=== PATIENT | female | born 1940 | race Caucasian/White ===

== ENCOUNTER 2020-02-09 09:40 | Inpatient (IN) | payer MEDICARE, BC ==
[~2020-02-09] VITALS: Ht 162.6 cm; Wt 91.6 kg
[~2020-02-09 09:40] MED LIST: AMBIEN10 MG PO; ASPIR 8181 MG PO; ASPIRIN325 M2 PO; ATENOLO PO; ATENOLOL25 MG PO; ATENOLOL50 MG PO; BACLOFEN10 MG PO; CALCIUM500 M3 PO; CLONIDINE HCL0.1 MG PO; ELMIRON PO; ELMIRON100 MG PO; HYDRALAZINE HCL25 MG PO; MAXZIDE 75 MG-1 EACH PO; METHOCARBAMOL750 MG PO; MORPHINE SULFAT15 MG PO; MOVE FREE PO; NEXIUM40 MG; NITROBID PO; NITROGLYCERIN9 MG PO; NORCO 10-325 T1 EACH PO; NORCO 10MG-325MG1 EA PO; NORCO 7.5-3251 EACH PO; PRAVASTATIN SOD20 MG PO; VITAMIN C PO; Z.0.AMBIEN CR12.5 MG PO; Z.0.AMLODIPINE BESY1 PO; Z.0.ATENOLOL50 MG PO; Z.0.ATIVAN1 MG PO; Z.0.ELMIRON100 MG PO; Z.0.FISH OIL500 M1 PO; Z.0.GLIPIZIDE10 MG PO; Z.0.GLUCOSAMINE1000; Z.0.NEXIUM40 MG PO; Z.0.ULTRAM50 MG PO; Z.0.VESICARE10 MG PO; Z.0.VITAMIN D3 1,01 PO; Z.0.VYTORIN 10-201 E PO; Z.0.ZOLOFT50 MG PO; ZOLOFT100 MG PO; move free PO
[2020-02-09] MEDS ORDERED: SODIUM CHLORIDE 0.9% 1000ML 1,000 ML IV STA ×3 (09:53→12:58)
[2020-02-09] MEDS ORDERED: ONDANSETRON HCL INJ 2MG/ML 2ML 2 MG/ML VIAL IV NR (10:00)
[2020-02-09] MEDS ORDERED: DIPHENOXYLATE/ATROPINE TAB PO NR (10:00)
[2020-02-09] MEDS ORDERED: SODIUM CHLORIDE FLUSH 10 ML SYR INJ PRN (10:00)
[2020-02-09] MEDS ORDERED: TRIMETHOPRIM/SULFAMETHOXAZOLE 160 MG in DEXTROSE 5% 250ML 250 ML IV ONE (10:00)
[2020-02-09] MEDS ORDERED: METRONIDAZOLE 500MG/NS 100ML 100 ML IV NR (10:15)
[2020-02-09 10:33] LABS: BASOPHILS # (AUTO) 0.1 (0.0-0.1); EOSINOPHILS # (AUTO) 0.1 (0.0-0.4); HEMATOCRIT 34.6 % (34.2-44.1); HEMOGLOBIN 11.2 g/dL (12.0-16.0); LYMPHOCYTES # (AUTO) 0.5 (1.0-3.2); MEAN CORPUSCULAR HEMOGLOBIN 28.9 pg (28-32); MEAN CORPUSCULAR HGB CONC 32.4 g/dL (31-35); MEAN CORPUSCULAR VOLUME 89.2 fL (81-99); MONOCYTES # (AUTO) 1.7 (0.2-0.8); NEUTROPHILS # (AUTO) 27.5 (2.1-6.9); PLATELET COUNT 284 x10e3/uL (140-360); RED BLOOD COUNT 3.88 x10e6/uL (3.6-5.1); RED CELL DISTRIBUTION WIDTH 14.2 % (11.7-14.4)
[2020-02-09 10:45] LABS: ALBUMIN 2.5 g/dL (3.5-5.0); ALBUMIN/GLOBULIN RATIO 0.7 (0.8-2.0); ANION GAP 19.3 mmol/L (8-16); CALCIUM 9.2 mg/dL (8.4-10.2); CREATININE, SERUM 2.34 mg/dL (0.57-1.11); POTASSIUM 4.3 mmol/L (3.5-5.1)
[2020-02-09] MEDS ORDERED: DIATRIZOATE MEGL/DIATRIZOA SOD 30 ML BTL PO ONE (11:09)
--- NOTE | 2020-02-09 11:45 | NUR ---
Unable to confirm home medication list at this time. Patient unable to verify current medications.
--- NOTE | 2020-02-09 12:00 | NUR ---
Incontinence care provided for stool for patient.
--- NOTE | 2020-02-09 13:07 | Diagnostic Imaging Report ---
EXAMINATION: CT of the abdomen and pelvis without contrast. TECHNIQUE: Spiral CT images of the abdomen and pelvis were performed from the lung bases to the lesser trochanters. No intravenous contrast was given due to decreased GFR. Dilute Gastrografin was given, however, patient was unable to drink full amount.. Coronal and sagittal reformatted images were obtained. COMPARISON: CT abdomen and pelvis 10/15/2019 CLINICAL HISTORY:Diarrhea, abdominal pain for 3 days, history of colitis DISCUSSION: ABSENCE OF INTRAVENOUS CONTRAST DECREASES SENSITIVITY FOR DETECTION OF FOCAL LESIONS AND VASCULAR PATHOLOGY. ABDOMEN/PELVIS: LOWER THORAX: Minimal atelectatic changes in bilateral lower lobes. Stable mild to moderate cardiomegaly and small pleural effusion. Atherosclerotic calcification of the coronary arteries and thoracic aorta. HEPATOBILIARY: No focal hepatic lesions. Mild prominence of the central intrahepatic bile ducts. Stable mild dilation of the common bile duct. No radiopaque intraluminal filling defects. GALLBLADDER: Absent. Cholecystectomy clips. SPLEEN: Stable borderline splenomegaly, which measures 12.4 cm in AP diameter. PANCREAS: No focal masses or ductal dilatation. ADRENALS: No adrenal nodules. KIDNEYS/URETERS: No hydronephrosis or stones. No contour abnormalities. Stable 1.8 cm fluid density simple cyst in the right superior pole (series 2, image 26). PELVIC ORGANS/BLADDER: Bladder is unremarkable. Uterus is absent. No adnexal masses. PERITONEUM/RETROPERITONEUM: Trace free simple fluid in the pelvic cul-de-sac. No free air. LYMPH NODES: No intra-abdominal,retroperitoneal, pelvic or inguinal lymphadenopathy. VESSELS: Marked atherosclerotic calcification of the abdominal aorta. No evidence of portal venous gas. GI TRACT: Moderate to marked wall thickening extending from the proximal to mid descending colon to the rectum, however, worse in the proximal and mid sigmoid colon (for example coronal image 29). There is associated mild surrounding fat stranding. No pneumatosis. Rest of the large bowel as well as the small bowel shows no wall thickening, dilation or obstruction. Stomach is grossly unremarkable. BONES AND SOFT TISSUES: Marked multilevel degenerated discs in the lumbosacral spine with associated rightward curvature, worse at L1-L2 and L2-L3. Grade 1 anterolisthesis of L3 on L2 and L4 on L3. Extensive bilateral gluteal region calcifications, likely secondary to injections IMPRESSION: 1. Findings highly suggestive of colitis, which may be ischemic in this patient with atherosclerotic disease given the location, versus infectious. Inflammatory colitis is less likely. No pneumatosis, portal venous gas or pneumoperitoneum. Of note, patient had abdominal CTA 10/15/2019 which showed no occlusion, however, this may be secondary to low flow state. Currently, very low GFR precludes a contrast-enhanced study. Signed by: Dr. Albaro Orellana M.D. on 02/09/2020 1:04 PM
--- NOTE | 2020-02-09 13:54 | NUR ---
Incontinence care provided for patient.
[2020-02-09] MEDS ORDERED: METHYLPREDNISOLONE SOD SUCC 125 MG/2ML VIAL IV NR (14:15)
[2020-02-09] MEDS ORDERED: SODIUM CHLORIDE 0.9% 1000ML 1,000 ML IV SCH (14:30)
[2020-02-09] MEDS ORDERED: MORPHINE SULFATE 2 MG/ML SYR 1ML IV PRN (14:30)
[2020-02-09] MEDS ORDERED: VANCOMYCIN 250MG/5ML ORAL SOLN PO SCH (15:00)
--- NOTE | 2020-02-09 15:20 | NUR ---
Report attempted was told that nurse would call back.
--- NOTE | 2020-02-09 15:58 | NUR ---
RCD PT FROM ER BY BED PT IS ALERT AND ORIENTED VITALS CHECKED PT RESTING ON BED IV PATENT BY SALINE FLUSH ADMISSION ASSESSMENT AND HISTORY DONE INSTRUCTED THE PT REGARDING VISITOR POLICY AND HOSPITAL ROUTINE BED LOW AND LOCKED CALL LIGHT IN REACH
[2020-02-09] MEDS: LACTATED RINGER'S 1,000 ML INJ SCH (16:00)
[2020-02-09] MEDS: INSULIN LISPRO 100 UNIT/1 ML 3ML VIAL SQ SCH ×2 (16:30→21:00)
[2020-02-09] MEDS: VANCOMYCIN 250MG/5ML ORAL SOLN PO SCH ×2 (17:00→23:07)
--- NOTE | 2020-02-09 17:24 | History and Physical ---
PRIMARY CARE DOCTOR: Clemente David DO CHIEF COMPLAINT: Diarrhea. HISTORY OF PRESENT ILLNESS: This is an 80-year-old woman, who was hospitalized here about 4 months ago with colitis. At that time, C. diff was negative. The patient was discharged to a longterm home and about a month ago, the patient went home. The patient was doing okay until about 4 days ago. The patient began to have diarrhea and also abdominal cramps. The patient also have some nausea and vomiting and also a little bit of shortness of breath and fever. Denies chest pain. The patient just had a fall about 2 days ago. She is mostly wheelchair bound, however, occasionally uses a walker to get around. She also has sacral decubitus ulcer. PAST MEDICAL AND SURGICAL HISTORY: 1. Diabetes. 2. Hypertension. 3. Chronic back pain. 4. Cholecystectomy. 5. Hysterectomy. 6. Spine surgery. 7. Paroxysmal atrial fibrillation. MEDICATIONS: Please see medication reconciliation form. ALLERGIES: PLEASE SEE THE LIST, WHICH INCLUDES MULTIPLE MEDICINES. SOCIAL HISTORY: Quit smoking 30 years ago. FAMILY HISTORY: Hypertension. REVIEW OF SYSTEMS: A 10-point review of system obtained and nothing else is significant other than what is stated in HPI. PHYSICAL EXAMINATION: VITAL SIGNS: Temperature 98.6, pulse 83, respiratory rate 18, blood pressure 121/56. GENERAL: No acute distress. SKIN: No rash. HEENT: Anicteric. Oropharynx is clear. LUNGS: Clear anteriorly. HEART: Regular rate and rhythm. Normal S1, S2. ABDOMEN: Soft, left greater than right. Tenderness to palpation with mild rebound tenderness. NEUROLOGIC: Alert and oriented x3. Cranial nerves 2 through 12 are grossly intact. MUSCULOSKELETAL: Painless range of motion of her joints. PSYCHIATRIC: No hallucination. LABORATORY DATA: Laboratory smith, white count 30.8, hemoglobin 11.2, platelet count 284. Sodium 134, bicarb 19, BUN 41, creatinine 2.34. Lipase is normal. Lactic acid is normal. C. diff came back positive. CT of the abdomen noted. ASSESSMENT AND PLAN: 1. Sepsis, present on admission due to peritonitis due to Clostridium difficile colitis with severe elevated leukocytosis. Plan, we will start her on p.o. vancomycin with severe Clostridium difficile colitis. The patient will need to be monitored serially with abdominal exam and continue to monitor WBC. 2. Acute kidney injury on top of chronic kidney disease, likely stage 3 with mild hyponatremia, which is asymptomatic. I will continue with lactated Ringer, IV fluid, and repeat creatinine in the morning. 3. Debility. We will start physical therapy evaluation. 4. Paroxysmal atrial fibrillation, not on anticoagulation candidate due to falls. 5. Diabetes. Sliding scale for now. 6. Sacral decubitus ulcer. We will consult Wound Care. 7. Possibly gastrointestinal/deep venous thrombosis prophylaxis. Heparin subcu. Yiching MD ROCHELLE Boyle/VIOLETTE /[id number] cc: Clemente David DO
[2020-02-09 17:32] VITALS: BP 149/82
[2020-02-09 17:36] VITALS: BP 149/82
[2020-02-09 17:47] VITALS: BP 149/82
--- NOTE | 2020-02-09 18:41 | NUR ---
PT RESTING ON BED BED SIDE REPORT GIVEN TO ONCOMING NURSE
--- NOTE | 2020-02-09 18:47 | NUR ---
PT RESTING ON BED BED SIDE REPORT GIVEN TO ONCOMING NURSE
--- NOTE | 2020-02-09 19:30 | NUR ---
received report from day nurse. patient is resting comfortably in the bed. bed is in the lowest position and call light is within reach. will continue to monitor patient.
[2020-02-09 20:00] VITALS: BP 151/54
[2020-02-09] MEDS: HEPARIN SOD (PORCINE) 5,000 UNIT/ML VIAL SC SCH (21:00)
[2020-02-09 21:32] VITALS: BP 151/54
--- NOTE | 2020-02-09 21:54 | NUR ---
Patient states she take Ativan 1mg at home to help her sleep. Patient is requesting for medication to be restarted. MD notified. MD agreed to restart this medication.
[2020-02-09] MEDS ORDERED: METHYLPREDNISOLONE SOD SUCC 125 MG/2ML VIAL IV SCH (22:00)
[2020-02-09] MEDS: LORAZEPAM 1 MG TAB PO SCH (22:23)
[2020-02-10] VITALS (8 sets, daily range): BP systolic 133–154; BP diastolic 48–62
[2020-02-10 00:07] LABS: BASOPHILS # (AUTO) 0.1 (0.0-0.1); BASOPHILS % 0.3 % (0.0-1.0); HEMATOCRIT 34.7 % (34.2-44.1); HEMOGLOBIN 11.5 g/dL (12.0-16.0); LYMPHOCYTES # (AUTO) 0.6 (1.0-3.2); LYMPHOCYTES % 2.1 % (18.0-39.1); MEAN CORPUSCULAR HEMOGLOBIN 29.3 pg (28-32); MEAN CORPUSCULAR HGB CONC 33.1 g/dL (31-35); MEAN CORPUSCULAR VOLUME 88.3 fL (81-99); MONOCYTES # (AUTO) 1.3 (0.2-0.8); MONOCYTES % 4.5 % (4.4-11.3); NEUTROPHILS # (AUTO) 26.2 (2.1-6.9); NEUTROPHILS % 91.5 % (38.7-80.0); PLATELET COUNT 271 x10e3/uL (140-360); RED BLOOD COUNT 3.93 x10e6/uL (3.6-5.1); RED CELL DISTRIBUTION WIDTH 14.3 % (11.7-14.4)
[2020-02-10] MEDS: LACTATED RINGER'S 1,000 ML INJ SCH ×3 (05:37→21:00)
[2020-02-10] MEDS: VANCOMYCIN 250MG/5ML ORAL SOLN PO SCH ×3 (05:37→17:49)
[2020-02-10] MEDS: METRONIDAZOLE 500MG/NS 100ML 100 ML IV SCH ×5 (05:37→20:44)
[2020-02-10 06:18] LABS: BASOPHILS # (AUTO) 0.1 (0.0-0.1); BASOPHILS % 0.3 % (0.0-1.0); EOSINOPHILS # (AUTO) 0.1 (0.0-0.4); EOSINOPHILS % 0.3 % (0.0-6.0); HEMOGLOBIN 10.9 g/dL (12.0-16.0); LYMPHOCYTES # (AUTO) 0.6 (1.0-3.2); LYMPHOCYTES % 1.9 % (18.0-39.1); MEAN CORPUSCULAR HEMOGLOBIN 28.6 pg (28-32); MEAN CORPUSCULAR HGB CONC 32.1 g/dL (31-35); MEAN CORPUSCULAR VOLUME 89.2 fL (81-99); MONOCYTES # (AUTO) 1.3 (0.2-0.8); MONOCYTES % 4.6 % (4.4-11.3); NEUTROPHILS # (AUTO) 25.8 (2.1-6.9); NEUTROPHILS % 91.2 % (38.7-80.0); PLATELET COUNT 236 x10e3/uL (140-360); RED BLOOD COUNT 3.81 x10e6/uL (3.6-5.1); RED CELL DISTRIBUTION WIDTH 14.4 % (11.7-14.4)
[2020-02-10 06:42] LABS: ALBUMIN 2.1 g/dL (3.5-5.0); ALBUMIN/GLOBULIN RATIO 0.7 (0.8-2.0); ANION GAP 16.7 mmol/L (8-16); CALCIUM 8.5 mg/dL (8.4-10.2); CREATININE, SERUM 2.1 mg/dL (0.57-1.11); POTASSIUM 3.7 mmol/L (3.5-5.1)
--- NOTE | 2020-02-10 06:42 | NUR ---
PATIENT IS RESTING COMFORTABLY IN THE BED. NO DISTRESS NOTED. CALL HEIN IS WITHIN REACH.
--- NOTE | 2020-02-10 07:00 | NUR ---
Received bedside shift report from off going nurse. Patient in stable condition, no s/s of distress noted. No pain voiced. IV fluids running, IV site asymptomatic, and patent with dressing C/D/I. Telemetry applied and working. Bed in lowest position and locked. Call light within reach. All personal belongings within reach.
[2020-02-10] MEDS: INSULIN LISPRO 100 UNIT/1 ML 3ML VIAL SQ SCH ×4 (07:30→20:24)
[2020-02-10] MEDS: HEPARIN SOD (PORCINE) 5,000 UNIT/ML VIAL SC SCH ×2 (09:00→20:42)
[2020-02-10 09:24] LABS: LYMPHOCYTES % (MANUAL) 4 % (19-48); MONOCYTES % (MANUAL) 3 % (3.4-9.0); NEUTROPHILS % (MANUAL) 93 % (40-74)
[2020-02-10] MEDS ORDERED: ULTRAM 50MG50 MG PO (17:00)
[2020-02-10] MEDS ORDERED: BACLOFEN 10 MG TAB PO PRN (17:15)
--- NOTE | 2020-02-10 19:07 | NUR ---
Completed bedside shift report and rounding with oncoming nurse. Patient in stable condition, no s/s of distress noted. No pain voiced. IV fluids running, IV site asymptomatic, and patent with dressing C/D/I. Telemetry applied and working. Bed in lowest position and locked. Call light within reach. All personal belongings within reach.
[2020-02-10] MEDS: LORAZEPAM 1 MG TAB PO SCH (20:41)
[2020-02-11] VITALS (9 sets, daily range): BP systolic 120–154; BP diastolic 43–68
[2020-02-11 05:46] LABS: BASOPHILS # (AUTO) 0.1 (0.0-0.1); BASOPHILS % 0.5 % (0.0-1.0); EOSINOPHILS # (AUTO) 0.1 (0.0-0.4); EOSINOPHILS % 0.6 % (0.0-6.0); HEMATOCRIT 36.6 % (34.2-44.1); HEMOGLOBIN 11.7 g/dL (12.0-16.0); LYMPHOCYTES # (AUTO) 0.8 (1.0-3.2); LYMPHOCYTES % 4.1 % (18.0-39.1); MEAN CORPUSCULAR HEMOGLOBIN 29.1 pg (28-32); NEUTROPHILS # (AUTO) 17.2 (2.1-6.9); PLATELET COUNT 248 x10e3/uL (140-360); RED BLOOD COUNT 4.02 x10e6/uL (3.6-5.1); RED CELL DISTRIBUTION WIDTH 14.4 % (11.7-14.4)
[2020-02-11 06:11] LABS: ANION GAP 13.4 mmol/L (8-16); CALCIUM 7.8 mg/dL (8.4-10.2); CREATININE, SERUM 2.04 mg/dL (0.57-1.11); POTASSIUM 3.4 mmol/L (3.5-5.1)
[2020-02-11] MEDS: VANCOMYCIN 250MG/5ML ORAL SOLN PO SCH ×5 (06:15→23:36)
[2020-02-11] MEDS: METRONIDAZOLE 500MG/NS 100ML 100 ML IV SCH ×3 (06:15→21:07)
--- NOTE | 2020-02-11 07:00 | NUR ---
BEDSIDE SHIFT REPORT RECEIVED FROM CRYSTALLIZER OPERATOR RN [facility]. PT DENIES NEEDS AT THIS TIME/.
--- NOTE | 2020-02-11 07:15 | NUR ---
patient is resting comfortably in the bed. bed is in lowest position and call light is within reach.
[2020-02-11] MEDS: LACTATED RINGER'S 1,000 ML INJ SCH ×3 (08:34→23:36)
[2020-02-11] MEDS: SERTRALINE HCL 100 MG TAB PO SCH (08:38)
[2020-02-11] MEDS: HEPARIN SOD (PORCINE) 5,000 UNIT/ML VIAL SC SCH ×2 (08:39→21:20)
[2020-02-11] MEDS: INSULIN LISPRO 100 UNIT/1 ML 3ML VIAL SQ SCH ×4 (08:40→21:20)
[2020-02-11] MEDS ORDERED: POTASSIUM CHLORIDE 20 MEQ TAB CR PO ONE (10:15)
[2020-02-11] MEDS: ONDANSETRON HCL INJ 2MG/ML 2ML 2 MG/ML VIAL IV PRN (12:06)
[2020-02-11] MEDS ORDERED: ASPIRIN 81 MG CHEW TAB ONE (12:10)
[2020-02-11] MEDS: ASPIRIN 325 MG TAB PO SCH (12:30)
--- NOTE | 2020-02-11 13:36 | NUR ---
WOUND CARE CONSULT FOR RED SACRAL AREA NOTED BLANCHABLE NURSING TO MAINTAIN CONSERVATIVE PUP STATUS AND INTERVENTIONS AND CUE PATIENT TO TURN AND OFFLOAD TO PREVENT FURTHER INSULT RELATED TO PRESSURE PATIENT TO USE ALLEVYN FOAM DRESSING TO PREVENT FURTHER INJURY RELATED TO FRICTION Addendum: 02/11/20 at 1339 by Yunior Brenner RN Amended: Links added.
--- NOTE | 2020-02-11 15:13 | NUR ---
SPOKE WITH PATIENT ABOUT SNF ORDER, GAVE CHOICES IN NETWORK. WAS ABLE TO GET CHOICE FOR [facility], WILL COMPLETE [facility] AND [facility] TO [facility] WITH PACKET AND FAX CLINICALS TO FACILITY.
[2020-02-11] MEDS: LORAZEPAM 1 MG TAB PO SCH (21:07)
[2020-02-12] VITALS (8 sets, daily range): BP systolic 134–155; BP diastolic 47–67
[2020-02-12 05:55] LABS: BASOPHILS # (AUTO) 0.1 (0.0-0.1); BASOPHILS % 0.8 % (0.0-1.0); EOSINOPHILS # (AUTO) 0.2 (0.0-0.4); EOSINOPHILS % 1.6 % (0.0-6.0); HEMATOCRIT 35.4 % (34.2-44.1); HEMOGLOBIN 11.5 g/dL (12.0-16.0); LYMPHOCYTES % 8.3 % (18.0-39.1); MEAN CORPUSCULAR HGB CONC 32.5 g/dL (31-35); MEAN CORPUSCULAR VOLUME 89.2 fL (81-99); MONOCYTES # (AUTO) 0.7 (0.2-0.8); MONOCYTES % 5.8 % (4.4-11.3); NEUTROPHILS % 77.4 % (38.7-80.0); PLATELET COUNT 246 x10e3/uL (140-360); RED BLOOD COUNT 3.97 x10e6/uL (3.6-5.1); RED CELL DISTRIBUTION WIDTH 14.6 % (11.7-14.4)
[2020-02-12 06:12] LABS: ANION GAP 12.6 mmol/L (8-16); CALCIUM 7.2 mg/dL (8.4-10.2); CREATININE, SERUM 2.15 mg/dL (0.57-1.11); MAGNESIUM 1.7 MG/DL (1.3-2.1); POTASSIUM 3.6 mmol/L (3.5-5.1)
[2020-02-12] MEDS: METRONIDAZOLE 500MG/NS 100ML 100 ML IV SCH ×3 (06:20→21:56)
[2020-02-12] MEDS: VANCOMYCIN 250MG/5ML ORAL SOLN PO SCH ×3 (06:20→16:45)
[2020-02-12] MEDS: SERTRALINE HCL 100 MG TAB PO SCH (10:22)
[2020-02-12] MEDS: ASPIRIN 325 MG TAB PO SCH (10:29)
[2020-02-12] MEDS: LACTATED RINGER'S 1,000 ML INJ SCH ×2 (10:29→21:56)
[2020-02-12] MEDS: HYDRALAZINE HCL 25 MG TAB PO SCH ×2 (10:29→16:45)
[2020-02-12] MEDS: INSULIN LISPRO 100 UNIT/1 ML 3ML VIAL SQ SCH ×4 (10:30→20:57)
[2020-02-12] MEDS: HEPARIN SOD (PORCINE) 5,000 UNIT/ML VIAL SC SCH ×2 (10:30→21:45)
--- NOTE | 2020-02-12 12:24 | NUR ---
SPOKE WITH [facility], AFTER RUNNING HER BENEFITS SHE HAS NO DAYS AVAILABLE FOR SNF.
--- NOTE | 2020-02-12 19:26 | NUR ---
report given to oncoming nurse, walking rounds complete, pt stable at shift change.
[2020-02-12] MEDS: LORAZEPAM 1 MG TAB PO SCH (21:56)
[2020-02-13] VITALS (8 sets, daily range): BP systolic 133–144; BP diastolic 37–70
[2020-02-13] MEDS: VANCOMYCIN 250MG/5ML ORAL SOLN PO SCH ×4 (00:01→17:34)
[2020-02-13] MEDS: METRONIDAZOLE 500MG/NS 100ML 100 ML IV SCH ×3 (05:30→22:00)
--- NOTE | 2020-02-13 07:30 | NUR ---
PT IN BED SLEEPINNG ,NO S/S DISCOMFORT.
[2020-02-13] MEDS: INSULIN LISPRO 100 UNIT/1 ML 3ML VIAL SQ SCH ×4 (08:30→20:50)
[2020-02-13] MEDS: ASPIRIN 325 MG TAB PO SCH (09:00)
[2020-02-13] MEDS: HYDRALAZINE HCL 25 MG TAB PO SCH ×2 (09:00→17:00)
[2020-02-13] MEDS: HEPARIN SOD (PORCINE) 5,000 UNIT/ML VIAL SC SCH ×2 (09:00→20:56)
[2020-02-13] MEDS: SERTRALINE HCL 100 MG TAB PO SCH (09:00)
--- NOTE | 2020-02-13 09:31 | NUR ---
LET PT KNOW SHE IS OUT OF SNF DAYS, SHE STATES SHE HAD HOME HEALTH SET UP AND THEY HAD ONLY BEEN COMING FOR A WEEK. CALLED SON CORRIE TO SEE IF HE KNEW NAME, LEFT MESSAGE TO RETURN CALL.
[2020-02-13] MEDS: ONDANSETRON HCL INJ 2MG/ML 2ML 2 MG/ML VIAL IV PRN (09:39)
--- NOTE | 2020-02-13 09:59 | NUR ---
RECEIVED CALL FROM CORRIE STATING HE WAS NOT HAPPY WITH THE HOME HEALTH, THINKS THEY SHOULD HAVE COME OUT MORE THAN A COUPLE OF HOURS A WEEKS. STATES HE IS ABOUT TO RETURN TO WORK AND CANNOT TAKE CARE OF HER. STATES HE WILL DISCUSS WITH HIS BROTHER AND LET OTHER CM OR MYSELF KNOW. FOUND OUT FROM [facility] THAT PT HAD BEEN SET UP WITH [facility] UPON DISCHARGE FROM THEM.
--- NOTE | 2020-02-13 16:21 | NUR ---
Received order for inpatient rehab eval. Spoke to pt at bedside regarding DC plan. States MD mentioned inpatient rehab to her. Gave choice for [facility] in [place]. Signed choice letter placed in front of chart. Copy to pt. Referral faxed to [facility] at [phone] Rosalinda with [facility] was informed of referral.
--- NOTE | 2020-02-13 17:35 | NUR ---
PT UP IN BED DENIES PAIN,AGREES TO GO TO INPATIENT REHAB,NO DISTRESS NOTED
[2020-02-13] MEDS: TRAMADOL HCL 50 MG TAB PO PRN (20:55)
[2020-02-13] MEDS: LORAZEPAM 1 MG TAB PO SCH (20:55)
[2020-02-14] MEDS: VANCOMYCIN 250MG/5ML ORAL SOLN PO SCH ×3 (00:30→11:50)
[2020-02-14 01:21] VITALS: BP 156/60
[2020-02-14] MEDS: METRONIDAZOLE 500MG/NS 100ML 100 ML IV SCH (05:44)
[2020-02-14 05:52] LABS: BASOPHILS # (AUTO) 0.1 (0.0-0.1); BASOPHILS % 0.6 % (0.0-1.0); EOSINOPHILS # (AUTO) 0.2 (0.0-0.4); EOSINOPHILS % 1.6 % (0.0-6.0); HEMATOCRIT 32.8 % (34.2-44.1); HEMOGLOBIN 10.6 g/dL (12.0-16.0); LYMPHOCYTES # (AUTO) 1.2 (1.0-3.2); MEAN CORPUSCULAR HEMOGLOBIN 28.2 pg (28-32); MEAN CORPUSCULAR HGB CONC 32.3 g/dL (31-35); MEAN CORPUSCULAR VOLUME 87.2 fL (81-99); MONOCYTES # (AUTO) 0.6 (0.2-0.8); MONOCYTES % 6.2 % (4.4-11.3); NEUTROPHILS # (AUTO) 6.5 (2.1-6.9); NEUTROPHILS % 66.6 % (38.7-80.0); PLATELET COUNT 288 x10e3/uL (140-360); RED BLOOD COUNT 3.76 x10e6/uL (3.6-5.1); RED CELL DISTRIBUTION WIDTH 14.6 % (11.7-14.4)
[2020-02-14 07:18] VITALS: BP 161/67
[2020-02-14 08:04] VITALS: BP 173/49
[2020-02-14 08:20] VITALS: BP 173/49
[2020-02-14] MEDS: HYDRALAZINE HCL 25 MG TAB PO SCH (09:08)
[2020-02-14] MEDS: SERTRALINE HCL 100 MG TAB PO SCH (09:08)
[2020-02-14] MEDS: ASPIRIN 325 MG TAB PO SCH (09:08)
[2020-02-14] MEDS: HEPARIN SOD (PORCINE) 5,000 UNIT/ML VIAL SC SCH (09:20)
[2020-02-14] MEDS: INSULIN LISPRO 100 UNIT/1 ML 3ML VIAL SQ SCH ×2 (09:20→12:32)
[2020-02-14] MEDS: TRAMADOL HCL 50 MG TAB PO PRN (09:40)
[2020-02-14] MEDS ORDERED: AMLODIPINE BESYLATE 10 MG TAB PO SCH (10:00)
[2020-02-14] MEDS ORDERED: ATENOLOL 50 MG TAB PO SCH (10:00)
[2020-02-14 10:06] LABS: ANISOCYTOSIS SLIGHT; EOSINOPHILS % (MANUAL) 2 % (0-7); LYMPHOCYTES % (MANUAL) 15 % (19-48); MONOCYTES % (MANUAL) 4 % (3.4-9.0); MYELOCYTES % (MANUAL) 5 % (0-0); NEUTROPHILS % (MANUAL) 74 % (40-74); PLATELET ESTIMATE ADEQUATE; PLATELET MORPHOLOGY COMMENT RARE EDTA CLUMPING; RBC MORPHOLOGY COMMENT NORMAL
[2020-02-14 11:34] VITALS: BP 129/61
--- NOTE | 2020-02-14 11:38 | NUR ---
INPATIENT REHAB DISCHARGE INFORMATION PATIENT HAS BEEN ACCEPTED TO: [address] [place] [address] ACCEPTING MANAGER CODING: Sangeetha Cox ACCEPTING MD: Dr. Omar Melvin ROOM: will be assigned on report NURSE CALL REPORT TO: [phone] THE FOLLOWING DOCUMENTS MUST ACCOMPANY PATIENT FOR TRANSFER: copy of chart, transfer MAR MOT INFO RECEIVED FROM: Rosalinda with [facility] ORDER/RECONCILED MED LIST: to be obtained by bedside RN [id number] DNR: n/a MOT was completed and placed with pt's packet at nurses station PAULETTE Oden and Katie supervisor varnish were notified of MOT.
[2020-02-14] MEDS ORDERED: VANCOMYCIN 250MG/5ML ORAL SOLN PO SCH (12:00)
--- NOTE | 2020-02-14 12:50 | NUR ---
Report called to [facility] and given to Betsey CALDWELL of patient's status
--- NOTE | 2020-02-14 14:28 | NUR ---
Left upper arm IV discontinued. No signs of infiltration noted. Placed 2x2 gauze and tape. Patient take via stretcher by EMS. AAOX3 to person, place, situation. Respirations even and unlabored. Respirations even and unlabored. Transfer package given to EMS. All personal belongings taken with patient.
[2020-02-14] MEDS ORDERED: HYDRALAZINE HCL 25 MG TAB PO SCH (15:00)
--- NOTE | 2020-02-15 09:47 | Discharge Summary ---
PRIMARY CARE DOCTOR: Clemente David DO FINAL DIAGNOSIS: Severe Clostridium difficile colitis. SECONDARY DIAGNOSES: 1. Stage 3 chronic kidney disease due to diabetes, stable. 2. Debility. 3. Paroxysmal atrial fibrillation. 4. Hypertension. 5. Obesity. CONSULTANTS: Dr. Mckeon, GI. PROCEDURES/STUDIES PERFORMED: Abdominal CT. HISTORY: Per H and P. HOSPITAL COURSE: The patient was put on high dose of p.o. vancomycin and IV Flagyl. Slowly, the patient improved. Her white blood cell count went from 30 down to 9. Her diarrhea is getting better as well. Initially, the patient was getting IV fluid due to severe diarrhea. Her abdominal pain is better as well. As far as her paroxysmal atrial fibrillation, the patient is not an anticoagulation candidate due to falls. Therefore, we will continue her full-dose aspirin daily for stroke prophylaxis. The patient received heparin subcu for chemical DVT prophylaxis. I have updated her primary care doctor about this hospitalization. The patient was seen and examined today. It took 32 minutes total to discharge this patient. CONDITION ON DISCHARGE: Improved. DISCHARGE MEDICATIONS: Please see medication reconciliation form. Of note, the patient will be discharged to [facility] Inpatient Rehab today. MD ROCHELLE Tobin/VIOLETTE /[id number] cc: Clemente David DO
== END 2020-02-14 14:30 | DRG 872 ==
LOC: ER 09:40 → ERHOLD 14:23 → MED/SURG2 16:26
PROVIDERS: ADMIT Internal Medicine; ATTEND Internal Medicine
DX: A41.9 Sepsis, unspecified organism (principal); A04.72 Enterocolitis due to Clostridium difficile, not specified as recurrent; N17.9 Acute kidney failure, unspecified; N18.3 Chronic kidney disease, stage 3 (moderate); I48.0 Paroxysmal atrial fibrillation; I12.9 Hypertensive chronic kidney disease with stage 1 through stage 4 chronic kidney disease, or unspecified chronic kidney disease; E66.9 Obesity, unspecified; Z68.34 Body mass index [BMI] 34.0-34.9, adult; L89.159 Pressure ulcer of sacral region, unspecified stage; Z87.891 Personal history of nicotine dependence
CPT/HCPCS: 36415; 74176; 80048; 80053; 82948; 83605; 83690; 83735; 84145; 85007; 85025; 85027; 87040; 87045; 87493; 97139; 99251; 99285; J1644; J2405; J7030; J7121

== ENCOUNTER 2020-03-20 19:25 | Inpatient (IN) | payer MEDICARE, BC ==
[~2020-03-20] VITALS: Ht 170.2 cm; Wt 89.8 kg
[~2020-03-20 19:25] MED LIST changes: +ULTRAM 50MG50 MG PO
--- OUTSIDE RECORDS SUMMARY | 2020-03-20 19:31 | XMS REPORT | Summary of Care ---
Author Author [facility] Organization [facility] Address Unknown Phone Unavailable Encounter HQ Encntr_alias(FIN) [id number] Date(s): 01/26/17 - 01/26/17 [facility] [place] [address] [place] [address] [phone] Discharge Disposition: Home or Self Care Attending Physician: Pawel Aragon MD Vital Signs No data available for this section Problem List No data available for this section Allergies, Adverse Reactions, Alerts No data available for this section Medications No data available for this section Results No data available for this section Immunizations No data available for this section Procedures No data available for this section Social History No data available for this section Assessment and Plan No data available for this section
--- OUTSIDE RECORDS SUMMARY | 2020-03-20 19:31 | XMS REPORT ---
Author Leyda Laureano Organization [employer] Address Unknown Phone Unavailable Care Team Providers Care Cleaning Porter Name Role Phone Omar Mendenhall CP Unavailable Allergies No Known Allergies Problems Problem Type Condition Code Onset Dates Condition Statu s Assessment Radiculopathy of lumbar region M54.16 Active Assessment Other intervertebral disc displacement, lumbar region M51.26 Active Assessment Low back pain M54.5 Active Problem Greater trochanteric bursitis of left hip M70.62 Active Problem Chronic pain syndrome G89.4 Active Problem Low back pain M54.5 Active Problem Age-related cognitive decline R41.81 Active Problem 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 Problem Encounter for long-term (current) use of other medicat ions Z79.899 Active Problem Lumbar post-laminectomy syndrome M96.1 Active Problem Dizziness and giddiness R42 Acti ve Problem Pain R52 Active Problem Lumbar neuritis M54.16 Active Problem Drug induced constipation K59.03 Ac tive Problem Osteoarthritis of knees, bilateral M17.0 Active Problem 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 Active Problem Left hip pain M25.552 Active Problem Degenerative arthritis of knee, bilateral M17.0 Active Problem 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 Active Problem History of falling Z91.81 Active Problem Adverse effect of other opioids, initial encounter T40 .2X5A Active Problem Other fatigue R53.83 Active Problem Primary insomnia F51.01 Active Problem Restless legs syndrome G25.81 Activ e Problem Osteoarthritis of knee, unspecified M17.9 Active Problem Other hyperlipidemia E78.4 Active Problem Hypertensive heart disease without heart failure I11.9 Active Problem Restlessness and agitation R45.1 A ctive Problem Tinnitus, bilateral H93.13 Active Problem Hypertensive heart disease with heart failure I11.0 Active Medications Medication Code System Code Instructions Start Date End Date Status Dosage GlipiZIDE [facility] 41426312210 10 MG Orally Once a day Ac tive 1 tablet Zoloft ND 11208680505 50 MG Orally Once a day Acti ve 1 tablet Vitamin C [facility] [address]-88 1000 MG Orally Active as directed Pravastatin Sodium ND 75455468635 20 MG Orally Once a day Active 1 tablet Amlodipine Besylate ND 40859339537 10 MG Orally Once a day Active 1 tablet Baclofen ND 26470151514 10 MG Orally Three times a d ay prn muscle spasms Sep 26, 2018 Oct 26, 2018 Active 1/2 tablet with food or milk TraMADol HCl ER ND 86478805021 100 MG Orally Once a day Sep 26 Active 1 tablet Elmiron [facility] 78699674540 100 MG Orally Three times a day Active 1 capsule on an empty stomach VESIcare [facility] 70514935941 10 MG Orally Once a day Act michelle 1 tablet Calcium [facility] 24497672803 500 MG Orally Twice a day Ac tive 1 tablet with meals Ambien [facility] 80133254553 10 MG Orally Once a day Acti ve 1 tablet at bedtime as needed Metronidazole [facility] 37490264147 250 MG Orally every 8 hrs Active 2 tablets Atenolol [facility] 74665151507 50 MG Orally Once a day Act michelle 1 tablet Tramadol HCl [facility] 71487479695 50 MG Orally every 8 hrs prn pain D 2017 Active 1 tablet as needed Nitro-Bid [facility] [address]-09 Active not defi yuni Aspirin [facility] 79706895562 325 MG Orally Once a day Act michelle 1 tablet Results No Known Results Summary Purpose [employer] Submission
--- OUTSIDE RECORDS SUMMARY | 2020-03-20 19:31 | XMS REPORT ---
Author Leyda Laureano Organization [employer] Address Unknown Phone Unavailable Care Team Providers Care Regrinder Operator Name Role Phone Omar Mendenhall CP Unavailable Allergies, Adverse Reactions, Alerts Substance Reaction Event Type Ibuprofen hives Drug Allergy Stadol itcing Drug Allergy Lyrica dizziness Drug Allergy Fiorinal hives Drug Allergy NSAIDS effects kidneys Drug Allergy penicillin itching Drug Allergy Problems Problem Type Condition Code Onset Dates Condition Statu s Assessment Degenerative arthritis of knee, bilateral M17.0 Active Assessment Encounter for long-term (current) use of other medicat ions Z79.899 Active Assessment Greater trochanteric bursitis of left hip M70.62 Active Assessment Low back pain M54.5 Active Assessment Lumbar post-laminectomy syndrome M96.1 Active Assessment Chronic pain syndrome G89.4 Active Assessment Weakness R53.1 Active Problem Greater trochanteric bursitis of left hip M70.62 Active Problem Chronic pain syndrome G89.4 Active Problem Low back pain M54.5 Active Problem Age-related cognitive decline R41.81 Active Problem Restlessness and agitation R45.1 A ctive Problem Degenerative arthritis of knee, bilateral M17.0 Active Problem Lumbar post-laminectomy syndrome M96.1 Active Problem Pain R52 Active Problem Other fatigue R53.83 Active Problem Left hip pain M25.552 Active Problem Drug induced constipation K59.03 Ac tive Problem Osteoarthritis of knees, bilateral M17.0 Active Problem 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 Active Assessment Controlled type 2 diabetes m ellitus with diabetic autonomic neuropathy, without long-term current use of insulin E11.43 Active Problem Lumbar neuritis M54.16 Active Problem Encounter for long-term (current) use of other medicat ions Z79.899 Active Assessment Adverse effect of other opioids, initial encounter T40 .2X5A Active Problem Dizziness and giddiness R42 Acti ve Assessment Left hip pain M25.552 Active Problem 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 Active Assessment Lumbar neuritis M54.16 Active Problem Adverse effect of other opioids, initial encounter T40 .2X5A Active Assessment Pain in left leg M79.605 Active Problem History of falling Z91.81 Active Assessment Drug induced constipation K59.03 Ac tive Problem Hypertensive heart disease with heart failure I11.0 Active Assessment 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 Active Problem Tinnitus, bilateral H93.13 Active Assessment History of falling Z91.81 Active Problem Osteoarthritis of knee, unspecified M17.9 Active Assessment Osteoarthritis of knees, bilateral M17.0 Active Problem Hypertensive heart disease without heart failure I11.9 Active Assessment Age-related cognitive decline R41.81 Active Problem Other hyperlipidemia E78.4 Active Assessment 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 Problem Restless legs syndrome G25.81 Activ e Problem Primary insomnia F51.01 Active Medications Medication Code System Code Instructions Start Date End Date Status Dosage TraMADol HCl ER [facility] 57080927572 100 MG Orally Once a day Oct 102018Nov 23, 2018 Active 1 tablet Zoloft [facility] 58152248084 50 MG Orally Once a day Acti ve 1 tablet Elmiron [facility] 43139393962 100 MG Orally Three times a day Active 1 capsule on an empty stomach Aspirin ND 98525601410 325 MG Orally Once a day Act michelle 1 tablet Metronidazole ND 94953894932 250 MG Orally every 8 hrs Active 2 tablets Nitro-Bid [facility] [address]-42 Active not defi yuni Pravastatin Sodium [facility] 00034647674 20 MG Orally Once a day Active 1 tablet Amlodipine Besylate ND 69183339608 10 MG Orally Once a day Active 1 tablet GlipiZIDE ND 13298237047 10 MG Orally Once a day Ac tive 1 tablet Atenolol [facility] 88047042739 50 MG Orally Once a day Act michelle 1 tablet Calcium [facility] 26112365393 500 MG Orally Twice a day Ac tive 1 tablet with meals Vitamin C [facility] [address]-29 1000 MG Orally Active as directed VESIcare [facility] 73703566002 10 MG Orally Once a day Act michelle 1 tablet Lyrica [facility] 16053994745 75 MG Orally nightly for 3 days, then twice a day Active 1 capsule Ambien [facility] 60157419156 10 MG Orally Once a day Acti ve 1 tablet at bedtime as needed Baclofen ND 94379902405 10 MG Orally Thr ee times a day prn muscle spasms, caution sedation, do not drive on this med Oct 26, 2018 Nov 25, 2018 Activ e 1/2 tablet with food or milk Tramadol HCl ND 19114429204 50 MG Orally every 8 hrs prn pain Oct 26, 2018 Nov 23, 2018 Active 1 tablet as needed Vital Signs Date/Time: Oct 26, 2018 Blood Pressure Systolic 126 mm Hg Weight 205 lbs Height 68 in BMI 31.17 Index Respiratory Rate 16 /min Cardiac Monitoring Heart Rate 54 /min Blood Pressure Diastolic 59 mm Hg Results No Known Results Summary Purpose [employer] Submission
--- OUTSIDE RECORDS SUMMARY | 2020-03-20 19:31 | XMS REPORT ---
Author Leyda Laureano Organization [employer] Address Unknown Phone Unavailable Care Team Providers Care Electric Container Tester Name Role Phone Omar Mendenhall CP Unavailable Allergies No Known Allergies Problems Problem Type Condition Code Onset Dates Condition Statu s Problem Greater trochanteric bursitis of left hip M70.62 Active Problem Encounter for long-term (current) use of other medicat ions Z79.899 Active Problem Chronic pain syndrome G89.4 Active Problem Other hyperlipidemia E78.4 Active Problem Restlessness and agitation R45.1 A ctive Problem Low back pain M54.5 Active Problem Pain R52 Active Problem Other fatigue R53.83 Active Problem 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 Active Problem Lumbar neuritis M54.16 Active Problem Drug induced constipation K59.03 Ac tive Problem Osteoarthritis of knees, bilateral M17.0 Active Problem 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 Active Problem Left hip pain M25.552 Active Problem Degenerative arthritis of knee, bilateral M17.0 Active Problem Lumbar post-laminectomy syndrome M96.1 Active Problem Dizziness and giddiness R42 Acti ve Problem Adverse effect of other opioids, initial encounter T40 .2X5A Active Problem History of falling Z91.81 Active Problem Age-related cognitive decline R41.81 Active Problem Hypertensive heart disease without heart failure I11.9 Active Problem Osteoarthritis of knee, unspecified M17.9 Active Problem 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
--- OUTSIDE RECORDS SUMMARY | 2020-03-20 19:31 | XMS REPORT ---
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0 Active Medications Medication Code System Code Instructions Start Date End Date Status Dosage Pravastatin Sodium [facility] 92979194154 20 MG Orally Once a day Active 1 tablet Vitamin C [facility] [address]-08 1000 MG Orally Active as directed Tramadol HCl ND 52870625295 50 MG Orally dailt prn breakthru pain February 13, 2019 March 13, 2019 Active 1 tablet as needed Baclofen ND 80329228507 10 MG Orally Thr ee times a day prn muscle spasms, caution sedation, do not drive on this med February 13, 2019 March 15, 2019 Activ e 1/2 tablet with food or milk Elmiron ND 73058963174 100 MG Orally Three times a day Active 1 [place] [address]-74 Active not defi yuni Atenolol [facility] 55347833480 50 MG Orally Once a day Act michelle 1 tablet Calcium [facility] 38829241328 500 MG Orally Twice a day Ac tive 1 tablet with meals Aspirin [facility] 74871586302 325 MG Orally Once a day Act michelle 1 tablet TraMADol HCl ER [facility] 42502778640 200 MG Orally Once a day FebruaryMarch 13, 2019 Active 1 tablet Metronidazole [facility] 28973603645 250 MG Orally every 8 hrs Active 2 tablets Ambien [facility] 36689532990 10 MG Orally Once a day Acti ve 1 tablet at bedtime as needed Zoloft [facility] 70476309555 50 MG Orally Once a day Acti ve 1 tablet GlipiZIDE [facility] 73971412866 10 MG Orally Once a day Ac tive 1 tablet Amlodipine Besylate [facility] 11193696658 10 MG Orally Once a day Active 1 tablet VESIcare [facility] 00176240046 10 MG Orally Once a day Act michelle 1 tablet Results No Known Results Summary Purpose [employer] Submission
--- OUTSIDE RECORDS SUMMARY | 2020-03-20 19:31 | XMS REPORT ---
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 Active Problem Other fatigue R53.83 Active Problem Lumbar neuritis M54.16 Active Assessment Radiculopathy of lumbar region M54.16 Active Problem Drug induced constipation K59.03 Ac tive Problem Left hip pain M25.552 Active Problem Lumbar post-laminectomy syndrome M96.1 Active Problem Pain R52 Active Problem Adverse effect of other opioids, initial encounter T40 .2X5A Active Problem History of falling Z91.81 Active Problem Greater trochanteric bursitis of left hip M70.62 Active Assessment Other intervertebral disc displacement, 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 14832943726 10 MG Orally Once a day Act michelle 1 tablet Aspirin [facility] 88138813307 325 MG Orally Once a day Act michelle 1 tablet Tramadol HCl [facility] 24422521418 50 MG Orally every 8 hrs prn break through pain January 16, 2019 February 13, 2019 Active 1 tablet as needed TraMADol HCl ER ND 01531892646 100 MG Orally Once a day January 16, 2019 February 13, 2019 Active 1 tablet Elmiron [facility] 55356072763 100 MG Orally Three times a day Active 1 capsule on an empty stomach Nitro-Bid [facility] [address]-10 Active not defi yuni GlipiZIDE ND 47112877097 10 MG Orally Once a day Ac tive 1 tablet Calcium [facility] 90047488709 500 MG Orally Twice a day Ac [place]ive 1 [place] [address]-59 1000 MG Orally Active as directed Baclofen ND 19366317423 10 MG Orally Thr ee times a day prn muscle spasms, caution sedation, do not drive on this med January 16, 2019 February 15, 2019 Activ e 1/2 tablet with food or milk Ambien [facility] 10640778823 10 MG Orally Once a day Acti ve 1 tablet at bedtime as needed Metronidazole ND 80635809410 250 MG Orally every 8 hrs Active 2 tablets Amlodipine Besylate ND 78336363853 10 MG Orally Once a day Active 1 tablet Atenolol [facility] 92901968549 50 MG Orally Once a day Act michelle 1 tablet Zoloft [facility] 35893086674 50 MG Orally Once a day Acti ve 1 tablet Pravastatin Sodium [facility] 92947487889 20 MG Orally Once a day Active 1 tablet Results No Known Results Summary Purpose [employer] Submission
--- OUTSIDE RECORDS SUMMARY | 2020-03-20 19:31 | XMS REPORT | Summary of Care ---
Author Organization Unknown Address Unknown Phone Unavailable Encounter [facility]([place]) [id number] Date(s): 12/02/14 - 12/02/14 [facility] Outpatient Imaging - [address] [address]- [facility] [phone] Discharge Disposition: Home Physician Attending: Bill Cole DO Vital Signs No data available for this [...]
--- OUTSIDE RECORDS SUMMARY | 2020-03-20 19:31 | XMS REPORT | Continuity of Care Document ---
Author Author KURTIS Barnett [employer] Address Unknown Phone Unavailable Care Team Providers Care Obstetrics Specialist Name Role Phone NationalField Information Exchange Unavailable Un available Problems Problem Status Onset Date Classification Date Reported Comments Source Pain in left hip 01/06/2018 04/07/2018 [facility] [place] AMS Active 1 [facility] 722.52 - LUMB/LUMBOSAC D Active 11/18/2014 [facility] [place] Other intervertebral disc degeneration, lumbosacral region 04/07/2018 [facility] [place] Unilateral primary osteoarthritis, left hip 04/07/2018 [facility] [place] Osteoarthritis of knee, unspecified Active Problem 09/2020 [facility] 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 Active Problem 02/19/2020 [facility] Other fatigue Active Problem 02/19/2020 [facility] Lumbar neuritis Active Problem 02/19/2020 [facility] Radiculopathy of lumbar region Active Diagnosis 0 04/09/2019 [facility] Drug induced constipation Acti ve Problem 09/2020 [facility] Left hip pain Active Problem 02/19/2020 [facility] Lumbar post-laminectomy syndrome Active Problem 09/2020 [facility] Pain Active Problem 02/19/2020 [facility] Adverse effect of other opioids, initial encounter Active Problem 02/19/2020 [facility] History of falling Active Problem 02/19/2020 [facility] Greater trochanteric bursitis of left hip Active Problem 02/19/2020 [facility] Other intervertebral disc displacement, lumbar region Active Diagnosis 04/09/2019 [facility] Low back pain Active Problem 02/19/2020 [facility] Degenerative arthritis of knee, bilateral Active Problem 02/19/2020 [facility] Chronic pain syndrome Active Problem 02/19/2020 [facility] Degeneration of lumbar or lumbosacral in tervertebral disc Active [place] 02/19/2020 [facility] Encounter for long-term (current) use of other medications Active [place] 02/19/2020 [facility] Osteoarthritis of knees, bilateral Active Problem 09/2020 [facility] Other hyperlipidemia Active Problem 2019 [facility] Restlessness and agitation Act michelle Problem 11/2018 [facility] Dizziness and giddiness Active Problem 2019 [facility] Age-related cognitive decline Active Diagnosis 0 03/29/2019 [facility] Hypertensive heart disease without heart failure Active Problem 2019 [facility] Borderline intellectual functioning Active Diagnosis 0 03/29/2019 [facility] Restless legs syndrome Active Problem 2019 [facility] Primary insomnia Active Problem 2019 [facility] Hypertensive heart disease with heart failure Active Problem 2019 [facility] Tinnitus, bilateral Active Problem 2019 [facility] Trochanteric bursitis of left hip Active Diagnosis 0 04/11/2019 [facility] Weakness Active Diagnosis 03/29/2019 [facility] 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, without long-term current use of insulin Active Diagnosis 0 03/29/2019 [facility] Pain in left leg Active Diagnosis 03/29/2019 [facility] 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, left hip Active Diag nosis 02/19/2020 [facility] ALTERED MENTAL STATUS, UNSPECIFIED Active [facility] LUMBAR POST LAMINECTOMY SYNDROME Active [facility] [place] Medications Medication Details Route Status Patient Instructions Ordering Provider Order Date Source Lidocaine HCl as directed Externally Active 5 % Externally bid prn pain [place] 08/02/2019 [facility] TraMADol HCl ER 1 tablet Orally Active 200 MG Orally Once a da y [place] 08/02/2019 [facility] Tramadol HCl 1 tablet as needed Orally Active 50 mg Orally q 12 hours prn breakthru pain [place] 08/02/2019 [facility] Tramadol HCl 1 tablet as needed Orally Active 50 MG Orally dailt prn breakthru pain [place] 02/13/2019 [facility] Baclofen 1/2 tablet with food or milk Orally Active 10 MG Orally Three times a day prn muscle spasms, caution sedation, do not drive on this med [place] 02/13/2019 [facility] TraMADol HCl ER 1 tablet Orally Active 200 MG Orally Once a da y [place] 02/13/2019 [facility] Tramadol HCl 1 tablet as needed Orally Active 50 MG Orally every 8 hrs prn break through pain Abdirashid 01/16/2019 [facility] TraMADol HCl ER 1 tablet Orally Active 100 MG Orally Once a da y [facility] 01/16/2019 [facility] Baclofen 1/2 tablet with food or milk Orally Active 10 MG Orally Three times a day prn muscle spasms, caution sedation, do not drive on this [facility] 01/16/2019 [facility] Tramadol HCl 1 tablet as needed Orally Active 50 MG Orally every 8 hrs prn pain [facility] 11/21/2018 [facility] TraMADol HCl ER 1 tablet Orally Active 100 MG Orally Once a da y [facility] 11/21/2018 [facility] Baclofen 1/2 tablet with food or milk Orally Active 10 MG Orally Three times a day prn muscle spasms, caution sedation, do not drive on this [facility] 11/21/2018 [facility] TraMADol HCl ER 1 tablet Orally Active 100 MG Orally Once a da y [facility] 10/26/2018 [facility] Baclofen 1/2 tablet with food or milk Orally Active 10 MG Orally Three times a day prn muscle spasms, caution sedation, do not drive on this [facility] 10/26/2018 [facility] Tramadol HCl 1 tablet as needed Orally Active 50 MG Orally every 8 hrs prn pain [facility] 10/26/2018 [facility] Baclofen 1/2 tablet with food or milk Orally Active 10 MG Orally Three times a day prn muscle spasms [facility] 09/26/2018 [facility] TraMADol HCl ER 1 tablet Orally Active 100 MG Orally Once a da y [facility] 09/26/2018 [facility] Tramadol HCl 1 tablet as needed Orally Active 50 MG Orally every 8 hrs prn pain [facility] 09/26/2018 [facility] Tylenol/codeine #4 #30 one tab let orally Active 300-60 mg orally TID prn pain [facility] 08/29/2018 [facility] Baclofen 1/2 tablet with food or milk Orally Active 10 MG Orally Three times a day prn muscle spasms [facility] 08/15/2018 [facility] Tylenol/codeine #4 #30 one tab let orally Active 300-60 mg orally twice a day (bid) as needed (prn) pain [facility] 08/15/2018 [facility] Tylenol/codeine #4 #30 one tab let orally Active 300-60 mg orally twice a day (bid) as needed (prn) pain [facility] 07/18/2018 [facility] Baclofen 1/2 tablet with food or milk Orally Active 10 MG Orally Three times a day prn muscle spasms [facility] 07/18/2018 [facility] Baclofen 1/2 tablet with food or milk Orally Active 10 MG Orally Three times a day prn muscle spasms [facility] 06/20/2018 [facility] Tylenol/codeine #4 #30 one tab let orally Active 300-60 mg orally twice a day (bid) as needed (prn) pain [facility] 06/20/2018 [facility] Valium 1 tablet as needed Orally Active 2 MG Orally made chew 2 0 minutes prior to MRI if not overly sedated [facility] 05/23/2018 [facility] Valium 1 tablet as needed Orally Active 5 MG Orally 1 hour prio r to MRI [facility] 05/23/2018 [facility] influenza virus vaccine, inactivated Notes: (Same as: Fluzone Quadrivalent, Fluarix Quadrivalent) For 3 years of age and older (0.5 mL IM) Shake well before use Inactive 07/28/2017 [facility] nter pneumococcal 13-valent vaccine Notes: Shake well prior to use (Same as: Prevnar 13) Inactive 07/28/2017 [facility] nter NIFEdipine 90 mg oral tablet, extended release 90 mg, 1 tab, Route: PO, Drug form: ERTAB, Daily, Dosing Weight 95.455, kg, Start date: 07/27/17 21:20:00 CDT, Stop date: 08/26/17 9:00:00 TREE SCOUT No Longer Active 07/28/2017 [facility] Atenolol 50 MG Oral Tablet Not es: (Same As:Tenormin) Inactive 07/27/2017 [facility] K-Dur 20 20 mEq, 1 tab, Route: PO, Drug form: ERTAB, ONCE, Dosing Weight 95.455, kg, Start date: 07/27/17 12:39:00 CDT, Stop date: 07/27/17 12:39:00 CDT Inactive 07/27/2017 [facility] Streptococcus pneumoniae serotype 1 caps ular antigen diphtheria [id number] protein conjugate vaccine / Streptococcus pneumoniae serotype 14 capsular antigen diphtheria [id number] protein conjugate vaccine / Streptococcus pneumoniae serotype 18C capsular antigen d Notes: Shake well prior to use (Same as: Prevnar 13) Inactive 07/27/2017 [facility] influenza virus vaccine, inactivated Notes: (Same as: Fluzone Quadrivalent, Fluarix Quadrivalent) For 3 years of age and older (0.5 mL IM) Shake well before use Inactive 07/27/2017 [facility] nter Potassium Chloride Notes: (Keith e as: KCL) Infuse over 2 hours. Inactive 07/27/2017 [facility] Lovenox Notes: (Same as: Loven ox) No Longer Active 07/27/2017 [facility] morphine extended release Note s: Do not crush (Same as:Oramorph SR, MS Contin) No Longer Active 07/26/2017 [facility] nter Baclofen Notes: (Same As: Domingo esal) No Longer Active 07/26/2017 [facility] Ativan Notes: (Same as: Ativan) No Longer Active 07/26/2017 [facility] Pravastatin Notes: (Same as: P ravachol) No Longer Active 07/26/2017 [facility] Zovirax + sodium chloride 0.9% INJ 100 mL Notes: Same as: Zovirax MEDICATION WASTE Product Size: 500 mg Product Wasted: ___ mg No Longer Active 07/26/2017 [facility] Tylenol Notes: Max acetaminoph en = 4000mg/day (4 gm/day). (Same as: Tylenol) Inactive 07/25/2017 [facility] nter Nitroglycerin 0.02 MG/MG Topical Ointment Notes: 1gm is Approximately 1 inch of nitroglycerin ointment (20mg per gram) (Same as:Nitro-Bid) Inactive 07/25/2017 [facility] Acyclovir 50 mL / min Inactive 07/25/2017 [facility] nter Prevacid Notes: Take 1 hour be fore or 2 hours after meal; Expires in 14 days. Shake well before use. (Same as:Prevacid) Compounded Product - formulation not commercially available No Longer Active 07/25/2017 [facility] potassium chloride 10 mEq, 50 mL, Route: IVPB, Drug form: INJ, ONCE, Start date: 07/25/17 16:00:00 CDT, Stop date: 07/25/17 16:00:00 CDT Inactive 07/25/2017 [facility] Vancomycin 2001 mg: infuse ov er 2.5 hours MEDICATION WASTE Product Size: 1000 mg Product Wasted: ___ mg No Longer Active 07/25/2017 [facility] potassium chloride 20 mEq, 100 mL, Route: IVPB, Drug form: INJ, Q2H, Start date: 07/25/17 12:00:00 CDT, Duration: 2 doses or times, Stop date: 07/25/17 14:00:00 CDT Inactive 07/25/2017 [facility] nter Metoprolol 2.5 mg, 2.5 mL, Rou te: IVP, Drug form: INJ, Q6Hnow, Dosing Weight 95.455, kg, Start date: 07/25/17 11:00:00 CDT, Duration: 30 day, Stop date: 08/24/17 5:00:00 TREE SCOUT No Longer Active 07/25/2017 [facility] nter Dexamethasone Notes: Concentra tion: 4mg/ml No Longer Active 07/25/2017 [facility] Protonix Notes: Tablet should not be chewed or crushed. (Same as: Protonix) Inactive 07/25/2017 [facility] ARIPiprazole Notes: Same as: A bilify Non-Formulary Item No Longer Active 07/25/2017 [facility] Sertraline Notes: (Same as: Z oloft) No Longer Active 07/25/2017 [facility] Isosorbide 60 mg, 1 tab, Route : PO, Drug form: ERTAB, QAM, Dosing Weight 95.455, kg, Start date: 07/25/17 9:00:00 CDT, Stop date: 08/23/17 9:00:00 TREE SCOUT No Longer Active 07/25/2017 [facility] nter Esomeprazole 40 mg, Route: PO, Drug form: ECCAP, Daily, Dosing Weight 95.455, kg, Start date: 07/25/17 9:00:00 CDT, Duration: 30 day, Stop date: 08/23/17 9:00:00 TREE SCOUT Inactive 07/25/2017 [facility] nter Atenolol 50 MG Oral Tablet Not es: (Same As:Tenormin) No Longer Active 07/25/2017 [facility] Ativan Notes: (Same as: Ativan) No Longer Active 07/25/2017 [facility] Hydralazine Notes: (Same as: A presoline) Push over 5 minutes No Longer Active 07/25/2017 [facility] Hydralazine Hydrochloride 50 MG Oral Tablet Notes: (Same as: Apresoline) May interfere w/enteral feedings Take With Food No Longer Active 07/25/2017 [facility] Potassium Chloride Notes: (Keith e as: KCL) Infuse over 2 hours. Inactive 07/25/2017 [facility] Ativan Notes: (Same as: Ativan) Inactive 07/25/2017 [facility] Magnesium Sulfate Notes: WASTE : F/P - Sink; E - Municipal Trash Bin Inactive 07/25/2017 [facility] Insulin Lispro 60 units) [place] SAMY: F/P - Black; E - Municipal Trash Bin Stable for 28 days at room temperature. Expires in days from Date N o Longer Active 07/25/2017 [facility] nter Dextrose 50% Syringe 12.5 gm, 25 mL, Route: IVP, Drug Form: INJ, Dosing Weight 95.455, kg, PRN, PRN Blood Glucose Results, Start date: 07/25/17 6:08:00 CDT, Duration: 30 day, Stop date: 08/24/17 5:07:00 TREE SCOUT No Longer Active 07/25/2017 [facility] Glucagon 1 mg, Route: IM, Drug form: PDR/INJ, PRN, Dosing Weight 95.455, kg, PRN Blood Glucose Results, Start date: 07/25/17 6:08:00 CDT, Duration: 30 day, Stop date: 08/24/17 5:07:00 TREE SCOUT No Longer Active 07/25/2017 [facility] Ampicillin Notes: (Same as: Pr incipen) MEDICATION WASTE Product Size: 2000 mg Product Wasted: _0__ mg No Longer Active 07/25/2017 [facility] Ceftriaxone Notes: MEDICAT ION WASTE Product Size: 2000 mg Product Wasted: _0__ mg No Longer Active 07/25/2017 [facility] nter Acetaminophen Notes: Do not ex ceed 4 gm/day. (Same as: Tylenol) No Longer Active 07/25/2017 [facility] solifenacin succinate 10 MG Oral Tablet [VESICARE] 10 mg = 1 tab, PO, Daily, # 30 tab, 1 Refill(s) Active 07/25/2017 [facility] nter morphine extended release 15 m g, PO, Q8H, 0 Refill(s) No Longer Active 07/25/2017 [facility] ARIPiprazole 2 mg oral tablet 2 mg = 1 tab, PO, Daily, # 90 tab, 0 Refill(s) Active 07/25/2017 [facility] Atenolol 50 MG Oral Tablet 50 mg = 1 tab, PO, Daily, # 30 tab, 0 Refill(s) Active 07/25/2017 [facility] Hydralazine Hydrochloride 50 MG Oral Tablet 50 mg = 1 tab, PO, TID, # 90 tab, 3 Refill(s) Active 07/25/2017 [facility] nter pravastatin 20 mg oral tablet 20 mg = 1 tab, PO, Bedtime, # 30 tab, 0 Refill(s) Active 07/25/2017 [facility] nter Esomeprazole 40 MG Enteric Coated Capsule 40 mg = 1 cap, PO, Daily, # 30 cap, 0 Refill(s) No Longer Active 07/25/2017 [facility] nter baclofen 10 mg oral tablet 10 mg = 1 tab, PO, TID, PRN Spasms, # 90 tab, 0 Refill(s) Active 07/25/2017 [facility] nter isosorbide mononitrate 60 mg oral tablet , extended release 60 mg = 1 tab, PO, QAM, # 30 tab, 0 Refill(s) Active 07/25/2017 [facility] nter lubiprostone 0.024 MG Oral Capsule [Amitiza] 24 microgram = 1 cap, PO, BID, # 60 cap, 0 Refill(s) Active 07/25/2017 [facility] nter Pentosan Polysulfate 100 MG Oral Capsule [Elmiron] 100 mg = 1 cap, PO, BID, # 90 cap, 0 Refill(s) Active 07/25/2017 [facility] nter Sertraline 150 mg, PO, Daily, 0 Refill(s) Active 07/25/2017 [facility] Glipizide 10 MG Oral Tablet 10 mg = 1 tab, PO, Before Breakfast, # 30 tab, 0 Refill(s) Active 07/25/2017 [facility] nt valsartan 160 mg oral tablet 1 60 mg = 1 tab, PO, Daily, # 30 tab, 0 Refill(s) No Longe r Active 07/25/2017 [facility] nt Hydralazine 10 mg, Route: IV, ONCE, Dosing Weight 95.455, kg, Start date: 07/25/17 4:10:00 CDT, Stop date: 07/25/17 4:10:00 CDT Inactive 07/25/2017 [facility] iodixanol 100 mL, Route: IVP, Drug Form: SOLN, Dosing Weight 95.455, kg, ONCALL, STAT, Start date: 07/25/17 1:52:00 CDT, Duration: 1 doses or times, Dose = 2.2ml/kg, Max dose = 100ml -- "To be infused by Radi ology Staff ONLY" Inactive 07/25/2017 [facility] Ketamine 47.7275 mg, Route: IV P, ONCE, Dosing Weight 95.455, kg, Priority: STAT, Start date: 07/24/17 21:01:00 CDT, Stop date: 07/24/17 21:01:00 CDT No Longe r Active 07/25/2017 [facility] nter Ativan Notes: (Same as: Ativan) No Longer Active 07/25/2017 [facility] Ativan Notes: (Same as: Ativan) Inactive 07/25/2017 [facility] Ativan 1 mg, Route: IVP, Drug form: INJ, ONCE, Dosing Weight 95.455, kg, Priority: STAT, Start date: 07/24/17 18:29:00 CDT, Stop date: 07/24/17 18:29:00 CDT Inactiv e 07/24/2017 [facility] Ofirmev or = 50 kg, Start howard e: 07/24/17 17:47:00 CDT Inactive 07/24/2017 [facility] Ativan 1 mg, Route: IVP, Drug form: INJ, ONCE, Dosing Weight 95.455, kg, Priority: STAT, Start date: 07/24/17 17:11:00 CDT, Stop date: 07/24/17 17:11:00 CDT Inactiv e 07/24/2017 [facility] NS (Bolus) IV 1,000 mL, 1,000 ml/hr, Infuse Over: 1 hr, Route: IV, ONCE, Priority: STAT, Dosing Weight 95.455 kg, Start date: 07/24/17 17:07:00 CDT, Duration: 1 doses or times, Stop date: 07/24/17 17:07:00 CDT Inactive 07/24/2017 [facility] Tylenol Notes: Max acetaminoph en = 4000 mg/day (4 gm/day). (Same as: Tylenol) Inactive 07/24/2017 [facility] nter NS (Bolus) IV 2,863.65 mL, 286 3.65 ml/hr, Infuse Over: 1 hr, Route: IV, 2,863.65, Drug form: INJ, ONCE, Priority: STAT, Dosing Weight 95.455 kg, Start date: 07/24/17 14:24:00 CDT, Duration: 1 doses or times, Stop date: 07/24/17 14:24:00 CDT Inactive 07/24/2017 [facility] nter Ativan Notes: (Same as: Ativan) Inactive 07/24/2017 [facility] cefepime Notes: (Same As: Jaison dobson) MEDICATION WASTE Product Size: 1000 mg Product Wasted: ___ mg Inactive 07/24/2017 [facility] Vancomycin 2001 mg: infuse ov er 2.5 hours MEDICATION WASTE Product Size: 1000 mg Product Wasted: ___ mg Inactive 07/24/2017 [facility] NS (Bolus) IV 30 mL, 30 ml/hr, Infuse Over: 1 hr, Route: IV, ONCE, Priority: STAT, Dosing Weight 95.455 kg, Start date: 07/24/17 13:43:00 CDT, Duration: 1 doses or times, Stop date: 07/24/17 13:43:00 CDT Inactive 07/24/2017 [facility] Ativan Notes: (Same as: Ativan) Inactive 07/24/2017 [facility] Saline Flush 0.9% Notes: Same as: BD Posiflush Sterile No Longer Active 07/24/2017 [facility] VESIcare 1 tablet Orally Active 10 MG Orally Once a day [place] [facility] Aspirin 1 tablet Orally Active 325 MG Orally Once a da y [place] [facility] Elmiron 1 capsule on an empty stomach Orally Active 100 MG Orally Three times a day [facility] Nitro-Bid not defined NA Active [place] [facility] GlipiZIDE 1 tablet Orally Active 10 MG Orally Once a day [facility] Calcium 1 tablet with meals Orally Active 500 MG Orally Twice a day [facility] Vitamin C as directed Orally Active 1000 MG Orally [facility] Ambien 1 tablet at bedtime as needed Orally Active 10 MG Orally Once a day [facility] Metronidazole 2 tablets Orally Active 250 MG Orally every 8 h rs [facility] Amlodipine Besylate 1 tablet Orally Active 10 MG Orally Once a day [facility] Atenolol 1 tablet Orally Active 50 MG Orally Once a day [facility] Zoloft 1 tablet Orally Active 50 MG Orally Once a day [facility] Pravastatin Sodium 1 tablet Orally Active 20 MG Orally Once a day [facility] Lyrica 1 capsule Orally Active 75 MG Orally nightly fo r 3 days, then twice a day Abdirashid [facility] Tramadol HCl 1 tablet as needed Orally Active 50 MG Orally every 6 hrs [facility] Allergies, Adverse Reactions, Alerts Substance Category Reaction Severity Reaction type Status Date Reported Comments Source Ibuprofen Adverse Reaction hives Adverse Reaction Active 11/21/2018 [facility] Stadol Adverse Reaction itcing Adverse Reaction Active 11/21/2018 [facility] Lyrica Adverse Reaction dizziness Adverse Reaction Active 11/21/2018 [facility] Fiorinal Adverse Reaction hives Adverse Reaction Active 11/21/2018 [facility] NSAIDS Adverse Reaction effects kidneys Adverse Reaction Active 11/21/2018 [facility] penicillin Adverse Reaction itching Adverse Reaction Active 11/21/2018 [facility] Immunizations Immunization Date Given Site Status Last Updated Comments Source pneumococcal 13-valent vaccine 07/28/2017 Left deltoid completed [facility], [facility] [place] influenza virus vaccine, inactivated 07/28/2017 Right deltoid completed [facility] [place] pneumococcal 13-valent vaccine 07/27/2017 Not Given [facility] [place] influenza virus vaccine, inactivated 07/27/2017 Not Given [facility] [place] Results Order Name Results Value Reference Range Date Interpretation Comments Source HEMATOLOGY MPV 9.9 7.4 - 10.4 07/27/2017 [facility] HEMATOLOGY RDW 15.3 11.5 - 14.5 07/27/2017 [facility] HEMATOLOGY MCHC 33.6 32.0 - 36.0 07/27/2017 [facility] HEMATOLOGY Platelet 171 133 - 450 07/27/2017 [facility] HEMATOLOGY Hgb 10.1 12.0 - 16.0 07/27/2017 [facility] HEMATOLOGY Hct 30.0 36.0 - 48.0 07/27/2017 [facility] HEMATOLOGY MCH 30.6 27.0 - 31.0 07/27/2017 [facility] HEMATOLOGY MCV 91.1 80.0 - 98.0 07/27/2017 [facility] HEMATOLOGY WBC 13.2 3.7 - 10.4 07/27/2017 [facility] HEMATOLOGY RBC 3.29 4.20 - 5.40 07/27/2017 [facility] HEMATOLOGY Lymphocytes 6.8 20.0 - 40.0 07/27/2017 [facility] HEMATOLOGY Segs 83.9 45.0 - 75.0 07/27/2017 [facility] HEMATOLOGY Monocytes 8.2 2.0 - 12.0 07/27/2017 [facility] HEMATOLOGY Basophils # 0.1 0.0 - 0.2 07/27/2017 [facility] HEMATOLOGY Lymphocytes # 0.9 1.0 - 5.5 07/27/2017 [facility] HEMATOLOGY Eosinophils # 0.1 0.0 - 0.5 07/27/2017 [facility] HEMATOLOGY Monocytes # 1.1 0.0 - 0.8 07/27/2017 [facility] HEMATOLOGY Segs-Bands # 11.1 1.5 - 8.1 07/27/2017 [facility] HEMATOLOGY Basophils 0.6 0.0 - 1.0 07/27/2017 [facility] HEMATOLOGY Eosinophils 0.5 0.0 - 4.0 07/27/2017 [facility] CHEM PANEL Phosphorus 3.2 2.5 - 4.5 07/27/2017 [facility] CHEM PANEL Magnesium Lvl 2.1 1.8 - 2.4 07/27/2017 [facility] ELECTROLYTES AGAP 14.3 10.0 - 20.0 07/27/2017 [facility] ELECTROLYTES Potassium Lvl 3.3 3.5 - 5.1 07/27/2017 [facility] ELECTROLYTES Sodium Lvl 143 135 - 145 07/27/2017 [facility] [facility] ELECTROLYTES BUN 43 7 - 22 07/27/2017 [facility] ELECTROLYTES Creatinine Lvl 1.7 8 0.50 - 1.40 07/27/2017 [facility] ELECTROLYTES Calcium Lvl 8.1 8.5 - 10.5 07/27/2017 [facility] ELECTROLYTES CO2 21 24 - 32 07/27/2017 [facility] ELECTROLYTES Chloride Lvl 111 95 - 109 07/27/2017 [facility] ELECTROLYTES Glucose Lvl 152 70 - 99 07/27/2017 [facility] ELECTROLYTES eGFR 27 07/27/2017 Result Comment: The eGFR is calculated using the CKD-EPI formula. In most young, healthy individuals the eGFR will be >90 mL/min/1.73m2. The eGFR declines with age. An eGFR of 60-89 may be normal in some populations, particularly the elderly, for whom the CKD-EPI formula has not been extensively validated. Use of the eGFR is not recommended in the following populations:

Individuals with unstable creatinine concentrations, including patients and those with serious co-morbid conditions.

Patients with extremes in muscle mass or diet.

The data above are obtained from the National Kidney Disease Education Program (NKDEP) which additionally recommends that when the eGFR is used in patients with extremes of body mass index for purposes of drug dosing, the eGFR should be multiplied by the estimated BMI. [facility] CARDIAC ENZYMES Troponin-I 0.95 0.00 - 0.40 07/26/2017 Result Comment: Critical Result(s) boyce d to Jory Torres at 07/26/2017 05:11 by ET. Read back OK. [facility] CHEM PANEL Magnesium Lvl 2.2 1.8 - 2.4 07/26/2017 [facility] ELECTROLYTES AGAP 20.4 10.0 - 20.0 07/26/2017 [facility] ELECTROLYTES eGFR 44 07/26/2017 Result Comment: The eGFR is calculated using the CKD-EPI formula. In most young, healthy individuals the eGFR will be >90 mL/min/1.73m2. The eGFR declines with age. An eGFR of 60-89 may be normal in some populations, particularly the elderly, for whom the CKD-EPI formula has not been extensively validated. Use of the eGFR is not recommended in the following populations:

Individuals with unstable creatinine concentrations, including patients and those with serious co-morbid conditions.

Patients with extremes in muscle mass or diet.

The data above are obtained from the National Kidney Disease Education Program (NKDEP) which additionally recommends that when the eGFR is used in patients with extremes of body mass index for purposes of drug dosing, the eGFR should be multiplied by the estimated BMI. [facility] ELECTROLYTES Creatinine Lvl 1.1 7 0.50 - 1.40 07/26/2017 [facility] ELECTROLYTES Potassium Lvl 4.4 3.5 - 5.1 07/26/2017 [facility] ELECTROLYTES Sodium Lvl 143 135 - 145 07/26/2017 [facility] ELECTROLYTES Chloride Lvl 108 95 - 109 07/26/2017 [facility] ELECTROLYTES CO2 19 24 - 32 07/26/2017 [facility] ELECTROLYTES Calcium Lvl 8.2 8.5 - 10.5 07/26/2017 [facility] ELECTROLYTES Glucose Lvl 115 70 - 99 07/26/2017 [facility] ELECTROLYTES BUN 27 7 - 22 07/26/2017 [facility] HEMATOLOGY Neut Vac slight 07/26/2017 [facility] HEMATOLOGY Toxic Gran slight 07/26/2017 [facility] HEMATOLOGY Monocytes # 0.5 0.0 - 0.8 07/26/2017 [facility] HEMATOLOGY Schistocyte 0-2 07/26/2017 [facility] HEMATOLOGY Anisocyte 1+ *ABN* (07/26/17 3:37 AM) None Seen 07/26/2017 [facility] HEMATOLOGY Lymphocytes # 0.6 1.0 - 5.5 07/26/2017 [facility] HEMATOLOGY Segs-Bands # 14.8 1.5 - 8.1 07/26/2017 [facility] HEMATOLOGY Monocytes 3.3 2.0 - 12.0 07/26/2017 [facility] HEMATOLOGY Eosinophils 0.1 0.0 - 4.0 07/26/2017 [facility] HEMATOLOGY Lymphocytes 3.6 20.0 - 40.0 07/26/2017 [facility] HEMATOLOGY Segs 92.8 45.0 - 75.0 07/26/2017 [facility] HEMATOLOGY Basophils 0.2 0.0 - 1.0 07/26/2017 [facility] HEMATOLOGY MPV 11.1 7.4 - 10.4 07/26/2017 [facility] HEMATOLOGY Platelet 142 133 - 450 07/26/2017 [facility] HEMATOLOGY Hct 33.2 36.0 - 48.0 07/26/2017 [facility] HEMATOLOGY MCH 30.2 27.0 - 31.0 07/26/2017 [facility] HEMATOLOGY MCV 92.2 80.0 - 98.0 07/26/2017 [facility] HEMATOLOGY RDW 14.9 11.5 - 14.5 07/26/2017 [facility] HEMATOLOGY MCHC 32.7 32.0 - 36.0 07/26/2017 [facility] HEMATOLOGY Hgb 10.9 12.0 - 16.0 07/26/2017 [facility] HEMATOLOGY RBC 3.60 4.20 - 5.40 07/26/2017 [facility] HEMATOLOGY WBC 16.0 3.7 - 10.4 07/26/2017 [facility] BACTERIAL - SEROLOGY Source Strep Urine *NA* (07/25/17 9:47 PM) 07/26/2017 [facility] BACTERIAL - SEROLOGY Strep pneumonia e Ag Negative (07/25/17 9:47 PM) Negative 07/26/2017 [facility] CARDIAC ENZYMES Troponin-I 1.31 0.00 - 0.40 07/26/2017 Result Comment: Critical Result(s) austen Morales at 07/25/2017 22:43 by RIOS. Read back OK. [facility] CHEM PANEL Magnesium Lvl 2.2 1.8 - 2.4 07/26/2017 [facility] CHEM PANEL Ammonia 12.0 <=45.0 uMol/L 07/26/2017 [facility] ELECTROLYTES Chloride Lvl 109 95 - 109 07/26/2017 [facility] ELECTROLYTES Creatinine Lvl 1.1 7 0.50 - 1.40 07/26/2017 [facility] ELECTROLYTES Sodium Lvl 145 135 - 145 07/26/2017 [facility] ELECTROLYTES BUN 25 7 - 22 07/26/2017 [facility] ELECTROLYTES Potassium Lvl 3.5 3.5 - 5.1 07/26/2017 [facility] ELECTROLYTES CO2 20 24 - 32 07/26/2017 [facility] ELECTROLYTES Calcium Lvl 8.7 8.5 - 10.5 07/26/2017 [facility] ELECTROLYTES AGAP 19.5 10.0 - 20.0 07/26/2017 [facility] ELECTROLYTES eGFR 44 07/26/2017 Result Comment: The eGFR is calculated using the CKD-EPI formula. In most young, healthy individuals the eGFR will be >90 mL/min/1.73m2. The eGFR declines with age. An eGFR of 60-89 may be normal in some populations, particularly the elderly, for whom the CKD-EPI formula has not been extensively validated. Use of the eGFR is not recommended in the following populations:

Individuals with unstable creatinine concentrations, including patients and those with serious co-morbid conditions.

Patients with extremes in muscle mass or diet.

The data above are obtained from the National Kidney Disease Education Program (NKDEP) which additionally recommends that when the eGFR is used in patients with extremes of body mass index for purposes of drug dosing, the eGFR should be multiplied by the estimated BMI. [facility] ELECTROLYTES Glucose Lvl 108 70 - 99 07/26/2017 [facility] BODY FLUIDS Glucose CSF 58 45 - 80 07/25/2017 [facility] BODY FLUIDS RBC CSF 48 0 - 03 07/25/2017 [facility] BODY FLUIDS WBC CSF 1 0 - 53 07/25/2017 [facility] BODY FLUIDS Supernat CSF [place] rless (07/25/17 4:00 PM) Colorless 07/25/2017 [facility] BODY FLUIDS Clarity CSF Conchita r (07/25/17 4:00 PM) Clear 07/25/2017 [facility] BODY FLUIDS Color CSF [place] rless (07/25/17 4:00 PM) Colorless 07/25/2017 [facility] BODY FLUIDS Tube Num CSF 2 07/25/2017 [facility] VIRAL - SEROLOGY Enterovirus PCR CSF Negative (07/25/17 4:00 PM) Negative 07/25/2017 [facility] CARDIAC ENZYMES Troponin-I 1.52 0.00 - 0.40 07/25/2017 Result Comment: Critical Result(s) boyce d to Emy Raygoza at 07/25/2017 13:53 by. Read back OK. [facility] IMMUNOLOGY Varicella IgG 3.2 <=0.8 AI 07/25/2017 [facility] IMMUNOLOGY Varicella IgM <0.91 0.00 - 0.90 07/25/2017 Result Comment: Negative <0.91
Borderline 0.91 - 1.09
Positive >1.09
[facility]formed At: [facility]
[address] [place], [place] [id number]
Eda Krishna MD Ph:[phone] [facility] SPECIAL CHEMISTRY Hgb A1C 6.0 <=5.6 % 07/25/2017 [facility] TOXICOLOGY Vanco Lvl 5.1 07/25/2017 [facility] VIRAL - SEROLOGY W Nile Ab IgG Negative Negative 07/25/2017 Result Comment: No detectable West Nile Virus IgG Antibody. If a recent
infection is suspected, another specimen should be
submitted for testing within 7-14 days. [facility] VIRAL - SEROLOGY W Nile Ab IgM Negative Negative 07/25/2017 Result Comment: No detectable West Nile Virus IgM Antibody. If a recent
infection is suspected, another specimen should be
submitted for testing within 7-14 days.
Performed At: [facility]
[address] [place], [place] [id number]
Eda Krishna MD Ph:[phone] [facility] ANEMIA STUDY Vitamin B12 Lvl 387 254 - 1320 07/25/2017 [facility] CARDIAC ENZYMES Total CK 983 12 - 191 07/25/2017 [facility] CHEM PANEL Ammonia 225.0 <=45.0 uMol/L 07/25/2017 [facility] URINE CHEM U Creatinine 75.10 07/25/2017 [facility] URINE CHEM U Sodium 152 07/25/2017 [facility] HEMATOLOGY MCV 90.5 80.0 - 98.0 07/25/2017 [facility] HEMATOLOGY MCH 30.2 27.0 - 31.0 07/25/2017 [facility] HEMATOLOGY MCHC 33.3 32.0 - 36.0 07/25/2017 [facility] HEMATOLOGY RDW 14.8 11.5 - 14.5 07/25/2017 [facility] HEMATOLOGY Hct 29.6 36.0 - 48.0 07/25/2017 [facility] HEMATOLOGY MPV 10.3 7.4 - 10.4 07/25/2017 [facility] HEMATOLOGY Platelet 137 133 - 450 07/25/2017 [facility] HEMATOLOGY Hgb 9.9 12.0 - 16.0 07/25/2017 [facility] HEMATOLOGY RBC 3.27 4.20 - 5.40 07/25/2017 [facility] HEMATOLOGY WBC 9.4 3.7 - 10.4 07/25/2017 [facility] HEMATOLOGY Monocytes # 0.7 0.0 - 0.8 07/25/2017 [facility] HEMATOLOGY Basophils # 0.1 0.0 - 0.2 07/25/2017 [facility] HEMATOLOGY Segs-Bands # 8.0 1.5 - 8.1 07/25/2017 [facility] HEMATOLOGY Monocytes 7.8 2.0 - 12.0 07/25/2017 [facility] HEMATOLOGY Basophils 0.9 0.0 - 1.0 07/25/2017 [facility] HEMATOLOGY Lymphocytes # 0.5 1.0 - 5.5 07/25/2017 [facility] HEMATOLOGY Eosinophils 0.3 0.0 - 4.0 07/25/2017 [facility] HEMATOLOGY Lymphocytes 5.7 20.0 - 40.0 07/25/2017 [facility] HEMATOLOGY Segs 85.3 45.0 - 75.0 07/25/2017 [facility] CHEM PANEL Lactic Acid Lvl 1.5 0.5 - 2.2 07/24/2017 [facility] CHEM PANEL Lactic Acid Lvl 3.4 0.5 - 2.2 07/24/2017 [facility] TOXICOLOGY Ethanol Lvl <3.0 mg/dL 07/24/2017 [facility] TOXICOLOGY Etoh (%) <0.003 % 07/24/2017 [facility] TOXICOLOGY Acetaminoph Lvl <2 (07/24/17 2:26 PM) 10 - 20 07/24/2017 [facility] TOXICOLOGY Salicylate Lvl <1.7 mg/dL 0.0 - 30.0 07/24/2017 [facility] CARDIAC ENZYMES Total CK 907 12 - 191 07/24/2017 [facility] CARDIAC ENZYMES CK MB 11.0 0.5 - 3.6 07/24/2017 [facility] CARDIAC ENZYMES CK MB Index 1.2 0.0 - 2.5 07/24/2017 [facility] CHEM PANEL Lactic Acid Lvl 3.3 0.5 - 2.2 07/24/2017 [facility] CHEM PANEL Procalcitonin Lvl <0.05 ng/mL 0.00 - 0.10 07/24/2017 [facility] CHEM PANEL B/C Ratio 15 6 - 25 07/24/2017 [facility] CHEM PANEL AST 35 0 - 37 07/24/2017 [facility] CHEM PANEL Alk Phos 76 39 - 136 07/24/2017 [facility] CHEM PANEL Globulin 3.3 2.7 - 4.2 07/24/2017 [facility] CHEM PANEL A/G Ratio 1.2 0.7 - 1.6 07/24/2017 [facility] CHEM PANEL Bili Total 0.6 0.2 - 1.3 07/24/2017 [facility] CHEM PANEL Albumin Lvl 4.1 3.5 - 5.0 07/24/2017 [facility] CHEM PANEL Total Protein 7.4 6.4 - 8.4 07/24/2017 [facility] CHEM PANEL ALT 19 0 - 65 07/24/2017 [facility] DRUG SCREEN U Cannab Scr Nega tive *NA* (07/24/17 1:29 PM) Negative 07/24/2017 [facility] DRUG SCREEN U Amph Scr Nega tive *NA* (07/24/17 1:29 PM) Negative 07/24/2017 [facility] DRUG SCREEN U Methadone Scr Nega tive *NA* (07/24/17 1:29 PM) Negative 07/24/2017 [facility] DRUG SCREEN U Propoxyph Scr Nega tive *NA* (07/24/17 1:29 PM) Negative 07/24/2017 [facility] DRUG SCREEN UDS Note See Note (07/24/17 1:29 PM) 07/24/2017 [facility] DRUG SCREEN U Opiate Scr Posi tive *ABN* (07/24/17 1:29 PM) Negative 07/24/2017 [facility] DRUG SCREEN U Phencyc Scr Nega tive *NA* (07/24/17 1:29 PM) Negative 07/24/2017 [facility] DRUG SCREEN U Sena Scr Nega tive *NA* (07/24/17 1:29 PM) Negative 07/24/2017 [facility] DRUG SCREEN U Benzodia Scr Nega tive *NA* (07/24/17 1:29 PM) Negative 07/24/2017 [facility] DRUG SCREEN U Cocaine Scr Nega tive *NA* (07/24/17 1:29 PM) Negative 07/24/2017 [facility] HEMATOLOGY PT 12.5 12.0 - 14.7 07/24/2017 [facility] HEMATOLOGY INR 0.91 0.85 - 1.17 07/24/2017 [facility] HEMATOLOGY PTT 22.4 22.9 - 35.8 07/24/2017 [facility] HEMATOLOGY Anisocyte 1+ *ABN* (07/24/17 1:29 PM) None Seen 07/24/2017 [facility] HEMATOLOGY Large Plt slight 07/24/2017 [facility] URINE AND STOOL UA Ketones Trace *ABN* (07/24/17 1:29 PM) Negative 07/24/2017 [facility] URINE AND STOOL UA Leuk Est Negative (07/24/17 1:29 PM) Negative 07/24/2017 [facility] URINE AND STOOL UA Turbidity Clear (07/24/17 1:29 PM) Clear 07/24/2017 [facility] URINE AND STOOL UA Color Yellow *NA* (07/24/17 1:29 PM) Yellow 07/24/2017 [facility] URINE AND STOOL UA Glucose Negative (07/24/17 1:29 PM) Negative 07/24/2017 [facility] URINE AND STOOL UA Protein >=300 mg/dL Negative mg/dL 07/24/2017 [facility] URINE AND STOOL UA pH 6.0 5.0 - 8.0 07/24/2017 [facility] URINE AND STOOL UA Spec Grav 1.021 <=1.030 07/24/2017 [facility] URINE AND STOOL UA Bili Negative *NA* (07/24/17 1:29 PM) Negative 07/24/2017 [facility] URINE AND STOOL UA Nitrite Negative (07/24/17 1:29 PM) Negative 07/24/2017 [facility] URINE AND STOOL UA Urobilinogen 0.2 0.1 - 1.0 07/24/2017 [facility] URINE AND STOOL UA Blood Moderate *ABN* (07/24/17 1:29 PM) Negative 07/24/2017 [facility] URINE AND STOOL UA WBC 0-2 /HPF None Seen /HPF 07/24/2017 [facility] URINE AND STOOL UA RBC 0-2 /HPF 0 - 2 07/24/2017 [facility] URINE AND STOOL UA Bacteria Occasional /HPF None Seen /HPF 07/24/2017 [facility] URINE AND STOOL UA Sq Epi Few /LPF Few /LPF 07/24/2017 [facility] Pathology Reports No Data Provided for This Section Diagnostic Reports Report Value Date Source Hip 2/3 views uni w pelvis DX Exam: Left hip x-ray, 2 views Reason for Exam: - left hip pain Comparison Exam: CT scan 07/25/2017 Discussion: No fractures or dislocations are seen within the left hip. No suspicious osteoblastic or osteolytic lesions. 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 No evidence for avascular necrosis of the femoral head. SI joints and pubic symphysis are unremarkable. Coarse appearing radiodensities are again seen overlying the right and left buttocks. Impression: 1. No acute bony abnormalities identifi ed. 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 12/30/2017 [facility]zaa Abdomen AP DX EXAM: XR ABDOMEN 1 VIEW DATE: 07/28/2017 2:17 AM CDT INDICATION: Abdominal pain, acute - looking for mesh TECHNIQUE: AP view of the abdomen. FINDINGS: There is no change in appearance of extensive soft tissue calcifications present within the buttocks bilaterally. Right upper quadrant surgical clips suggest prior cholecystectomy. There are extensive calcifications within costal cartilage bilaterally. There are no dilated loops of large or small bowel. No suspicious foreign body or foreign material is evident over the abdomen or pelvis. Incidental note is made of cardiomegaly. IMPRESSION: 1. Nonobstructive bowel gas pattern. 2. Unchanged appearance of extensive sof t tissue calcifications within the buttocks bilaterally. 07/28/2017 [facility] Abdomen AP DX EXAM: XR ABDOMEN 1 VIEW DATE: 07/25/2017 1603 hours CDT INDICATION: - DHT confirmation ADDITIONAL INFORMATION: None. COMPARISON: CT chest abdomen pelvis 07/25/2017 TECHNIQUE: Limited AP view of the abdomen for tube placement assessment. Number of images: 1 FINDINGS: Transesophageal feeding tube (tip): Weighted enteric feeding tube tip projects to the right of midline at the antropyloric junction. Postpyloric positioning cannot be confirmed. Transesophageal suction tube (sidehole): None present. Other tubes, lines and hardware: Cholecystectomy clips are seen over the right upper quadrant. Other: Soft tissue calcifications are seen over the left iliac bone. Nonobstructive bowel gas pattern. IMPRESSION: 1. Tube positions as above. 07/25/2017 [facility] Spine lumbar puncture w fluoro DX EXAM: LUMBAR PUNCTURE, FLUOROSCOPIC GUIDANCE DATE: 07/25/2017 at 1530 INDICATION: Altered mental status, rule out infection COMPARISON: None. TECHNIQUE AND FINDINGS: Informed consent was obtained from the patient's son, and time out procedure was performed. The lower back was prepped and draped in sterile fashion with the patient in prone position. Under fluoroscopic guidance a 5 inch, 22 gauge needle was advanced into the thecal sac at the L3-L4 interspace, and 14 mL of clear spinal fluid was withdrawn without complication. The opening pressure was 17 cm of water in the prone position. FLUOROSCOPY TIME: [address] Gonzalez, neuroradiology fellow performed the procedure with personal supervision from Dr. Garcia, Attending physician. IMPRESSION: Fluoroscopically guided lumbar puncture. 07/25/2017 [facility] Chest/Abdomen/Pelvis w IV contrast CT EXAM: CT CHEST WITH CONTRAST EXAM: CT ABDOMEN AND PELVIS WITH CONTRAST DATE: 07/24/2017 5:05 PM CDT INDICATION: - suspected abd infection COMPARISON: None TECHNIQUE: Volumetric CT acquisition of the chest, abdomen and pelvis following intravenous administration of contrast. Delayed imaging was then performed through the abdomen and pelvis, using a radiation reduction technique. Axial, coronal and sagittal reformats. Contrast phases: Venous and delayed IV contrast: 100 mL Visipaque 320 Oral contrast: None. DLP: 1850 mGy-cm UT SECTION: Body FINDINGS: Lines and tubes: None. Lower Neck: Supraclavicular soft tissues are unremarkable. Thoracic Aorta and Mediastinum: Cardiomegaly with multilevel circumflex coronary artery calcifications. No significant pericardial effusion. The pulmonary trunk is dilated measuring 3.7 cm. Lungs, Pleura, Diaphragm: There is smooth interlobular thickening consistent with pulmonary edema. There is small bilateral pleural effusions. No pneumothorax. Liver and biliary tree: Normal.. Mild periportal edema is present. Mild intrahepatic bile duct dilatation. Gallbladder: Surgically absent. Pancreas: Normal. Spleen: Normal. Adrenals: Normal. Kidneys and ureters: Normal.. Bladder: Decompressed around Mosley catheter with circumferential wall thickening. Reproductive organs: Normal. Gastrointestinal tract: Normal. No bowel wall thickening or dilatation. Normal appendix. Peritoneum and retroperitoneum: No fluid collections or free air. No retroperitoneal abnormality. Lymph nodes: Normal. Vasculature: No vascular injury. Multifocal aortoiliac atherosclerosis with less than 50% luminal stenosis. Spine/ Bones: No acute abnormality of the spine. No other bony injury. Multilevel degenerative disease in the lumbar spine, most severe at L1-L2, L2-L3 with disc space narrowing, endplate sclerosis and cystic changes. There is bilateral pars defect at L2-L3 and L3-L4 with grade 1 retrolisthesis of L2 over L3 and L3 over L4. Soft tissues: Heterotopic ossifications in the bilateral gluteal region. There is soft tissue contusion in the left axilla. IMPRESSION: 1. No acute infectious process in the c hest, abdomen or pelvis. 2. Pulmonary edema with small bilateral pleural effusions. 3. Cardiomegaly with coronary calcifica tions. 4. Multilevel degenerative disc disease in the lumbar spine most severe at L1-L3. 5. 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 6. Decompressed urinary bladder with ci rcumferential bladder wall thickening, correlate with urinalysis. 7. Dilated pulmonary trunk suggestive p ulmonary artery hypertension. 8. Soft tissue contusion in the left ax illa. 9. Low attenuation fluid surrounding th e descending thoracic aorta which may represent part of the pleural effusion. 10. Mild intrahepatic bile duct dilatio n. Correlation with LFTs recommended. 07/25/2017 [facility] Brain wo contrast CT EXAM: CT BRAIN WITHOUT CONTRAST DATE: 07/24/2017 1410 hours INDICATION: Altered mental status, fall COMPARISON: None. TECHNIQUE: Axial CT images of the brain were obtained. Sagittal and coronal reformats. IV contrast: None. FINDINGS: There is no edema, hemorrhage, mass lesion or other acute intracranial abnormality. The ventricles and extra-axial spaces are in the enlarged. Scattered hypodensities in the subcortical and periventricular white matter are present, representing sequela of age-indeterminate microvascular ischemic insults. There is no fracture of the skull, skull base, or visible facial bones. IMPRESSION: No acute traumatic injuries identified. Generalized cerebral volume loss and age-indeterminate microvascular ischemic changes. UT SECTION: Neuro 07/24/2017 [facility] Spine cervical wo contrast CT EXAM: CT CERVICAL SPINE WITHOUT CONTRAST DATE: 07/24/2017 1:26 PM CDT INDICATION: Fall, altered mental status COMPARISON: None TECHNIQUE: Volumetric acquisition of the cervical spine without contrast. Axial, sagittal and coronal reconstructions. The scan was repeated due to patient motion. IV contrast: None. DLP: 1298 mGy-cm UT SECTION: ER FINDINGS: The spine is imaged from the skull base to the level of T3. Severe multilevel degenerative changes of the cervical spine are visualized most pronounced from C3 to C7 levels with multilevel disc space narrowing representing degenerative disc disease along with degenerative endplate changes, osteophytes, facet and uncovertebral hypertrophy causing neural foraminal narrowing. Vertebral body heights are preserved. Posterior disc osteophyte complexes are visualized at multiple levels causing mild anterior thecal compression and mild central canal stenosis. Mild anterior listhesis of C7 over T1 is chronic and likely secondary to degeneration. No acute fracture. The pre and paravertebral soft tissues are within normal limits. There is no apical pneumothorax. IMPRESSION: 1. No acute cervical spine fracture 2. Severe multilevel degenerative disc d isease most pronounced from C3 to C7 levels 07/24/2017 [facility] Chest 1view DX EXAM: XR CHEST 1 VIEW DATE: 07/24/2017 1:27 PM CDT INDICATION: - Undifferentiated Sepsis COMPARISON: None TECHNIQUE: AP chest FINDINGS: There is mild cardiomegaly. Note made of tortuous aorta. Lungs are clear. No focal consolidation. No pleural effusions or pneumothorax. No acute osseous abnormality. Note made of multilevel degenerative changes of the thoracic spine. IMPRESSION: 1. No acute radiographic abnormality abn ormality. 2. Mild cardiomegaly and tortuous aorta. 07/24/2017 [facility] Retroperitoneal Complete US Ex am: Bilateral renal ultrasound. Reason for Exam: N18.3 Chronic kidney disease, stage 3 (moderate) Comparison Exam: MRI lumbar spine 12/02/2014 Discussion: Multiple sagittal and axial images were obtained of the kidneys. The right kidney measures 10.9 x 5.8 x 4.0 cm. It is of unremarkable echogenicity without hydronephrosis or shadowing renal calculi. A simple appearing cyst is seen within the superior pole measuring 1.5 cm. The cortical thickness measures 1.2 cm. The left kidney measures 11.2 x 4.4 x 3.5 cm. It is of unremarkable echogenicity without focal masses, hydronephrosis, or shadowing renal calculi. The cortical thickness measures 1.4 cm. Visualized portions of the bladder are unremarkable. Bilateral ureteral jets are identified. Visualized portions of the aorta and IVC are unremarkable. The common iliac arteries are not adequately seen. Impression: 1. Kidneys are unremarkable in echogenic ity. Simple appearing cyst seen within the superior pole of the right kidney measuring 1.5 cm. 01/26/2017 [facility] [place] [facility] lumbar wo contrast MRI [facility] LUMBAR SPINE WITHOUT CONTRAST COMPARISON: No prior exam. TECHNIQUE: Sagittal T1, sagittal T2 with fat saturation, axial T1 and axial T2 images were obtained. No intravenous gadolinium was given. FINDINGS: The paravertebral soft tissues are normal. Lumbosacral junction transitional vertebra is identified, and is labeled as 'S1'. Please see the sagittal images for the numbering system used. The conus medullaris terminates at the L1-L2 level. T12-L1: Minimal disc bulge is seen without central canal or foraminal stenosis. L1-L2: Mild disc bulge is seen without central canal or foraminal stenosis. L2-L3: Severe degenerative changes are present with prominent Schmorl's nodes or intravertebral disc herniation involving the L3 superior endplate. Severe disc space narrowing is present. Dorsal disc osteophyte complex measuring 5 mm is seen with severe central canal stenosis. Moderate ligamenta flava redundancy and small right subligamentous synovial cysts are seen. The lateral recesses are effaced. Severe right foraminal stenosis and moderate left foraminal stenosis are seen. There is moderate L2 and L3 marrow edema. No paraspinal or epidural cellulitis is seen. No conclusive disc space edema is seen. L3-L4: Approximately 5 mm retrolisthesis of L3 and L4 is seen, with 9 mm dorsal disc osteophyte complex. Significant ligamenta flava redundancy is seen with severe central canal stenosis and effacement of the left lateral recess. Severe left foraminal stenosis and moderate right foraminal stenosis are present. L4-L5: Mild to moderate central canal stenosis is seen due to mild disc bulge and moderate ligamenta flava redundancy. No significant foraminal stenosis. L5-S1: Minimal grade 1 anterolisthesis and mild disc bulge is seen with mild central canal stenosis. Moderate right lateral recess stenosis is seen with mild mass effect on the right S1 descending nerve root. Minimal grade 1 anterolisthesis is present. Mild disc bulge is present. There is mild to moderate right foraminal stenosis and mild left foraminal stenosis. IMPRESSION: 1. Multilevel disc degenerative disease and spondylosis. 2. Lumbosacral junction transitional charly tebra is identified, and is labeled as 'S1'. Please see the sagittal images for the numbering system used. The last hydrated disc is considered S1-S2. 3. L2-L3 and L3-L4 severe central canal stenosis and foraminal stenosis, L4-L5 mild to moderate central canal stenosis. 4. Multilevel degenerative listhesis. 5. L2 and L3 marrow edema, likely due to the significant degenerative changes rather than osteomyelitis. Level correlation and followup are recommended. 12/02/2014 [facility] Consultation Notes No Data Provided for This Section Discharge Summaries No Data Provided for This Section History and Physicals No Data Provided for This Section Vital Signs Vital Sign Value Date Comments Source Systolic (mm Hg) 134 02/13/2019 [facility] Weight 201.4 02/13/2019 [facility] Height 68 0 02/13/2019 [facility] Respitory Rate 16 02/13/2019 [facility] Heart Rate 50 02/13/2019 [facility] Diastolic (mm Hg) 67 02/13/2019 [facility] Systolic (mm Hg) 120 01/16/2019 [facility] Weight 203.0 01/16/2019 [facility] Height 68 0 01/16/2019 [facility] Respitory Rate 16 01/16/2019 [facility] Heart Rate 53 01/16/2019 [facility] Diastolic (mm Hg) 46 01/16/2019 [facility] Systolic (mm Hg) 147 11/21/2018 [facility] Weight 204.6 11/21/2018 [facility] Height 68 0 11/21/2018 [facility] Respitory Rate 16 11/21/2018 [facility] Heart Rate 53 11/21/2018 [facility] Diastolic (mm Hg) 62 11/21/2018 [facility] Systolic (mm Hg) 126 10/26/2018 [facility] Weight 205 10/26/2018 [facility] Height 68 0 10/26/2018 [facility] Respitory Rate 16 10/26/2018 [facility] Heart Rate 54 10/26/2018 [facility] Diastolic (mm Hg) 59 10/26/2018 [facility] Systolic (mm Hg) 116 08/15/2018 [facility] Weight 207 08/15/2018 [facility] Height 68 1 10/15/2017 [facility] Respitory Rate 16 08/15/2018 [facility] Heart Rate 51 08/15/2018 [facility] Diastolic (mm Hg) 57 08/15/2018 [facility] Systolic (mm Hg) 129 07/18/2018 [facility] Weight 210.6 07/18/2018 [facility] Height 68 1 [facility] Respitory Rate 16 07/18/2018 [facility] Heart Rate 52 07/18/2018 [facility] Diastolic (mm Hg) 59 07/18/2018 [facility] Systolic (mm Hg) 144 07/28/2017 [facility] Diastolic (mm Hg) 64 07/28/2017 [facility] Respitory Rate 17 07/28/2017 [facility] Temperature Oral (F) 98.3 F 07/28/2017 [facility] Respitory Rate 19 07/28/2017 [facility] Systolic (mm Hg) 142 07/28/2017 [facility] Diastolic (mm Hg) 63 07/28/2017 [facility] Temperature Oral (F) 97.9 F 07/28/2017 [facility] Systolic (mm Hg) 177 07/28/2017 [facility] Diastolic (mm Hg) 77 07/28/2017 [facility] Respitory Rate 18 07/28/2017 [facility] Temperature Oral (F) 98.3 F 07/27/2017 [facility] Weight 95.455 07/24/2017 [facility] Heart Rate 87 07/24/2017 [facility] BMI Calculated 32 07/24/2017 [facility] Height 172.72 cm 07/24/2017 [facility] Encounters Location Location Details Encounter Type Encounter Number Reason For Visit Attending Provider ADM Date DC Date Status Source [facility] [place] [facility] [id number] Bill Cole 12/02/2014 12/03/2014 [facility] [id number] Bill Cole 03/10/2016 04/09/2016 [facility] [id number] Bill Cole 04/13/2016 05/13/2016 [facility] [place] [facility] [place] [facility] [id number] Pawel Aragon 01/26/2017 01/27/2017 [facility] [id number] Dominique Granados 07/24/2017 07/28/2017 [facility] [place] [facility] [id number] Omar Mendenhall 12/30/2017 12/31/2017 [facility] [place] Procedures Procedure Code Date Perfomer Comments Source Spinal puncture, lumbar, diagnostic 36185 07/25/2017 [facility] Assessment and Plan Assessment and Plan Date Source Extracted from:Title: Neurology progress note Author: Hilary Lujan MD Date: 07/28/17 General Neurology Consult Progress Note Subjective: The patient reports that she did not sleep well overnight. She had high BP overnight up to 220s/90s. Has not been to MRI 2/2 question about possible mesh implant, though patient reports she does not have any mesh implants. [facility] and is pending transportation for discharge. Scheduled Meds (10):ARIPiprazole, NIFEdipine (NIFEdipine 90 mg oral tablet, extended release), atenolol (atenolol 50 mg oral tablet), enoxaparin (Lovenox), hydrALAZINE (hydrALAZINE 50 mg oral tablet), isosorbide mononitrate, lansoprazole (Prevacid), morphine Sulfate (morphine extended release), pravastatin, sertraline Unscheduled Meds: None PRN Meds (17):Dextrose 50% in Water IV (Dextrose 50% Syringe), Dextrose 50% in Water IV (Dextrose 50% Syringe), LORazepam (Ativan), acetaminophen, baclofen, glucagon, hydrALAZINE, insulin lispro, insulin lispro, insulin lispro, insulin lispro, insulin lispro, insulin lispro, insulin lispro, insulin lispro, insulin lispro, sodium chloride (Saline Flush 0.9%) One Time Meds (2):(Completed) atenolol (atenolol 50 mg oral tablet), (Completed) potassium chloride (K-Dur 20) Continuous Infusions: None Objective: Vitals: Vitals and Temp: Vitals Tmp(F) Pulse BP RR SpO2 FIO2 07/28 08:00 97.9 --- ----- - - --- --- 07/28 06:00 ---- 67 154/66 1 5 97 --- 07/28 05:00 ---- 62 148/70 1 7 96 --- 07/28 04:00 ---- 61 157/70 1 7 96 --- 07/28 03:00 ---- 62 138/65 1 8 95 --- 24 Hr Tmax: 98.7F (37.06c) at 07/27 21:0 0 Vital Signs are the last 5 in the past 48 hours. Physical Exam: APPEARANCE - lethargic, moving all 4 extremities spontaneously HEAD - Normocephalic, abrasion on forehead and nose (from previious fall) EYES - Pupil 6 mm equal and reactive to light NECK - ROM intact LUNGS - Clear to auscultation, no rales or rhonchi CV - Rate rhythm regular, no murmur, equal pulses bilaterally. ABDOMEN - Soft, non tender, with normal bowel sounds. No hepatosplenomegaly SKIN: Multiple bruises on arms from IV, bruise to right knee, abrasion to forehead and nose NEUROLOGY: Mental Status: Patient is awake, alert and oriented to person, place, time and situation Speech/language: fluent, naming and repitition intact Cranial Nerves: CN 2-12 intact Motor - R UE- Deltoid 4/5, Triceps 4/5, Biceps 5/5, Wrist flexion 5/5, Wrist extension 5/5 L UE- Deltoid 4/5, Triceps 4/5, Biceps 5/5, Wrist flexion 5/5, Wrist extension 5/5 R LE- Illopsoas 3/5, Knee extension 4/5, Knee flexion 4/5, dorsiflexion 5/5, plantarflexion 5/5 L LE- Illopsoas 3/5, Knee extension 4/5, Knee flexion 4/5, dorsiflexion 5/5, plantarflexion 5/5 Tone is normal Sensation- grossly intact throughout Coordination: intact, no dysmetria on FTN or HTS Gait- deferred Reflexes- R Triceps2+, Biceps 2+, Brachioradialis 2+, Patellar 2+, Ankle 2+ L Triceps2+, Biceps 2+, Brachioradialis 2+, Patellar 2+, Ankle 2+ Plantar: mute Labs: [facility] BUN: 43 mg/dL High (07/27/17) Hct: 30 % Low (07/27/17) Hgb: 10.1 g/dL Low (07/27/17) MCH: 30.6 pg (07/27/17) MCHC: 33.6 g/dL (07/27/17) MCV: 91.1 fL (07/27/17) MPV: 9.9 fL (07/27/17) Platelet: 171 K/CMM (07/27/17) RBC: 3.29 M/CMM Low (07/27/17) RDW: 15.3 % High (07/27/17) WBC: 13.2 K/CMM High (07/27/17) CK MB: 11 ng/mL High (07/24/17) Diagnostic Tests: EEG: normal wave sleep without epileptiform activity CT- Brain(07/24): There is no edema, hemorrhage, mass lesion or other acute intracranial abnormality. The ventricles and extra-axial spaces are in the enlarged. Scattered hypodensities in the subcortical and periventricular white matter are present, representing sequela of age-indeterminate microvascular ischemic insults. There is no fracture of the skull, skull base, or visible facial bones. IMPRESSION: No acute traumatic injuries identified. Generalized cerebral volume loss and age-indeterminate microvascular ischemic changes. Assessment: Ms. Morales is a 77 year old woman with PMH HTN, DM, back pain w/cervical spine stenosis and RLE weakness (uses cane at baseline) who was found down in her bedroom at 1200 on 07/24 by son, reportedly confused, verbal but not making sense, unable to walk or sit up, febrile on admission. Her mental status has improved greatly this admission. She is currently off all antibiotics, we agree with ID that this is less likely infection given her LP results. This could be a seizure provoked from post-concussive syndrome 2/2 fall last week or provoked by stroke. Patient has not gone for MRI so far, may be discharged today prior to being able to get MRI. She has placement at [facility]. Plan: - no AEDs indicated at this time - MRI outpatient - can consider 81 mg daily ASA consideri ng possible stroke, though with current fall risk, may want to defer to outpatient - providid patient with phone number for outpatient follow-up with [facility], patient states she has private neurologist closer to her home she would like to follow- up with Follow up appointments: Can follow with neurology prn/Pending clinical course/[facility] (10th floor [facility],call [phone] for appointment)/Follow up with private neurologist per patient preference The case was discussed with the Neurology Consult attending Dr Bird. Patient and family members were updated on the same and all questions answered. *sign off* Thank you for this interesting consult, neurology will sign off for now. Please page [phone] should you have any queries/concerns. Hilary Lujan MD Psychiatry PGY-1 Neurology Attending The patient was seen and examined by me with the resident and I agree with the History/Exam documented. Pedro Bird MD Extracted from:Title: ID Consult Note Author: Jessica Aarmbula MD Date: 07/25/17 Assessment/Plan Ms. Morales is a 77 yo woman with PMH back pain with lumabar and cervical stenosis associated with RLE weakness, HTN, DM and mild Parkinson's disease who presents with encephalopathy after presumed fall. While at her age there are multiple potential causes of fall and subsequent confusion, her agitation limits her exam and there was note of headache prior to the incident. While procalcitonin is low, cannot rule out neither meningitis nor encephalitis at this time, indeed encephalitis, such as 2/2 HSV, seems the more likely of the two at this time. LP will be crucial to further elucidate the diagnosis and we would encourage continued LP attempts even with sedation. Antibiotics cefepime (07/24 - present) Vancomycin (07/24 - Present) ampicillin (07/25 - present) Cultures NTD Recommendations - please start acyclovir 10mg/kg IV q8h (based on IBW) to cover for encephalitis - please order Strep. pneumo urinary ant igen. If negative we can consider discontinuing dexamethasone. - please obtain LP and associated tests - to further evaluate for encephalitis o r alternative brain pathology, please consider an MRI brain with contrast Patient was seen with Dr. Tao. We will continue to follow. Jessica Arambula MD PGY-2 [facility] Internal Medicine MSO#[id number] On 07/25/17 I saw and evaluated this patient with the ID resident, Dr. Arambula, with whose note and plan I concur. A repeat and clean LP might be very helpful as the firs LP was virtually uninterpretable. An MRI with contrast woudl shed light on the possibiltiy of brain abscess and HSV infection or other causes of encephalitis. Dr. Tao Extracted from:Title: History and Physical Author: Hector Castillo MD Date: 07/25/17 Assessment/Plan 77-year-old female with past medical his tory of back painwith cervical spine stenosisand resulting right lower extremity weakness, hypertension, diabetes, mild Parkinson's disease who presents with altered mental status. Change in mentation acutely within 1 dayafter patientfound down in bedroom. Work up thus far concerning for possible infectious cause (meningitis) vs seizures vs polypharmacy vs intracranial process (CT head neg 1.Altered mental status Unknown etiology at this time Due to fever, AMS will treat empirically for meningitis as LP was unable to be done in ER due to patient agitation--continue vancomycin, ceftriaxone, ampicillin while awaiting LP by IR today Follow-up ammonia, vitamin B1, B6 B12 levels, thyroid panel EEG 2.HTN (hypertension) Elevated readings and within, now improved after hydralazine Continue home atenolol, hydralazine, Imdur 3.Diabetes On glipizide as outpatient, continue sliding scale while inpatient 4.Parkinson disease Perpatient's son's, patient has mild form of disease, continue to monitor 5.Chronic back pain 6.Cervical stenosis of spine Patient on morphine ERas outpatientwith UDS positive for opioids; given altered mentation will hold all narcotics 7.RUSSEL (acute kidney injury) Improved after IV fluids, likely prerenal 8.Elevated troponin Elevated troponin, EKG without any ischemic changes, likely from demand ischemia from elevated blood pressure readings, continue to monitorand potentially consult cardiology if continuing to up trend 9.Depression Continue Abilify, sertraline 10.Polypharmacy Currently holding elmiron, amitiza, baclofen,morphine, vesicare Prophylaxis Holding for LP Disposition Pending further workup 07/28/2017 [facility] Plan of Care No Data Provided for This Section Social History Social History Date Source Social History TypeResponse Smoking Status Unknown if ever smoked; Exposure to Tobacco Smoke Unable to obtain; Cigarette Smoking Last 365 Days Unable to obtain; Reg Smoking Cessation Counseling No entered on: 07/24/17 07/24/2017 [facility] Social History TypeResponse Smoking Status Unknown if ever smoked; Exposure to Tobacco Smoke Unable to obtain; Cigarette Smoking Last 365 Days Unable to obtain; Reg Smoking Cessation Counseling No 07/24/2017 [facility] No data available for this section 05/13/2016 [facility] Family History No Data Provided for This Section Advance Directives No Data Provided for This Section Functional Status No Data Provided for This Section
--- OUTSIDE RECORDS SUMMARY | 2020-03-20 19:31 | XMS REPORT ---
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 [address]-41 Active not defi yuni GlipiZIDE [facility] 08906266914 10 MG Orally Once a day Ac tive [address] [facility] 98491341572 500 MG Orally Twice a day Ac tive 1 tablet with meals Elmiron [facility] 12582753298 100 MG Orally Three times a day Active 1 capsule on an empty stomach Pravastatin Sodium ND 41397392031 20 MG Orally Once a day Active [address] [facility] [address]-46 1000 MG Orally Active as directed Ambien ND 74299582968 10 MG Orally Once a day Acti ve 1 tablet at bedtime as needed Lidocaine HCl NDC 0 5 % Externally bid prn pain Aug 02, 2019 Active as directed Amlodipine Besylate [facility] 54416047876 10 MG Orally Once a day Active [address] [facility] 68728000602 325 MG Orally Once a day Act michelle [address] [facility] 02670020596 50 MG Orally Once a day Acti ve [address] [facility] 98373314755 10 MG Orally Once a day Act michelle [address] [facility] 65342975057 250 MG Orally every 8 hrs Active 2 tablets TraMADol HCl ER [facility] 17521929432 200 MG Orally Once a day Jul 112018Aug 30, 2019 Active [address] [facility] 63631347459 50 mg Orally q 12 hours prn breakthru pain Aug 02, 2019 Aug 30, 2019 Active 1 tablet as needed Atenolol [facility] 87022451065 50 MG Orally Once a day Act michelle 1 tablet Results No Known Results Summary Purpose [employer] Submission
--- OUTSIDE RECORDS SUMMARY | 2020-03-20 19:31 | XMS REPORT | Summary of Care ---
Author Author [facility] Organization [facility] Address Unknown Phone Unavailable Encounter COLTON Pablo([place]) [id number] Date(s): 07/24/17 - 07/28/17 [facility] [address] [employer] provided by [facility] [employer] [facility] [employer] [facility] [place] [address]- Discharge Disposition: DC/DISC TO REHAB Attending Physician: Dominique Granados MD Admitting Physician: Dominique Granados MD Vital Signs 1 2 3 Most recent to oldest [Reference Range]: 172.72 cm (07/24/17 1:05 PM) Height 98.3 DegF (07/28/17 12:00 PM) 97.9 DegF (07/28/17 8:00 AM) 98.3 DegF (07/27/17 5:23 PM) Temperature Oral [96.4-99.1 DegF] 144/64 mmHg *HI* (07/28/17 12:00 PM) 142/63 mmHg *HI* (07/28/17 10:33 AM) 177/77 mmHg *HI* (07/28/17 8:00 AM) Blood Pressure [90-140/60-90 mmHg] 17 BRMIN (07/28/17 12:00 PM) 19 BRMIN (07/28/17 10:33 AM) 18 BRMIN (07/28/17 8:00 AM) Respiratory Rate [14-20 BRMIN] 87 bpm (07/24/17 1:05 PM) Peripheral Pulse Rate [60-100 bpm] 95.455 kg (07/24/17 1:05 PM) Weight 32 m2 (07/24/17 1:05 PM) Body Mass Index Problem List No data available for this section Allergies, Adverse Reactions, Alerts Substance Reaction Severity Status NKDA Active Medications acetaminophen 650 mg, 2 tab, Route: PO, Drug form: TAB, Q4H, Dosing Weight 95.455, kg, PRN Cooper n 1-3/Temp > 100.4 F, Start date: 07/25/17 4:24:00 CDT, Duration: 30 day, Stop date: 08/24/17 4:23:00 GLASS BULB MACHINE ADJUSTER Notes: Do not exceed 4 gm/day. (Same as: Tylenol) Start Date: 07/25/17 Stop Date: 07/28/17 Status: Discontinued acyclovir 400 mg, Route: IVPB, ABXQ8H, Dosing Weight 95.455, kg, Start date: 07/25/17 18:0 0:00 CDT, Duration: 30 day, Stop date: 08/24/17 10:00:00 GLASS BULB MACHINE ADJUSTER, CrCl > 50 mL / min Start Date: 07/25/17 Stop Date: 07/25/17 Status: Deleted Amitiza 24 mcg oral capsule 24 microgram = 1 cap, PO, BID, # 60 cap, 0 Refill(s) Start Date: 07/25/17 Status: Ordered ampicillin 2 gm, Route: IV, Drug form: PDR/INJ, ABXQ4H, Dosing Weight 95.455, kg, Start howard e: 07/25/17 6:00:00 CDT, Duration: 30 day, Stop date: 08/24/17 4:00:00 GLASS BULB MACHINE ADJUSTER Notes: (Same as: Rashaad) MEDICATION WASTE Product Size: [address] Wasted: _0__ mg Start Date: 07/25/17 Stop Date: 07/26/17 Status: Discontinued ARIPiprazole 2 mg, 1 tab, Route: PO, Drug form: TAB, Daily, Dosing Weight 95.455, kg, Start d ate: 07/25/17 9:00:00 CDT, Duration: 30 day, Stop date: 08/23/17 9:00:00 GLASS BULB MACHINE ADJUSTER Notes: Same as: Abilify Non-Formulary Item Start Date: 07/25/17 Stop Date: 07/28/17 Status: Discontinued ARIPiprazole 2 mg oral tablet 2 mg = 1 tab, PO, Daily, # 90 tab, 0 Refill(s) Start Date: 07/25/17 Status: Ordered atenolol 50 mg oral tablet 50 mg, 1 tab, Route: PO, Drug form: TAB, QPM, Dosing Weight 95.455, kg, Start da te: 07/25/17 9:00:00 CDT, Stop date: 08/23/17 17:00:00 GLASS BULB MACHINE ADJUSTER Notes: (Same As:Tenormin) Start Date: 07/25/17 Stop Date: 07/28/17 Status: Discontinued atenolol 50 mg oral tablet 50 mg = 1 tab, PO, Daily, # 30 tab, 0 Refill(s) Start Date: 07/25/17 Status: Ordered atenolol 50 mg oral tablet 50 mg, 1 tab, Route: PO, Drug form: TAB, ONCE, Dosing Weight 95.455, kg, Start d ate: 07/27/17 14:17:00 CDT, Stop date: 07/27/17 14:17:00 CDT Notes: (Same As:Tenormin) Start Date: 07/27/17 Stop Date: 07/27/17 Status: Completed Ativan 1 mg, 0.5 mL, Route: IVP, Drug form: INJ, ONCE, Dosing Weight 95.455, kg, Priori ty: STAT, Start date: 07/24/17 13:28:00 CDT, Stop date: 07/24/17 13:28:00 CDT Notes: (Same as: Ativan) Start Date: 07/24/17 Stop Date: 07/24/17 Status: Completed Ativan 1 mg, Route: IVP, Drug form: INJ, ONCE, Dosing Weight 95.455, kg, Priority: STAT , Start date: 07/24/17 17:11:00 CDT, Stop date: 07/24/17 17:11:00 CDT Start Date: 07/24/17 Stop Date: 07/24/17 Status: Completed Ativan 1 mg, 0.5 mL, Route: IVP, Drug form: INJ, ONCE, Dosing Weight 95.455, kg, Priori ty: STAT, Start date: 07/24/17 20:24:00 CDT, Stop date: 07/24/17 20:24:00 CDT Notes: (Same as: Ativan) Start Date: 07/24/17 Stop Date: 07/24/17 Status: Completed Ativan 1 mg, 0.5 mL, Route: IVP, Drug form: INJ, Q6H, Dosing Weight 95.455, kg, PRN Anx iety, Start date: 07/25/17 8:19:00 CDT, Duration: 30 day, Stop date: 08/24/17 8: 18:00 GLASS BULB MACHINE ADJUSTER Notes: (Same as: Ativan) Start Date: 07/25/17 Stop Date: 07/28/17 Status: Discontinued Ativan 1 mg, 0.5 mL, Route: IVP, Drug form: INJ, ONCE, Dosing Weight 95.455, kg, Priori ty: STAT, Start date: 07/24/17 21:00:00 CDT, Stop date: 07/24/17 21:00:00 CDT Notes: (Same as: Ativan) Start Date: 07/24/17 Stop Date: 07/25/17 Status: Completed Ativan 1 mg, Route: IVP, Drug form: INJ, ONCE, Dosing Weight 95.455, kg, Priority: STAT , Start date: 07/24/17 18:29:00 CDT, Stop date: 07/24/17 18:29:00 CDT Start Date: 07/24/17 Stop Date: 07/24/17 Status: Completed Ativan 2 mg, 1 mL, Route: IVP, Drug form: INJ, ONCE, Dosing Weight 95.455, kg, PRN Proc edure, Start date: 07/26/17 11:12:00 CDT Notes: (Same as: Ativan) Start Date: 07/26/17 Stop Date: 07/28/17 Status: Discontinued Ativan 0.5 mg, 0.25 mL, Route: IV, Drug form: INJ, ONCE, Dosing Weight 95.455, kg, Star t date: 07/25/17 6:49:00 CDT, Stop date: 07/25/17 6:49:00 CDT Notes: (Same as: Ativan) Start Date: 07/25/17 Stop Date: 07/25/17 Status: Completed Ativan 1 mg, 0.5 mL, Route: IVP, Drug form: INJ, ONCE, Dosing Weight 95.455, kg, Priori ty: STAT, Start date: 07/24/17 14:24:00 CDT, Stop date: 07/24/17 14:24:00 CDT Notes: (Same as: Ativan) Start Date: 07/24/17 Stop Date: 07/24/17 Status: Completed baclofen 10 mg, 1 tab, Route: PO, Drug form: TAB, TID, Dosing Weight 95.455, kg, PRN Spas m, Start date: 07/26/17 12:26:00 CDT, Duration: 30 day, Stop date: 08/25/17 12:2 5:00 GLASS BULB MACHINE ADJUSTER Notes: (Same As: Lioresal) Start Date: 07/26/17 Stop Date: 07/28/17 Status: Discontinued baclofen 10 mg oral tablet 10 mg = 1 tab, PO, TID, PRN Spasms, # 90 tab, 0 Refill(s) Start Date: 07/25/17 Status: Ordered cefepime 1 gm, Route: IVPB, Drug form: INJ, ONCE, Dosing Weight 95.455, kg, Priority: STA T, Start date: 07/24/17 13:44:00 CDT, Duration: 1 doses or times, Stop date: 13:44:00 CDT, ABX Indication: ED - Suspected Sepsis Notes: (Same As: Maxipime) MEDICATION WASTE Product Size: 1000 mgProduc t Wasted: ___ mg Start Date: 07/24/17 Stop Date: 07/24/17 Status: Completed cefTRIAXone 2 gm, Route: IV, Drug form: PDR/INJ, [id number], Dosing Weight 95.455, kg, Start da te: 07/25/17 5:00:00 CDT, Duration: 30 day, Stop date: 08/23/17 13:00:00 GLASS BULB MACHINE ADJUSTER, AB X Indication: LINE MAINTENANCE TECHNICIAN Infection/Epidural Abcess Notes: MEDICATION WASTE Product Size: 2000 mgProduct Wasted: _0__ mg Start Date: 07/25/17 Stop Date: 07/26/17 Status: Discontinued dexamethasone 4 mg, 1 mL, Route: IVP, Drug form: INJ, Q6Hnow, Dosing Weight 95.455, kg, Start date: 07/25/17 11:00:00 CDT, Duration: 30 day, Stop date: 08/24/17 5:00:00 GLASS BULB MACHINE ADJUSTER Notes: Concentration: 4mg/ml Start Date: 07/25/17 Stop Date: 07/26/17 Status: Discontinued Dextrose 50% Syringe 12.5 gm, 25 mL, Route: IVP, Drug Form: INJ, Dosing Weight 95.455, kg, PRN, PRN B lood Glucose Results, Start date: 07/25/17 6:08:00 CDT, Duration: 30 day, Stop d ate: 08/24/17 5:07:00 GLASS BULB MACHINE ADJUSTER Start Date: 07/25/17 Stop Date: 07/28/17 Status: Discontinued Dextrose 50% Syringe 25 gm, 50 mL, Route: IVP, Drug Form: INJ, Dosing Weight 95.455, kg, PRN, PRN Blo od Glucose Results, Start date: 07/25/17 6:08:00 CDT, Duration: 30 day, Stop howard e: 08/24/17 5:07:00 GLASS BULB MACHINE ADJUSTER Start Date: 07/25/17 Stop Date: 07/28/17 Status: Discontinued Elmiron 100 mg oral capsule 100 mg = 1 cap, PO, BID, # 90 cap, 0 Refill(s) Start Date: 07/25/17 Status: Ordered esomeprazole 40 mg, Route: PO, Drug form: ECCAP, Daily, Dosing Weight 95.455, kg, Start date: 07/25/17 9:00:00 CDT, Duration: 30 day, Stop date: 08/23/17 9:00:00 GLASS BULB MACHINE ADJUSTER Start Date: 07/25/17 Stop Date: 07/25/17 Status: Deleted esomeprazole 40 mg oral delayed release capsule 40 mg = 1 cap, PO, Daily, # 30 cap, 0 Refill(s) Start Date: 07/25/17 Stop Date: 07/27/17 Status: Discontinued glipiZIDE 10 mg oral tablet 10 mg = 1 tab, PO, Before Breakfast, # 30 tab, 0 Refill(s) Start Date: 07/25/17 Status: Ordered glucagon 1 mg, Route: IM, Drug form: PDR/INJ, PRN, Dosing Weight 95.455, kg, PRN Blood Gl ucose Results, Start date: 07/25/17 6:08:00 CDT, Duration: 30 day, Stop date: 5:07:00 GLASS BULB MACHINE ADJUSTER Start Date: 07/25/17 Stop Date: 07/28/17 Status: Discontinued hydrALAZINE 10 mg, Route: IV, ONCE, Dosing Weight 95.455, kg, Start date: 07/25/17 4:10:00 C DT, Stop date: 07/25/17 4:10:00 CDT Start Date: 07/25/17 Stop Date: 07/25/17 Status: Completed hydrALAZINE 20 mg, 1 mL, Route: IVP, Drug form: INJ, Q4H, Dosing Weight 95.455, kg, PRN Hype rtension, Start date: 07/25/17 8:18:00 CDT, Duration: 30 day, Stop date: 7 8:17:00 GLASS BULB MACHINE ADJUSTER, SBP>160mmhg, DBP>100mmHg Notes: (Same as: Apresoline)Push over 5 minutes Start Date: 07/25/17 Stop Date: 07/28/17 Status: Discontinued hydrALAZINE 50 mg oral tablet 50 mg, 1 tab, Route: PO, Drug form: TAB, Q8H, Dosing Weight 95.455, kg, Start da te: 07/25/17 8:00:00 CDT, Duration: 30 day, Stop date: 08/24/17 0:00:00 GLASS BULB MACHINE ADJUSTER Notes: (Same as: Apresoline) May interfere w/enteral feedings Take With Food Start Date: 07/25/17 Stop Date: 07/28/17 Status: Discontinued hydrALAZINE 50 mg oral tablet 50 mg = 1 tab, PO, TID, # 90 tab, 3 Refill(s) Start Date: 07/25/17 Status: Ordered influenza virus vaccine, inactivated 0.5 mL, Route: IM, Drug Form: SUSP, Daily, Start date: 07/27/17 9:00:00 CDT, Dur ation: 1 doses or times, Stop date: 07/27/17 9:00:00 CDT Notes: (Same as: Fluzone Quadrivalent, Fluarix Quadrivalent)For 3 years of age a nd older (0.5 mL IM)Shake well before use Start Date: 07/27/17 Stop Date: 07/27/17 Status: Completed influenza virus vaccine, inactivated 0.5 mL, Route: IM, Drug Form: SUSP, Daily, Start date: 07/28/17 14:00:00 CDT, Du ration: 1 doses or times, Stop date: 07/28/17 14:00:00 CDT Notes: (Same as: Fluzone Quadrivalent, Fluarix Quadrivalent)For 3 years of age a nd older (0.5 mL IM)Shake well before use Start Date: 07/28/17 Stop Date: 07/28/17 Status: Completed insulin lispro 3 unit, 0.03 mL, Route: SUB-Q, Drug form: SOLN, TID-Before Meals, Dosing Weight 95.455, kg, PRN Blood Glucose Results, Start date: 07/25/17 6:08:00 CDT, Duratio n: 30 day, Stop date: 08/24/17 6:07:00 GLASS BULB MACHINE ADJUSTER Notes: (Same as: Humalog ) Roll in palms of hands gently; Do not shake `vigorou sly. "Single Patient Use Only " (Restricted to patients requiring a dose > 60 units)WASTE: F/P - Black; E - Municipal Trash Bin Stable for 28 days at room temperature.Expires in days from Date Start Date: 07/25/17 Stop Date: 07/28/17 Status: Discontinued insulin lispro 4 unit, 0.04 mL, Route: SUB-Q, Drug form: SOLN, TID-Before Meals, Dosing Weight 95.455, kg, PRN Blood Glucose Results, Start date: 07/25/17 6:08:00 CDT, Duratio n: 30 day, Stop date: 08/24/17 6:07:00 GLASS BULB MACHINE ADJUSTER Notes: (Same as: Humalog ) Roll in palms of hands gently; Do not shake `vigorou sly. "Single Patient Use Only " (Restricted to patients requiring a dose > 60 units)WASTE: F/P - Black; E - Municipal Trash Bin Stable for 28 days at room temperature.Expires in days from Date Start Date: 07/25/17 Stop Date: 07/28/17 Status: Discontinued insulin lispro 1 unit, 0.01 mL, Route: SUB-Q, Drug form: SOLN, TID-Before Meals, Dosing Weight 95.455, kg, PRN Blood Glucose Results, Start date: 07/25/17 6:08:00 CDT, Duratio n: 30 day, Stop date: 08/24/17 6:07:00 GLASS BULB MACHINE ADJUSTER Notes: (Same as: Humalog ) Roll in palms of hands gently; Do not shake `vigorou sly. "Single Patient Use Only " (Restricted to patients requiring a dose > 60 units)WASTE: F/P - Black; E - Municipal Trash Bin Stable for 28 days at room temperature.Expires in days from Date Start Date: 07/25/17 Stop Date: 07/28/17 Status: Discontinued insulin lispro 2 unit, 0.02 mL, Route: SUB-Q, Drug form: SOLN, TID-Before Meals, Dosing Weight 95.455, kg, PRN Blood Glucose Results, Start date: 07/25/17 6:08:00 CDT, Duratio n: 30 day, Stop date: 08/24/17 6:07:00 GLASS BULB MACHINE ADJUSTER Notes: (Same as: Humalog ) Roll in palms of hands gently; Do not shake `vigorou sly. "Single Patient Use Only " (Restricted to patients requiring a dose > 60 units)WASTE: F/P - Black; E - Municipal Trash Bin Stable for 28 days at room temperature.Expires in days from Date Start Date: 07/25/17 Stop Date: 07/28/17 Status: Discontinued insulin lispro 5 unit, 0.05 mL, Route: SUB-Q, Drug form: SOLN, TID-Before Meals, Dosing Weight 95.455, kg, PRN Blood Glucose Results, Start date: 07/25/17 6:08:00 CDT, Duratio n: 30 day, Stop date: 08/24/17 6:07:00 GLASS BULB MACHINE ADJUSTER Notes: (Same as: Humalog ) Roll in palms of hands gently; Do not shake `vigorou sly. "Single Patient Use Only " (Restricted to patients requiring a dose > 60 units)WASTE: F/P - Black; E - Municipal Trash Bin Stable for 28 days at room temperature.Expires in days from Date Start Date: 07/25/17 Stop Date: 07/28/17 Status: Discontinued insulin lispro 1 unit, 0.01 mL, Route: SUB-Q, Drug form: SOLN, Bedtime, Dosing Weight 95.455, k g, PRN Blood Glucose Results, Start date: 07/25/17 6:08:00 CDT, Duration: 30 day , Stop date: 08/24/17 6:07:00 GLASS BULB MACHINE ADJUSTER Notes: (Same as: Humalog ) Roll in palms of hands gently; Do not shake `vigorou sly. "Single Patient Use Only " (Restricted to patients requiring a dose > 60 units)WASTE: F/P - Black; E - Municipal Trash Bin Stable for 28 days at room temperature.Expires in days from Date Start Date: 07/25/17 Stop Date: 07/28/17 Status: Discontinued insulin lispro 2 unit, 0.02 mL, Route: SUB-Q, Drug form: SOLN, Bedtime, Dosing Weight 95.455, k g, PRN Blood Glucose Results, Start date: 07/25/17 6:08:00 CDT, Duration: 30 day , Stop date: 08/24/17 6:07:00 GLASS BULB MACHINE ADJUSTER Notes: (Same as: Humalog ) Roll in palms of hands gently; Do not shake `vigorou sly. "Single Patient Use Only " (Restricted to patients requiring a dose > 60 units)WASTE: F/P - Black; E - Municipal Trash Bin Stable for 28 days at room temperature.Expires in days from Date Start Date: 07/25/17 Stop Date: 07/28/17 Status: Discontinued insulin lispro 3 unit, 0.03 mL, Route: SUB-Q, Drug form: SOLN, Bedtime, Dosing Weight 95.455, k g, PRN Blood Glucose Results, Start date: 07/25/17 6:08:00 CDT, Duration: 30 day , Stop date: 08/24/17 6:07:00 GLASS BULB MACHINE ADJUSTER Notes: (Same as: Humalog ) Roll in palms of hands gently; Do not shake `vigorou sly. "Single Patient Use Only " (Restricted to patients requiring a dose > 60 units)WASTE: F/P - Black; E - Municipal Trash Bin Stable for 28 days at room temperature.Expires in days from Date Start Date: 07/25/17 Stop Date: 07/28/17 Status: Discontinued insulin lispro 4 unit, 0.04 mL, Route: SUB-Q, Drug form: SOLN, Bedtime, Dosing Weight 95.455, k g, PRN Blood Glucose Results, Start date: 07/25/17 6:08:00 CDT, Duration: 30 day , Stop date: 08/24/17 6:07:00 GLASS BULB MACHINE ADJUSTER Notes: (Same as: Humalog ) Roll in palms of hands gently; Do not shake `vigorou sly. "Single Patient Use Only " (Restricted to patients requiring a dose > 60 units)WASTE: F/P - Black; E - Municipal Trash Bin Stable for 28 days at room temperature.Expires in days from Date Start Date: 07/25/17 Stop Date: 07/28/17 Status: Discontinued isosorbide mononitrate 60 mg, 1 tab, Route: PO, Drug form: ERTAB, QAM, Dosing Weight 95.455, kg, Start date: 07/25/17 9:00:00 CDT, Stop date: 08/23/17 9:00:00 GLASS BULB MACHINE ADJUSTER Start Date: 07/25/17 Stop Date: 07/28/17 Status: Discontinued isosorbide mononitrate 60 mg oral tablet, extended release 60 mg = 1 tab, PO, QAM, # 30 tab, 0 Refill(s) Start Date: 07/25/17 Status: Ordered K-Dur 20 20 mEq, 1 tab, Route: PO, Drug form: ERTAB, ONCE, Dosing Weight 95.455, kg, Star t date: 07/27/17 12:39:00 CDT, Stop date: 07/27/17 12:39:00 CDT Start Date: 07/27/17 Stop Date: 07/27/17 Status: Completed ketAMINE 47.7275 mg, Route: IVP, ONCE, Dosing Weight 95.455, kg, Priority: STAT, Start da te: 07/24/17 21:01:00 CDT, Stop date: 07/24/17 21:01:00 CDT Start Date: 07/24/17 Stop Date: 07/25/17 Status: Completed Lovenox 30 mg, 0.3 mL, Route: SUB-Q, Drug form: INJ, [id number], Dosing Weight 95.455, kg, Start date: 07/26/17 20:00:00 CDT, Duration: 30 day, Stop date: 08/25/17 8:00:00 GLASS BULB MACHINE ADJUSTER Notes: (Same as: Lovenox) Start Date: 07/26/17 Stop Date: 07/28/17 Status: Discontinued magnesium sulfate 2 gm, 50 mL, Route: IVPB, Drug form: INJ, ONCE, Dosing Weight 95.455, kg, Total dose = 2 gm, Start date: 07/25/17 6:30:00 CDT, Duration: 1 doses or times, Stop date: 07/25/17 6:30:00 CDT Notes: WASTE: F/P - Sink; E - Municipal Trash Bin Start Date: 07/25/17 Stop Date: 07/25/17 Status: Completed metoprolol 5 mg/5 ml INJ 2.5 mg, 2.5 mL, Route: IVP, Drug form: INJ, Q6Hnow, Dosing Weight 95.455, kg, St art date: 07/25/17 11:00:00 CDT, Duration: 30 day, Stop date: 08/24/17 5:00:[address] Start Date: 07/25/17 Stop Date: 07/27/17 Status: Discontinued morphine extended release 15 mg, 1 tab, Route: PO, Drug form: ERTAB, Q8H-06, Dosing Weight 95.455, kg, Sta rt date: 07/26/17 12:38:00 CDT, Duration: 30 day, Stop date: 08/25/17 6:00:00 CS T Notes: Do not crush (Same as:Oramorph SR, MS Contin) Start Date: 07/26/17 Stop Date: 07/28/17 Status: Discontinued morphine extended release 15 mg, PO, Q8H, 0 Refill(s) Start Date: 07/25/17 Stop Date: 07/27/17 Status: Discontinued NIFEdipine 90 mg oral tablet, extended release 90 mg, 1 tab, Route: PO, Drug form: ERTAB, Daily, Dosing Weight 95.455, kg, Star t date: 07/27/17 21:20:00 CDT, Stop date: 08/26/17 9:00:00 GLASS BULB MACHINE ADJUSTER Start Date: 07/27/17 Stop Date: 07/28/17 Status: Discontinued nitroglycerin 2% ointment 1 inch, Route: TOP, Drug Form: OINT, Dosing Weight 95.455, kg, ONCE, Start date: 07/25/17 18:43:00 CDT, Stop date: 07/25/17 18:43:00 CDT Notes: 1gm is Approximately 1 inch of nitroglycerin ointment (20mg per g donavan) (Same as:Nitro-Bid) Start Date: 07/25/17 Stop Date: 07/25/17 Status: Completed NS (Bolus) IV 30 mL, 30 ml/hr, Infuse Over: 1 hr, Route: IV, ONCE, Priority: STAT, Dosing Weig ht 95.455 kg, Start date: 07/24/17 13:43:00 CDT, Duration: 1 doses or times, Sto p date: 07/24/17 13:43:00 CDT Start Date: 07/24/17 Stop Date: 07/24/17 Status: Deleted NS (Bolus) IV 2,863.65 mL, 2863.65 ml/hr, Infuse Over: 1 hr, Route: IV, 2,863.65, Drug form: I NJ, ONCE, Priority: STAT, Dosing Weight 95.455 kg, Start date: 07/24/17 14:24:00 CDT, Duration: 1 doses or times, Stop date: 07/24/17 14:24:00 CDT Start Date: 07/24/17 Stop Date: 07/24/17 Status: Completed NS (Bolus) IV 1,000 mL, 1,000 ml/hr, Infuse Over: 1 hr, Route: IV, ONCE, Priority: STAT, Dosin g Weight 95.455 kg, Start date: 07/24/17 17:07:00 CDT, Duration: 1 doses or time s, Stop date: 07/24/17 17:07:00 CDT Start Date: 07/24/17 Stop Date: 07/24/17 Status: Completed Ofirmev 1,000 mg, Route: IV, Drug form: INJ, ONCE, Dosing Weight 95.455, kg, PRN Pain Sc ore 1-3, for > or = 50 kg, Start date: 07/24/17 17:47:00 CDT Start Date: 07/24/17 Stop Date: 07/24/17 Status: Completed pneumococcal 13-valent vaccine 0.5 mL, Route: IM, Drug Form: INJ, Daily, Start date: 07/27/17 9:00:00 CDT, Dura tion: 1 doses or times, Stop date: 07/27/17 9:00:00 CDT Notes: Shake well prior to use (Same as: Prevnar 13) Start Date: 07/27/17 Stop Date: 07/27/17 Status: Completed pneumococcal 13-valent vaccine 0.5 mL, Route: IM, Drug Form: INJ, Daily, Start date: 07/28/17 13:48:00 CDT, Sto p date: 07/28/17 23:59:00 CDT Notes: Shake well prior to use (Same as: Prev 13) Start Date: 07/28/17 Stop Date: 07/28/17 Status: Discontinued potassium chloride 10 mEq, 50 mL, Route: IVPB, Drug form: INJ, ONCE, Start date: 07/25/17 16:00:00 CDT, Stop date: 07/25/17 16:00:00 CDT Start Date: 07/25/17 Stop Date: 07/25/17 Status: Completed potassium chloride 10 mEq, 50 mL, Route: IVPB, Drug form: INJ, Q1H, Dosing Weight 95.455, kg, Total Dose = 40 meq, Start date: 07/27/17 6:00:00 CDT, Duration: 4 doses or times, St op date: 07/27/17 9:00:00 CDT, Peripheral Line Notes: (Same as: KCL) Infuse over 2 hours. Start Date: 07/27/17 Stop Date: 07/27/17 Status: Completed potassium chloride 20 mEq, 100 mL, Route: IVPB, Drug form: INJ, Q2H, Start date: 07/25/17 12:00:00 CDT, Duration: 2 doses or times, Stop date: 07/25/17 14:00:00 CDT Start Date: 07/25/17 Stop Date: 07/25/17 Status: Completed potassium chloride 10 mEq, 50 mL, Route: IVPB, Drug form: INJ, Q1H, Dosing Weight 95.455, kg, Total Dose = 60 meq, Start date: 07/25/17 7:00:00 CDT, Duration: 6 doses or times, St op date: 07/25/17 12:00:00 CDT, Peripheral Line Notes: (Same as: KCL) Infuse over 2 hours. Start Date: 07/25/17 Stop Date: 07/25/17 Status: Voided With Results pravastatin 20 mg, 1 tab, Route: PO, Drug form: TAB, Bedtime, Dosing Weight 95.455, kg, Star t date: 07/25/17 21:00:00 CDT, Duration: 30 day, Stop date: 08/23/17 21:00:00 CS T Notes: (Same as: Pravachol) Start Date: 07/25/17 Stop Date: 07/28/17 Status: Discontinued pravastatin 20 mg oral tablet 20 mg = 1 tab, PO, Bedtime, # 30 tab, 0 Refill(s) Start Date: 07/25/17 Status: Ordered Prevacid 30 mg, 10 mL, Route: NG, Drug form: SUSP, Before Dinner, Start date: 07/25/17 16 :30:00 CDT, Duration: 30 day, Stop date: 08/23/17 16:30:00 GLASS BULB MACHINE ADJUSTER Notes: Take 1 hour before or 2 hours after meal; Expires in 14 days. Shake well before use. (Same as:Prevacid) Compounded Product - formulation not commerci ally available Start Date: 07/25/17 Stop Date: 07/28/17 Status: Discontinued Protonix 40 mg, 1 tab, Route: PO, Drug form: ECTAB, Q24H, Start date: 07/25/17 9:00:00 CD T, Duration: 30 day, Stop date: 08/23/17 9:00:00 GLASS BULB MACHINE ADJUSTER Notes: Tablet should not be chewed or crushed.(Same as: Protonix) Start Date: 07/25/17 Stop Date: 07/25/17 Status: Deleted Saline Flush 0.9% 10 mL, Route: IVP, Drug Form: INJ, Dosing Weight 95.455, kg, PRN, PRN Line Flush , Start date: 07/24/17 13:27:00 CDT, Duration: 30 day, Stop date: 08/23/17 12:26 :00 GLASS BULB MACHINE ADJUSTER Notes: Same as: BD Posiflush Sterile Start Date: 07/24/17 Stop Date: 07/28/17 Status: Discontinued sertraline 150 mg, 3 tab, Route: PO, Drug form: TAB, Daily, Dosing Weight 95.455, kg, Start date: 07/25/17 9:00:00 CDT, Duration: 30 day, Stop date: 08/23/17 9:00:00 [employer] Notes: (Same as: Zoloft) Start Date: 07/25/17 Stop Date: 07/28/17 Status: Discontinued sertraline 150 mg, PO, Daily, 0 Refill(s) Start Date: 07/25/17 Status: Ordered Tylenol 650 mg, 1 supp, Route: MN, Drug form: SUPP, ONCE, Dosing Weight 95.455, kg, Prio rity: STAT, Start date: 07/24/17 14:51:00 CDT, Stop date: 07/24/17 14:51:00 CDT Notes: Max acetaminophen = 4000 mg/day (4 gm/day). (Same as: Tylenol) Start Date: 07/24/17 Stop Date: 07/24/17 Status: Completed Tylenol 650 mg, 20.3 mL, Route: NG, Drug form: LIQ, ONCE, Dosing Weight 95.455, kg, Star t date: 07/25/17 18:49:00 CDT, Stop date: 07/25/17 18:49:00 CDT Notes: Max acetaminophen = 4000mg/day (4 gm/day). (Same as: Tylenol) Start Date: 07/25/17 Stop Date: 07/25/17 Status: Completed valsartan 160 mg oral tablet 160 mg = 1 tab, PO, Daily, # 30 tab, 0 Refill(s) Start Date: 07/25/17 Stop Date: 07/27/17 Status: Discontinued vancomycin 1,000 mg, Route: IVPB, Drug form: INJ, ONCE, Dosing Weight 95.455, kg, Priority: STAT, Start date: 07/24/17 13:44:00 CDT, Duration: 1 doses or times, Stop date: 07/24/17 13:44:00 CDT, ABX Indication: ED - Suspected Sepsis Notes: TIME CRITICAL MEDICATION(Same As: Vancocin)Infusion rate< 1000 mg: infuse over 1 [id number] - 1500 mg: infuse over 1.5 [id number] - 2000 mg: infuse over 2 hours> 2001 mg: infuse over 2.5 hours MEDICATION WASTE Product Size: 1000 mgProduct Wasted: ___ mg Start Date: 07/24/17 Stop Date: 07/24/17 Status: Completed vancomycin + sodium chloride 0.9% INJ 250 mL 1.25 gm, Route: IV, [id number], Dosing Weight 95.455, kg, Start date: 07/25/17 14:3 0:00 CDT, Duration: 30 day, Stop date: 08/23/17 16:30:00 [employer] ADJUSTER, ABX Indication: CN S Infection/Epidural Abcess Notes: TIME CRITICAL MEDICATION(Same As: Vancocin)Infusion rate< 1000 mg: infuse over 1 [id number] - 1500 mg: infuse over 1.5 hoursVancomycin FOR IV SET [id number] - 2000 mg: infuse over 2 hours> 2001 mg: infuse over 2.5 hours MEDICATION WASTE Product Size: 1000 mgProduct Wasted: ___ mg Start Date: 07/25/17 Stop Date: 07/26/17 Status: Discontinued VESIcare 10 mg oral tablet 10 mg = 1 tab, PO, Daily, # 30 tab, 1 Refill(s) Start Date: 07/25/17 Stop Date: 08/24/17 Status: Ordered Visipaque 320mg/ml 100 mL, Route: IVP, Drug Form: SOLN, Dosing Weight 95.455, kg, ONCALL, STAT, Sta rt date: 07/25/17 1:52:00 CDT, Duration: 1 doses or times, Dose = 2.2ml/kg, Max dose = 100ml -- "To be infused by Radiology Staff ONLY" Start Date: 07/25/17 Stop Date: 07/25/17 Status: Completed Zovirax + sodium chloride 0.9% INJ 100 mL 600 mg, 12 mL, Route: IVPB, [id number], Start date: 07/25/17 19:00:00 CDT, Stop date : 08/24/17 11:00:00 [employer] ADJUSTER Notes: Same as: Zovirax MEDICATION WASTE Product Size: 500 mgProduct Wa sted: ___ mg Start Date: 07/25/17 Stop Date: 07/26/17 Status: Discontinued Results ELECTROLYTES 1 2 3 Most recent to oldest [Reference Range]: 143 mEq/L (07/27/17 3:58 AM) 143 mEq/L (07/26/17 3:37 AM) 145 mEq/L (07/25/17 9:47 PM) Sodium Lvl [135-145 mEq/L] 3.3 mEq/L *LOW* (07/27/17 3:58 AM) 4.4 mEq/L (07/26/17 3:37 AM) 3.5 mEq/L (07/25/17 9:47 PM) Potassium Lvl [3.5-5.1 mEq/L] 111 mEq/L *HI* (07/27/17 3:58 AM) 108 mEq/L (07/26/17 3:37 AM) 109 mEq/L (07/25/17 9:47 PM) Chloride Lvl [95-109 mEq/L] 21 mEq/L *LOW* (07/27/17 3:58 AM) 19 mEq/L *LOW* (07/26/17 3:37 AM) 20 mEq/L *LOW* (07/25/17 9:47 PM) CO2 [24-32 mEq/L] 14.3 mEq/L (07/27/17 3:58 AM) 20.4 mEq/L *HI* (07/26/17 3:37 AM) 19.5 mEq/L (07/25/17 9:47 PM) AGAP [10.0-20.0 mEq/L] CHEM PANEL 1 2 3 Most recent to oldest [Reference Range]: 1.78 mg/dL *HI* (07/27/17 3:58 AM) 1.17 mg/dL (07/26/17 3:37 AM) 1.17 mg/dL (07/25/17 9:47 PM) Creatinine Lvl [0.50-1.40 mg/dL] 27 mL/min/1.73m2 1 *NA* (07/27/17 3:58 AM) 44 mL/min/1.73m2 2 *NA* (07/26/17 3:37 AM) 44 mL/min/1.73m2 3 *NA* (07/25/17 9:47 PM) eGFR 43 mg/dL *HI* (07/27/17 3:58 AM) 27 mg/dL *HI* (07/26/17 3:37 AM) 25 mg/dL *HI* (07/25/17 9:47 PM) BUN [7-22 mg/dL] 15 (07/24/17 1:29 PM) B/C Ratio [6-25] 152 mg/dL *HI* (07/27/17 3:58 AM) 115 mg/dL *HI* (07/26/17 3:37 AM) 108 mg/dL *HI* (07/25/17 9:47 PM) Glucose Lvl [70-99 mg/dL] 7.4 g/dL (07/24/17 1:29 PM) Total Protein [6.4-8.4 g/dL] 4.1 g/dL (07/24/17 1:29 PM) Albumin Lvl [3.5-5.0 g/dL] 3.3 g/dL (07/24/17 1:29 PM) Globulin [2.7-4.2 g/dL] 1.2 (07/24/17 1:29 PM) A/G Ratio [0.7-1.6] 8.1 mg/dL *LOW* (07/27/17 3:58 AM) 8.2 mg/dL *LOW* (07/26/17 3:37 AM) 8.7 mg/dL (07/25/17 9:47 PM) Calcium Lvl [8.5-10.5 mg/dL] 3.2 mg/dL (07/27/17 3:58 AM) Phosphorus [2.5-4.5 mg/dL] 2.1 mg/dL (07/27/17 3:58 AM) 2.2 mg/dL (07/26/17 3:37 AM) 2.2 mg/dL (07/25/17 9:47 PM) Magnesium Lvl [1.8-2.4 mg/dL] 19 unit/L (07/24/17 1:29 PM) ALT [0-65 unit/L] 35 unit/L (07/24/17 1:29 PM) AST [0-37 unit/L] 76 unit/L (07/24/17 1:29 PM) Alk Phos [39-136 unit/L] 0.6 mg/dL (07/24/17 1:29 PM) Bili Total [0.2-1.3 mg/dL] 12.0 uMol/L (07/25/17 9:47 PM) 225.0 uMol/L *HI* (07/25/17 5:02 AM) Ammonia [<=45.0 uMol/L] 1.5 mMol/L (07/24/17 5:41 PM) 3.4 mMol/L *HI* (07/24/17 3:07 PM) 3.3 mMol/L *HI* (07/24/17 1:29 PM) Lactic Acid Lvl [0.5-2.2 mMol/L] <0.05 ng/mL (07/24/17 1:29 PM) Procalcitonin Lvl [0.00-0.10 ng/mL] 1Result Comment: The eGFR is calculated using the [...] from the National Kidney Disease Education Program ( NKDEP) which additionally recommends that when the eGFR is used in patients with extremes of body mass index for purposes of drug dosing, the eGFR should be mul tiplied by the estimated BMI. 2Result Comment: The eGFR is calculated using the [...] from the National Kidney Disease Education Program ( NKDEP) which additionally recommends that when the eGFR is used in patients with extremes of body mass index for purposes of drug dosing, the eGFR should be mul tiplied by the estimated BMI. 3Result Comment: The eGFR is calculated using the [...] from the National Kidney Disease Education Program ( NKDEP) which additionally recommends that when the eGFR is used in patients with extremes of body mass index for purposes of drug dosing, the eGFR should be mul tiplied by the estimated BMI. CARDIAC ENZYMES 1 2 3 Most recent to oldest [Reference Range]: 983 unit/L *HI* (07/25/17 5:02 AM) 907 unit/L *HI* (07/24/17 1:29 PM) Total CK [12-191 unit/L] 11.0 ng/mL *HI* (07/24/17 1:29 PM) CK MB [0.5-3.6 ng/mL] 1.2 (07/24/17 1:29 PM) CK MB Index [0.0-2.5] 0.95 ng/mL 1 *CRIT* (07/26/17 3:37 AM) 1.31 ng/mL 2 *CRIT* (07/25/17 9:47 PM) 1.52 ng/mL 3 *CRIT* (07/25/17 11:40 AM) Troponin-I [0.00-0.40 ng/mL] 1Result Comment: Critical Result(s) called to Jory Torres at 07/26/2017 05:11 by ET. Read back OK. 2Result Comment: Critical Result(s) called to Andrew at 07/25/2017 22:43 by RIOS. Read back OK. 3Result Comment: Critical Result(s) called to Emy Raygoza at 07/25/2017 13:53 byRC. Read back OK. SPECIAL CHEMISTRY 1 2 3 Most recent to oldest [Reference Range]: 6.0 % *HI* (07/25/17 11:40 AM) Hgb A1C [<=5.6 %] ANEMIA STUDY 1 2 3 Most recent to oldest [Reference Range]: 387 pg/mL (07/25/17 6:46 AM) Vitamin B12 Lvl [254-1320 pg/mL] DRUG SCREEN 1 2 3 Most recent to oldest [Reference Range]: Negative *NA* (07/24/17 1:29 PM) U Methadone Scr [Negative] Negative *NA* (07/24/17 1:29 PM) U Propoxyph Scr [Negative] Negative *NA* (07/24/17 1:29 PM) U Amph Scr [Negative] Negative *NA* (07/24/17 1:29 PM) U Sena Scr [Negative] Negative *NA* (07/24/17 1:29 PM) U Benzodia Scr [Negative] Negative *NA* (07/24/17 1:29 PM) U Cocaine Scr [Negative] Positive *ABN* (07/24/17 1:29 PM) U Opiate Scr [Negative] Negative *NA* (07/24/17 1:29 PM) U Phencyc Scr [Negative] Negative *NA* (07/24/17 1:29 PM) U Cannab Scr [Negative] See Note (07/24/17 1:29 PM) UDS Note TOXICOLOGY 1 2 3 Most recent to oldest [Reference Range]: 5.1 ug/ml *NA* (07/25/17 11:40 AM) Vanco Lvl <2 (07/24/17 2:26 PM) Acetaminoph Lvl [10-20] <1.7 mg/dL (07/24/17 1:47 PM) Salicylate Lvl [0.0-30.0 mg/dL] <0.003 % (07/24/17 3:05 PM) Etoh (%) <3.0 mg/dL (07/24/17 3:05 PM) Ethanol Lvl URINE CHEM 1 2 3 Most recent to oldest [Reference Range]: 75.10 mg/dL *NA* (07/25/17 5:02 AM) U Creatinine 152 mEq/L *NA* (07/25/17 5:02 AM) U Sodium URINE AND STOOL 1 2 3 Most recent to oldest [Reference Range]: Clear (07/24/17 1:29 PM) UA Turbidity [Clear] Yellow *NA* (07/24/17 1:29 PM) UA Color [Yellow] 6.0 (07/24/17 1:29 PM) UA pH [5.0-8.0] 1.021 *NA* (07/24/17 1:29 PM) UA Spec Grav [<=1.030] Negative (07/24/17 1:29 PM) UA Glucose [Negative] Moderate *ABN* (07/24/17 1:29 PM) UA Blood [Negative] Trace *ABN* (07/24/17 1:29 PM) UA Ketones [Negative] >=300 mg/dL *ABN* (07/24/17 1:29 PM) UA Protein [Negative mg/dL] 0.2 EU/dL (07/24/17 1:29 PM) UA Urobilinogen [0.1-1.0 EU/dL] Negative *NA* (07/24/17 1:29 PM) UA Bili [Negative] Negative (07/24/17 1:29 PM) UA Leuk Est [Negative] Negative (07/24/17 1:29 PM) UA Nitrite [Negative] 0-2 /HPF (07/24/17 1:29 PM) UA WBC [None Seen /HPF] 0-2 /HPF (07/24/17 1:29 PM) UA RBC [0-2 /HPF] Occasional /HPF (07/24/17 1:29 PM) UA Bacteria [None Seen /HPF] Few /LPF (07/24/17 1:29 PM) UA Sq Epi [Few /LPF] BODY FLUIDS 1 2 3 Most recent to oldest [Reference Range]: 58 mg/dL (07/25/17 4:00 PM) Glucose CSF [45-80 mg/dL] 2 *NA* (07/25/17 4:00 PM) Tube Num CSF Colorless (07/25/17 4:00 PM) Color CSF [Colorless] Clear (07/25/17 4:00 PM) Clarity CSF [Clear] Colorless (07/25/17 4:00 PM) Supernat CSF [Colorless] 48 /mm3 *HI* (07/25/17 4:00 PM) RBC CSF [0-0 /mm3] 1 /mm3 (07/25/17 4:00 PM) WBC CSF [0-5 /mm3] IMMUNOLOGY 1 2 3 Most recent to oldest [Reference Range]: 3.2 AI *HI* (07/25/17 11:40 AM) Varicella IgG [<=0.8 AI] <0.91 INDEX 1 *NA* (07/25/17 11:40 AM) Varicella IgM [0.00-0.90 INDEX] 1Result Comment: Negative <0.91 Borderline 0.91 - 1.09 Positive >1.09 Performed At: [facility] [id number] Eda Krishna MD Ph:[phone] HEMATOLOGY 1 2 3 Most recent to oldest [Reference Range]: 13.2 K/CMM *HI* (07/27/17 5:33 AM) 16.0 K/CMM *HI* (07/26/17 3:37 AM) 9.4 K/CMM (07/25/17 4:39 AM) WBC [3.7-10.4 K/CMM] 3.29 M/CMM *LOW* (07/27/17 5:33 AM) 3.60 M/CMM *LOW* (07/26/17 3:37 AM) 3.27 M/CMM *LOW* (07/25/17 4:39 AM) RBC [4.20-5.40 M/CMM] 10.1 g/dL *LOW* (07/27/17 5:33 AM) 10.9 g/dL *LOW* (07/26/17 3:37 AM) 9.9 g/dL *LOW* (07/25/17 4:39 AM) Hgb [12.0-16.0 g/dL] 30.0 % *LOW* (07/27/17 5:33 AM) 33.2 % *LOW* (07/26/17 3:37 AM) 29.6 % *LOW* (07/25/17 4:39 AM) Hct [36.0-48.0 %] 91.1 fL (07/27/17 5:33 AM) 92.2 fL (07/26/17 3:37 AM) 90.5 fL (07/25/17 4:39 AM) MCV [80.0-98.0 fL] 30.6 pg (07/27/17 5:33 AM) 30.2 pg (07/26/17 3:37 AM) 30.2 pg (07/25/17 4:39 AM) MCH [27.0-31.0 pg] 33.6 g/dL (07/27/17 5:33 AM) 32.7 g/dL (07/26/17 3:37 AM) 33.3 g/dL (07/25/17 4:39 AM) MCHC [32.0-36.0 g/dL] 15.3 % *HI* (07/27/17 5:33 AM) 14.9 % *HI* (07/26/17 3:37 AM) 14.8 % *HI* (07/25/17 4:39 AM) RDW [11.5-14.5 %] 171 K/CMM (07/27/17 5:33 AM) 142 K/CMM (07/26/17 3:37 AM) 137 K/CMM (07/25/17 4:39 AM) Platelet [133-450 K/CMM] 9.9 fL (07/27/17 5:33 AM) 11.1 fL *HI* (07/26/17 3:37 AM) 10.3 fL (07/25/17 4:39 AM) MPV [7.4-10.4 fL] 83.9 % *HI* (07/27/17 5:33 AM) 92.8 % *HI* (07/26/17 3:37 AM) 85.3 % *HI* (07/25/17 4:39 AM) Segs [45.0-75.0 %] 6.8 % *LOW* (07/27/17 5:33 AM) 3.6 % *LOW* (07/26/17 3:37 AM) 5.7 % *LOW* (07/25/17 4:39 AM) Lymphocytes [20.0-40.0 %] 8.2 % (07/27/17 5:33 AM) 3.3 % (07/26/17 3:37 AM) 7.8 % (07/25/17 4:39 AM) Monocytes [2.0-12.0 %] 0.5 % (07/27/17 5:33 AM) 0.1 % (07/26/17 3:37 AM) 0.3 % (07/25/17 4:39 AM) Eosinophils [0.0-4.0 %] 0.6 % (07/27/17 5:33 AM) 0.2 % (07/26/17 3:37 AM) 0.9 % (07/25/17 4:39 AM) Basophils [0.0-1.0 %] 11.1 K/CMM *HI* (07/27/17 5:33 AM) 14.8 K/CMM *HI* (07/26/17 3:37 AM) 8.0 K/CMM (07/25/17 4:39 AM) Segs-Bands # [1.5-8.1 K/CMM] 0.9 K/CMM *LOW* (07/27/17 5:33 AM) 0.6 K/CMM *LOW* (07/26/17 3:37 AM) 0.5 K/CMM *LOW* (07/25/17 4:39 AM) Lymphocytes # [1.0-5.5 K/CMM] 1.1 K/CMM *HI* (07/27/17 5:33 AM) 0.5 K/CMM (07/26/17 3:37 AM) 0.7 K/CMM (07/25/17 4:39 AM) Monocytes # [0.0-0.8 K/CMM] 0.1 K/CMM (07/27/17 5:33 AM) Eosinophils # [0.0-0.5 K/CMM] 0.1 K/CMM (07/27/17 5:33 AM) 0.1 K/CMM (07/25/17 4:39 AM) Basophils # [0.0-0.2 K/CMM] 1+ *ABN* (07/26/17 3:37 AM) 1+ *ABN* (07/24/17 1:29 PM) Anisocyte [None Seen] slight *NA* (07/26/17 3:37 AM) Toxic Gran slight *NA* (07/26/17 3:37 AM) Neut Vac 0-2 *NA* (07/26/17 3:37 AM) Schistocyte slight *NA* (07/24/17 1:29 PM) Large Plt 12.5 seconds (07/24/17 1:29 PM) PT [12.0-14.7 seconds] 0.91 (07/24/17 1:29 PM) INR [0.85-1.17] 22.4 seconds *LOW* (07/24/17 1:29 PM) PTT [22.9-35.8 seconds] BACTERIAL - SEROLOGY 1 2 3 Most recent to oldest [Reference Range]: Urine *NA* (07/25/17 9:47 PM) Source Strep Negative (07/25/17 9:47 PM) Strep pneumoniae Ag [Negative] VIRAL - SEROLOGY 1 2 3 Most recent to oldest [Reference Range]: Negative 1 *NA* (07/25/17 11:40 AM) W Nile Ab IgG [Negative] Negative 2 *NA* (07/25/17 11:40 AM) W Nile Ab IgM [Negative] Negative (07/25/17 4:00 PM) Enterovirus PCR CSF [Negative] 1Result Comment: No detectable West Nile Virus IgG Antibody. If a recent infection is suspected, another specimen should be submitted for testing within 7-14 days. 2Result Comment: No detectable West Nile Virus IgM Antibody. If a recent infection is suspected, another specimen should be submitted for testing within 7-14 days. Performed At: [facility] [id number] Eda Krishna MD Ph:[phone] Immunizations Given and Recorded Vaccine Date Status Refusal Reason influenza virus vaccine, inactivated 07/28/17 G iven pneumococcal 13-valent vaccine 07/28/17 Given Not Given Vaccine Date Status Refusal Reason influenza virus vaccine, inactivated 07/27/17 Not Given Patient Refuses pneumococcal 13-valent vaccine 07/27/17 Not Given Patient Refuses Procedures Procedure Date Related Diagnosis Body Site Spinal puncture, lumbar, diagnostic 07/25/17 Social History Social History Type Response Smoking Status Unknown if ever smoked; Exp osure to Tobacco Smoke Unable to obtain; Cigarette Smoking Last 365 Days Unable to obtain; Reg Smoking Cessation Counseling No Assessment and Plan Extracted from: Title: Neurology progress note Author: Hilary Lujan MD Date: 07/28/17 General Neurology Consult Progress Note Subjective: The patient reports that she did not sleep well overnight. She had high BP overnight up to 220s/90s. Has not been to MRI 2/2 question about possible mesh implant, though patient reports she does not have any mesh implants. Patient has placement at [facility] and is pending transportation for discharge. Scheduled [...] Infusions: None Objective: Vitals: Vitals and Temp: VitalsTmp(F)[id number] 07/28 08:0097.9 07/28 06:00----[id number]--- 07/28 05:00----[id number]--- 07/28 04:00----[id number]--- 07/28 03:00----[id number]--- 24 Hr Tmax: 98.7F (37.06c) at 07/27 21:0 0Vital Signs are the last 5 in the [...] to get MRI. She has placement at [facility]. Plan: - no AEDs indicated at this time - MRI outpatient - can consider 81 mg daily ASA consideri ng possible stroke, though with current fall risk, may want to defer to outpatient - providid patient with phone number for outpatient follow-up with [facility], patient states she has private neurologist closer to her home she would like to follow- up with Follow up appointments: Can follow with neurology prn/Pending clinical course/[facility] Neurology (10th floor [facility],call [phone] for appointment)/Follow up with private neurologist per patient preference The case was discussed with the Neurology Consult attending Dr Bird. Patient and family members were updated on the same and all questions answered. *sign off* Thank you for this interesting consult, neurology will sign off for now. Please page [phone] should you have any queries/concerns. Hilary Lujan MD Psychiatry PGY-1 Neurology Attending The patient was seen and examined by me with the resident and I agree with the History/Exam documented. Pedro Bird MD Extracted from: Title: ID Consult Note Author: Jessica Arambula MD Date: Assessment/Plan Ms. Morales is a 77 yo [...] continue to follow. Jessica Arambula MD PGY-2 [facility] MSO#[id number] On 07/25/17 I saw and evaluated this patient with the ID resident, Dr. Arambula, with whose note and plan I concur. A repeat and clean LP might be very helpful as the firs LP was virtually uninterpretable. An MRI with contrast woudl shed light on the possibiltiy of brain abscess and HSV infection or other causes of encephalitis. Dr. Tao Extracted from: Title: History and Physical Author: Hector Castillo MD Date : 07/25/17 Assessment/Plan 77-year-old female with past medical [...]
--- OUTSIDE RECORDS SUMMARY | 2020-03-20 19:31 | XMS REPORT | Summary of Care ---
Author Author [facility] Address Unknown Phone Unavailable Encounter HQ Paulr_selena([facility]) [id number] Date(s): 04/13/16 - 05/12/16 Critical access hospital Discharge Disposition: Home or Self Care Attending Physician: Bill Cole DO Vital Signs No data [...]
--- OUTSIDE RECORDS SUMMARY | 2020-03-20 19:31 | XMS REPORT | Summary of Care ---
Author Author [facility] Outpatient Imaging - [facility] Organization [facility] Outpatient Imaging - [facility] Address Unknown Phone Unavailable Encounter HQ Quintinntr_selena([facility]) [id number] Date(s): 12/30/17 - 12/30/17 [facility] Outpatient Imaging - [place] [address] [place] [address] [phone] Encounter Diagnosis Pain in left hip (Final) - 01/05/18 Other intervertebral disc degeneration, lumbosacral region (Final) - Unilateral primary osteoarthritis, left hip (Final) - Discharge Disposition: Home or Self Care Attending Physician: Omar Mendenhall MD Vital Signs No data available for this section Problem List No data available for this section Allergies, Adverse Reactions, Alerts Substance Reaction Severity Status NKDA Active Medications No data available for this section Results No data available for this section Immunizations Given and Recorded Vaccine Date Status Refusal Reason pneumococcal 13-valent vaccine 07/28/17 Given influenza virus vaccine, inactivated 07/28/17 G iven Not Given Vaccine Date Status Refusal Reason pneumococcal 13-valent vaccine 07/27/17 Not Given Patient Refuses influenza virus vaccine, inactivated 07/27/17 Not Given Patient Refuses Procedures No data available for this section Social History Social History Type Response Smoking Status Unknown if ever smoked; Exp osure to Tobacco Smoke Unable to obtain; Cigarette Smoking Last 365 Days Unable to obtain; Reg Smoking Cessation Counseling No entered on: 07/24/17 Assessment and Plan No data available for this section
--- OUTSIDE RECORDS SUMMARY | 2020-03-20 19:32 | XMS REPORT ---
Author Leyda Ward Organization [employer] Address Unknown Phone Unavailable Care Team Providers Care Stock Turner Name Role Phone Bill Cole CP Unavailable Allergies, Adverse Reactions, Alerts Substance Reaction Event Type Ibuprofen Info Not Available Drug Allergy Stadol itcing Drug Allergy Fiorinal Info Not Available Drug Allergy penicillin itching Drug Allergy NSAIDS effects kidneys Drug Allergy Problems Problem Type Condition Code [...] Problem Chronic pain syndrome G89.4 Active Problem Age-related cognitive decline R41.81 Active Problem Low back pain M54.5 Active Problem Restlessness and agitation R45.1 A [...] Start Date End Date Status Dosage GlipiZIDE ND 19511268895 10 MG Orally Once a day Ac tive 1 tablet VESIcare [facility] 31825802396 10 MG Orally Once a day Act michelle 1 tablet Nitro-Bid [facility] [address]-75 Active not defi yuni Metronidazole ND 46851871257 250 MG Orally every 8 hrs Active 2 tablets Valium ND 51955037945 2 MG Orally made chew 20 minutes prior to MRI if not overly sedated May 23, 2018 Active 1 tablet as need ed Aspirin ND 51990117556 325 MG Orally Once a day Act michelle 1 tablet Ambien ND 18350702543 10 MG Orally Once a day Acti ve 1 tablet at bedtime as needed Tylenol/codeine #4 #30 NDC 0 300-60 mg orally twice a day (bid) as needed (prn) pain Jul 18, 2018 Aug 15, 2018 Active one tablet Baclofen ND 69938705509 10 MG Orally Three times a d ay prn muscle spasms Jul 18, 2018 Aug 17, 2018 Active 1/2 tablet with food or milk Pravastatin Sodium ND 36168076093 20 MG Orally Once a day Active 1 tablet Amlodipine Besylate ND 73670074589 10 MG Orally Once a day Active 1 tablet Atenolol ND 82583907086 50 MG Orally Once a day Act michelle 1 tablet Calcium [facility] 27036795583 500 MG Orally Twice a day Ac tive 1 tablet with meals Valium [facility] 85689635514 5 MG Orally 1 hour prior to MRI May 23, 2018 Active 1 tablet as needed Zoloft [facility] 43774266726 50 MG Orally Once a day Acti ve 1 tablet Elmiron [facility] 36821677035 100 MG Orally Three times a day Active 1 capsule on an empty stomach Vitamin C [facility] [address]-44 1000 MG Orally Active as directed Vital Signs Date/Time: Jul 18, 2018 Blood Pressure Systolic 129 mm Hg Weight 210.6 lbs Height 68 in BMI 32.02 Index Respiratory Rate 16 /min Cardiac Monitoring Heart Rate 52 /min Blood Pressure Diastolic 59 mm Hg Results No Known Results Summary Purpose [employer] Submission
--- OUTSIDE RECORDS SUMMARY | 2020-03-20 19:32 | XMS REPORT ---
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, without long-term current use of insulin E11.43 Active Assessment Adverse effect of other opioids, initial encounter T40 .2X5A Active Assessment Age-related cognitive decline R41.81 Active Assessment 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 Assessment History of falling Z91.81 Active Assessment Osteoarthritis of knees, bilateral M17.0 Active Assessment Drug induced constipation K59.03 Ac tive Problem 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 Active Assessment 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 Active Problem Osteoarthritis of knees, bilateral M17.0 Active Assessment Encounter for long-term (current) use of other medicat ions Z79.899 Active Problem Osteoarthritis of knee, unspecified M17.9 Active Problem Pain R52 Active Problem Lumbar post-laminectomy syndrome M96.1 Active Problem Left hip pain M25.552 Active Problem Drug induced constipation K59.03 Ac tive Assessment Greater trochanteric bursitis of left hip M70.62 Active Assessment Low back pain M54.5 Active Problem Lumbar neuritis M54.16 Active Assessment Degenerative arthritis of knee, bilateral M17.0 Active Problem Other fatigue R53.83 Active Problem 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 Active Problem Adverse effect of other opioids, initial encounter T40 .2X5A Active Problem History of falling Z91.81 Active Assessment Weakness R53.1 Active Assessment Pain in left leg M79.605 Active Problem Greater trochanteric bursitis of left hip M70.62 Active Assessment Lumbar post-laminectomy syndrome M96.1 Active Assessment Chronic pain syndrome G89.4 Active Problem Degenerative arthritis of knee, bilateral M17.0 Active Problem Encounter for long-term (current) use of other medicat ions Z79.899 Active Problem Chronic pain syndrome G89.4 Active Problem Low back pain M54.5 Active Medications Medication Code System Code Instructions Start Date End Date Status Dosage Tramadol HCl [facility] 62113492055 50 MG Orally every 8 hrs prn pain Nov 21, 2018 December 19, 2018 Active 1 tablet as needed TraMADol HCl ER ND 77885567909 100 MG Orally Once a day Nov 102018December 19, 2018 Active 1 tablet Metronidazole ND 25692303895 250 MG Orally every 8 hrs Active 2 tablets Vitamin C [facility] [address]-75 1000 MG Orally Active as directed Amlodipine Besylate ND 20333951078 10 MG Orally Once a day Active 1 tablet Nitro-Bid [facility] [address]-29 Active not defi yuni GlipiZIDE ND 20267241934 10 MG Orally Once a day Ac tive 1 tablet VESIcare ND 71728945690 10 MG Orally Once a day Act michelle 1 tablet Baclofen ND 64667872619 10 MG Orally Thr ee times a day prn muscle spasms, caution sedation, do not drive on this med Nov 21, 2018 December 21, 2018 Activ e 1/2 tablet with food or milk Pravastatin Sodium ND 71893306320 20 MG Orally Once a day Active 1 tablet Ambien ND 08521524439 10 MG Orally Once a day Acti ve 1 tablet at bedtime as needed Calcium ND 42973667113 500 MG Orally Twice a day Ac tive 1 tablet with meals Atenolol ND 10636500379 50 MG Orally Once a day Act michelle 1 tablet Elmiron ND 58014817622 100 MG Orally Three times a day Active 1 capsule on an empty stomach Zoloft ND 15483120534 50 MG Orally Once a day Acti ve 1 tablet Aspirin ND 13363224693 325 MG Orally Once a day Act michelle 1 tablet Vital Signs Date/Time: Nov 21, 2018 Blood Pressure Systolic 147 mm Hg Weight 204.6 lbs Height 68 in BMI 31.11 Index Respiratory Rate 16 /min Cardiac Monitoring Heart Rate 53 /min Blood Pressure Diastolic 62 mm Hg Results No Known Results Summary Purpose eClinicalWorks Submission
--- OUTSIDE RECORDS SUMMARY | 2020-03-20 19:32 | XMS REPORT ---
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 Active Problem Adverse effect of other opioids, initial encounter T40 .2X5A Active Problem History of falling Z91.81 Active Problem Hypertensive heart disease with heart failure I11.0 Active Problem Tinnitus, bilateral H93.13 Active Problem Osteoarthritis of knee, unspecified M17.9 Active Problem Hypertensive heart disease without heart failure I11.9 Active Problem Other hyperlipidemia E78.4 Active Problem 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
--- OUTSIDE RECORDS SUMMARY | 2020-03-20 19:32 | XMS REPORT ---
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 Active Problem Greater trochanteric bursitis of left [...] Date End Date Status Dosage Pravastatin Sodium ND 59398113088 20 MG Orally Once a day Active 1 tablet Baclofen ND 84723344379 10 MG Orally Three times a d ay prn muscle spasms Jun 20, 2018 Jul 20, 2018 Active 1/2 tablet with food or milk Elmiron [facility] 09218536048 100 MG Orally Three times a day Active 1 capsule on an empty stomach Valium ND 97417703107 2 MG Orally made chew 20 minutes prior to MRI if not overly sedated May 23, 2018 Active 1 tablet as need ed GlipiZIDE ND 91665423605 10 MG Orally Once a day Ac tive 1 tablet Tylenol/codeine #4 #30 NDC 0 300-60 mg orally twice a day (bid) as needed (prn) pain Jun 20, 2018 Jul 18, 2018 Active one tablet Aspirin ND 42152983923 325 MG Orally Once a day Act michelle 1 tablet VESIcare ND 56141593317 10 MG Orally Once a day Act michelle 1 tablet Valium [facility] 65263267973 5 MG Orally 1 hour prior to MRI May 23, 2018 Active 1 tablet as needed Atenolol ND 95284853735 50 MG Orally Once a day Act michelle 1 tablet Vitamin C [facility] [address]-56 1000 MG Orally Active as directed Calcium ND 32013597358 500 MG Orally Twice a day Ac tive 1 tablet with meals Nitro-Bid [facility] [address]-79 Active not defi yuni Zoloft ND 04244835400 50 MG Orally Once a day Acti ve 1 tablet Metronidazole ND 16721495414 250 MG Orally every 8 hrs Active 2 tablets Ambien ND 53522949990 10 MG Orally Once a day Acti ve 1 tablet at bedtime as needed Amlodipine Besylate ND 88601788449 10 MG Orally Once a day Active 1 tablet Results No Known Results Summary Purpose [employer] Submission
--- OUTSIDE RECORDS SUMMARY | 2020-03-20 19:32 | XMS REPORT ---
Author Leyda Ward Organization [employer] Address Unknown Phone Unavailable Care Team Providers Care Crystal Evaluator Name Role Phone Bill Cole CP Unavailable [...]
--- OUTSIDE RECORDS SUMMARY | 2020-03-20 19:32 | XMS REPORT ---
Author Leyda Ward Organization [employer] Address Unknown Phone Unavailable Care Team Providers Care Liquid Sugar Fortifier Name Role Phone Bill Cole CP Unavailable Allergies, Adverse Reactions, Alerts Substance Reaction Event Type Ibuprofen hives Drug Allergy Stadol itcing Drug Allergy Lyrica dizziness Drug Allergy Fiorinal hives Drug Allergy NSAIDS effects kidneys Drug Allergy penicillin itching Drug Allergy Problems Problem Type Condition Code Onset Dates Condition Statu s Assessment Lumbar neuritis M54.16 Active Assessment Pain in left leg M79.605 Active Assessment Adverse effect of other opioids, initial encounter T40 .2X5A Active Assessment Left hip pain M25.552 Active Assessment Controlled type 2 diabetes m ellitus with diabetic autonomic neuropathy, without long-term current use of insulin E11.43 Active Assessment Age-related cognitive decline R41.81 Active Assessment History of falling Z91.81 Active [...] falling Z91.81 Active Assessment Weakness R53.1 Active Problem Greater [...] Instructions Start Date End Date Status Dosage Calcium [facility] 01735178808 500 MG Orally Twice a day Ac tive 1 tablet with meals Vitamin C [facility] [address]-57 1000 MG Orally Active as directed Ambien ND 12129391456 10 MG Orally Once a day Acti ve 1 tablet at bedtime as needed TraMADol HCl ER [facility] 86877242140 200 MG Orally Once a day FebruaryMarch 13, 2019 Active 1 tablet Amlodipine Besylate ND 72296890911 10 MG Orally Once a day Active 1 tablet Nitro-Bid [facility] [address]-25 Active not defi yuni GlipiZIDE ND 39690596781 10 MG Orally Once a day Ac tive 1 tablet VESIcare [facility] 00874334826 10 MG Orally Once a day Act michelle 1 tablet Aspirin ND 72621333265 325 MG Orally Once a day Act michelle 1 tablet Tramadol HCl ND 99007265709 50 MG Orally dailt prn breakthru pain February 13, 2019 March 13, 2019 Active 1 tablet as needed Baclofen ND 19103795200 10 MG Orally Thr ee times a day prn muscle spasms, caution sedation, do not drive on this med February 13, 2019 March 15, 2019 Activ e 1/2 tablet with food or milk Metronidazole ND 39359878249 250 MG Orally every 8 hrs Active 2 tablets Atenolol ND 63409742025 50 MG Orally Once a day Act michelle 1 tablet Elmiron ND 79916190111 100 MG Orally Three times a day Active 1 capsule on an empty stomach Zoloft ND 70164371904 50 MG Orally Once a day Acti ve 1 tablet Pravastatin Sodium ND 07469638131 20 MG Orally Once a day Active 1 tablet Vital Signs Date/Time: February 13, 2019 Blood Pressure Systolic 134 mm Hg Weight 201.4 lbs Height 68 in BMI 30.62 Index Respiratory Rate 16 /min Cardiac Monitoring Heart Rate 50 /min Blood Pressure Diastolic 67 mm Hg Results Name Result Date Reference Range Unit Abnormali ty Flag left greater trochanteric bursa steroid injection Summary Purpose [employer] Submission
--- OUTSIDE RECORDS SUMMARY | 2020-03-20 19:32 | XMS REPORT ---
Author Leyda Ward Organization [employer] Address Unknown Phone Unavailable Care Team Providers Care Candy Starch Mold Printer Name Role Phone Bill Cole CP Unavailable [...] Osteoarthritis of knees, bilateral M17.0 Active Medications No Known Medications Results No Known Results Summary Purpose [employer] Submission
--- OUTSIDE RECORDS SUMMARY | 2020-03-20 19:32 | XMS REPORT ---
Author Leyda Ward Organization [employer] Address Unknown Phone Unavailable Care Team Providers Care Plate Preparer Name Role Phone Bill Cole CP Unavailable [...] Osteoarthritis of knee, unspecified M17.9 Active Problem History of falling Z91.81 Active Problem Other fatigue R53.83 Active Problem Left hip pain M25.552 Active Problem Drug induced constipation K59.03 Ac tive Assessment Greater trochanteric bursitis of left hip M70.62 Active Assessment Low back pain M54.5 Active Problem Lumbar neuritis M54.16 Active Assessment Degenerative arthritis of knee, bilateral M17.0 Active Problem Pain R52 Active Problem Lumbar post-laminectomy syndrome M96.1 Active Problem Adverse effect of other opioids, initial encounter T40 .2X5A Active Problem 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 56716083899 250 MG Orally every 8 hrs Active 2 tablets Pravastatin Sodium ND 08314439091 20 MG Orally Once a day Active 1 tablet Nitro-Bid [facility] [address]-65 Active not defi yuni TraMADol HCl ER ND 13239632353 100 MG Orally Once a day January 16, 2019 February 13, 2019 Active [address] [facility] 51620825818 500 MG Orally Twice a day Ac tive 1 tablet with meals GlipiZIDE ND 28671388940 10 MG Orally Once a day Ac tive [address] [facility] 11309409391 100 MG Orally Three times a day Active 1 capsule on an empty stomach Vitamin C [facility] [address]-05 1000 MG Orally Active as directed Tramadol HCl ND 77740492710 50 MG Orally every 8 hrs prn break through pain January 16, 2019 February 13, 2019 Active 1 tablet as needed Amlodipine Besylate ND 07157337651 10 MG Orally Once a day Active [address] [facility] 72663726484 10 MG Orally Once a day Acti ve 1 tablet at bedtime as needed Atenolol ND 83221523919 50 MG Orally Once a day Act michelle 1 tablet Aspirin ND 81339542067 325 MG Orally Once a day Act michelle 1 tablet VESIcare ND 38337805995 10 MG Orally Once a day Act michelle 1 tablet Zoloft ND 41242134756 50 MG Orally Once a day Acti ve 1 tablet Baclofen ND 33412235222 10 MG Orally Thr ee times a day prn muscle spasms, caution sedation, do not drive on this med January 16, 2019 February 15, 2019 Activ e 1/2 tablet with food or milk Vital Signs Date/Time: January 16, 2019 Blood Pressure Systolic 120 mm Hg Weight 203.0 lbs Height 68 in BMI 30.86 Index Respiratory Rate 16 /min Cardiac Monitoring Heart Rate 53 /min Blood Pressure Diastolic 46 mm Hg Results No Known Results Summary Purpose [employer] Submission
--- OUTSIDE RECORDS SUMMARY | 2020-03-20 19:32 | XMS REPORT ---
Author Leyda Ward Organization [employer] Address Unknown Phone Unavailable Care Team Providers Care Wax Machine Operator Name Role Phone Bill Cole CP Unavailable [...] Instructions Start Date End Date Status Dosage Amlodipine Besylate [facility] 39126750205 10 MG Orally Once a day Active 1 tablet Atenolol [facility] 75234079297 50 MG Orally Once a day Act michelle 1 tablet Vitamin C [facility] [address]-30 1000 MG Orally Active as directed VESIcare ND 96704392745 10 MG Orally Once a day Act michelle 1 tablet Calcium [facility] 22120528562 500 MG Orally Twice a day Ac tive 1 tablet with meals Baclofen [facility] 02663598532 10 MG Orally Three times a d ay prn muscle spasms Aug 15, 2018 Sep 14, 2018 Active 1/2 tablet with food or milk Metronidazole ND 42039684334 250 MG Orally every 8 hrs Active 2 tablets Pravastatin Sodium [facility] 83804647799 20 MG Orally Once a day Active 1 tablet Elmiron [facility] 23280876884 100 MG Orally Three times a day Active 1 capsule on an empty stomach Zoloft ND 71687819572 50 MG Orally Once a day Acti ve 1 tablet Tramadol HCl [facility] 74108858791 50 MG Orally every 6 hrs Active 1 tablet as needed Aspirin ND 30166290561 325 MG Orally Once a day Act michelle 1 tablet Ambien [facility] 01522045589 10 MG Orally Once a day Acti ve 1 tablet at bedtime as needed Nitro-Bid [facility] [address]-63 Active not defi yuni Tylenol/codeine #4 #30 NDC 0 300-60 mg orally twice a day (bid) as needed (prn) pain Aug 15, 2018 Sep 12, 2018 Active one tablet GlipiZIDE [facility] 16262035331 10 MG Orally Once a day Ac tive 1 tablet Vital Signs Date/Time: Aug 15, 2018 Blood Pressure Systolic 116 mm Hg Weight 207 lbs Height 68 in BMI 31.47 Index Respiratory Rate 16 /min Cardiac Monitoring Heart Rate 51 /min Blood Pressure Diastolic 57 mm Hg Results No Known Results Summary Purpose [employer] Submission
--- OUTSIDE RECORDS SUMMARY | 2020-03-20 19:32 | XMS REPORT ---
Author Leyda Ward Organization [employer] Address Unknown Phone Unavailable Care Team Providers Care Manager Urology Name Role Phone Bill Cole CP Unavailable [...] Instructions Start Date End Date Status Dosage Tylenol/codeine #4 #30 NDC 0 300-60 mg orally TID prn pain Aug 29, 2018 Sep 26, 2018 Active one tablet Results No Known Results Summary Purpose [employer] Submission
--- OUTSIDE RECORDS SUMMARY | 2020-03-20 19:32 | XMS REPORT ---
Author Leyda Ward Organization [employer] Address Unknown Phone Unavailable Care Team Providers Care Cement Truck Driver Name Role Phone Bill Cole CP Unavailable [...] Instructions Start Date End Date Status Dosage Atenolol NDC 50857872345 50 MG Orally Once a day Act michelle 1 tablet Elmiron NDC 56565002166 100 MG Orally Three times a day Active 1 capsule on an empty stomach Tylenol/codeine #4 #30 ND 0 300-60 mg orally twice a day (bid) as needed (prn) pain Jul 18, 2018 Aug 15, 2018 Active one tablet Calcium ND 51046492363 500 MG Orally Twice a day Ac tive 1 tablet with meals Baclofen ND 36509540499 10 MG Orally Three times a d ay prn muscle spasms Jul 18, 2018 Aug 17, 2018 Active 1/2 tablet with food or milk Amlodipine Besylate ND 40742994318 10 MG Orally Once a day Active 1 tablet Metronidazole ND 00177372776 250 MG Orally every 8 hrs Active 2 tablets Valium ND 61938530648 5 MG Orally 1 hour prior to MRI May 23, 2018 Active 1 tablet as needed Aspirin ND 04168956892 325 MG Orally Once a day Act michelle 1 tablet VESIcare [facility] 53668953438 10 MG Orally Once a day Act michelle 1 tablet Valium ND 47778371693 2 MG Orally made chew 20 minutes prior to MRI if not overly sedated May 23, 2018 Active 1 tablet as need ed Nitro-Bid [facility] [address]-21 Active not defi yuni Vitamin C [facility] [address]-57 1000 MG Orally Active as directed Ambien ND 06471766513 10 MG Orally Once a day Acti ve 1 tablet at bedtime as needed GlipiZIDE ND 02727742084 10 MG Orally Once a day Ac tive 1 tablet Zoloft ND 80306798272 50 MG Orally Once a day Acti ve 1 tablet Pravastatin Sodium [facility] 47452488757 20 MG Orally Once a day Active 1 tablet Results No Known Results Summary Purpose [employer] Submission
--- OUTSIDE RECORDS SUMMARY | 2020-03-20 19:32 | XMS REPORT ---
Author Leyda Ward Organization [employer] Address Unknown Phone Unavailable Care Team Providers Care Central Office Worker Name Role Phone Bill Cole CP [...]
--- OUTSIDE RECORDS SUMMARY | 2020-03-20 19:33 | XMS REPORT | Continuity of Care Document ---
Author Author [facility] t Organization [facility] Address [address] [place] [address] Phone Unavailable Care Team Providers Care Vehicle Upholsterer Name Role Phone Leighann DAVID DO PCP Jagruti VALLECILLO Attphys Unavailable ÁNGEL VÁZQUEZ Attphys Unavailable Shmuel Mendenhall Attphys Dominique [place] Attphys Pawel Aragon Attphys Minh Cole Attphys ÁNGEL VÁZQUEZ Admphys Unavailable Dominique [place] Admphys Payers Payer Name Policy Type Policy Number Effective Date Expiration Date S ource Medicare A & B [id number] 2003 00:00:00 [facility] [id number] [facility] [id number] [facility] Problems Condition Name Condition Details Condition Category Status Onset Date Resolution Date Last Treatment Date Treating Clinician Comments Source AMS AMS Active 07/24/2017 [facility] Diagnosis Active 2017-07-24 00:00:00 2017-08-18 17:52:00 [place] 722.52 - LUMB/LUMBOSAC D 722. 52 - LUMB/LUMBOSAC D Active 11/18/2014 [facility] [place] Diagnosis Active 2014-11-18 00:01:00 2014-12-02 08:40:00 [facility] Acute dehydration Acute dehydration Problem Active [facility] Diarrhea Diarrhea Problem Active [facility] Hypoglycemia associated with diabetes Hypoglycemia associate d with diabetes Problem Active [facility] Unilateral primary osteoarthritis, left hip Unilateral primary osteoarthritis, left hip 04/07/2018 [facility] [place] Problem 2018-04-07 13:00:02 [facility] Osteoarthritis of knee, unspecified Osteoarthritis of knee, unspecified Active Problem 02/19/2020 [facility] Problem Active 2020-02-19 02:45:01 [facility] 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 Diabetes mellitus type 2 with peripheral artery disease Active Problem 02/19/2020 [facility] Problem Active 2020-02-19 02:45:01 [facility] Other fatigue Othe r fatigue Active Problem 02/19/2020 [facility] Problem Active 2020-02-19 02:45:01 [facility] Lumbar neuritis Lumb ar neuritis Active Problem 02/19/2020 [facility] Problem Active 2020-02-19 02:45:01 [facility] Drug induced constipation Drug induced constipation Active Problem 02/19/2020 [facility] Problem Active 2 02:45:01 [facility] Left hip pain Left hip pain Active Problem 02/19/2020 [facility] Problem Active 2020-02-19 02:45:01 [facility] Lumbar post-laminectomy syndrome Lumbar post-laminectomy syndrome Active Problem 02/19/2020 [facility] Problem Active 2020-02-19 02:45:01 [facility] Pain Pain Active Problem 02/19/2020 [facility] Problem Active 2020-02-19 02:45:01 [facility] Adverse effect of other opioids, initial encounter Adverse effect of other opioids, initial encounter Active Problem 02/19/2020 [facility] Problem Active 2020-02-19 02:45:01 [facility] History of falling Hist ory of falling Active Problem 02/19/2020 [facility] Problem Active 2020-02-19 02:45:01 [facility] Greater trochanteric bursitis of left hip Greater trochanteric bursitis of left hip Active Problem 02/19/2020 [facility] Problem Active 2020-02-19 02:45:01 [facility] Other intervertebral disc displacement, lumbar region Other intervertebral disc displacement, lumbar region Active Diagnosis 04/09/2019 [facility] Diagnosis Active 2019-04-09 02:45:01 [place] Low back pain Low back pain Active Problem 02/19/2020 [facility] Problem Active 2020-02-19 02:45:01 [place] Degenerative arthritis of knee, bilateral Degenerative arthritis of knee, bilateral Active Problem 02/19/2020 [facility] Problem Active 2020-02-19 02:45:01 [facility] Chronic pain syndrome [employer] andres pain syndrome Active Problem 02/19/2020 [facility] Problem Active 2020-02-19 02:45:0 1 [place] Degeneration of lumbar or lumbosacral intervertebral d isc Degeneration of lumbar or lumbosacral intervertebral disc Active Problem 02/19/2020 [facility] Problem Active 2020-02-19 02:45:01 [place] Encounter for long-term (current) use of other medicat ions Encounter for long-term (current) use of other medications Active Problem 02/19/2020 [facility] Problem Active 2020-02-19 02:45:01 [place] Other hyperlipidemia Othe r hyperlipidemia Active Problem 2019 [facility] Problem Active 2019 02:45:0 2 [facility] Restlessness and agitation Res tlessness and agitation Active Problem 2019 [facility] Problem Active 2019 02:45:02 [place] Dizziness and giddiness Dizz iness and giddiness Active Problem 2019 [facility] Problem Active 02:45:02 [place] Age-related cognitive decline Age-related cognitive decline Active Diagnosis 03/29/2019 [facility] Diagnosis Active 2019-03-29 02:45:12 [place] Hypertensive heart disease without heart failure Hypertensive heart disease without heart failure Active Problem 2019 [facility] Problem Active 2019 02:45:02 [facility] 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 Active Diagnosis 03/29/2019 [facility] Diagnosis Active 2019-03-29 02:45:12 [facility] Restless legs syndrome Rest less legs syndrome Active Problem 2019 [facility] Problem Active 02:45:02 [place] Primary insomnia Prim quintin insomnia Active Problem 2019 [facility] Problem Active 2019 02:45:02 [facility] 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 Active Problem 2019 [facility] Problem Active 2019 02:45:02 [facility] Tinnitus, bilateral Tinn itus, bilateral Active Problem 2019 [facility] Problem Active 2019 02:45:0 2 [facility] Weakness Weak ness Active Diagnosis 03/29/2019 [facility] Diagnosis Active 2019-03-29 02:45:12 [facility] 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, without long-term current use of insulin 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, without long-term current use of insulin Active Diagnosis 03/29/2019 [facility] Diagnosis Acti ve 2019-03-29 02:45:12 [facility] [place] Pain in left leg Pain in left leg Active Diagnosis 03/29/2019 [facility] Diagnosis Active 2019-03-29 02:45:12 [facility] [place] 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 , 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, left hip Active Diagnosis 02/19/2020 [facility] Diagnosis Active 2020-02-19 02:45:01 [facility] ALTERED MENTAL STATUS, UNSPECIFIED ALTERED MENTAL STATUS, UNSPECIFIED Active [facility] Diagnosis Active 2017-08-18 17:52:00 [facility] LUMBAR POST LAMINECTOMY SYNDROME LUMBAR POST LAMINECTOMY SYNDROME Active [facility] [place] Diagnosis Active 2016-04-14 08 :54:00 [facility] Allergies, Adverse Reactions, Alerts Allergy Name Allergy Type Status Severity Reaction(s) Onset Date Inacti ve Date Treating Clinician Comments Source Ciprofloxacin Allergy to Substance Active 2019-10-06 00:00: 00 [facility] Ibuprofen Ibuprofen Active hives 2018-11-21 00:00:00 [facility] Lyrica Lyrica Active dizziness 2018-11-21 00:00:00 [facility] Fiorinal Fiorinal Active hives 2018-11-21 00:00:00 [facility] penicillin penicillin Active itching 2018-11-21 00:00:00 [facility] NSAIDS (Non-Steroidal Anti-Inflamma DA Active [place] 2013-08-12 0 00:00:00 [facility] Penicillins DA Active [place] 2013-09-08 00:00:00 [facility] ciprofloxacin DA Active MO 2013-09-08 00:00:00 [facility] metronidazole DA Active [place] 2013-09-08 00:00:00 [facility] butorphanol DA Active [place] 2013-09-08 00:00:00 [facility] Ibuprofen Allergy to Substance Active Mild 2012-01-11 00:00:00 [facility] NSAIDS (Non-Steroidal Anti-Inflamma Allergy to Substance Active M ild [facility] 2010-07-27 00:00:00 [facility] Penicillin Allergy to Substance Active Mild [facility] 2010-07-27 00:00:00 [facility] Caffeine Allergy to Substance Active Mild [facility] 2010-07-27 00:00:00 [facility] Butalbital Allergy to Substance Active [facility] 2010-07-27 00:00:00 [facility] Acetaminophen Allergy to Substance Active Mild [facility] 2010-07-27 00:00: 00 [facility] Butorphanol Allergy to Substance Active Mild [facility] 2010-07-27 00:00:00 [facility] Social History Social Habit Start Date Stop Date Quantity Comments Source Social History 2016-05-13 04:59:00 2016-05-13 04:59:00 [facility] Medications Ordered Medication Name Filled Medication Name Start Date Stop Da te Current Medication? Ordering Clinician Indication Dosage Frequency Signature (SIG) Comments Components Source VESIcare 2020-02-19 02:45:01 Yes Bill Cole 1 tablet [facility] Aspirin 2020-02-19 02:45:01 Yes Bill Cole 1 t ablet [facility] Elmiron 2020-02-19 02:45:01 Yes Bill Cole 1 capsule on an empty stomach [facility] Nitro-Bid 2020-02-19 02:45:01 Yes Bill Cole n ot defined [facility] GlipiZIDE 2020-02-19 02:45:01 Yes Bill Cole 1 tablet [facility] Calcium 2020-02-19 02:45:01 Yes Bill Cole 1 t ablet with meals [facility] Vitamin C 2020-02-19 02:45:01 Yes Bill wild s directed [facility] Ambien 2020-02-19 02:45:01 Yes Bill Cole 1 tablet at bedtime as needed [facility] Metronidazole 2020-02-19 02:45:01 Yes Bill Cole 2 tablets [facility] Amlodipine Besylate 2020-02-19 02:45:01 Yes Bill Cole 1 tablet [facility] Atenolol 2020-02-19 02:45:01 Yes Bill Cole 1 tablet [facility] Zoloft 2020-02-19 02:45:01 Yes Bill Cole 1 ta blet [facility] Pravastatin Sodium 2020-02-19 02:45:01 Yes Bill Cole 1 tablet [facility] Lidocaine HCl 2019-08-02 00:00:00 Yes Bill Cole as directed [facility] TraMADol HCl ER 2019-08-02 00:00:00 Yes Bill Cole 1 tablet [facility] Tramadol HCl 2019-08-02 00:00:00 Yes Bill Cole 1 tablet as needed [facility] Tramadol HCl 2019-02-13 00:00:00 Yes Bill Cole 1 tablet as needed [facility] Baclofen 2019-02-13 00:00:00 Yes Bill Cole 1/2 tablet with food or milk [facility] TraMADol HCl ER 2019-02-13 00:00:00 Yes Bill Cole 1 tablet [facility] Tramadol HCl 2019-01-16 00:00:00 Yes Omar Mendenhall 1 tablet as needed [facility] TraMADol HCl ER 2019-01-16 00:00:00 Yes Omar Mendenhall 1 tablet [facility] Baclofen 2019-01-16 00:00:00 Yes Omar Mendenhall 1/2 tablet with food or milk [facility] Lyrica 2019-01-08 02:45:10 Yes Omar Mendenhall 1 ca psule [facility] Tramadol HCl 2018-11-21 00:00:00 Yes Bill Cole 1 tablet as needed [facility] TraMADol HCl ER 2018-11-21 00:00:00 Yes Bill Cole 1 tablet [facility] Baclofen 2018-11-21 00:00:00 Yes Bill Cole 1/2 tablet with food or milk [facility] Tramadol HCl 2018-10-27 03:45:25 Yes Bill Cole 1 tablet as needed [facility] TraMADol HCl ER 2018-10-26 00:00:00 Yes Omar Abdirashid 1 tablet [facility] Baclofen 2018-10-26 00:00:00 Yes Omar Abdirashid 1/2 tablet with food or milk [facility] Tramadol HCl 2018-10-26 00:00:00 Yes Omar Mendenhall 1 tablet as needed [facility] Baclofen 2018-09-26 00:00:00 Yes Omar Mendenhall 1/2 tablet with food or milk [facility] TraMADol HCl ER 2018-09-26 00:00:00 Yes Omar Pradoth 1 tablet [facility] Tramadol HCl 2018-09-26 00:00:00 Yes Omar Mendenhall 1 tablet as needed [facility] Tylenol/codeine #4 #30 2018-08-29 00:00:00 Yes Bill Aubrey sett one tablet [facility] Baclofen 2018-08-15 00:00:00 Yes Bill Douglas 1/2 tablet with food or milk [facility] Tylenol/codeine #4 #30 2018-08-15 00:00:00 Yes Bill Aubrey sett one tablet [facility] Tylenol/codeine #4 #30 2018-07-18 00:00:00 Yes Bill Aubrey sett one tablet [facility] Baclofen 2018-07-18 00:00:00 Yes Bill Douglas 1/2 tablet with food or milk [facility] Baclofen 2018-06-20 00:00:00 Yes Blil Douglas 1/2 tablet with food or milk [facility] Tylenol/codeine #4 #30 2018-06-20 00:00:00 Yes Bill Aubrey sett one tablet [facility] Valium 2018-05-23 00:00:00 Yes Bill Hillett 1 ta blet as needed [facility] Valium 2018-05-23 00:00:00 Yes Bill Hillett 1 ta blet as needed [facility] influenza virus vaccine, inactivated 2017-07-28 19:00:00 No Notes: (Same as: Fluzone Quadrivalent, Fluarix Quadrivalent) For 3 years of age and older (0.5 mL IM) Shake well before use [facility] pneumococcal 13-valent vaccine 2017-07-28 18:48:00 No Notes: Shake well prior to use (Same as: Prevnar 13) [facility] NIFEdipine 90 mg oral tablet, extended release 2017-07-28 02:20: 00 No 90 mg, 1 tab, Route: PO, Drug form: ERTA B, Daily, Dosing Weight 95.455, kg, Start date: 07/27/17 21:20:00 CDT, Stop date: 08/26/17 9:00:00 [employer] [place] Atenolol 50 MG Oral Tablet 2017-07-27 19:17:00 No Notes: (Same As:Tenormin) [place] K-Dur 20 2017-07-27 17:39:00 No 20 mEq, 1 tab, Route: PO, Drug form: ERTAB, ONCE, Dosing Weight 95.455, kg, Start date: 07/27/17 12:39:00 CDT, Stop date: 07/27/17 12:39:00 CDT [place] Streptococcus pneumoniae serotype 1 caps ular antigen diphtheria [id number] protein conjugate vaccine / Streptococcus pneumoniae serotype 14 capsular antigen diphtheria [id number] protein conjugate vaccine / Streptococcus pneumoniae serotype 18C capsular antigen d 2017-07-27 14:00:00 No Notes: Shake well prior to use (Same as: Prevnar 13) [facility] influenza virus vaccine, inactivated 2017-07-27 14:00:00 No Notes: (Same as: Fluzone Quadrivalent, Fluarix Quadrivalent) For 3 years of age and older (0.5 mL IM) Shake well before use [facility] Potassium Chloride 2017-07-27 11:00:00 No Notes: (Same as: KCL) Infuse over 2 hours. [facility] Lovenox 2017-07-27 01:00:00 No Notes: (Same as: Lovenox) [facility] [place] morphine extended release 2017-07-26 17:38:00 No Notes: Do not crush (Same as:Oramorph SR, MS Contin) [place] [facility] Baclofen 2017-07-26 17:26:00 No Notes: (Keith e As: Lioresal) [facility] Ativan 2017-07-26 16:12:00 No Notes: (Same as: Ativan) [facility] Pravastatin 2017-07-26 02:00:00 No Notes: ( Same as: Pravachol) [facility] Zovirax + sodium chloride 0.9% INJ 100 mL 2017-07-26 00:00:00 No Notes: Same as: Zovirax MEDICATION WASTE Product Size: 500 mg Product Wasted: ___ mg [facility] Tylenol 2017-07-25 23:49:00 No Notes: Max acetaminophen = 4000mg/day (4 gm/day). (Same as: Tylenol) [facility] Nitroglycerin 0.02 MG/MG Topical Ointment 2017-07-25 23:43:00 No Notes: 1gm is Approximately 1 inch of nitroglycerin ointment (20mg per gram) (Same as:Nitro-Bid) [facility] Acyclovir 2017-07-25 23:00:00 No 50 mL / m in [facility] Prevacid 2017-07-25 21:30:00 No Notes: Take 1 hour before or 2 hours after meal; Expires in 14 days. Shake well before use. (Same as:Prevacid) Compounded Product - formulation not commercially available [facility] potassium chloride 2017-07-25 21:00:00 No 10 mEq, 50 mL, Route: IVPB, Drug form: INJ, ONCE, Start date: 07/25/17 16:00:00 CDT, Stop date: 07/25/17 16:00:00 CDT [facility] Vancomycin 2017-07-25 19:30:00 No 2001 mg: infuse over 2.5 hours MEDICATION WASTE Product Size: 1000 mg Product Wasted: ___ mg [facility] potassium chloride 2017-07-25 17:00:00 No 20 mEq, 100 mL, Route: IVPB, Drug form: INJ, Q2H, Start date: 07/25/17 12:00:00 CDT, Duration: 2 doses or times, Stop date: 07/25/17 14:00:00 CDT [facility] Metoprolol 2017-07-25 16:00:00 No 2.5 mg, 2.5 mL, Route: IVP, Drug form: INJ, Q6Hnow, Dosing Weight 95.455, kg, Start date: 07/25/17 11:00:00 CDT, Duration: 30 day, Stop date: 08/24/17 5:00:00 [employer] [facility] Dexamethasone 2017-07-25 16:00:00 No Notes: Concentration: 4mg/ml [facility] Protonix 2017-07-25 14:00:00 No Notes: Tablet should not be chewed or crushed. (Same as: Protonix) [facility] ARIPiprazole 2017-07-25 14:00:00 No Notes: Same as: Abilify Non- Formulary Item [facility] Sertraline 2017-07-25 14:00:00 No Notes: (S sohan as: Zoloft) [place] Isosorbide 2017-07-25 14:00:00 No 60 mg, 1 tab, Route: PO, Drug form: ERTAB, QAM, Dosing Weight 95.455, kg, Start date: 07/25/17 9:00:00 CDT, Stop date: 08/23/17 9:00:00 [employer] [facility] Esomeprazole 2017-07-25 14:00:00 No 40 mg, Route: PO, Drug form: ECCAP, Daily, Dosing Weight 95.455, kg, Start date: 07/25/17 9:00:00 CDT, Duration: 30 day, Stop date: 08/23/17 9:00:00 [employer] [facility] Atenolol 50 MG Oral Tablet 2017-07-25 14:00:00 No Notes: (Same As:Tenormin) [facility] Ativan 2017-07-25 13:19:00 No Notes: (Same as: Ativan) [facility] Hydralazine 2017-07-25 13:18:00 No Notes: (Same as: Apresoline) Push over 5 minutes [facility] Hydralazine Hydrochloride 50 MG Oral Tablet 2017-07-25 13:00:00 No Notes: (Same as: Apresoline) May interfere w/enteral feedings Take With Food [facility] Potassium Chloride 2017-07-25 12:00:00 No Notes: (Same as: KCL) Infuse over 2 hours. [facility] Ativan 2017-07-25 11:49:00 No Notes: (Same as: Ativan) [facility] Magnesium Sulfate 2017-07-25 11:30:00 No Notes: WASTE: F/P - Sink; E - Municipal Trash Bin [facility] Insulin Lispro 2017-07-25 11:08:00 No 60 units) WASTE: F/P - Black; E - Municipal Trash Bin Stable for 28 days at room temperature. Expires in days from Date [facility] Dextrose 50% Syringe 2017-07-25 11:08:00 No 12.5 gm, 25 mL, Route: IVP, Drug Form: INJ, Dosing Weight 95.455, kg, PRN, PRN Blood Glucose Results, Start date: 07/25/17 6:08:00 CDT, Duration: 30 day, Stop date: 08/24/17 5:07:00 [employer] [place] Glucagon 2017-07-25 11:08:00 No 1 mg, Route: IM, Drug form: PDR/INJ, PRN, Dosing Weight 95.455, kg, PRN Blood Glucose Results, Start date: 07/25/17 6:08:00 CDT, Duration: 30 day, Stop date: 08/24/17 5:07:00 [employer] [place] Ampicillin 2017-07-25 11:00:00 No Notes: (Same as: Rashaad) MEDICATION WASTE Product Size: 2000 mg Product Wasted: _0__ mg [place] Ceftriaxone 2017-07-25 10:00:00 No Notes: MEDICATION WASTE Product Size: 2000 mg Product Wasted: _0__ mg [facility] Acetaminophen 2017-07-25 09:24:00 No Notes: Do not exceed 4 gm/day. (Same as: Tylenol) [facility] solifenacin succinate 10 MG Oral Tablet [VESICARE] 2017-07 09:16:00 Yes 10 mg = 1 tab, PO, Daily, # 30 tab, 1 Re fill(s) [facility] morphine extended release 2017-07-25 09:16:00 No 15 mg, PO, Q8H, 0 Refill(s) [facility] ARIPiprazole 2 mg oral tablet 2017-07-25 09:16:00 Yes 2 mg = 1 tab, PO, Daily, # 90 tab, 0 Refill(s) [facility] Atenolol 50 MG Oral Tablet 2017-07-25 09:16:00 Yes 50 mg = 1 tab, PO, Daily, # 30 tab, 0 Refill(s) [facility] Hydralazine Hydrochloride 50 MG Oral Tablet 2017-07-25 09:16:00 Yes 50 mg = 1 tab, PO, TID, # 90 tab, 3 Refill(s) [facility] pravastatin 20 mg oral tablet 2017-07-25 09:16:00 Yes 20 mg = 1 tab, PO, Bedtime, # 30 tab, 0 Refill(s) [facility] Esomeprazole 40 MG Enteric Coated Capsule 2017-07-25 09:16:00 No 40 mg = 1 cap, PO, Daily, # 30 cap, 0 Refill(s) [place] baclofen 10 mg oral tablet 2017-07-25 09:16:00 Yes 10 mg = 1 tab, PO, TID, PRN Spasms, # 90 tab, 0 Refill(s) [place] isosorbide mononitrate 60 mg oral tablet, extended release 2017-07-25 09:16:00 Yes 60 mg = 1 tab, PO, QAM, # 30 ta b, 0 Refill(s) [place] lubiprostone 0.024 MG Oral Capsule [Amitiza] 2017-07-25 09:16:00 Yes 24 microgram = 1 cap, PO, BID, # 60 cap, 0 Refill(s) [place] Pentosan Polysulfate 100 MG Oral Capsule [Elmiron] 2017-07 09:16:00 Yes 100 mg = 1 cap, PO, BID, # 90 cap, 0 Ref ill(s) [place] Sertraline 2017-07-25 09:16:00 Yes 1 50 mg, PO, Daily, 0 Refill(s) [place] Glipizide 10 MG Oral Tablet 2017-07-25 09:16:00 Yes 10 mg = 1 tab, PO, Before Breakfast, # 30 tab, 0 Refill(s) [place] valsartan 160 mg oral tablet 2017-07-25 09:16:00 No 160 mg = 1 tab, PO, Daily, # 30 tab, 0 Refill(s) [place] Hydralazine 2017-07-25 09:10:00 No 10 mg, Route: IV, ONCE, Dosing Weight 95.455, kg, Start date: 07/25/17 4:10:00 CDT, Stop date: 07/25/17 4:10:00 CDT [place] iodixanol 2017-07-25 06:52:00 No 100 mL, Route: IVP, Drug Form: SOLN, Dosing Weight 95.455, kg, ONCALL, STAT, Start date: 07/25/17 1:52:00 CDT, Duration: 1 doses or times, Dose = 2.2ml/kg, Max dose = 100ml -- "To be infused by Radiology Staff ONLY" [place] Ketamine 2017-07-25 02:01:00 No 47.7275 mg, Route: IVP, ONCE, Dosing Weight 95.455, kg, Priority: STAT, Start date: 07/24/17 21:01:00 CDT, Stop date: 07/24/17 21:01:00 CDT [place] Ativan 2017-07-25 02:00:00 No Notes: (Same as: Ativan) [place] Ativan 2017-07-25 01:24:00 No Notes: (Same as: Ativan) [facility] Ativan 2017-07-24 23:29:00 No 1 mg, Route: IVP, Drug form: INJ, ONCE, Dosing Weight 95.455, kg, Priority: STAT, Start date: 07/24/17 18:29:00 CDT, Stop date: 07/24/17 18:29:00 CDT Me eloisa [facility] 2017-07-24 22:47:00 No or = 50 kg, Start date: 07/24/17 17:47:00 CDT [facility] Ativan 2017-07-24 22:11:00 No 1 mg, Route: IVP, Drug form: INJ, ONCE, Dosing Weight 95.455, kg, Priority: STAT, Start date: 07/24/17 17:11:00 CDT, Stop date: 07/24/17 17:11:00 CDT Me eloisa LAGUNAS (Bolus) IV 2017-07-24 22:07:00 No 1,000 mL, 1,000 ml/hr, Infuse Over: 1 hr, Route: IV, ONCE, Priority: STAT, Dosing Weight 95.455 kg, Start date: 07/24/17 17:07:00 CDT, Duration: 1 doses or times, Stop date: 07/24/17 17:07:00 CDT [facility] Tylenol 2017-07-24 19:51:00 No Notes: Max acetaminophen = 4000 mg/day (4 gm/day). (Same as: Tylenol) Ozzie LAGUNAS (Bolus) IV 2017-07-24 19:24:00 No 2,863.65 mL, 2863.65 ml/hr, Infuse Over: 1 hr, Route: IV, 2,863.65, Drug form: INJ, ONCE, Priority: STAT, Dosing Weight 95.455 kg, Start date: 07/24/17 14:24:00 CDT, Duration: 1 doses or times, Stop date: 07/24/17 14:24:00 CDT [facility] [place] Ativan 2017-07-24 19:24:00 No Notes: (Same as: Ativan) [place] cefepime 2017-07-24 18:44:00 No Notes: (Same As: Maxipime) MEDICATION WASTE Product Size: 1000 mg Product Wasted: ___ mg [place] Vancomycin 2017-07-24 18:44:00 No 2001 mg: infuse over 2.5 hours MEDICATION WASTE Product Size: 1000 mg Product Wasted: ___ mg [place] NS (Bolus) IV 2017-07-24 18:43:00 No 30 mL, 30 ml/hr, Infuse Over: 1 hr, Route: IV, ONCE, Priority: STAT, Dosing Weight 95.455 kg, Start date: 07/24/17 13:43:00 CDT, Duration: 1 doses or times, Stop date: 07/24/17 13:43:00 CDT [facility] [place] Ativan 2017-07-24 18:28:00 No Notes: (Same as: Ativan) [facility] Saline Flush 0.9% 2017-07-24 18:27:00 No Notes: Same as: BD Posiflush Sterile [facility] Acetaminophen/Hydrocodone Bitart ([place] 10MG-325MG*) 1 Ea Tab Acetaminophen/Hydrocodone Bitart (Lawson 10MG-325MG*) 1 Ea Tab Ye s 1 As Needed [facility] Amlodipine Besylate 10 Mg Tablet Amlodipine Besylate 10 Mg Tablet Yes 5 Twice A Day [facility] Aspirin (Aspir 81) 81 Mg Tablet. Aspirin (Aspir 81) 81 Mg Tablet. Yes 325 Daily [facility] Atenolol 25 Mg Tablet Atenolol 25 Mg Tablet Yes 50 Bedtime [facility] Baclofen 10 Mg Tablet Baclofen 10 Mg Tablet Yes 10 Three Times A Day [facility] Calcium Carbonate (Calcium) 500 Mg Tablet Calcium Carb tamara (Calcium) 500 Mg Tablet Yes 600 Twice A Day [facility] Clonidine Hcl 0.1 Mg Tablet Clonidine Hcl 0.1 Mg Tablet Yes 1 Twice A Day [facility] Elmiron Elmiron Yes 200 2AM/1HS [facility] Esomeprazole Magnesium (Nexium) 40 Mg Capsule.dr Cole prazole Magnesium (Nexium) 40 Mg Capsule. Yes [facility] Hydralazine Hcl 25 Mg Tab Hydralazine Hcl 25 Mg Tab Yes 50 Twice A Day [facility] Lorazepam (Ativan) 1 Mg Tablet Lorazepam (Ativan) 1 Mg Tablet Yes 1 Daily [facility] Nitrobid Nitrobid Yes 9 Twice A Day [facility] Pravastatin Sodium 20 Mg Tablet Pravastatin Sodium 20 Mg Tablet Yes 20 Daily [facility] Sertraline Hcl (Zoloft) 100 Mg Tablet Sertraline Hcl (Zoloft) 100 M g Tablet Yes 150 Daily [facility] Triamterene/Hydrochlorothiazid (Maxzide 75 Mg-50 Mg Ta blet) 1 Each Tablet Triamterene/Hydrochlorothiazid (Maxzide 75 Mg-50 Mg Tablet) 1 Each Tablet Yes Daily [facility] Zolpidem Tartrate (Ambien) 10 Mg Tablet Zolpidem Tartrate (A mbien) 10 Mg Tablet Yes 10 Bedtime [facility] Glipizide 10 Mg Tablet, 10 Mg Oral Glipizide 10 Mg Tablet, 10 Mg Oral 2019-10-12 00:00:00 No 10 Daily [facility] Solifenacin Succinate (Vesicare) 10 Mg Tablet, 10 Mg O ral Solifenacin Succinate (Vesicare) 10 Mg Tablet, 10 Mg Oral 2019-10-12 00:00:00 No 10 Daily [facility] Ascorbic Acid (Vitamin C) 250 Gm Powder, 250 Gm Oral A scorbic Acid (Vitamin C) 250 Gm Powder, 250 Gm Oral 2015-10-09 00:00:00 No 250 Daily [facility] Morphine Sulfate 15 Mg Tablet, 15 Mg Oral Morphine Sul fate 15 Mg Tablet, 15 Mg Oral 2015-10-09 00:00:00 No 15 Twice A Day [facility] Hydrocodone Bit/Acetaminophen (Lawson 7.5-325 Tablet) 1 Each Tablet, 1 Ea Oral Hydrocodone Bit/Acetaminophen (Lawson 7.5-325 Tablet) 1 Each Tablet, 1 Ea Oral 2015-10-07 00:00:00 No 1 Q6prn [facility] Methocarbamol 750 Mg Tablet, 750 Mg Oral Methocarbamol 750 Mg Tablet, 750 Mg Oral 2015-01-23 00:00:00 No 750 Daily as needed fo r [facility] Move Free , Oral Move Free , Oral 2015-01-23 00:00:00 No Daily [facility] Aspirin 325 Mg Tabec, 325 Mg Oral Aspirin 325 Mg Tabec, 325 Mg O ral 2015-01-20 00:00:00 No 325 Daily [facility] Atenolol 50 Mg Tablet, 50 Mg Oral Atenolol 50 Mg Tablet, 50 Mg O ral 2015-01-20 00:00:00 No 50 Daily [facility] Esomeprazole Mag Trihydrate (Nexium) 40 Mg Capsule.dr, 40 Mg Oral Esomeprazole Mag Trihydrate (Nexium) 40 Mg Capsule.dr, 40 Mg Oral 2015-01-20 00: 00:00 No 40 Daily [facility] Hydrocodone Bit/Acetaminophen (Lawson 10-325 Tablet) 1 Each Tablet, Oral Hydrocodone Bit/Acetaminophen (Lawson 10-325 Tablet) 1 Each Tablet, Oral 2015-01-20 00:00:00 No Daily [facility] Nitroglycerin 9 Mg Capsule.er, 9 Mg Oral Nitroglycerin 9 Mg Capsule.er, 9 Mg Oral 2015-01-20 00:00:00 No 9 Twice A Day [facility] Pentosan Polysulfate Sodium (Elmiron) 100 Mg Cap, 200 Mg Oral Pentosan Polysulfate Sodium (Elmiron) 100 Mg Cap, 200 Mg Oral 2015-01-20 00: 00:00 No 200 Twice A Day [facility] Atenolo , 50 Mg Oral Atenolo , 50 Mg Oral 2014-06-17 00:00:00 No 50 Daily [facility] Ca Cmb No.1/Vit D3/B-6/Fa/B12 (Vitamin D 3 1,000 Unit Tablet) 1 Each Tablet, 1 Each Oral Ca Cmb No.1/Vit D3/B-6/Fa/B12 (Vitamin D 3 1,000 Unit Tablet) 1 Each Tablet, 1 Each Oral 2014-06-17 00:00:00 No 1 Yeny y [facility] Move Free , Mg Oral Move Free , Mg Oral 2014-06-17 00:00:00 No Daily [facility] Nitroglycerin (Nitrobid 2.5MG Caps) 2.5 Mg Capcr, 2.5 Mg Oral Nitroglycerin (Nitrobid 2.5MG Caps) 2.5 Mg Capcr, 2.5 Mg Oral 2014-06-17 00:00:00 N o 2.5 Twice A Day [facility] [place]-3 Fatty Acids (Fish Oil) 500 Mg Capsule.dr, 500 Mg Oral [place]-3 Fatty Acids (Fish Oil) 500 Mg Capsule.dr, 500 Mg Oral 2014-06-17 00:00:00 N o 500 Daily [facility] Pentosan Polysulfate Sodium (Elmiron) 100 Mg Capsule, 100 Mg Oral Pentosan Polysulfate Sodium (Elmiron) 100 Mg Capsule, 100 Mg Oral 201 01-17-08 00:00:00 No 100 Daily [facility] Sertraline Hcl (Zoloft) 50 Mg Tablet, 50 Mg Oral Sertr cinda Hcl (Zoloft) 50 Mg Tablet, 50 Mg Oral 2014-06-17 00:00:00 No 50 Daily [facility] Glucosamine Sulfate 2KCL (Glucosamine) 1,000 Mg Tablet , Glucosamine Sulfate 2KCL (Glucosamine) 1,000 Mg Tablet, 2014-05-01 00:00:00 No Daily [facility] Zolpidem Tartrate (Ambien Cr) 12.5 Mg Tab.mphase, 12.5 Mg Oral Zolpidem Tartrate (Ambien Cr) 12.5 Mg Tab.mphase, 12.5 Mg Oral 2014-05-01 00:00:00 No 12.5 [facility] Ezetimibe/Simvastatin (Vytorin 10-20 Mg Tablet) 1 Each Tablet, 1 Each Oral Ezetimibe/Simvastatin (Vytorin 10-20 Mg Tablet) 1 Each Tablet, 1 Each Oral 2014-03-05 00:00:00 No 1 Daily [facility] Atenolol 50 Mg Tablet, 50 Mg Oral Atenolol 50 Mg Tablet, 50 Mg O ral 2014-02-25 00:00:00 No 50 Daily [facility] Tramadol Hcl (Ultram) 50 Mg Tablet, 50 Mg Oral Tramado l Hcl (Ultram) 50 Mg Tablet, 50 Mg Oral 2012-12-11 00:00:00 No 50 Q 8-1 2 Hours [facility] Vital Signs Vital Name Observation Time Observation Value Comments Source Systolic (mm Hg) 2019-02-13 15:45:00 Deshaun [facility] Weight 2019-02-13 15:45:00 [facility] Height 2019-02-13 15:45:00 [facility] Respitory Rate 2019-02-13 15:45:00 Ronaldori al [facility] Heart Rate 2019-02-13 15:45:00 [facility] Diastolic (mm Hg) 2019-02-13 15:45:00 [facility] Systolic (mm Hg) 2019-01-16 16:30:00 Deshaunlourdes gold[facility] Weight 2019-01-16 16:30:00 [facility] Height 2019-01-16 16:30:00 [facility] Respitory Rate 2019-01-16 16:30:00 [facility] Heart Rate 2019-01-16 16:30:00 [facility] Diastolic (mm Hg) 2019-01-16 16:30:00 [facility] Systolic (mm Hg) 2018-11-21 16:00:00 Deshaun goldstein [facility] Weight 2018-11-21 16:00:00 [facility] Height 2018-11-21 16:00:00 [facility] Respitory Rate 2018-11-21 16:00:00 [facility] Heart Rate 2018-11-21 16:00:00 [facility] Diastolic (mm Hg) 2018-11-21 16:00:00 [facility] Systolic (mm Hg) 2018-10-26 16:00:00 Deshaun goldstein [facility] Weight 2018-10-26 16:00:00 [facility] Height 2018-10-26 16:00:00 [facility] Respitory Rate 2018-10-26 16:00:00 [facility] Heart Rate 2018-10-26 16:00:00 [facility] Diastolic (mm Hg) 2018-10-26 16:00:00 [facility] Systolic (mm Hg) 2018-08-15 17:45:00 Deshaun rial [facility] Weight 2018-08-15 17:45:00 [facility] Height 2018-08-15 17:45:00 [facility] Respitory Rate 2018-08-15 17:45:00 [facility] Heart Rate 2018-08-15 17:45:00 [facility] Diastolic (mm Hg) 2018-08-15 17:45:00 [facility] Systolic (mm Hg) 2018-07-18 16:45:00 Deshaun rial [facility] Weight 2018-07-18 16:45:00 [facility] Height 2018-07-18 16:45:00 [facility] Respitory Rate 2018-07-18 16:45:00 [facility] Heart Rate 2018-07-18 16:45:00 [facility] Diastolic (mm Hg) 2018-07-18 16:45:00 [facility] Systolic (mm Hg) 2017-07-28 17:00:00 Deshaun rial [facility] Diastolic (mm Hg) 2017-07-28 17:00:00 [facility] Respitory Rate 2017-07-28 17:00:00 [facility] Temperature Oral (F) 2017-07-28 17:00:00 98.3 F [facility] Respitory Rate 2017-07-28 15:33:00 [facility] Systolic (mm Hg) 2017-07-28 15:33:00 Deshaun rial [facility] Diastolic (mm Hg) 2017-07-28 15:33:00 [facility] Temperature Oral (F) 2017-07-28 13:00:00 97.9 F [facility] Systolic (mm Hg) 2017-07-28 13:00:00 Deshaun goldstein [facility] Diastolic (mm Hg) 2017-07-28 13:00:00 [facility] Respitory Rate 2017-07-28 13:00:00 [facility] Temperature Oral (F) 2017-07-27 22:23:00 98.3 F [facility] Weight 2017-07-24 18:05:00 [facility] Heart Rate 2017-07-24 18:05:00 [facility] BMI Calculated 2017-07-24 18:05:00 [facility] Height 2017-07-24 18:05:00 172.72 cm [facility] Procedures Procedure Date / Time Performed Performing Clinician [facility] e Computed tomography angiography of abdomen and pelvis without then withcontrast 2019-10-15 00:00:00 VALENCIA MCKEON [facility] Computed tomography of brain without radiopaque contrast 00:00:00 KATHY [facility] Magnetic resonance imaging of brain without contrast 2019-10 00:00:00 CHAVEZ [facility] CT of abdomen and pelvis without contrast 2019-10-12 00:00:00 KOMAL JONES [facility] Computed tomography of chest without contrast 2019-10-12 00: 00:00 VALENCIA MCKEON [facility] X-ray of chest, two views 2019-10-06 00:00:00 CHARLENE FERNANDES [facility] CT of abdomen and pelvis without contrast 2019-10-05 00:00:00 AM VALENCIA MCCLELLAND [facility] Spinal puncture, lumbar, diagnostic 2017-07-25 20:45:00 [facility] Encounters Start Date/Time End Date/Time [facility] ID Source 2019-10-14 11:14:00 2019-10-16 12:35:00 Discharged Inpatient 1 ÁNGEL VÁZQUEZ [facility] [id number] [facility] 2019-10-05 05:42:00 2019-10-08 15:48:00 Discharged Inpatient 1 ÁNGEL VÁZQUEZ [facility] [id number] [facility] 2019-08-17 11:11:00 2019-08-17 11:11:00 Outpatient [facility] [id number] [facility] 2019-08-16 11:45:00 2019-08-16 11:45:00 [facility] [id number] [facility] 2019-02-21 11:30:00 2019-02-21 11:30:00 Outpatient [facility] [place] [id number] [facility] 2019-02-13 10:45:00 2019-02-13 10:45:00 Outpatient [facility] [place] [facility] [place] [id number] [facility] 2019-01-25 10:30:00 2019-01-25 10:30:00 Outpatient [facility] [place] [facility] [place] [id number] [facility] 2019-01-16 11:30:00 2019-01-16 11:30:00 Outpatient [facility] [place] [facility] [place] [id number] [facility] 2018-11-23 15:27:00 2018-11-23 15:27:00 Outpatient [facility] [place] [facility] [place] [id number] [facility] 2018-11-21 11:00:00 2018-11-21 11:00:00 Outpatient [facility] [place] [facility] [place] [id number] [facility] 2018-10-26 11:00:00 2018-10-26 11:00:00 Outpatient [facility] [place] [facility] [place] [id number] [facility] 2018-10-20 09:51:00 2018-10-20 09:51:00 Outpatient [facility] [place] [facility] [place] [id number] Sherley [facility] 2018-10-19 11:30:00 2018-10-19 11:30:00 Outpatient [facility] [place] [facility] [place] [id number] [facility] 2018-08-29 14:56:00 2018-08-29 14:56:00 Outpatient [facility] [place] [facility] [place] [id number] [facility] 2018-08-15 11:45:00 2018-08-15 11:45:00 Outpatient [facility] [place] [facility] [place] [id number] [facility] 2018-08-04 11:03:00 2018-08-04 11:03:00 Outpatient [facility] [place] [facility] [place] [id number] [facility] 2018-08-03 11:15:00 2018-08-03 11:15:00 Outpatient [facility] [place] [facility] [place] [id number] [facility] 2018-07-18 10:45:00 2018-07-18 10:45:00 Outpatient [facility] [place] [facility] [place] [id number] [facility] 2018-06-23 10:05:00 2018-06-23 10:05:00 Outpatient [facility] [place] [facility] [place] [id number] [facility] 2018-06-22 13:00:00 2018-06-22 13:00:00 Outpatient [facility] [place] [facility] [place] [id number] [facility] 2017-12-30 11:02:00 2017-12-30 23:59:00 Outpatient Omar Mendenhall [facility] [id number] 2017-07-24 13:02:00 2017-07-28 14:40:00 Outpatient Dominique London [facility] [id number] 2017-01-26 13:29:00 2017-01-26 23:59:00 Outpatient Imtiaz Aragon [facility] [id number] 2016-04-13 14:00:00 2016-05-12 23:59:00 Outpatient Bill Cole [id number] 2016-03-10 13:39:00 2016-04-08 23:59:00 Outpatient Bill Cole [id number] 2014-12-02 08:31:00 2014-12-02 23:59:00 [id number] Results Test Description Test Time Test Comments Results Result Comments Source CT ABDOMEN/PELVIS WO 2020-02-09 12:36:00 [place] [id number] Patient Name: KURTIS MORALES MR #: [id number] : 1940 Age/Sex: 80/F Req #: [id number] Adm Physician: Ordered by: GUALBERTO VALLECILLO Report #: [id number] Location: ER Room/Bed: Procedure: [id number] CT/CT ABDOMEN/PELVIS WO Exam Date: 02/09/20 Exam Time: 1222 REPORT STATUS: Signed EXAMINATION: CT of the abdomen and pelvis without contrast. TECHNIQUE: Spiral CT images of the abdomen and pelvis were performed from the lung bases to the lesser trochanters. No intravenous contrast was given due to decreased GFR. Dilute Gastrografin was given, however, patient was unable to drink full amount.. Coronal and sagittal reformatted images were obtained. COMPARISON: CT abdomen and pelvis 10/15/2019 CLINICAL HISTORY:Diarrhea, abdominal pain for 3 days, history of colitis DISCUSSION: ABSENCE OF INTRAVENOUS CONTRAST DECREASES SENSITIVITY FOR DETECTION OF FOCAL LESIONS AND VASCULAR PATHOLOGY. ABDOMEN/PELVIS: LOWER THORAX: Minimal atelectatic changes in bilateral lower lobes. Stable mild to moderate cardiomegaly and small pleural effusion. Atherosclerotic calcification of the coronary arteries and thoracic aorta. HEPATOBILIARY: No focal hepatic lesions. Mild prominence of the central intrahepatic bile ducts. Stable mild dilation of the common bile duct. No radiopaque intraluminal filling defects. GALLBLADDER: Absent. Cholecystectomy clips. SPLEEN: Stable borderline splenomegaly, which measures 12.4 cm in AP diameter. PANCREAS: No focal masses or ductal dilatation. ADRENALS: No adrenal nodules. KIDNEYS/URETERS: No hydronephrosis or stones. No contour abnormalities. Stable 1.8 cm fluid density simple cyst in the right superior pole (series 2, image 26). PEL JAMES ORGANS/BLADDER: Bladder is unremarkable. Uterus is absent. No adnexal masses. PERITONEUM/RETROPERITONEUM: Trace free simple fluid in the pelvic cul-de-sac. No free air. LYMPH NODES: No intra-abdominal,retroperitoneal, pelvic or inguinal lymphadenopathy. VESSELS: Marked atherosclerotic calcification of the abdominal aorta. No evidence of portal venous gas. GI TRACT: Moderate to marked wall thickening extending from the proximal to mid descending colon to the rectum, however, worse in the proximal and mid sigmoid colon (for example coronal image 29). There is associated mild surrounding fat stranding. No pneumatosis. Rest of the large bowel as well as the small bowel shows no wall thickening, dilation or obstruction. Stomach is grossly unremarkable. BONES AND SOFT TISSUES: Marked multilevel degenerated discs in the lumbosacral spine with associated rightward curvature, worse at L1-L2 and L2-L3. Grade 1 anterolisthesis of L3 on L2 and L4 on L3. Extensive bilateral gluteal region calcifications, likely secondary to injections IMPRESSION: 1. Findings highly suggestive of colitis, which may be ischemic in this patient with atherosclerotic disease given the location, versus infectious. Inflammatory colitis is less likely. No pneumatosis, portal venous gas or pneumoperitoneum. Of note, patient had abdominal CTA 10/15/2019 which s howed no occlusion, however, this may be secondary to low flow state. Currently, very low GFR precludes a contrast-enhanced study. Signed by: Dr. Albaro Zepeda M.D. on 02/09/2020 1:04 PM Dictated By: ALBARO ZEPEDA MD [id number] Transcribed By: KASH on 02/09/20 5020 COPY TO: RUTH ANNRAYASGUALBERTORENE SANTOYO Sodium Level 2019-10-16 04:06:00 Test Item Sodium Level (test code = 2951-2) 138 136-145 [facility] [id number] 04:06:00* Test Item Value Reference Range Interpretation Comments Potassium Level (test code = 2823-3) 3.9 3.5-5.1 [facility]loride [id number] 04:06:00* Test Item Value Reference Range Interpretation Comments Chloride Level (test code = 2075-0) 104 98-107 [facility] SouthCarbon Dioxide [id number] 04:06:00* Test Item Value Reference Range Interpretation Comments Carbon Dioxide Level (test code = 2028-9) 25 22-29 [facility] SouthAnion [id number] 04:06:00* Test Item Value Reference Range Interpretation Comments Anion Gap (test code = 02623-6) 12.9 8-16 [facility] South[facility] Urea [id number] 04:06:00* Test Item Value Reference Range Interpretation Comments Blood Urea Nitrogen (test code = 3094-0) 17 7-26 [facility]inine2020-01-07 04:06:00* Test Item Value Reference Range Interpretation Comments Creatinine (test code = 2160-0) 1.68 0.57-1.11 H [facility] SouthBUN/Creatinine [id number] 04:06:00* Test Item Value Reference Range Interpretation Comments BUN/Creatinine Ratio (test code = 3097-3) 10 6-25 [facility] Glomerular Filtration Rate 2019-10-16 04:06:00* Test Item Value Reference Range Interpretation Comments Estimat Glomerular Filtration Rate (test code = 396893336) 29 >60 L Ranges were taken from the National Kidney Disease Education Program and the [facility] literature.Reference ranges:60 or greater: Gatjbz62-41 ( for 3 consecutive months): Chronic kidney disease 15 or less: Kidney failureSh[facility] Center SouthGlucose [id number] 04:06:00* Test Item Value Reference Range Interpretation Comments Glucose Level (test code = IYZ9009) 148 74-118 H [facility] SouthCalcium [id number] 04:06:00* Test Item Value Reference Range Interpretation Comments Calcium Level (test code = 84201-9) 8.6 8.4-10.2 [facility] SouthWhite Blood [id number] 04:05:00* Test Item Value Reference Range Interpretation Comments White Blood Count (test code = 6690-2) 8.70 4.8-10.8 [facility] SouthRed Blood [id number] 04:05:00* Test Item Value Reference Range Interpretation Comments Red Blood Count (test code = 789-8) 3.28 3.6-5.1 L [facility] SouthHemoglobin2020-01-07 04:05:00* Test Item Value Reference Range Interpretation Comments Hemoglobin (test code = 45730-0) 10.1 12.0-16.0 L [facility] SouthHematocrit2020-01-07 04:05:00* Test Item Value Reference Range Interpretation Comments Hematocrit (test code = 4544-3) 31.4 34.2-44.1 L [facility] SouthMean Corpuscular [id number] 04:05:00* Test Item Value Reference Range Interpretation Comments Mean Corpuscular Volume (test code = 787-2) 95.7 81-99 [facility] SouthMean Corpuscular [id number] 04:05:00* Test Item Value Reference Range Interpretation Comments Mean Corpuscular Hemoglobin (test code = 785-6) 30.8 28-32 [facility] SouthMean Corpuscular Hemoglobin Concent 2019-10-16 04:05:00* Test Item Value Reference Range Interpretation Comments Mean Corpuscular Hemoglobin Concent (test code = 786-4) 32.2 31-35 [facility] SouthRed Cell Distribution [id number] 04:05:00* Test Item Value Reference Range Interpretation Comments Red Cell Distribution Width (test code = 06409-7) 14.3 11.7 -14.4 [facility] SouthPlatelet [id number] 04:05:00* Test Item Value Reference Range Interpretation Comments Platelet Count (test code = 777-3) 157 140-360 [facility] SouthNeutrophils (%) (Auto)2019-10-16 04:05:00 * Test Item Value Reference Range Interpretation Comments Neutrophils (%) (Auto) (test code = 34067-5) 80.7 38.7-80.0 H [facility] SouthLymphocytes (%) (Auto)2019-10-16 04:05:00 * Test Item Value Reference Range Interpretation Comments Lymphocytes (%) (Auto) (test code = 736-9) 7.5 18.0-39.1 L [facility] SouthMonocytes (%) (Auto)2019-10-16 04:05:00* Test Item Value Reference Range Interpretation Comments Monocytes (%) (Auto) (test code = 5905-5) 9.8 4.4-11.3 [facility] SouthEosinophils (%) (Auto)2019-10-16 04:05:00 * Test Item Value Reference Range Interpretation Comments Eosinophils (%) (Auto) (test code = 713-8) 0.8 0.0-6.0 [facility] SouthBasophils (%) (Auto)2019-10-16 04:05:00* Test Item Value Reference Range Interpretation Comments Basophils (%) (Auto) (test code = 706-2) 0.2 0.0-1.0 [facility] SouthIM GRANULOCYTES %2019-10-16 04:05:00* Test Item Value Reference Range Interpretation Comments IM GRANULOCYTES % (test code = IM GRANULOCYTES %) 1.0 0.0- 1.0 [facility] SouthNeutrophils # (Auto)2019-10-16 04:05:00* Test Item Value Reference Range Interpretation Comments Neutrophils # (Auto) (test code = 751-8) 7.0 2.1-6.9 H [facility] SouthLymphocytes # (Auto)2019-10-16 04:05:00* Test Item Value Reference Range Interpretation Comments Lymphocytes # (Auto) (test code = 32683-3) 0.7 1.0-3.2 L [facility] SouthMonocytes # (Auto)2019-10-16 04:05:00* Test Item Value Reference Range Interpretation Comments Monocytes # (Auto) (test code = 742-7) 0.9 0.2-0.8 H [facility] SouthEosinophils # (Auto)2019-10-16 04:05:00* Test Item Value Reference Range Interpretation Comments Eosinophils # (Auto) (test code = 711-2) 0.1 0.0-0.4 [facility] SouthBasophils # (Auto)2019-10-16 04:05:00* Test Item Value Reference Range Interpretation Comments Basophils # (Auto) (test code = 704-7) 0.0 0.0-0.1 [facility] SouthAbsolute Immature Granulocyte (auto 2019-10-16 04:05:00* Test Item Value Reference Range Interpretation Comments Absolute Immature Granulocyte (auto (betsy t code = Absolute Immature Granulocyte (auto) 0.09 0-0.1 [facility] SouthProcalcitonin2020-01-06 23:21:00* Test Item Value Reference Range Interpretation Comments Procalcitonin (test code = 650965962) 0.10 0.00-0.08 H A procalcitonin (PCT) level above 2.0 ng/mL on the firstday of ICU admission is associated with a high risk forprogression to severe sepsis and/or septic shock. A PCT level below 0.5 ng/mL on the first day of ICUadmission is associated with a low risk for progressionto severe sepsis and/or septic shock.Note: Concentrati ons <0.5 ng/mL do not exclude aninfection, on account of localized infections (withoutsystemic signs) which can be associated with such lowconcentrations, or a systemic infection in its initialstages (<6 hours).Furthermore, increased procalcitonin can occur withoutinfection. PCT concentrations between 0.5 and 2.0 ng/mLshould be interpreted taking into account the patient'shistory. It is recommended to retest PCT within 6-24 hoursif any concentrations <2 ng/mL are obtained.Performed at: - [facility] [id number] Director: Jaswinder Barahona MD, Phone: [phone] Medical Center SouthBedhenderson [facility] Ahqaidi3799-71-79 22:19:00* Test Item Value Reference Range Interpretation Comments Bedside Glucose (test code = 40975-5) 192 70-120 H Meter ID: [id number] Medical Center SouthCHEST SINGLE (PORTABLE)2019-10-15 17:29:00 [place] [address] Patient Name: KURTIS MORALES MR #: [id number] : 1940 Age/Sex: 79/F Req #: [id number] Adm Physician: ÁNGEL VÁZQUEZ MD Ordered by: Valencia Mckeon SUPERVISOR [employer] Report #: [id number] Location: MED/SURG2 Room/Bed: [facility] Procedure: [id number] DX /CHEST SINGLE (PORTABLE) Exam Date: 10/15/19 Exam Ti me: 1706 REPORT STATUS: Signed E XAMINATION: CHEST SINGLE (PORTABLE) INDICATION: Congestion COMPAR JEANMARIE: None FINDINGS: LINES/TUBES:EKG leads overlie the chest. LUNGS:The lungs are moderately inflated. No focal consolidation or richy pul monary edema. PLEURA:No pleural effusion or pneumothorax. MEDIASTINUM: Cardiomediastinal silhouette is stably enlarged. BONES/SOFT TISSUES:No acut e osseous injury. ABDOMEN:No free air under the diaphragm. IMPRESSI ON: No focal pneumonia or pulmonary edema. Signed by: Ivon Morris MD on 10/15/2019 5:30 PM Dictated By: IVON MORRIS MD 29 Transcribed By: KASH on 10/15/191729 RUG WEAVER Y TO: VALENCIA MCKEON NP CTA ABD/CGYUPX5422-05-71 16:11:00 [place] [address] Patient Name: KURTIS MORALES MR #: [id number] : 1940 Age/Sex: 79/F Req #: [id number] Adm Physician: ÁNGEL VÁZQUEZ MD Ordered by: Valencia Mckeon SUPERVISOR [employer] Report #: [id number] Location: [facility]/SURG Room/Bed: [facility] Procedure: [id number] CT /CTA ABD/PELVIS Exam Date: 10/15/19 Exam Time: 1220 REPORT STATUS: Signed EXAM: CTA Abdomen and Pelvis WITHOUT AND WITH intravenous contrast INDICATION: Isc hemic colitis COMPARISON: CT abdomen and pelvis 10/12/2019, CT abdomen pelvis of 10/05/2019 TECHNIQUE: Abdomen and pelvis were scanned utilizing a multi detector helical scanner from the lung base to the pubic symphysis before and after administration of IV contrast. Coronal and sagittal reformations were ob tained. CTA protocol was performed. 3D post-processing of the images was perfo rmed, and the post-processed images were used in interpretation. IV CONT RAST: 100mL of Isovue 370 ORAL CONTRAST: Water RADIATION DOSE: Total DL P: 1851.1 mGy*cm Dose modulation, iterative reconstruction, and/or weight based adjustment of the mA/kV was utilized to reduce the radiation dose to as low as reasonably achievable. FINDINGS: LOWER THORAX: Mild bibasilar d ependent subsegmental atelectasis. Trace pleural effusions. HEPATOBILIARY : No focal liver lesions. Unchanged mild intrahepatic biliary ductal dilation. Status post cholecystectomy. SPLEEN: No splenomegaly. PANCREAS: No fo ebony masses or ductal dilatation. ADRENALS: No adrenal nodules. KIDNEYS/UR ETERS: No hydronephrosis or renal calculi. Unchanged right upper pole renal cy st. PELVIC ORGANS/BLADDER: Mosley catheter terminates in the bladder. MERLENE TONEUM / RETROPERITONEUM: No free air or fluid. LYMPH NODES: No lymphadenopath y. VESSELS: Moderate atherosclerotic calcifications of the nonaneurysmal abdom inal aorta and major branches. The celiac artery, SMA, and MONICA and their major branches are patent. GI TRACT: Residual oral contrast material in the co laron. No abnormal bowel wall thickening. No bowel obstruction. Specifically, no evidence of ischemic colitis. BONES AND SOFT TISSUES: Mild diffuse osteo penia. No acute osseous injury. Degenerative changes of the visualized spine w ith unchanged retrolisthesis at L2-3 through L4-5. IMPRESSION: No acut e findings in the abdomen or pelvis. Specifically, no CTA evidence of ischemic colitis. There is no colonic wall thickening and the mesenteric arteries and their major branches are patent. Otherwise, no significant interval change compared to the CT of 10/12/2019. Signed by: Ivon Morris MD on 020 4:21 PM Dictated By: IVON MORRIS MD 1621 Transcribed By: KASH on 10/15/19 1621 COPY TO: VALENCIA MCKEON NP Platelet Morphology Uykskfa0086-07-20 08:34:00* Test Item Value Reference Range Interpretation Comments Platelet Morphology Comment (test code = 22481-6) NO EDTA PLT CLUMP S SEEN [facility] SouthMagnesium [id number] 05:10:00* Test Item Value Reference Range Interpretation Comments Magnesium Level (test code = 98333-7) 1.5 1.3-2.1 [facility] SouthTotal Mmtwftuvh1792-45-50 05:10:00* Test Item Value Reference Range Interpretation Comments Total Bilirubin (test code = 1975-2) 0.2 0.2-1.2 [facility] SouthAspartate Amino Transf (AST/SGOT) 2019-10-15 05:10:00* Test Item Value Reference Range Interpretation Comments Aspartate Amino Transf (AST/SGOT) (test code = Aspartate Amino Transf (AST/SGOT)) 19 5-34 [facility] SouthAlanine Aminotransferase (ALT/SGPT) 2019-10-15 05:10:00* Test Item Value Reference Range Interpretation Comments Alanine Aminotransferase (ALT/SGPT) (test code = 1742-6) 19 0-55 [facility] SouthTotal Bmkzsbo0907-43-34 05:10:00* Test Item Value Reference Range Interpretation Comments Total Protein (test code = 2885-2) 4.7 6.5-8.1 L [facility] SouthAlbumin2020-01-06 05:10:00* Test Item Value Reference Range Interpretation Comments Albumin (test code = 1751-7) 2.6 3.5-5.0 L [facility] SouthGlobulin2020-01-06 05:10:00* Test Item Value Reference Range Interpretation Comments Globulin (test code = 74937-3) 2.1 2.3-3.5 L [facility] SouthAlbumin/Globulin Orkir8747-62-35 05:10:00 * Test Item Value Reference Range Interpretation Comments Albumin/Globulin Ratio (test code = 1759-0) 1.2 0.8-2.0 [facility] SouthAlkaline Pwpvmvlyuzt1601-98-27 05:10:00* Test Item Value Reference Range Interpretation Comments Alkaline Phosphatase (test code = 6768-6) 65 40-150 [facility] SouthClostridium Difficile Toxin A & B 2019-10-13 12:31:00* Test Item Value Reference Range Interpretation Comments Clostridium Difficile Toxin A & B (test code = 316784548) NEGATIVE NEGATIVE Testing on stool aspirate specimens is outside cvor nurse claims since specime n type not validated on this assay.[facility] Phosphorus Aamyh6822-88-24 04:33:00* Test Item Value Reference Range Interpretation Comments Phosphorus Level (test code = KXS6204) 3.7 2.3-4.7 [facility] SouthCT CHEST [id number] 22:14:00 [facility] [address] [place] [address] Patient Name: KURTIS MORALES MR #: [id number] : 1940 Age/Sex: 79/F Req #: [id number] Adm Physician: ÁNGEL VÁZQUEZ MD Ordered by: Valencia Mckeon SUPERVISOR [employer] Report #: [id number] Location: MED/SURG2 Room/Bed: [facility] Procedure: [id number] CT /CT CHEST WO Exam Date: 10/12/19 Exam Time: 2009 REPORT STATUS: Signed EXAM: CT Ches t, Abdomen and Pelvis WITHOUT contrast INDICATION: Colitis, altered mental s tatus, diarrhea, abdominal pain, nausea COMPARISON: Abdominal CT 10/05/2019 TECHNIQUE: Chest, abdomen and pelvis were scanned utilizing a multidetector helical scanner from the lung apex to the pubic symphysis without administrat ion of IV contrast. Absence of intravenous contrast decreases sensitivity for detection of focal lesions and vascular pathology. Coronal and sagittal reform ations were obtained. Routine protocol was performed. IV CONTRAST: None ORAL CONTRAST: None COMPLICATIONS: None RADIATION D OSE: Total DLP: 1082 mGy*cm Estimated effective dose: (DLP x 0.015 x size factor) mSv CTDIvol has been reviewed. It is below the limits set by the Radiation Protocol Committee (RPC). Dose modulation, iterative reconstruction, and/or weight based adjustment of the mA/kV was utilized to re duce the radiation dose to as low as reasonably achievable. FINDINGS: LINES and TUBES: Urinary bladder Mosley catheter in place, tip in the bladder lumen. LUNGS AND AIRWAYS: Biapical scarring. There is bibasilar atelecta sis. Airways are normal. PLEURA: The pleural spaces are clear. HEAR T AND MEDIASTINUM: Dilated main pulmonary artery, 3.9 cm in diameter, the asce nding thoracic aorta is 3.4 cm in diameter. Mitral and aortic valve calcificat ions. Trace pericardial fluid. Calcifications of the aorta and major branches including the left main coronary artery. Borderline cardiomegaly. The thyroid gland is normal. No mediastinal, hilar or axillary lymphadenopathy. HEP ATOBILIARY: No focal hepatic lesions. There is mild intra- and extra- hep atic biliary dilation likely post cholecystectomy resevoir effect. GALLBL ADDER: There are cholecystectomy clips. SPLEEN: No splenomegaly. PANCREAS: No focal masses or ductal dilatation. ADRENALS: No adrenal nod ules KIDNEYS/URETERS: No hydronephrosis. No solid mass lesions. No sto ani. A 1.8 cm right renal superior pole cyst. Mild renal atrophy. GI TRAC T: No abnormal distention or evidence of bowel obstruction. Mild wall thicken ing of the gastric antrum. Stable 3.8 cm air-fluid containing second segment d uodenal diverticulum. Resolution of wall thickening of the transverse colon. A ppendix is not definitively identified however there is no inflammation in the right lower quadrant.. There is small amount of enteric contrast in nondilate d distal small bowel loops. PELVIC ORGANS/BLADDER: Trace air in the bladder lumen with the urinary bladder Mosley catheter in place, tip in the bladder osman men. Bladder is underdistended . Hysterectomy. No adnexal masses. LYMPH N ODES: No lymphadenopathy. VESSELS: There is mild atherosclerotic disease in the aorta and major arterial branches. PERITONEUM / RETROPERITONEUM: No free air or fluid. BONES: Mild retrolisthesis of L2 on L3 where there is ca nal stenosis. Fracture posterior aspect of left rib 11. Degenerative changes i n the spine, shoulders, hips, and pelvis. Transitional anatomy at L5-S1 with d egenerative changes at pseudoarthroses of L5 transverse processes with the sac ral ala. Low bone mineral density. SOFT TISSUES: Including a subcutaneous calcifications possibly from prior trauma and fat necrosis or due to injectio ns. IMPRESSION: 1. Resolution of transverse colon wall t hickening. 2. Findings can be seen with mild antral gastritis. 3. Severe d egenerative changes in the spine with mild retrolisthesis of L2 on L3 where th ere is canal stenosis. 4. Low bone mineral density. 5. Main pulmonary sophia ry dilation can be seen with pulmonary hypertension. Borderline cardiomegaly a nd calcific coronary artery atherosclerosis. There is also calcific aortic and mitral valve disease. 6. A 3.8 cm air-fluid containing second segment duoden al diverticulum. Signed by: Braden Rangel DO on 10/13/2019 7:06 AM D ictated By: BRADEN RANGEL DO 5 COPY TO: VALENCIA LOPEZ SE, NP CT ABDOMEN/PELVIS [id number] 22:14:00 [place] [address] Patient Name: KURTIS MORALES MR #: [id number] : 1940 Age/Sex: 79/F Req #: [id number] Adm Physician: ÁNGEL VÁZQUEZ MD Ordered by: KOMAL GUPTA MD Report #: [id number] Location: MED/SURG2 Room/Bed: [facility] Procedure: [id number] CT/C T ABDOMEN/PELVIS WO Exam Date: 10/12/19 Exam Time: 2 010 REPORT STATUS: Signed EXAM: CT Chest, Abdomen and Pelvis WITHOUT contrast INDICATION: Colitis, altered m ental status, diarrhea, abdominal pain, nausea COMPARISON: Abdominal CT TECHNIQUE: Chest, abdomen and pelvis were scanned utilizing a multidet suzanne helical scanner from the lung apex to the pubic symphysis without admi nistration of IV contrast. Absence of intravenous contrast decreases sensitivi ty for detection of focal lesions and vascular pathology. Coronal and sagittal reformations were obtained. Routine protocol was performed. IV CONTRAST : None ORAL CONTRAST: None COMPLICATIONS: None RADI ATION DOSE: Total DLP: 1082 mGy*cm Estimated effective dose: (DLP x 0.015 x size factor) mSv CTDIvol has been reviewed. It is below the barba its set by the Radiation Protocol Committee (RPC). Dose modulation, ite rative reconstruction, and/or weight based adjustment of the mA/kV was utilize d to reduce the radiation dose to as low as reasonably achievable. FINDI NGS: LINES and TUBES: Urinary bladder Mosley catheter in place, tip in the b ladder lumen. LUNGS AND AIRWAYS: Biapical scarring. There is bibasilar a telectasis. Airways are normal. PLEURA: The pleural spaces are clear. HEART AND MEDIASTINUM: Dilated main pulmonary artery, 3.9 cm in diameter, the ascending thoracic aorta is 3.4 cm in diameter. Mitral and aortic valve ebony cifications. Trace pericardial fluid. Calcifications of the aorta and major br anches including the left main coronary artery. Borderline cardiomegaly. The t hyroid gland is normal. No mediastinal, hilar or axillary lymphadenopathy. HEPATOBILIARY: No focal hepatic lesions. There is mild intra- and extra - hepatic biliary dilation likely post cholecystectomy resevoir effect. GALLBLADDER: There are cholecystectomy clips. SPLEEN: No splenomegaly . PANCREAS: No focal masses or ductal dilatation. ADRENALS: No adre nal nodules KIDNEYS/URETERS: No hydronephrosis. No solid mass lesions. No stones. A 1.8 cm right renal superior pole cyst. Mild renal atrophy. GI TRACT: No abnormal distention or evidence of bowel obstruction. Mild wall thickening of the gastric antrum. Stable 3.8 cm air-fluid containing second se gment duodenal diverticulum. Resolution of wall thickening of the transverse c olon. Appendix is not definitively identified however there is no inflammation in the right lower quadrant.. There is small amount of enteric contrast in no ndilated distal small bowel loops. PELVIC ORGANS/BLADDER: Trace air in the bladder lumen with the urinary bladder Mosley catheter in place, tip in the adiel dder lumen. Bladder is underdistended . Hysterectomy. No adnexal masses. LYMPH NODES: No lymphadenopathy. VESSELS: There is mild atherosclerotic dis ease in the aorta and major arterial branches. PERITONEUM / RETROPERITONE UM: No free air or fluid. BONES: Mild retrolisthesis of L2 on L3 where ther e is canal stenosis. Fracture posterior aspect of left rib 11. Degenerative ch anges in the spine, shoulders, hips, and pelvis. Transitional anatomy at L5-S1 with degenerative changes at pseudoarthroses of L5 transverse processes with the sacral ala. Low bone mineral density. SOFT TISSUES: Including a subcu taneous calcifications possibly from prior trauma and fat necrosis or due to i njections. IMPRESSION: 1. Resolution of transverse colon wall thickening. 2. Findings can be seen with mild antral gastritis. 3. S evere degenerative changes in the spine with mild retrolisthesis of L2 on L3 w here there is canal stenosis. 4. Low bone mineral density. 5. Main pulmona ry artery dilation can be seen with pulmonary hypertension. Borderline cardiom egaly and calcific coronary artery atherosclerosis. There is also calcific aor tic and mitral valve disease. 6. A 3.8 cm air-fluid containing second segment duodenal diverticulum. Signed by: Braden Rangel DO on 10/13/2019 7:06 AM Dictated By: BRADEN RANGEL DO 07 Transcribed By: KASH on 10/13/19 07 COPY TO: KOMAL GUPTA MD MRI BRAIN [id number] 12:34:00 [place] [address] Patient Name: KURTIS MORALES MR #: [id number] : 1940 Age/Sex: 79/F Req #: [id number] Adm Physician: ÁNGEL VÁZQUEZ MD Ordered by: ROLY CHAVEZ DO Report #: [id number] Location: [facility] Room/Bed: [place] [address] Procedure: [id number] MRI/ MRI BRAIN WO Exam Date: Exam Time: REPORT STATUS: Signed EXAMINATION: MRI of the b rain without contrast. HISTORY: Alteration of consciousness, UTI, sacral de cubitus ulcer. COMPARISON: Head CT 10/12/2019 TECHNIQUE: Axial DWI, FLAIR, T2 and GRE sequences, no additional sequences were performed as patient did not t olerate the completion of the study. IMAGE QUALITY: Artifact from patient's motion limits the evaluation of the provided images, if clinically indicated a repeat study with sedation can be performed. FINDINGS: Parench yma: 1. Scattered and moderate confluent periventricular white matter T2 and FLAIR hyperintense foci, most likely nonspecific chronic microvascular ischem ic changes. 2. No mass, hemorrhage, acute or chronic infarcts. S kull: Unremarkable. Vessels: Cannot be evaluated. Extra-axi al spaces: No abnormal signal intensity or mass effect. Brain volume: Wit hin normal limits for age. Ventricles: No hydrocephalus or displacement. Foramen magnum: Grossly unremarkable Sella: No gross suprasellar a bnormalities Paranasal / mastoid sinuses: Grossly clear IMPRESSION: Suboptimal study due to motion artifact. Grossly no acute infarcts, mass, hemorrhage, midline shift or herniation. Signed by: Dr. Wang Robles M.D. on 10/12/2019 12:42 PM Dictated By: WANG ROBLES MD 1242 Transcribed By: KASH on 10/12/19 1242 COPY TO: ROLY CHAVEZ DO Arterial Blood [id number] 07:52:00* Test Item Value Reference Range Interpretation Comments Arterial Blood pH (test code = 2744-1) 7.36 7.31-7.41 [facility] Partial Pressure CO2 2019-10-12 07:52:00* Test Item Value Reference Range Interpretation Comments Arterial Blood Partial Pressure CO2 (test code = 2019-05) 38 41-51 L [facility] SouthAr[facility] Blood Partial Pressure O2 2019-10-12 07:52:00* Test Item Value Reference Range Interpretation Comments Arterial Blood Partial Pressure O2 (test code = 2019-05) 145 80-105 H [facility] SouthArterial Blood [id number] 07:52:00* Test Item Value Reference Range Interpretation Comments Arterial Blood HCO3 (test code = 1960-4) 21 23-28 L [facility] SouthAr[facility] Blood Base Hvxwqc1641-75-64 07:52:00* Test Item Value Reference Range Interpretation Comments Arterial Blood Base Excess (test code = 1925-7) -5.0 -2-3 L [facility] SouthAr[facility] Blood Oxygen Saturation 2019-10-12 07:52:00* Test Item Value Reference Range Interpretation Comments Arterial Blood Oxygen Saturation (test code = 2708-6) 99.0 95-98 H [facility] SouthFiO22020-01-03 07:52:00* Test Item Value Reference Range Interpretation Comments FiO2 (test code = FiO2) 21 ROOM AIRShannon Medical Center SouthAmmonia2020-01-03 07:12:00* Test Item Value Reference Range Interpretation Comments Ammonia (test code = 33286-4) 33 31-123 [facility] SouthCT BRAIN [id number] 05:25:00 [facility] [address] [place] [address] Patient Name: KURTIS MORALES MR #: [id number] : 1940 Age/Sex: 79/F Req #: [id number] Adm Physician: ÁNGEL VÁZQUEZ MD Ordered by: ROLY CHAVEZ DO Report #: [id number] Location: [facility] Room/Bed: [place] [address] Procedure: [id number] CT/C T BRAIN WO Exam Date: 10/12/19 Exam Time: 0330 REPORT STATUS: Signed EXAMINATION: He ad CT without contrast. HISTORY:Altered mental status. COMPARISO N:None. TECHNIQUE: Multidetector axial images were obtained from the foramen m agnum to the vertex without contrast. The images were reconstructed using brai n and bone algorithms. Thin section brain images were reformatted into sinha l and sagittal planes. Dose modulation, iterative reconstruction, and/or aldo ght based adjustment of the mA/kV was utilized to reduce the radiation dose to as low as reasonably achievable. Intravenous contrast: None IMAGE QUALITY: Acceptable. FINDINGS: Skull/scalp: No lytic or blastic. les ions. No surgical changes. Parenchyma: Nonspecific bilateral frontopariet al patchy and confluent hypodensity are likely related to small vessel ischemi c changes. Focal hypodensity in left caudate head represents age indeterminate lacunar infarct. No acute hemorrhage, mass or acute major vascular territor ial infarct. Arteries: No density suggestive of thrombosis. Atheroscleroti c calcification in bilateral carotid siphon. Dural sinuses: No abnorma l density suggestive of thrombosis. Ventricles: Moderate compensated dila tation due to volume loss. No hydrocephalus. Extra-axial spaces: No abno rmal density. Brain volume: Generalized age-related cerebral volume loss . Craniocervical junction: No mass, Chiari malformation, or basilar inva gination. Sella: No mass. Paranasal/mastoid sinuses: Imaged portion s unremarkable. IMPRESSION: No acute intracranial abnormality. Mo derate supratentorial white matter microvascular ischemic changes. Generali zed age-related cerebral volume loss. Signed by: Dr. Anastacia Kee M.D. on 10/12/2019 5:28 AM Dictated By: ANASTACIA KEE MD Electronically Anjelica d By: ANASTACIA KEE MD on 10/12/19 0528 Transcribed By: KASH on 10/12/19 0 528 COPY TO: ROLY CHAVEZ DO B-Type Natriuretic Peptide 2019-10-12 04:06:00* Test Item Value Reference Range Interpretation Comments B-Type Natriuretic Peptide (test code = 90434-9) 760.2 0-100 [facility]2019-10-12 04:06:00 [place] [address] Patient Name: KURTIS MORALES MR #: [id number] : 1940 Age/Sex: 79/F Req #: [id number] Adm Physician: ÁNGEL VÁZQUEZ MD Ordered by: ROLY CHAVEZ DO Report #: [id number] Location: [facility] Room/Bed: [place] [address] Procedure: [id number] DX/C HEST SINGLE (PORTABLE) Exam Date: 10/12/19 Exam Time : 0330 REPORT STATUS: Signed EXA MINATION: CHEST SINGLE (PORTABLE) INDICATION: Dyspnea COMPAR JEANMARIE: Chest x-ray 10/06/2019 FINDINGS: TUBES and LINES: Non e. LUNGS: Lungs are well inflated. There is perihilar interstitial opacities, consistent with interstitial edema. Pulmonary vessel congestion. Lo wer lung reticular hazy opacities. PLEURA: No pleural effusion or pneumoth orax. HEART AND MEDIASTINUM: Cardiac size is mildly enlarged. BON ES AND SOFT TISSUES: No acute osseous lesion. Soft tissues are unremarkable. UPPER ABDOMEN: No free air under the diaphragm. IMPRESSION: Mild cardiomegaly, pulmonary vascular congestion. Lower lung reticular hazy o pacities may be due to pneumonia or interstitial edema. Signed by: Braden cueto DO on 10/12/2019 5:09 AM Dictated By: BRADEN RANGEL DO Electron ically Signed By: BRADEN RANGEL DO on 10/12/19508 Transcribed By: KASH on 10/12/19508 COPY TO: ROLY CHAVEZ DO Urine [id number] 03:50:00* Test Item Value Reference Range Interpretation Comments Urine WBC (test code = 5821-4) 1120 0-5 H [facility] SouthU[facility] [id number] 03:50:00* Test Item Value Reference Range Interpretation Comments Urine RBC (test code = 98051-5) 11-20 0-5 H [facility] SouthU[facility] Cqkbfvkq9058-16-88 03:50:00* Test Item Value Reference Range Interpretation Comments Urine Bacteria (test code = 36993-2) MANY NONE H [facility] SouthU[facility] Epithelial Ppetn7388-60-05 03:50:00 * Test Item Value Reference Range Interpretation Comments Urine Epithelial Cells (test code = 00371-2) FEW NONE [facility] Amorphous Mdvnhset4534-74-87 03:50:00* Test Item Value Reference Range Interpretation Comments Urine Amorphous Sediment (test code = 8246-1) MANY FEW H [facility] SouthU[facility] Ydbjv2324-29-19 03:41:00* Test Item Value Reference Range Interpretation Comments Urine Color (test code = 5778-6) YELLOW YELLOW [facility] Xrbxhqb5524-78-90 03:41:00* Test Item Value Reference Range Interpretation Comments Urine Clarity (test code = 22427-8) CLOUDY CLEAR H [facility] SouthU[facility] Specific Mzknkfh1441-67-82 03:41:00 * Test Item Value Reference Range Interpretation Comments Urine Specific [place] (test code = 5811-5) >=1.030 1.010-1.02 5 [facility] SouthU[facility] [id number] 03:41:00* Test Item Value Reference Range Interpretation Comments Urine pH (test code = 53060-9) 5.5 5-7 [facility] Leukocyte Htfstmbi8268-56-81 03:41:00* Test Item Value Reference Range Interpretation Comments Urine Leukocyte Esterase (test code = 35613-8) TRACE NEGATIV E H [facility] SouthU[facility] Boftzcu8060-03-84 03:41:00* Test Item Value Reference Range Interpretation Comments Urine Nitrite (test code = 14713-7) NEGATIVE NEGATIVE [facility] Lrquthu9265-75-26 03:41:00* Test Item Value Reference Range Interpretation Comments Urine Protein (test code = 79374-2) 2+ NEGATIVE H [facility] SouthU[facility] Glucose (UA)2019-10-12 03:41:00* Test Item Value Reference Range Interpretation Comments Urine Glucose (UA) (test code = 97737-4) NEGATIVE NEGATIVE [facility] SouthU[facility] Jklmlws2834-92-29 03:41:00* Test Item Value Reference Range Interpretation Comments Urine Ketones (test code = 30703-7) 1+ NEGATIVE H [facility] SouthU[facility] Zvzhajshgfoi0525-36-81 03:41:00* Test Item Value Reference Range Interpretation Comments Urine Urobilinogen (test code = 78534-6) 0.2 0.2-1 [facility] Iwxtxrevl1192-64-59 03:41:00* Test Item Value Reference Range Interpretation Comments Urine Bilirubin (test code = 1977-8) NEGATIVE NEGATIVE [facility] SouthU[facility] Eckrc6505-88-17 03:41:00* Test Item Value Reference Range Interpretation Comments Urine Blood (test code = 46893-8) TRACE NEGATIVE [facility] SouthCreatine Kinase II1167-62-72 03:27:00* Test Item Value Reference Range Interpretation Comments Creatine Kinase MB (test code = 18143-3) 3.00 0-5.0 [facility] SouthTroponin P1433-24-07 03:27:00* Test Item Value Reference Range Interpretation Comments Troponin I (test code = UHR1409) 0.009 0-0.300 [facility] SouthCreatine Xotrmf0146-37-25 03:15:00* Test Item Value Reference Range Interpretation Comments Creatine Kinase (test code = 2157-6) 160 29-168 [facility] SouthBedside Sjdsyty8505-21-53 11:40:00* Test Item Value Reference Range Interpretation Comments Bedside Glucose (test code = 60249-6) 147 70-120 H Meter ID: [id number] [facility] West Hospitalodium Level 2019-10-08 04:21:00* Test Item Value Reference Range Interpretation Comments Sodium Level (test code = 2951-2) 140 136-145 [facility] SouthPotassium Kkbcl5021-46-99 04:21:00* Test Item Value Reference Range Interpretation Comments Potassium Level (test code = 2823-3) 3.8 3.5-5.1 [facility] SouthChloride Mhfek1261-50-56 04:21:00* Test Item Value Reference Range Interpretation Comments Chloride Level (test code = 2075-0) 110 98-107 H [facility] SouthCarbon Dioxide Uivfh6840-99-69 04:21:00* Test Item Value Reference Range Interpretation Comments Carbon Dioxide Level (test code = 2028-9) 17 22-29 L [facility] SouthAnion Ygy4554-34-83 04:21:00* Test Item Value Reference Range Interpretation Comments Anion Gap (test code = 15114-2) 16.8 8-16 H [facility] SouthBlood Urea Eiykdpdl4585-36-08 04:21:00* Test Item Value Reference Range Interpretation Comments Blood Urea Nitrogen (test code = 3094-0) 19 7-26 [facility] SouthCreatinine2019-12-30 04:21:00* Test Item Value Reference Range Interpretation Comments Creatinine (test code = 2160-0) 1.40 0.57-1.11 H [facility] SouthBUN/Creatinine Tiqsp4945-41-32 04:21:00* Test Item Value Reference Range Interpretation Comments BUN/Creatinine Ratio (test code = 3097-3) 14 6-25 [facility] SouthEstimat Glomerular Filtration Rate 2019-10-08 04:21:00* Test Item Value Reference Range Interpretation Comments Estimat Glomerular Filtration Rate (test code = 200640060) 36 >60 L Ranges were taken from the National Kidney Disease Education Program and the [facility] literature.Reference ranges:60 or greater: Qtilqr68-77 ( for 3 consecutive months): Chronic kidney disease 15 or less: Kidney failureShannon Medical Center SouthGlucose Ftlyg9301-24-00 04:21:00* Test Item Value Reference Range Interpretation Comments Glucose Level (test code = VTJ8485) 75 74-118 [facility] SouthCalcium Idabz1459-76-60 04:21:00* Test Item Value Reference Range Interpretation Comments Calcium Level (test code = 10599-7) 8.0 8.4-10.2 L [facility] SouthWhite Blood Ufecb8387-25-87 04:00:00* Test Item Value Reference Range Interpretation Comments White Blood Count (test code = 6690-2) 8.52 4.8-10.8 [facility] SouthRed Blood Wuxcs6722-27-60 04:00:00* Test Item Value Reference Range Interpretation Comments Red Blood Count (test code = 789-8) 4.04 3.6-5.1 [facility] SouthHemoglobin2019-12-30 04:00:00* Test Item Value Reference Range Interpretation Comments Hemoglobin (test code = 67083-9) 12.4 12.0-16.0 [facility] SouthHematocrit2019-12-30 04:00:00* Test Item Value Reference Range Interpretation Comments Hematocrit (test code = 4544-3) 38.4 34.2-44.1 [facility] SouthMean Corpuscular Bwnyhu8953-36-49 04:00:00* Test Item Value Reference Range Interpretation Comments Mean Corpuscular Volume (test code = 787-2) 95.0 81-99 [facility] SouthMean Corpuscular Lbyrqrzstu7928-83-12 04:00:00* Test Item Value Reference Range Interpretation Comments Mean Corpuscular Hemoglobin (test code = 785-6) 30.7 28-32 [facility] SouthMean Corpuscular Hemoglobin Concent 2019-10-08 04:00:00* Test Item Value Reference Range Interpretation Comments Mean Corpuscular Hemoglobin Concent (test code = 786-4) 32.3 31-35 [facility] SouthRed Cell Distribution Zvkhl1052-45-18 04:00:00* Test Item Value Reference Range Interpretation Comments Red Cell Distribution Width (test code = 94959-3) 13.4 11.7 -14.4 [facility] SouthPlatelet Uukzm4984-35-60 04:00:00* Test Item Value Reference Range Interpretation Comments Platelet Count (test code = 777-3) 68 140-360 L [facility] SouthNeutrophils (%) (Auto)2019-10-08 04:00:00 * Test Item Value Reference Range Interpretation Comments Neutrophils (%) (Auto) (test code = 76191-5) 77.8 38.7-80.0 [facility] SouthLymphocytes (%) (Auto)2019-10-08 04:00:00 * Test Item Value Reference Range Interpretation Comments Lymphocytes (%) (Auto) (test code = 736-9) 10.9 18.0-39.1 L [facility] SouthMonocytes (%) (Auto)2019-10-08 04:00:00* Test Item Value Reference Range Interpretation Comments Monocytes (%) (Auto) (test code = 5905-5) 8.8 4.4-11.3 [facility] SouthEosinophils (%) (Auto)2019-10-08 04:00:00 * Test Item Value Reference Range Interpretation Comments Eosinophils (%) (Auto) (test code = 713-8) 1.1 0.0-6.0 [facility] SouthBasophils (%) (Auto)2019-10-08 04:00:00* Test Item Value Reference Range Interpretation Comments Basophils (%) (Auto) (test code = 706-2) 0.5 0.0-1.0 [facility] SouthIM GRANULOCYTES %2019-10-08 04:00:00* Test Item Value Reference Range Interpretation Comments IM GRANULOCYTES % (test code = IM GRANULOCYTES %) 0.9 0.0- 1.0 [facility] SouthNeutrophils # (Auto)2019-10-08 04:00:00* Test Item Value Reference Range Interpretation Comments Neutrophils # (Auto) (test code = 751-8) 6.6 2.1-6.9 [facility] SouthLymphocytes # (Auto)2019-10-08 04:00:00* Test Item Value Reference Range Interpretation Comments Lymphocytes # (Auto) (test code = 97134-4) 0.9 1.0-3.2 L [facility] SouthMonocytes # (Auto)2019-10-08 04:00:00* Test Item Value Reference Range Interpretation Comments Monocytes # (Auto) (test code = 742-7) 0.8 0.2-0.8 [facility] SouthEosinophils # (Auto)2019-10-08 04:00:00* Test Item Value Reference Range Interpretation Comments Eosinophils # (Auto) (test code = 711-2) 0.1 0.0-0.4 [facility] SouthBasophils # (Auto)2019-10-08 04:00:00* Test Item Value Reference Range Interpretation Comments Basophils # (Auto) (test code = 704-7) 0.0 0.0-0.1 [facility] SouthAbsolute Immature Granulocyte (auto 2019-10-08 04:00:00* Test Item Value Reference Range Interpretation Comments Absolute Immature Granulocyte (auto (betsy t code = Absolute Immature Granulocyte (auto) 0.08 0-0.1 [facility] SouthHIP LEFT 2-3 VW (+/- PELVIS)2019-10-07 00:25:00 [facility] [address] [place] [address] Patient Name: KURTIS MORALES MR #: [id number] : 1940 Age/Sex: 79/F Req #: [id number] Adm Physician: ÁNGEL VÁZQUEZ MD Ordered by: KATY GUEVARA [employer]PER[employer] Report #: [id number] Location: ICU Room/Bed: ICU [facility] Procedure: [id number] DX/ HIP LEFT 2-3 VW (+/- PELVIS) Exam Date: Exam Time: REPORT STATUS: Signed Hip compl ete Indication: S/P FALL Y Technique: AP and frogleg views of left hip obtained. Comparison: CT abdomen/pelvis 10/05/2019 Findings: The patient is mildly rotated. Left hip remains properly located. The cor estella appears intact throughout. Trochanters appear intact. Adjacent pubic ra mi appear intact. Lower lumbar spine demonstrates mild degenerative changes. Large coarse bilateral gluteal calcifications are redemonstrated. IMPRES TOÑO: No acute fracture or dislocation. Signed by: Dr. Zechariah stanley MD on 10/07/2019 12:32 AM Dictated By: ZECHARIAH LONDON MD Electron ically Signed By: ZECHARIAH LONDON MD on 10/07/1931 Transcribed By: KASH on 10/07/1931 COPY TO: KATY GUEVARA [employer] Free Thyroxine 2019-10-06 16:23:00* Test Item Value Reference Range Interpretation Comments Free Thyroxine (test code = 3024-7) 0.76 0.8-1.8 L [facility] Qvgjzsxgu0712-32-32 16:23:00* Test Item Value Reference Range Interpretation Comments Free Thyroxine (test code = 3024-7) 0.76 0.8-1.8 L [facility] 2 DCSKF3773-94-22 10:51:00 [place] [address] Patient Name: KURTIS MORALES MR #: [id number] : 1940 Age/Sex: 79/F Req #: [id number] Adm Physician: ÁNGEL VÁZQUEZ MD Ordered by: CHARLENE FERNANDES MD Report #: [id number] Location: ICU Room/Bed: ICU [facility] Procedure: [id number] DX/CH EST 2 VIEWS Exam Date: 10/06/19 Exam Time: 1020 REPORT STATUS: Signed EXAMINATION : PA and lateral views of the chest. COMPARISON: None CLINICAL HISTORY : Dyspnea DISCUSSION: Lines/tubes: None. Lungs: The lungs are well inflated and clear. No pneumonia or pulmonary edema. Pleura: No pleural effusion or pneumothorax. Heart and mediastinum: Prominent heart s ize. Bones and soft tissues: No acute bony abnormalities. IMPRES TOÑO: No acute cardiopulmonary abnormalities. Signed by: Dr. Leanne Andrade M.D. on 10/06/2019 10:52 AM Dictated By: LEANNE Eaton MD 105 Transcribe d By: KASH on 10/06/19 105 COPY TO: CHARLENE FERNANDES MD Total Lfwubhswr1412-73-33 06:20:00* Test Item Value Reference Range Interpretation Comments Total Bilirubin (test code = 1975-2) 0.2 0.2-1.2 [facility] SouthAspartate Amino Transf (AST/SGOT) 2019-10-06 06:20:00* Test Item Value Reference Range Interpretation Comments Aspartate Amino Transf (AST/SGOT) (test code = Aspartate Amino Transf (AST/SGOT)) 21 5-34 [facility] SouthAlanine Aminotransferase (ALT/SGPT) 2019-10-06 06:20:00* Test Item Value Reference Range Interpretation Comments Alanine Aminotransferase (ALT/SGPT) (test code = 1742-6) 20 0-55 [facility] SouthTotal Ibmfqph1632-85-46 06:20:00* Test Item Value Reference Range Interpretation Comments Total Protein (test code = 2885-2) 5.1 6.5-8.1 L [facility] SouthAlbumin2019-12-28 06:20:00* Test Item Value Reference Range Interpretation Comments Albumin (test code = 1751-7) 3.0 3.5-5.0 L [facility] SouthGlobulin2019-12-28 06:20:00* Test Item Value Reference Range Interpretation Comments Globulin (test code = 74988-1) 2.1 2.3-3.5 L [facility] SouthAlbumin/Globulin Ipluh1660-01-80 06:20:00 * Test Item Value Reference Range Interpretation Comments Albumin/Globulin Ratio (test code = 1759-0) 1.4 0.8-2.0 [facility] SouthAlkaline Eugsmgfxaxc4996-50-77 06:20:00* Test Item Value Reference Range Interpretation Comments Alkaline Phosphatase (test code = 6768-6) 56 40-150 [facility] SouthB-Type Natriuretic Ftfrxpl6535-35-88 04:00:00* Test Item Value Reference Range Interpretation Comments B-Type Natriuretic Peptide (test code = 32532-9) 163.9 0-100 H [facility] SouthThyroid Stimulating Hormone (TSH) 2019-10-06 03:56:00* Test Item Value Reference Range Interpretation Comments Thyroid Stimulating Hormone (TSH) (test code = 28083-3) 4.172 0.350-4.940 [facility] SouthThyroid Stimulating Hormone (TSH) 2019-10-06 03:56:00* Test Item Value Reference Range Interpretation Comments Thyroid Stimulating Hormone (TSH) (test code = 31064-9) 4.172 0.350-4.940 [facility] SouthHemoglobin A1c Pfwddol1531-48-90 03:31:00 * Test Item Value Reference Range Interpretation Comments Hemoglobin A1c Percent (test code = Hemoglobin A1c Percent) 6.7 4.0-7.0 [facility] SouthMagnesium Rkwsl2372-66-71 03:31:00* Test Item Value Reference Range Interpretation Comments Magnesium Level (test code = 21827-0) 1.5 1.3-2.1 [facility] SouthHemoglobin A1c Kedptrm1025-03-69 03:31:00 * Test Item Value Reference Range Interpretation Comments Hemoglobin A1c Percent (test code = Hemoglobin A1c Percent) 6.7 4.0-7.0 [facility] SouthCT ABDOMEN/PELVIS CR7883-78-72 16:37:00 [facility] [address] [place] [address] Patient Name: KURTIS MORALES MR #: [id number] : 8 Age/Sex: 79/F Req #: [id number] Adm Physician: ÁNGEL VÁZQUEZ MD Ordered by: Valencia Mckeon NP Report #: [id number] Location: ICU Room/Bed: ICU 196-1 Procedure: [id number] CT /CT ABDOMEN/PELVIS WO Exam Date: 10/05/19 Exam Time: 1600 REPORT STATUS: Signed CT o f the abdomen and pelvis History: Abdominal pain, diarrhea, nausea Com parison: None available. Technique: Multidetector CT scanning of the abdomen and pel vis was performed from the level of the lung bases to the inferior pubic ramus without contrast. DOSE REDUCTION: The examination was performed according to departmental dose-optimization program which includes automated exposure co ntrol, adjustment of the mA and/or kV according to patient size and/or use of iterative reconstruction technique. Discussion: The lung bases are clear. La ck of IV contrast limits evaluation of solid and hollow visceral organs. No focal hepatic lesions are identified. The gallbladder is surgically absent. T here is no intrahepatic or extrahepatic ductal dilatation. The spleen is wi thin normal limits. The bilateral ultrasound glands are unremarkable. There is fatty atrophy of the pancreas. There is no pancreatic ductal dilatati on. The kidneys are normal in size. There is no hydroureteronephrosis bilat erally. No obstructing renal calculi are identified. The stomach, small, and large bowel are nondistended. There is no evidence of obstruction. There i s segmental bowel wall thickening of the transverse colon which may be seconda ry to colitis. There is no free intraperitoneal air or ascites. The ab dominal aorta is of normal course and caliber and demonstrates extensive ather osclerotic calcifications. The urinary bladder is within normal limits. The uterus is absent. No acute osseous abnormalities are identified. Ther e are advanced degenerative changes of the thoracolumbar spine which are most pronounced at L1-L2 and L2-L3. There is grade 1 retrolisthesis of L2 on L3. Injection granulomas are identified in the bilateral gluteal regions. IM PRESSION: 1. Segmental wall thickening of the transverse colon which may be secondary to colitis. 2. Status post cholecystectomy and hysterectomy. Signed by: Marc Bucio MD on 10/05/2019 4:44 PM Dictated By: LUIS MIGUEL BUCIO MD 43 Transcribed By: KASH on 10/05/191643 COPY TO: VALENCIA MCKEON NP Clostridium Difficile Toxin A & H4960-55-63 14:43:00* Test Item Value Reference Range Interpretation Comments Clostridium Difficile Toxin A & B (test code = 664269022) NEGATIVE NEGATIVE Testing on stool aspirate specimens is outside cvor nurse claims since specime n type not validated on this assay.[facility] SouthUrine VRC3897-61-62 04:34:00* Test Item Value Reference Range Interpretation Comments Urine WBC (test code = 5821-4) 6-10 0-5 H [facility] SouthUrine RZQ2101-68-93 04:34:00* Test Item Value Reference Range Interpretation Comments Urine RBC (test code = 14388-4) 6-10 0-5 H [facility] SouthU[facility] Taiojwno8918-17-36 04:34:00* Test Item Value Reference Range Interpretation Comments Urine Bacteria (test code = 51916-6) MANY NONE H [facility] Epithelial Qnidk5239-66-37 04:34:00 * Test Item Value Reference Range Interpretation Comments Urine Epithelial Cells (test code = 49131-9) FEW NONE [facility] Renal Epithelial Uzums3108-88-20 04:34:00* Test Item Value Reference Range Interpretation Comments Urine Renal Epithelial Cells (test code = 61123-1) FEW NON E H [facility] SouthUrine Amorphous Rwvnfcuh4040-00-77 04:34:00* Test Item Value Reference Range Interpretation Comments Urine Amorphous Sediment (test code = 8246-1) FEW FEW [facility] SouthU[facility] Hyaline Jzvui0271-12-87 04:34:00* Test Item Value Reference Range Interpretation Comments Urine Hyaline Casts (test code = 34788-6) 2-5 0-1 H [facility] SouthU[facility] Renal Epithelial Jysqv7137-76-91 04:34:00* Test Item Value Reference Range Interpretation Comments Urine Renal Epithelial Cells (test code = 54327-4) FEW NON E H [facility] SouthU[facility] Hyaline Rjshx0073-23-49 04:34:00* Test Item Value Reference Range Interpretation Comments Urine Hyaline Casts (test code = 06870-4) 2-5 0-1 H [facility] SouthU[facility] Cvajh4955-98-25 04:19:00* Test Item Value Reference Range Interpretation Comments Urine Color (test code = 5778-6) YELLOW YELLOW [facility] Pdgezsj5797-94-92 04:19:00* Test Item Value Reference Range Interpretation Comments Urine Clarity (test code = 91143-7) CLEAR CLEAR [facility] Specific Agyfokm1421-53-01 04:19:00 * Test Item Value Reference Range Interpretation Comments Urine Specific [place] (test code = 5811-5) 1.025 1.010-1.02 5 [facility] eI6351-12-19 04:19:00* Test Item Value Reference Range Interpretation Comments Urine pH (test code = 59044-1) 5.5 5-7 [facility] Leukocyte Xhpeymgo3099-23-51 04:19:00* Test Item Value Reference Range Interpretation Comments Urine Leukocyte Esterase (test code = 73132-9) NEGATIVE NEGATIV E [facility] SouthU[facility] Ganfsuq4922-91-12 04:19:00* Test Item Value Reference Range Interpretation Comments Urine Nitrite (test code = 14613-7) NEGATIVE NEGATIVE [facility] SouthU[facility] Takxlle5574-61-39 04:19:00* Test Item Value Reference Range Interpretation Comments Urine Protein (test code = 24898-5) 2+ NEGATIVE H [facility] SouthU[facility] Glucose (UA)2019-10-05 04:19:00* Test Item Value Reference Range Interpretation Comments Urine Glucose (UA) (test code = 67583-1) 1+ NEGATIVE H [facility] SouthU[facility] Hnqvktw3690-76-57 04:19:00* Test Item Value Reference Range Interpretation Comments Urine Ketones (test code = 64272-9) NEGATIVE NEGATIVE [facility] Aymrvtjuqzfo9634-87-01 04:19:00* Test Item Value Reference Range Interpretation Comments Urine Urobilinogen (test code = 78050-6) 0.2 0.2-1 [facility] Orxvmoqwm9295-91-58 04:19:00* Test Item Value Reference Range Interpretation Comments Urine Bilirubin (test code = 1977-8) NEGATIVE NEGATIVE [facility] SouthU[facility] Lxkja6432-58-22 04:19:00* Test Item Value Reference Range Interpretation Comments Urine Blood (test code = 78274-8) NEGATIVE NEGATIVE [facility] SouthURINALYSIS KIGCOKKM0433-75-28 18:42:00* Test Item Value Reference Range Interpretation Comments UA COLOR (test code = COLU) DARK YELLOW YELLOW A UA APPEARANCE (test code = APPU) SLIGHT CLOUDY CLEAR A UA GLUCOSE DIPSTICK (test code = DGLUU) norm mg/dL NEGATIVE UA BILIRUBIN DIPSTICK (test code = BILU) 3 mg/dL NEGATIVE A UA KETONE DIPSTICK (test code = KETU) neg mg/dL NEGATIVE UA SPECIFIC GRAVITY (test code = SGU) 1.015 1.001-1.035 UA BLOOD DIPSTICK (test code = MIKKI) neg Phil/uL NEGATIVE UA PH DIPSTICK (test code = KEMAL) 5.0 5.0-8.0 UA PROTEIN DIPSTICK (test code = PROU) 100 (2+) mg/dL Neg-15 A UA UROBILINIOGEN DIPSTICK (test code = URO) 1 mg/dL 0.0-0.2 A UA NITRITE DIPSTICK (test code = HANK) NEGATIVE NEGATIVE UA LEUKOCYTE ESTERASE DIPSTICK (test code = LEUU) 500 Graciela/uL (3+) u L NEGATIVE A UA WBC (test code = WBCU) 30-40 per HPF 0-5 A UA RBC (test code = RBCU) NONE SEEN per HPF 0-5 UA EPITHELIAL CELLS (test code = EPIU) Few (2-5/hpf) per HPF Few UA BACTERIA (test code = BACU) MANY per HPF NONE A UA HYALINE CAST (test code = HYALU) 0-2 per LPF 0-2 Urine Source? Clean CatchURINALYSIS PXWEKJWW8679-92-11 18:33:00* Test Item Value Reference Range Interpretation Comments UA COLOR (test code = COLU) DARK YELLOW YELLOW A UA APPEARANCE (test code = APPU) SLIGHT CLOUDY CLEAR A UA GLUCOSE DIPSTICK (test code = DGLUU) norm mg/dL NEGATIVE UA BILIRUBIN DIPSTICK (test code = BILU) 3 mg/dL NEGATIVE A UA KETONE DIPSTICK (test code = KETU) neg mg/dL NEGATIVE UA SPECIFIC GRAVITY (test code = SGU) 1.015 1.001-1.035 UA BLOOD DIPSTICK (test code = MIKKI) neg Phil/uL NEGATIVE UA PH DIPSTICK (test code = KEMAL) 5.0 5.0-8.0 UA PROTEIN DIPSTICK (test code = PROU) 100 (2+) mg/dL Neg-15 A UA UROBILINIOGEN DIPSTICK (test code = URO) 1 mg/dL 0.0-0.2 A UA NITRITE DIPSTICK (test code = HANK) NEGATIVE NEGATIVE UA LEUKOCYTE ESTERASE DIPSTICK (test code = LEUU) 500 Graciela/uL (3+) u L NEGATIVE A UA WBC (test code = WBCU) per HPF 0-5 UA RBC (test code = RBCU) per HPF 0-5 UA EPITHELIAL CELLS (test code = EPIU) per HPF Few UA BACTERIA (test code = BACU) per HPF NONE Urine Source? Clean Catch- CT ABD PELVIS W/O [id number] 18:16:00 Name: KURTIS MORALES [facility] : 1940 Age/S: 79 / F [address] [facility] Unit #: [id number] Loc: [place], [place] [address] Phys: Adnres Love MD Acct: [id number] Di s Date: Status: REG ER PHONE #: Exam Date: 10/02/2019 1809 FAX #: [phone] Reason: epigastric abdominal pain EXAMS: CPT CODE: [id number] CT ABD PELVIS W/O CONT 07009 HISTORY: Epigastric and a bdominal pain. COMPARISON: None available. CT abdome n and pelvis: Stone protocol. Automated exposure control. Locatio n: TH. CT ABDOMEN: The lung bases are clear. Noncontrast liver is unremarkable. Patient is post cholecystectomy. The liver measured 17.7 cm in length. Unremarkable spleen. The stomach distended incompletely but it is normal in appearance. Noncontrast pancreas and adrenals are normal. Kidneys are free from hydroureteronephrosis. No calyceal stones. Renal vascular calcific ations. Heavy atherosclerotic calcifications of the abdominal and pelvic vasculature. No bowel obstruction or colitis or diver ticulitis or enteritis. CT PELVIS: Appendix is not v isible but no inflammatory changes. Pelvic bowel loops are unobstructed. Sigmoid diverticulosis without diverticulitis. Patient is p ost hysterectomy. Decompressed urinary bladder is very limited. No free fluid or free air. No pelvic pathologic adenopathy. Subcutaneous tissues and the musculature demonstrates extensive calcified granulomas wi thin the bilateral buttock subcutaneous tissues. No lytic or blastic lesi ons are noted within the bony skeleton. DJD. Post laminectomy at L3 leve l with grade 1 retrolisthesis of L3 over L4. Grade 1 anterolisthesis of L 2 over L3 as well and L4 over L5. IMPRESSION: PAGE 1 Signed Report (CONTINUED) Name: KURTIS CHU [facility] : 1940 Age/S: 79 / F [address] [facility] Unit #: [id number] Lo c: [place] [address] Phys: Olvin Love MD Acct: [id number] Dis Date: Status: REG ER PHONE #: [phone] Exam Date: 10/02/2019 180 FAX #: [phone] Reas on: epigastric abdominal pain EXAMS: CPT CODE: [id number] CT ABD PELVIS W/O CONT 29098 <Continued> No hydroureteronephrosis or calyceal stones with decompressed urinary bladder. Appendix is not visible however no inflammatory changes. No bowel obstruction or colitis or diverticulitis or enteritis. Mild sigmoid diverticulosis. No free fluid or free air. at 1816 Reported and signed by: Harvey Ford M.D. CC: Adonis David Nicholos MD Techn ologist:Kristy Paredes CTDI: DLP: Trnscb Date/Jose e: 10/02/2019 (181) t.FLORENCIOR.4 Orig Print D/T: S: 019 (1820) PAGE 2 Signed Report [id number] 17:58:00* Test Item Value Reference Range Interpretation Comments TROPONIN-I (test code = TROPI) <0.015 ng/mL 0.00-0.056 N - XR CHEST 2 [id number] 17:16:00 Name: KURTIS MORALES [facility] : 1940 Age/S:79 /F [address] [facility] Unit#:[id number] Loc: [place] [address] Phys: Olvin Love MD Dis Date: PHONE #: [phone] Status: REG ER FAX #: [phone] Exam Date: 10/02/2019 Reason: SOB EXAMS: CPT CODE: [id number] XR CHEST 2 V 02997 HISTORY: Shortness of breath. COMPARISON: Chest x- ray from September 08, 2013. Location: . AP and lateral view of the chest: No acute infiltrates, effusion or congestion. Cardiac silhouette is mildly enlarged. DJD of the dorsal spine. IMPRESSION: No acute infiltrates, effusion or congestion. at 1716 Reported and signed by: Harvey Ford M.D. CC: Adonis David Nicholos MD Technologist: Kristy Paredes Trnscrpt Data: 10/02/2019 (1716) Vasu. Orig Print D/T: S: 10/02/2019 (1720) PAGE 1 Signed Report [id number] 17:15:00* Test Item Value Reference Range Interpretation Comments LIPASE (test code = LIP) 256 U/L 128-270 N BASIC METABOLIC [id number] 17:08:00* Test Item Value Reference Range Interpretation Comments SODIUM (test code = NA) 140 mmol/L 136-145 N POTASSIUM (test code = K) 4.3 mmol/L 3.5-5.1 N CHLORIDE (test code = CL) 99 mmol/L 101-109 L CARBON DIOXIDE (test code = CO2) 29.6 mmol/L 21-32 N ANION GAP (test code = GAP) 16 mmol/L 10-20 N GLUCOSE (test code = GLU) 114 mg/dL 74-106 H BLOOD UREA NITROGEN (test code = BUN) 45 mg/dL 3-21 H GLOMERULAR FILTRATION RATE (test code = GFR) 18 mL/min >=60 Estimated GFR by using Modified MDRD formula.Chronic kidney disease is defined as either kidney damageor GFR <60 mL/min/1.73 m2 for >3 months. CREATININE (test code = CREAT) 2.59 mg/dL 0.55-1.3 H BUN/CREATININE RATIO (test code = BUN/CREA) 17.4 10-20 N CALCIUM (test code = CA) 9.0 mg/dL 8.4-10.2 N HEPATIC FUNCTION [id number] 17:08:00* Test Item Value Reference Range Interpretation Comments TOTAL PROTEIN (test code = PROT) 6.9 g/dL 6.5-8.4 N ALBUMIN (test code = ALB) 3.6 g/dL 3.4-4.8 N GLOBULIN (test code = GLOB) 3.3 G/DL 1-10 N ALBUMIN/GLOBULIN RATIO (test code = A/G) 1.09 RATIO 0.75-1.50 N BILIRUBIN TOTAL (test code = BILT) 0.40 mg/dL 0.0-1.0 N BILIRUBIN DIRECT (test code = BILD) 0.10 mg/dL 0.0-0.30 N SGOT/AST (test code = AST) 27 U/L 6-32 N SGPT/ALT (test code = ALT) 23 U/L 12-78 N N ote: Change in REFERENCE RANGE due to new reagent method. ALKALINE PHOSPHATASE TOTAL (test code = ALKP) 79 U/L 38-126 N [id number] 17:08:00* Test Item Value Reference Range Interpretation Comments TROPONIN-I (test code = TROPI) <0.015 ng/mL 0.00-0.056 N B-TYPE NATRIURETIC [id number] 17:06:00* Test Item Value Reference Range Interpretation Comments B-TYPE NATRIURETIC PEPTIDE (test code = BNP) 456 pg/mL 0-100 H BASIC METABOLIC [id number] 17:06:00* Test Item Value Reference Range Interpretation Comments SODIUM (test code = NA) 140 mmol/L 136-145 N POTASSIUM (test code = K) 4.3 mmol/L 3.5-5.1 N CHLORIDE (test code = CL) 99 mmol/L 101-109 L CARBON DIOXIDE (test code = CO2) 29.6 mmol/L 21-32 N ANION GAP (test code = GAP) 16 mmol/L 10-20 N GLUCOSE (test code = GLU) 114 mg/dL 74-106 H BLOOD UREA NITROGEN (test code = BUN) 45 mg/dL 3-21 H GLOMERULAR FILTRATION RATE (test code = GFR) 18 mL/min >=60 Estimated GFR by using Modified MDRD formula.Chronic kidney disease is defined as either kidney damageor GFR <60 mL/min/1.73 m2 for >3 months. CREATININE (test code = CREAT) 2.59 mg/dL 0.55-1.3 H BUN/CREATININE RATIO (test code = BUN/CREA) 17.4 10-20 N CALCIUM (test code = CA) 9.0 mg/dL 8.4-10.2 N HEPATIC FUNCTION [id number] 17:06:00* Test Item Value Reference Range Interpretation Comments TOTAL PROTEIN (test code = PROT) gram/dL 6.4-8.2 ALBUMIN (test code = ALB) g/dL 3.4-5.0 GLOBULIN (test code = GLOB) g/dL 2.7-4.2 ALBUMIN/GLOBULIN RATIO (test code = A/G) 0.75-1.50 BILIRUBIN TOTAL (test code = BILT) mg/dL 0.2-1.2 BILIRUBIN DIRECT (test code = BILD) mg/dL 0.0-0.20 SGOT/AST (test code = AST) IUnit/L 15-37 SGPT/ALT (test code = ALT) U/L 10-69 ALKALINE PHOSPHATASE TOTAL (test code = ALKP) IUnit/L 45-117 [id number] 17:06:00* Test Item Value Reference Range Interpretation Comments TROPONIN-I (test code = TROPI) ng/mL 0-0.045 CBC W/O [id number] 16:52:00* Test Item Value Reference Range Interpretation Comments WHITE BLOOD CELL (test code = WBC) 8.0 K/mm3 4.5-12.5 N RED BLOOD CELL (test code = RBC) 3.95 mill/mm3 3.7-5.2 N HEMOGLOBIN (test code = HGB) 12.1 gram/dL 11.5-15.5 N HEMATOCRIT (test code = HCT) 37.5 % 36.0-46.0 N MEAN CELL VOLUME (test code = MCV) 94.9 fL 80-98 N MEAN CELL HGB (test code = MCH) 30.6 picogram 27.0-33.0 N MEAN CELL HGB CONCETRATION (test code = MCHC) 32.3 gram/dL 33.0-36. 0 L RED CELL DISTRIBUTION WIDTH (test code = RDW) 13.3 % 11.6-16. 2 N RED CELL DISTRIBUTION WIDTH SD (test code = RDW-SD) 47.1 fL 37 .0-51.0 N PLATELET COUNT (test code = PLT) 192 K/mm3 150-450 N MEAN PLATELET VOLUME (test code = MPV) 11.4 fL 6.7-11.0 H ZXHJGVHMJX0204-13-52 10:33:009.9[facility] LycqjdkGDTFJRGFCX0888-04-12 10:33:00 15.3[facility] LxriizlRUBTDSKUXZ4839-12-94 10:33:0033.6[facility]annHEMATOLOGY 2017-07-27 10:33:12265Ifqogvdl NiskuppMLMTNMHXCX3498-24-93 10:33:0010.1[facility] OyhavgtAGICHWAFVZ4433-55-75 10:33:0030.0[facility] AglapzpDOOXPECJUE6520-60-96 10:33:00* Test Item Value Reference Range Interpretation Comments MCH (test code = MCH) 30.6 pg 27.0-31.0 [facility] XorofesVSFDDWAZXG1755-45-82 10:33:0091.1[facility]annHEMATOLOGY 2017-07-27 10:33:0013.2[facility] NdrhjnsANWTWPAESD5658-23-63 10:33:003.29[facility] LsdistwQNITLPIJYA8152-90-65 10:33:006.8[facility] PocoabfBSQTQZECMT9718-06-71 10:33:0083.9[facility] DzbhriyQHBWGAKJLA3014-32-89 10:33:008.2[facility] TLSHANDQVO6795-55-68 10:33:000.1[facility] FtyphudIDRWLAJUAG2932-98-05 10:33:000.9 [facility] KeduiuxEJVFHBPXHL6876-52-46 10:33:000.1[facility]annHEMATOLOGY 2017-07-27 10:33:001.1[facility] DxtpzwsOUDQGOBZGD6697-85-99 10:33:0011.1[facility] UlnvuxiIIOZOHYHPG5057-65-38 10:33:000.6[facility] CfoxgeqTBHZAUAJBU2985-49-40 10:33:000.5[facility] HermannCHEM TVWHV2085-86-90 08:58:003.2[facility]annCHEM QGBCS7539-78-48 08:58:002.1[facility] KpdbmjtPDJMTRFCUQOR7292-77-00 08:58:0014.3 [facility] SnxtovaUPFKGWPCBOYE8170-58-33 08:58:003.3[facility] HermannELECTROLYTES 2017-07-27 08:58:35912Fsxkxpos OescbbjXLODZSFUXXZA7813-45-18 08:58:0043[facility] XedntwyVGQELOMHZWAF9813-62-25 08:58:001.78[facility] WfkskxtSCDRWRCHISRH3913-23-35 08:58:008.1[facility] QuldqynIOIKQNZYFKUV0085-41-93 08:58:0021[facility] JSSGNABLWKQP4213-21-90 08:58:59592Rifpdnqw ScwseptJHHTONECLOQW2016-23-72 08:58:60612Pagcmyqb HwimfqaGGPCCQHTLROO6548-60-33 08:58:0027[facility] CARDIAC KWUKNDN6534-17-48 08:37:000.95[facility] HermannCHEM EXBMR8094-84-10 08:37:002.2[facility] RdpvhzwXUINSGZQIVGW4790-03-84 08:37:0020.4[facility] KAPPAGXOCBWX5524-61-09 08:37:0044[facility] CvmiyeiHLAQTCESXMQE3558-08-25 08:37:00 1.17[facility] JtoyfbzKFKYNRPDYGUN2313-07-62 08:37:004.4[facility] XKAPVXVWTCJH3123-99-34 08:37:19936Kpkkyugg OcaxlxrGRRYZCOYVUHF7450-50-45 08:37:08436Ijnjstox AugwwesKRDLEPEHSDPY1622-73-45 08:37:0019[facility] SROWEWHUPKFQ2576-92-18 08:37:008.2[facility] VpsixsqSPSYZCWHSVJT5261-67-02 08:37:85895Agmeuzgh ThkdcohOTGJRECPZBMO0823-49-64 08:37:0027[facility] KMFEHLIEIX7132-96-58 08:37:000.5[facility] GeepbtjXHUTIHFQUZ6308-37-49 08:37:001+ *ABN*(07/26/17 3:37 AM)[facility] LfftkyuXOWPBNSGJQ0525-49-75 08:37:000.6[facility] PspmkfmJYUYCZNRJU6079-19-87 08:37:0014.8[facility] CrhhwtbFLVTHUBFCU1436-03-30 08:37:003.3[facility] TcsoacaIWLCZIHIHB5938-72-20 08:37:000.1[facility] JQEDVLMOTX0263-72-02 08:37:003.6[facility] SsfeobqFCYYLAKWAM8266-36-74 08:37:00 92.8[facility] BuckpkjHJMRZUMPZO0877-34-54 08:37:000.2[facility] HermannHEMATOLOGY 2017-07-26 08:37:0011.1[facility] FvsivhzYOBJADNKDK0859-07-88 08:37:73737Vpkbfkzb WtrfwgqMCNZLNRLNN5434-66-63 08:37:0033.2[facility] PpwcajuCWPUISCBAT3832-99-06 08:37:00* Test Item Value Reference Range Interpretation Comments MCH (test code = MCH) 30.2 pg 27.0-31.0 [facility] UjpickzNRCDYAHDCE4678-55-21 08:37:0092.2[facility] HermannHEMATOLOGY 2017-07-26 08:37:0014.9[facility] HbjtpytPUENEUMVLC9383-65-33 08:37:0032.7[facility] SutxstiFTVOFCJTLO4231-07-59 08:37:0010.9[facility] ZrresdiVEMASMIXLX4829-11-97 08:37:003.60[facility] OykpojaWYWANNNEZZ5078-12-00 08:37:0016.0[facility] BACTERIAL - TLZAWYBQ8885-85-13 02:47:00Urine *NA*(07/25/17 9:47 PM)[facility] HermannBACTERIAL - UXXTKVEN9586-47-41 02:47:00Negative (07/25/17 9:47 PM) [facility]annCARDIAC ZRDSBJO7314-05-72 02:47:001.31[facility] HermannCHEM PANEL 2017-07-26 02:47:002.2[facility] HermannCHEM SEVDR2430-71-73 02:47:0012.0[facility] GmovofeVUTTSUVVIHCG7053-83-60 02:47:05626Tqiozamb MjkydcaJSXIKMMLOKPJ7399-14-90 02:47:001.17[facility] AdcarioKDRRWFVJURPD8600-48-65 02:47:38512Neqxyycg [facility] BAEJGTZLPKGG5569-55-31 02:47:0025[facility] RultuioGSCKQYBXUSFQ0188-09-82 02:47:00 3.5[facility] IuiwguxJHOSWSUJXBBY6485-30-25 02:47:0020[facility]annELECTROLYTES 2017-07-26 02:47:008.7[facility] HnnxsaaLAYIGMAIMAFJ4116-27-03 02:47:0019.5 [facility] EsucgxxVXXNTODSCMYK4132-40-11 02:47:0044[facility] HermannELECTROLYTES 2017-07-26 02:47:09559Cybrplda HermannBODY RYIHML6332-99-03 21:00:0058[facility] HermannBODY IFZUVS4691-00-76 21:00:0048[facility] HermannBODY QVXSED4010-58-80 21:00:001[facility] HermannBODY IRIWQV8280-89-95 21:00:00Colorless (07/25/17 4:00 PM)[facility]annBODY LIOSBI0407-27-84 21:00:00Clear (07/25/17 4:00 PM) [facility]annBODY AVXOQF9411-52-73 21:00:00Colorless (07/25/17 4:00 PM) [facility]annBODY EDJOAZ5677-40-83 21:00:00* Test Item Value Reference Range Interpretation Comments Tube Num CSF (test code = Tube Num CSF) 2 1 [facility]annVIRAL - UQARSVGO5274-80-38 21:00:00Negative (07/25/17 4:00 PM) [facility]annCARDIAC IZMYBFZ0013-61-20 16:40:001.52[facility] HermannIMMUNOLOGY 2017-07-25 16:40:003.2[facility] JhbiujqGXSKCYBYJL7568-51-52 16:40:00<0.91[facility] HermannSPECIAL NDLEBXSQT1727-68-36 16:40:006.0[facility] HermannTOXICOLOGY 2017-07-25 16:40:005.1[facility] HermannANEMIA HZJVJ8235-99-79 11:46:77247Xykibpro HermannCARDIAC GPGBZCM0021-17-01 10:02:49934Kdvthwuv HermannCHEM PANEL 2017-07-25 10:02:07522.0[facility] HermannURINE YYKB7757-75-58 10:02:0075.10 [facility]annURINE CWGV3469-67-29 10:02:63447Okiklwis HermannHEMATOLOGY 2017-07-25 09:39:0090.5[facility] SpkhoboCMSWQBORIM6387-47-91 09:39:00* Test Item Value Reference Range Interpretation Comments MCH (test code = MCH) 30.2 pg 27.0-31.0 [facility] MtiwuelUIXDDSUIBB2731-28-78 09:39:0033.3[facility] HermannHEMATOLOGY 2017-07-25 09:39:0014.8[facility] JxmhwigGNPHELQRJZ2405-78-28 09:39:0029.6[facility] UqmweoeSDLPDRRUNI4710-57-07 09:39:0010.3[facility] KvavuwnSSLHNXWCLP8590-90-11 09:39:61961Zbbxayst OzbojuxVLLMMCYPDS0500-85-73 09:39:009.9[facility] GITYXMXXKV8220-77-10 09:39:003.27[facility] UdtuesdZCBWZMWIBY7968-78-96 09:39:00 9.4[facility] PxwuxuiRURLASMFZD9694-12-16 09:39:000.7[facility] HermannHEMATOLOGY 2017-07-25 09:39:000.1[facility] FmaxbgiMLYYBEUTCS0727-50-78 09:39:008.0[facility] GafndhjZLHPPTGVEI8331-53-17 09:39:007.8[facility] IlgwpjsMLGSPZUEVC9909-49-26 09:39:000.9[facility] QgpwkjyUOXTAXLQPC0651-10-33 09:39:000.5[facility] OIQJCYPXDY1617-46-83 09:39:000.3[facility] RpzysdvTTMMOXGJWD2317-76-16 09:39:005.7 [facility] QfybckaXXPDOXLUMO3774-90-50 09:39:0085.3[facility] HermannCHEM PANEL 2017-07-24 22:41:581.5[facility] HermannCHEM QOZRT6856-19-62 20:07:003.4[facility] ZmrpxfiNRUWJOTKYY3773-65-82 19:26:21<2 (07/24/17 2:26 PM)[facility] HermannCARDIAC LJVKXZH6393-09-29 18:29:83247Kqouqkix HermannCARDIAC OVPKUEV8231-82-61 18:29:00 11.0[facility] HermannCARDIAC GYZDPNT3862-07-13 18:29:001.2[facility] HermannCHEM CCDHE6866-98-24 18:29:003.3[facility] HermannCHEM EHYDE3291-37-06 18:29:0015 [facility]annCHEM QXQMD0987-58-41 18:29:0035[facility] HermannCHEM PANEL 2017-07-24 18:29:0076[facility] HermannCHEM REOUW1112-83-79 18:29:003.3[facility] HermannCHEM WGXRN1802-66-93 18:29:001.2[facility] HermannCHEM TLARF9438-53-34 18:29:000.6[facility] HermannCHEM FLOJO3143-11-84 18:29:004.1[facility] HermannCHEM DGJCK2077-71-62 18:29:007.4[facility] HermannCHEM QCPUT5384-08-87 18:29:0019 [facility]annDRUG CDXPHJ6514-25-24 18:29:00Negative *NA*(07/24/17 1:29 PM) [facility]annDRUG TFPULN6652-32-31 18:29:00Negative *NA*(07/24/17 1:29 PM) [facility]annDRUG JLWZEJ9155-57-57 18:29:00Negative *NA*(07/24/17 1:29 PM) [facility]annDRUG ZHYGYD0776-94-81 18:29:00Negative *NA*(07/24/17 1:29 PM) [facility]annDRUG TPXOGE3393-73-14 18:29:00See Note (07/24/17 1:29 PM) [facility]annDRUG AHRNUT3048-80-92 18:29:00Positive *ABN*(07/24/17 1:29 PM) [facility]annDRUG ITVORA2091-58-79 18:29:00Negative *NA*(07/24/17 1:29 PM) [facility]annDRUG ABAPML6467-64-81 18:29:00Negative *NA*(07/24/17 1:29 PM) [facility]annDRUG PHCQJH1098-68-40 18:29:00Negative *NA*(07/24/17 1:29 PM) [facility]annDRUG AWQGKB9855-94-25 18:29:00Negative *NA*(07/24/17 1:29 PM) [facility] RomalkqZOYDYUIXBR9206-96-24 18:29:00* Test Item Value Reference Range Interpretation Comments PT (test code = PT) 12.5 s 12.0-14.7 [facility] GqqonvnVGGKUZITTL4525-25-82 18:29:000.91[facility] HermannHEMATOLOGY 2017-07-24 18:29:00* Test Item Value Reference Range Interpretation Comments PTT (test code = PTT) 22.4 s 22.9-35.8 [facility] JuchajkMZYBBZNDFL8853-30-40 18:29:001+ *ABN*(07/24/17 1:29 PM)[facility]annURINE AND ANVQF7884-72-24 18:29:00Trace *ABN*(07/24/17 1:29 PM)[facility]annUR[facility] AND WZAVR0072-68-32 18:29:00Negative (07/24/17 1:29 PM)[facility]annUR[facility] AND BOUNG7778-80-64 18:29:00Clear (07/24/17 1:29 PM)[facility]annUR[facility] AND OZCOU0487-90-87 18:29:00Yellow *NA*(07/24/17 1:29 PM)[facility]annUR[facility] AND BGDOB8322-53-88 18:29:00Negative (07/24/17 1:29 PM)[facility]annUR[facility] AND OPWCK4063-86-88 18:29:00* Test Item Value Reference Range Interpretation Comments UA pH (test code = UA pH) 6.0 1 5.0-8.0 [facility]UR[facility] AND BCSYC4702-51-85 18:29:00* Test Item Value Reference Range Interpretation Comments UA Spec Grav (test code = UA Spec Grav) 1.021 1 [facility]UR[facility] AND SJCJV7968-62-45 18:29:00Negative *NA*(07/24/17 1:29 PM)[facility]annUR[facility] AND KXREC0998-93-10 18:29:00Negative (07/24/17 1:29 PM) [facility] AND AIESH2183-19-45 18:29:000.2[facility]annURINE AND RVDSZ0006-89-71 18:29:00Moderate *ABN*(07/24/17 1:29 PM)[facility]
[2020-03-20] MEDS ORDERED: SODIUM CHLORIDE 0.9% 1000ML 1,000 ML IV STA (19:59)
[2020-03-20] MEDS ORDERED: ONDANSETRON HCL INJ 2MG/ML 2ML 2 MG/ML VIAL IV ONE (20:00)
[2020-03-20] MEDS ORDERED: FAMOTIDINE 20 MG/2 ML VIAL IV ONE (20:00)
--- NOTE | 2020-03-20 20:18 | Emergency Department Note ---
History of Present Illnes History of Present Illness Chief Complaint: General Medicine Complaints History of Present Illness This is a 80 year old female hx of recent C Diff colitis went to [facility] rehab and d/c about 10 days ago. She did well then started having some loose stool for few days (no watery stool) and c/o abd pain , nausea, no vomiting, generalized weakness again. Historian: Family Member Arrival Mode: Car Onset (how long ago): day(s) Radiation: Reports non-radiation, Reports abdomen Severity: moderate Duration (how long): day(s) Timing of current episode: intermittent Progression: waxing and waning Chronicity: recurrent Context: Reports recent illness Relieving factors: none Exacerbating factors: none Associated symptoms: Reports loss of appetite, Reports weakness Treatments prior to arrival: none Past Medical/Family History Physician Review I have reviewed the patient's past medical and family history. Any updates have been documented here. Past Medical History Recent Fever: No Clinical Suspicion of Infectio: No New/Unexplained Change in Ment: No Past Medical History: Hypertension, Diabetes, Anxiety, Depression Other Medical History: INSOMNIA CHRONIC HIP PAIN C. DIFF COLITIS Past Surgical History: Cholecysctectomy, Hysterectomy, Cataract Removal Other Surgery: LAMINECTOMY Social History Smoking Cessation: Former smoker Alcohol Use: None Any Illegal Drug Use: No TB Exposure/Symptoms: No Physically hurt or threatened: No Other Last Tetanus: UNK Any Pre-Existing Lines (PICC,: No Is patient up to date on immun: No Last Flu: UNK Last Pneumovax: UNK Review of Systems Review of Systems Constitutional: Reports malaise, Reports weakness EENTM: Reports no symptoms Cardiovascular: Reports no symptoms Respiratory: Reports no symptoms Gastrointestinal: Reports as per HPI, Reports nausea Genitourinary: Reports no symptoms Musculoskeletal: Reports no symptoms Integumentary: Reports no symptoms Neurological: Reports weakness Psychological: Reports depressed Endocrine: Reports no symptoms Hematological/Lymphatic: Reports no symptoms Physical Exam Related Data Allergies: Coded Allergies: NSAIDS (Non-Steroidal Anti-Inflamma (Verified Allergy, Mild, ITCH, 07/27/10) Penicillins (Verified Allergy, Mild, ITCH, 07/27/10) acetaminophen (Verified Allergy, Mild, ITCH, 07/27/10) butalbital (Verified Allergy, Mild, ITCH, 07/27/10) butorphanol (Verified Allergy, Mild, ITCH, 07/27/10) caffeine (Verified Allergy, Mild, ITCH, 07/27/10) ibuprofen (Verified Allergy, Mild, 01/11/12) ciprofloxacin (Verified Allergy, Unknown, 10/06/19) Triage Vital Signs Vital Signs Date Time Temp Pulse Resp B/P (MAP) Pulse Ox O2 Delivery O2 Flow Rate FiO2 03/20/20 19:55 98.6 78 18 152/56 98 Physical Exam CONSTITUTIONAL Constitutional: Reports well-developed, Reports well-nourished HENT HENT: Reports normocephalic, Reports atraumatic, Reports oropharynx clear/moist, Reports mucosae dry, Reports nose normal HENT L/R: Reports left ext ear normal, Reports right ext ear normal EYES Eyes: Reports PERRL, Reports conjunctivae normal NECK Neck: Reports ROM normal PULMONARY Pulmonary: Reports effort normal, Reports breath sounds normal CARDIOVASCULAR Cardiovascular: Reports regular rhythm, Reports heart sounds normal, Reports capillary refill normal, Reports normal rate GASTROINTESTINAL Abdominal: Reports soft, Reports bowel sounds normal, Reports tender GENITOURINARY Genitourinary: Reports exam deferred SKIN Skin: Reports warm, Reports dry, Reports other (decreased skin turgor) MUSCULOSKELETAL Musculoskeletal: Reports ROM normal NEUROLOGICAL Neurological: Reports alert, Reports oriented x 3, Reports no gross motor or sensory deficits PSYCHOLOGICAL Psychological: Reports mood/affect normal, Reports judgement normal Assessment & Plan Medical Decision Making MDM Pt has hx C diff, probably it is recurrent, she is dry, has nausea and abd pain, will do work up for abd pain and hydrate pt, likely need to be admitted Reassessment Reassessment time: 21:40 Reassessment still feels nauseated Assessment & Plan Final Impression: (1) Dehydration (2) Clostridium difficile colitis Depart Disposition: ADMITTED Last Vital Signs Date Time Temp Pulse Resp B/P (MAP) Pulse Ox O2 Delivery O2 Flow Rate FiO2 03/20/20 19:55 98.6 78 18 152/56 98 Home Meds Reported Medications Tramadol Hcl* (ULTRAM 50MG*) 50 Mg Tab, 50 MG PO Q6H PRN for MODERATE PAIN (4- 6), TAB 02/10/20 Esomeprazole Magnesium (NEXIUM) 40 Mg Capsule. [facility] NEXIUM PER [facility] 10/12/19 Baclofen (BACLOFEN) 10 Mg Tablet, 10 MG PO TID PRN for MODERATE PAIN (4-6), #90 TAB 10/12/19 Clonidine Hcl (CLONIDINE HCL) 0.1 Mg Tablet, 1 TAB PO BID, #60 TAB 10/12/19 Hydralazine Hcl (HYDRALAZINE HCL) 25 Mg Tab, 50 MG PO BID, TAB 10/07/15 Aspirin (ASPIR 81) 81 Mg Tablet.dr, 325 MG PO DAILY 01/20/15 Triamterene/Hydrochlorothiazid (MAXZIDE 75 MG-50 MG TABLET) 1 Each Tablet, PO DAILY 01/20/15 [Elmiron] No Conflict Check, 200 MG PO 2AM/1HS 01/20/15 Atenolol (ATENOLOL) 25 Mg Tablet, 50 MG PO HS 01/20/15 [Nitrobid] No Conflict Check, 9 MG PO BID 01/20/15 Pravastatin Sodium (PRAVASTATIN SODIUM) 20 Mg Tablet, 20 MG PO DAILY 06/17/14 Sertraline Hcl (ZOLOFT) 100 Mg Tablet, 150 MG PO DAILY 06/17/14 Calcium Carbonate (CALCIUM) 500 Mg Tablet, 600 MG PO BID 01/12/12 Lorazepam (Ativan) 1 Mg Tablet, 1 MG PO DAILY 01/12/12 Amlodipine Besylate (Amlodipine Besylate) 10 Mg Tablet, 5 MG PO BID 01/12/12 Medications in the ED Ondansetron HCl 8 mg ONCE ONCE IV ; Start 03/20/20 at 20:00; Stop 03/20/20 at 20:01; Status UNV Famotidine 20 mg ONCE ONCE IV ; Start 03/20/20 at 20:00; Stop 03/20/20 at 20 :01; Status UNV Sodium Chloride 1,000 ml @ 0 mls/hr Q0M STAT IV ; Start 03/20/20 at 19:59; Stop 03/20/20 at 20:03; Status DC Physician Attestation Provider Attestation 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
--- NOTE | 2020-03-20 20:54 | Diagnostic Imaging Report ---
EXAM: [id number] DATE: 03/20/2020 8:30 PM INDICATION: ^abdominal pain ^[id number] ^[id number] COMPARISON: CT abdomen/pelvis, 02/09/2020 FINDINGS: Supine and upright views of the abdomen show a normal distribution of air in the small and large bowel. There is apparent thickening of haustral markings in the transverse colon compatible with wall thickening noted on previous CT. No pneumoperitoneum. There is no specific abnormal soft tissue calcification in the abdomen. Extensive soft tissue calcifications are seen in the buttocks. Cholecystectomy clips are present. There is degenerative change with dextroscoliosis of the lumbar spine. No acute bony abnormality. IMPRESSION: No bowel dilatation or evidence for bowel obstruction. No pneumoperitoneum. Thickening of haustral markings in the transverse colon compatible with wall thickening noted on previous CT, possible evidence for colitis.. Signed by: Dr. David Morgan M.D. on 03/20/2020 8:50 PM
[2020-03-20] MEDS ORDERED: SODIUM CHLORIDE 0.9% 1000ML 1,000 ML ONE (20:59)
--- OUTSIDE RECORDS SUMMARY | 2020-03-20 21:35 | XMS REPORT | Continuity of Care Document ---
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 Phone [employer] Unavailable Un available Problems Problem Status Onset Date Classification Date Reported Comments Source Pain in left hip 01/06/2018 04/07/2018 [facility] [place] AMS Active 1 [facility] 722.52 - LUMB/LUMBOSAC D Active 11/18/2014 [facility] [place] Other intervertebral disc degeneration, lumbosacral region 04/07/2018 [facility] [place] Unilateral primary osteoarthritis, left hip 04/07/2018 [facility] [place] Osteoarthritis of knee, unspecified Active Problem 09/2020 [...] Pain Mgmt ALTERED MENTAL STATUS, UNSPECIFIED Active [facility] LUMBAR POST LAMINECTOMY SYNDROME Active [facility] [place] Medications Medication Details Route Status Patient Instructions [...] 100 MG Orally Once a da y [facility] 01/16/2019 [facility] Baclofen 1/2 tablet with food or milk Orally Active 10 MG Orally Three times a day prn muscle spasms, caution sedation, do not drive on this [facility] 01/16/2019 [facility] Tramadol HCl 1 tablet as needed Orally Active 50 MG Orally every 8 hrs prn pain [facility] 11/21/2018 [facility] TraMADol HCl ER 1 tablet Orally Active 100 MG Orally Once a da y [facility] 11/21/2018 [facility] Baclofen 1/2 tablet with food or milk Orally Active 10 MG Orally Three times a day prn muscle spasms, caution sedation, do not drive on this [facility] 11/21/2018 [facility] TraMADol HCl ER 1 tablet Orally Active 100 MG Orally Once a da y [facility] 10/26/2018 [facility] Baclofen 1/2 tablet with food or milk Orally Active 10 MG Orally Three times a day prn muscle spasms, caution sedation, do not drive on this [facility] 10/26/2018 [facility] Tramadol HCl 1 tablet as needed Orally Active 50 MG Orally every 8 hrs prn pain [facility] 10/26/2018 [facility] Baclofen 1/2 tablet with food or milk Orally Active 10 MG Orally Three times a day prn muscle spasms [facility] 09/26/2018 [facility] TraMADol HCl ER 1 tablet Orally Active 100 MG Orally Once a da y [facility] 09/26/2018 [facility] Tramadol HCl 1 tablet as needed Orally Active 50 MG Orally every 8 hrs prn pain [facility] 09/26/2018 [facility] Tylenol/codeine #4 #30 one tab let orally Active 300-60 mg orally TID prn pain [facility] 08/29/2018 [facility] Baclofen 1/2 tablet with food or milk Orally Active 10 MG Orally Three times a day prn muscle spasms [facility] 08/15/2018 [facility] Tylenol/codeine #4 #30 one tab let orally Active 300-60 mg orally twice a day (bid) as needed (prn) pain [facility] 08/15/2018 [facility] Tylenol/codeine #4 #30 one tab let orally Active 300-60 mg orally twice a day (bid) as needed (prn) pain [facility] 07/18/2018 [facility] Baclofen 1/2 tablet with food or milk Orally Active 10 MG Orally Three times a day prn muscle spasms [facility] 07/18/2018 [facility] Baclofen 1/2 tablet with food or milk Orally Active 10 MG Orally Three times a day prn muscle spasms [facility] 06/20/2018 [facility] Tylenol/codeine #4 #30 one tab let orally Active 300-60 mg orally twice a day (bid) as needed (prn) pain [facility] 06/20/2018 [facility] Valium 1 tablet as needed Orally Active 2 MG Orally made chew 2 0 minutes prior to MRI if not overly sedated [facility] 05/23/2018 [facility] Valium 1 tablet as needed Orally Active 5 MG Orally 1 hour prio r to MRI [facility] 05/23/2018 [facility] influenza virus vaccine, inactivated Notes: (Same as: Fluzone Quadrivalent, Fluarix Quadrivalent) For 3 years of age and older (0.5 mL IM) Shake well before use Inactive 07/28/2017 [facility] nter pneumococcal 13-valent vaccine Notes: Shake well prior to use (Same as: Prevnar 13) Inactive 07/28/2017 [facility] nter NIFEdipine 90 mg oral tablet, extended release 90 mg, 1 tab, Route: PO, Drug form: ERTAB, Daily, Dosing Weight 95.455, kg, Start date: 07/27/17 21:20:00 CDT, Stop date: 08/26/17 9:00:00 SHORE HAND DREDGE OR BARGE No Longer Active 07/28/2017 [facility] Atenolol 50 MG Oral Tablet Not es: (Same As:Tenormin) Inactive 07/27/2017 [facility] K-Dur 20 20 mEq, 1 tab, Route: PO, Drug form: ERTAB, ONCE, Dosing Weight 95.455, kg, Start date: 07/27/17 12:39:00 CDT, Stop date: 07/27/17 12:39:00 CDT Inactive 07/27/2017 [facility] Streptococcus pneumoniae serotype 1 caps ular antigen diphtheria [id number] protein conjugate vaccine / Streptococcus pneumoniae serotype 14 capsular antigen diphtheria [id number] protein conjugate vaccine / Streptococcus pneumoniae serotype 18C capsular antigen d Notes: Shake well prior to use (Same as: Prevnar 13) Inactive 07/27/2017 [facility] influenza virus vaccine, inactivated Notes: (Same as: Fluzone Quadrivalent, Fluarix Quadrivalent) For 3 years of age and older (0.5 mL IM) Shake well before use Inactive 07/27/2017 [facility] nter Potassium Chloride Notes: (Keith e as: KCL) Infuse over 2 hours. Inactive 07/27/2017 [facility] Lovenox Notes: (Same as: Loven ox) No Longer Active 07/27/2017 [facility] morphine extended release Note s: Do not crush (Same as:Oramorph SR, MS Contin) No Longer Active 07/26/2017 [facility] nter Baclofen Notes: (Same As: Domingo esal) No Longer Active 07/26/2017 [facility] Ativan Notes: (Same as: Ativan) No Longer Active 07/26/2017 [facility] Pravastatin Notes: (Same as: P ravachol) No Longer Active 07/26/2017 [facility] Zovirax + sodium chloride 0.9% INJ 100 mL Notes: Same as: Zovirax MEDICATION WASTE Product Size: 500 mg Product Wasted: ___ mg No Longer Active 07/26/2017 [facility] Tylenol Notes: Max acetaminoph en = 4000mg/day (4 gm/day). (Same as: Tylenol) Inactive 07/25/2017 [facility] nter Nitroglycerin 0.02 MG/MG Topical Ointment Notes: 1gm is Approximately 1 inch of nitroglycerin ointment (20mg per gram) (Same as:Nitro-Bid) Inactive 07/25/2017 [facility] Acyclovir 50 mL / min Inactive 07/25/2017 [facility] nter Prevacid Notes: Take 1 hour be fore or 2 hours after meal; Expires in 14 days. Shake well before use. (Same as:Prevacid) Compounded Product - formulation not commercially available No Longer Active 07/25/2017 [facility] potassium chloride 10 mEq, 50 mL, Route: IVPB, Drug form: INJ, ONCE, Start date: 07/25/17 16:00:00 CDT, Stop date: 07/25/17 16:00:00 CDT Inactive 07/25/2017 [facility] Vancomycin 2001 mg: infuse ov er 2.5 hours MEDICATION WASTE Product Size: 1000 mg Product Wasted: ___ mg No Longer Active 07/25/2017 [facility] potassium chloride 20 mEq, 100 mL, Route: IVPB, Drug form: INJ, Q2H, Start date: 07/25/17 12:00:00 CDT, Duration: 2 doses or times, Stop date: 07/25/17 14:00:00 CDT Inactive 07/25/2017 [facility] nter Metoprolol 2.5 mg, 2.5 mL, Rou te: IVP, Drug form: INJ, Q6Hnow, Dosing Weight 95.455, kg, Start date: 07/25/17 11:00:00 CDT, Duration: 30 day, Stop date: 08/24/17 5:00:00 SHORE HAND DREDGE OR BARGE No Longer Active 07/25/2017 [facility] nter Dexamethasone Notes: Concentra tion: 4mg/ml No Longer Active 07/25/2017 [facility] Protonix Notes: Tablet should not be chewed or crushed. (Same as: Protonix) Inactive 07/25/2017 [facility] ARIPiprazole Notes: Same as: A bilify Non-Formulary Item No Longer Active 07/25/2017 [facility] Sertraline Notes: (Same as: Z oloft) No Longer Active 07/25/2017 [facility] Isosorbide 60 mg, 1 tab, Route : PO, Drug form: ERTAB, QAM, Dosing Weight 95.455, kg, Start date: 07/25/17 9:00:00 CDT, Stop date: 08/23/17 9:00:00 SHORE HAND DREDGE OR BARGE No Longer Active 07/25/2017 [facility] nter Esomeprazole 40 mg, Route: PO, Drug form: ECCAP, Daily, Dosing Weight 95.455, kg, Start date: 07/25/17 9:00:00 CDT, Duration: 30 day, Stop date: 08/23/17 9:00:00 SHORE HAND DREDGE OR BARGE Inactive 07/25/2017 [facility] nter Atenolol 50 MG Oral Tablet Not es: (Same As:Tenormin) No Longer Active 07/25/2017 [facility] Ativan Notes: (Same as: Ativan) No Longer Active 07/25/2017 [facility] Hydralazine Notes: (Same as: A presoline) Push over 5 minutes No Longer Active 07/25/2017 [facility] Hydralazine Hydrochloride 50 MG Oral Tablet Notes: (Same as: Apresoline) May interfere w/enteral feedings Take With Food No Longer Active 07/25/2017 [facility] Potassium Chloride Notes: (Keith e as: KCL) Infuse over 2 hours. Inactive 07/25/2017 [facility] Ativan Notes: (Same as: Ativan) Inactive 07/25/2017 [facility] Magnesium Sulfate Notes: WASTE : F/P - Sink; E - Municipal Trash Bin Inactive 07/25/2017 [facility] Insulin Lispro 60 units) WA SAMY: F/P - Black; E - Municipal Trash Bin Stable for 28 days at room temperature. Expires in days from Date N o Longer Active 07/25/2017 [facility] nter Dextrose 50% Syringe 12.5 gm, 25 mL, Route: IVP, Drug Form: INJ, Dosing Weight 95.455, kg, PRN, PRN Blood Glucose Results, Start date: 07/25/17 6:08:00 CDT, Duration: 30 day, Stop date: 08/24/17 5:07:00 SHORE HAND DREDGE OR BARGE No Longer Active 07/25/2017 [facility] Glucagon 1 mg, Route: IM, Drug form: PDR/INJ, PRN, Dosing Weight 95.455, kg, PRN Blood Glucose Results, Start date: 07/25/17 6:08:00 CDT, Duration: 30 day, Stop date: 08/24/17 5:07:00 SHORE HAND DREDGE OR BARGE No Longer Active 07/25/2017 [facility] Ampicillin Notes: (Same as: Pr incipen) MEDICATION WASTE Product Size: 2000 mg Product Wasted: _0__ mg No Longer Active 07/25/2017 [facility] Ceftriaxone Notes: MEDICAT ION WASTE Product Size: 2000 mg Product Wasted: _0__ mg No Longer Active 07/25/2017 [facility] nter Acetaminophen Notes: Do not ex ceed 4 gm/day. (Same as: Tylenol) No Longer Active 07/25/2017 [facility] solifenacin succinate 10 MG Oral Tablet [VESICARE] 10 mg = 1 tab, PO, Daily, # 30 tab, 1 Refill(s) Active 07/25/2017 [facility] nter morphine extended release 15 m g, PO, Q8H, 0 Refill(s) No Longer Active 07/25/2017 [facility] ARIPiprazole 2 mg oral tablet 2 mg = 1 tab, PO, Daily, # 90 tab, 0 Refill(s) Active 07/25/2017 [facility] Atenolol 50 MG Oral Tablet 50 mg = 1 tab, PO, Daily, # 30 tab, 0 Refill(s) Active 07/25/2017 [facility] Hydralazine Hydrochloride 50 MG Oral Tablet 50 mg = 1 tab, PO, TID, # 90 tab, 3 Refill(s) Active 07/25/2017 [facility] nter pravastatin 20 mg oral tablet 20 mg = 1 tab, PO, Bedtime, # 30 tab, 0 Refill(s) Active 07/25/2017 [facility] nter Esomeprazole 40 MG Enteric Coated Capsule 40 mg = 1 cap, PO, Daily, # 30 cap, 0 Refill(s) No Longer Active 07/25/2017 [facility] nter baclofen 10 mg oral tablet 10 mg = 1 tab, PO, TID, PRN Spasms, # 90 tab, 0 Refill(s) Active 07/25/2017 [facility] nter isosorbide mononitrate 60 mg oral tablet , extended release 60 mg = 1 tab, PO, QAM, # 30 tab, 0 Refill(s) Active 07/25/2017 [facility] nter lubiprostone 0.024 MG Oral Capsule [Amitiza] 24 microgram = 1 cap, PO, BID, # 60 cap, 0 Refill(s) Active 07/25/2017 [facility] nter Pentosan Polysulfate 100 MG Oral Capsule [Elmiron] 100 mg = 1 cap, PO, BID, # 90 cap, 0 Refill(s) Active 07/25/2017 [facility] nter Sertraline 150 mg, PO, Daily, 0 Refill(s) Active 07/25/2017 [facility] Glipizide 10 MG Oral Tablet 10 mg = 1 tab, PO, Before Breakfast, # 30 tab, 0 Refill(s) Active 07/25/2017 [facility] nt valsartan 160 mg oral tablet 1 60 mg = 1 tab, PO, Daily, # 30 tab, 0 Refill(s) No Longe r Active 07/25/2017 [facility] nt Hydralazine 10 mg, Route: IV, ONCE, Dosing Weight 95.455, kg, Start date: 07/25/17 4:10:00 CDT, Stop date: 07/25/17 4:10:00 CDT Inactive 07/25/2017 [facility] iodixanol 100 mL, Route: IVP, Drug Form: SOLN, Dosing Weight 95.455, kg, ONCALL, STAT, Start date: 07/25/17 1:52:00 CDT, Duration: 1 doses or times, Dose = 2.2ml/kg, Max dose = 100ml -- "To be infused by Radi ology Staff ONLY" Inactive 07/25/2017 [facility] Ketamine 47.7275 mg, Route: IV P, ONCE, Dosing Weight 95.455, kg, Priority: STAT, Start date: 07/24/17 21:01:00 CDT, Stop date: 07/24/17 21:01:00 CDT No Longe r Active 07/25/2017 [facility] nter Ativan Notes: (Same as: Ativan) No Longer Active 07/25/2017 [facility] Ativan Notes: (Same as: Ativan) Inactive 07/25/2017 [facility] Ativan 1 mg, Route: IVP, Drug form: INJ, ONCE, Dosing Weight 95.455, kg, Priority: STAT, Start date: 07/24/17 18:29:00 CDT, Stop date: 07/24/17 18:29:00 CDT Inactiv e 07/24/2017 [facility] Ofirmev or = 50 kg, Start howard e: 07/24/17 17:47:00 CDT Inactive 07/24/2017 [facility] Ativan 1 mg, Route: IVP, Drug form: INJ, ONCE, Dosing Weight 95.455, kg, Priority: STAT, Start date: 07/24/17 17:11:00 CDT, Stop date: 07/24/17 17:11:00 CDT Inactiv e 07/24/2017 [facility] NS (Bolus) IV 1,000 mL, 1,000 ml/hr, Infuse Over: 1 hr, Route: IV, ONCE, Priority: STAT, Dosing Weight 95.455 kg, Start date: 07/24/17 17:07:00 CDT, Duration: 1 doses or times, Stop date: 07/24/17 17:07:00 CDT Inactive 07/24/2017 [facility] Tylenol Notes: Max acetaminoph en = 4000 mg/day (4 gm/day). (Same as: Tylenol) Inactive 07/24/2017 [facility] nter NS (Bolus) IV 2,863.65 mL, 286 3.65 ml/hr, Infuse Over: 1 hr, Route: IV, 2,863.65, Drug form: INJ, ONCE, Priority: STAT, Dosing Weight 95.455 kg, Start date: 07/24/17 14:24:00 CDT, Duration: 1 doses or times, Stop date: 07/24/17 14:24:00 CDT Inactive 07/24/2017 [facility] nter Ativan Notes: (Same as: Ativan) Inactive 07/24/2017 [facility] cefepime Notes: (Same As: Jaison dobson) MEDICATION WASTE Product Size: 1000 mg Product Wasted: ___ mg Inactive 07/24/2017 [facility] Vancomycin 2001 mg: infuse ov er 2.5 hours MEDICATION WASTE Product Size: 1000 mg Product Wasted: ___ mg Inactive 07/24/2017 [facility] NS (Bolus) IV 30 mL, 30 ml/hr, Infuse Over: 1 hr, Route: IV, ONCE, Priority: STAT, Dosing Weight 95.455 kg, Start date: 07/24/17 13:43:00 CDT, Duration: 1 doses or times, Stop date: 07/24/17 13:43:00 CDT Inactive 07/24/2017 [facility] Ativan Notes: (Same as: Ativan) Inactive 07/24/2017 [facility] Saline Flush 0.9% Notes: Same as: BD Posiflush Sterile No Longer Active 07/24/2017 [facility] VESIcare 1 tablet Orally Active 10 [...] pneumococcal 13-valent vaccine 07/28/2017 Left deltoid completed [facility], [facility] [place] influenza virus vaccine, inactivated 07/28/2017 Right deltoid completed [facility] [place] pneumococcal 13-valent vaccine 07/27/2017 Not Given [facility] [place] influenza virus vaccine, inactivated 07/27/2017 Not Given [facility] [place] Results Order Name Results Value Reference Range Date Interpretation Comments Source HEMATOLOGY MPV 9.9 7.4 - 10.4 07/27/2017 [facility] HEMATOLOGY RDW 15.3 11.5 - 14.5 07/27/2017 [facility] HEMATOLOGY MCHC 33.6 32.0 - 36.0 07/27/2017 [facility] HEMATOLOGY Platelet 171 133 - 450 07/27/2017 [facility] HEMATOLOGY Hgb 10.1 12.0 - 16.0 07/27/2017 [facility] HEMATOLOGY Hct 30.0 36.0 - 48.0 07/27/2017 [facility] HEMATOLOGY MCH 30.6 27.0 - 31.0 07/27/2017 [facility] HEMATOLOGY MCV 91.1 80.0 - 98.0 07/27/2017 [facility] HEMATOLOGY WBC 13.2 3.7 - 10.4 07/27/2017 [facility] HEMATOLOGY RBC 3.29 4.20 - 5.40 07/27/2017 [facility] HEMATOLOGY Lymphocytes 6.8 20.0 - 40.0 07/27/2017 [facility] HEMATOLOGY Segs 83.9 45.0 - 75.0 07/27/2017 [facility] HEMATOLOGY Monocytes 8.2 2.0 - 12.0 07/27/2017 [facility] HEMATOLOGY Basophils # 0.1 0.0 - 0.2 07/27/2017 [facility] HEMATOLOGY Lymphocytes # 0.9 1.0 - 5.5 07/27/2017 [facility] HEMATOLOGY Eosinophils # 0.1 0.0 - 0.5 07/27/2017 [facility] HEMATOLOGY Monocytes # 1.1 0.0 - 0.8 07/27/2017 [facility] HEMATOLOGY Segs-Bands # 11.1 1.5 - 8.1 07/27/2017 [facility] HEMATOLOGY Basophils 0.6 0.0 - 1.0 07/27/2017 [facility] HEMATOLOGY Eosinophils 0.5 0.0 - 4.0 07/27/2017 [facility] CHEM PANEL Phosphorus 3.2 2.5 - 4.5 07/27/2017 [facility] CHEM PANEL Magnesium Lvl 2.1 1.8 - 2.4 07/27/2017 [facility] ELECTROLYTES AGAP 14.3 10.0 - 20.0 07/27/2017 [facility] ELECTROLYTES Potassium Lvl 3.3 3.5 - 5.1 07/27/2017 [facility] ELECTROLYTES Sodium Lvl 143 135 - 145 07/27/2017 [facility] ELECTROLYTES BUN 43 7 - 22 07/27/2017 [facility] ELECTROLYTES Creatinine Lvl 1.7 8 0.50 - 1.40 07/27/2017 [facility] ELECTROLYTES Calcium Lvl 8.1 8.5 - 10.5 07/27/2017 [facility] ELECTROLYTES CO2 21 24 - 32 07/27/2017 [facility] ELECTROLYTES Chloride Lvl 111 95 - 109 07/27/2017 [facility] ELECTROLYTES Glucose Lvl 152 70 - 99 07/27/2017 [facility] ELECTROLYTES eGFR 27 07/27/2017 Result Comment: [...] should be multiplied by the estimated BMI. [facility] CARDIAC ENZYMES Troponin-I 0.95 0.00 - 0.40 07/26/2017 Result Comment: Critical Result(s) boyce d to Jory Torres at 07/26/2017 05:11 by ET. Read back OK. [facility] CHEM PANEL Magnesium Lvl 2.2 1.8 - 2.4 07/26/2017 [facility] ELECTROLYTES AGAP 20.4 10.0 - 20.0 07/26/2017 [facility] ELECTROLYTES eGFR 44 07/26/2017 Result Comment: [...] should be multiplied by the estimated BMI. [facility] ELECTROLYTES Creatinine Lvl 1.1 7 0.50 - 1.40 07/26/2017 [facility] ELECTROLYTES Potassium Lvl 4.4 3.5 - 5.1 07/26/2017 [facility] ELECTROLYTES Sodium Lvl 143 135 - 145 07/26/2017 [facility] ELECTROLYTES Chloride Lvl 108 95 - 109 07/26/2017 [facility] ELECTROLYTES CO2 19 24 - 32 07/26/2017 [facility] ELECTROLYTES Calcium Lvl 8.2 8.5 - 10.5 07/26/2017 [facility] ELECTROLYTES Glucose Lvl 115 70 - 99 07/26/2017 [facility] ELECTROLYTES BUN 27 7 - 22 07/26/2017 [facility] HEMATOLOGY Neut Vac slight 07/26/2017 [facility] HEMATOLOGY Toxic Gran slight 07/26/2017 [facility] HEMATOLOGY Monocytes # 0.5 0.0 - 0.8 07/26/2017 [facility] HEMATOLOGY Schistocyte 0-2 07/26/2017 [facility] HEMATOLOGY Anisocyte 1+ *ABN* (07/26/17 3:37 AM) None Seen 07/26/2017 [facility] HEMATOLOGY Lymphocytes # 0.6 1.0 - 5.5 07/26/2017 [facility] HEMATOLOGY Segs-Bands # 14.8 1.5 - 8.1 07/26/2017 [facility] HEMATOLOGY Monocytes 3.3 2.0 - 12.0 07/26/2017 [facility] HEMATOLOGY Eosinophils 0.1 0.0 - 4.0 07/26/2017 [facility] HEMATOLOGY Lymphocytes 3.6 20.0 - 40.0 07/26/2017 [facility] HEMATOLOGY Segs 92.8 45.0 - 75.0 07/26/2017 [facility] HEMATOLOGY Basophils 0.2 0.0 - 1.0 07/26/2017 [facility] HEMATOLOGY MPV 11.1 7.4 - 10.4 07/26/2017 [facility] HEMATOLOGY Platelet 142 133 - 450 07/26/2017 [facility] HEMATOLOGY Hct 33.2 36.0 - 48.0 07/26/2017 [facility] HEMATOLOGY MCH 30.2 27.0 - 31.0 07/26/2017 [facility] HEMATOLOGY MCV 92.2 80.0 - 98.0 07/26/2017 [facility] HEMATOLOGY RDW 14.9 11.5 - 14.5 07/26/2017 [facility] HEMATOLOGY MCHC 32.7 32.0 - 36.0 07/26/2017 [facility] HEMATOLOGY Hgb 10.9 12.0 - 16.0 07/26/2017 [facility] HEMATOLOGY RBC 3.60 4.20 - 5.40 07/26/2017 [facility] HEMATOLOGY WBC 16.0 3.7 - 10.4 07/26/2017 [facility] BACTERIAL - SEROLOGY Source Strep Urine *NA* (07/25/17 9:47 PM) 07/26/2017 [facility] BACTERIAL - SEROLOGY Strep pneumonia e Ag Negative (07/25/17 9:47 PM) Negative 07/26/2017 [facility] CARDIAC ENZYMES Troponin-I 1.31 0.00 - 0.40 07/26/2017 Result Comment: Critical Result(s) austen Morales at 07/25/2017 22:43 by RIOS. Read back OK. [facility] CHEM PANEL Magnesium Lvl 2.2 1.8 - 2.4 07/26/2017 [facility] CHEM PANEL Ammonia 12.0 <=45.0 uMol/L 07/26/2017 [facility] ELECTROLYTES Chloride Lvl 109 95 - 109 07/26/2017 [facility] ELECTROLYTES Creatinine Lvl 1.1 7 0.50 - 1.40 07/26/2017 [facility] ELECTROLYTES Sodium Lvl 145 135 - 145 07/26/2017 [facility] ELECTROLYTES BUN 25 7 - 22 07/26/2017 [facility] ELECTROLYTES Potassium Lvl 3.5 3.5 - 5.1 07/26/2017 [facility] ELECTROLYTES CO2 20 24 - 32 07/26/2017 [facility] ELECTROLYTES Calcium Lvl 8.7 8.5 - 10.5 07/26/2017 [facility] ELECTROLYTES AGAP 19.5 10.0 - 20.0 07/26/2017 [facility] ELECTROLYTES eGFR 44 07/26/2017 Result Comment: [...] should be multiplied by the estimated BMI. [facility] ELECTROLYTES Glucose Lvl 108 70 - 99 07/26/2017 [facility] BODY FLUIDS Glucose CSF 58 45 - 80 07/25/2017 [facility] BODY FLUIDS RBC CSF 48 0 - 03 07/25/2017 [facility] BODY FLUIDS WBC CSF 1 0 - 53 07/25/2017 [facility] BODY FLUIDS Supernat CSF Colonia rless (07/25/17 4:00 PM) Colorless 07/25/2017 [facility] BODY FLUIDS Clarity CSF Conchita r (07/25/17 4:00 PM) Clear 07/25/2017 [facility] BODY FLUIDS Color CSF Colonia rless (07/25/17 4:00 PM) Colorless 07/25/2017 [facility] BODY FLUIDS Tube Num CSF 2 07/25/2017 [facility] VIRAL - SEROLOGY Enterovirus PCR CSF Negative (07/25/17 4:00 PM) Negative 07/25/2017 [facility] CARDIAC ENZYMES Troponin-I 1.52 0.00 - 0.40 07/25/2017 Result Comment: Critical Result(s) boyce d to Emy Raygoza at 07/25/2017 13:53 by. Read back OK. [facility] IMMUNOLOGY Varicella IgG 3.2 <=0.8 AI 07/25/2017 [facility] IMMUNOLOGY Varicella IgM <0.91 0.00 - 0.90 07/25/2017 Result Comment: Negative <0.91
Borderline 0.91 - 1.09
Positive >1.09
Performed At: [facility]
[address] [place], [place] [id number]
Eda Krishna MD Ph:[phone] [facility] SPECIAL CHEMISTRY Hgb A1C 6.0 <=5.6 % 07/25/2017 [facility] TOXICOLOGY Vanco Lvl 5.1 07/25/2017 [facility] VIRAL - SEROLOGY W Nile Ab IgG Negative Negative 07/25/2017 Result Comment: No detectable West Nile Virus IgG Antibody. If a recent
infection is suspected, another specimen should be
submitted for testing within 7-14 days. [facility] VIRAL - SEROLOGY W Nile Ab IgM Negative Negative 07/25/2017 Result Comment: No detectable West Nile Virus IgM Antibody. If a recent
infection is suspected, another specimen should be
submitted for testing within 7-14 days.
Performed At: [facility]
[address] [place], [place] [id number]
Eda Krishna MD Ph:[phone] [facility] ANEMIA STUDY Vitamin B12 Lvl 387 254 - 1320 07/25/2017 [facility] CARDIAC ENZYMES Total CK 983 12 - 191 07/25/2017 [facility] CHEM PANEL Ammonia 225.0 <=45.0 uMol/L 07/25/2017 [facility] URINE CHEM U Creatinine 75.10 07/25/2017 [facility] URINE CHEM U Sodium 152 07/25/2017 [facility] HEMATOLOGY MCV 90.5 80.0 - 98.0 07/25/2017 [facility] HEMATOLOGY MCH 30.2 27.0 - 31.0 07/25/2017 [facility] HEMATOLOGY MCHC 33.3 32.0 - 36.0 07/25/2017 [facility] HEMATOLOGY RDW 14.8 11.5 - 14.5 07/25/2017 [facility] HEMATOLOGY Hct 29.6 36.0 - 48.0 07/25/2017 [facility] HEMATOLOGY MPV 10.3 7.4 - 10.4 07/25/2017 [facility] HEMATOLOGY Platelet 137 133 - 450 07/25/2017 [facility] HEMATOLOGY Hgb 9.9 12.0 - 16.0 07/25/2017 [facility] HEMATOLOGY RBC 3.27 4.20 - 5.40 07/25/2017 [facility] HEMATOLOGY WBC 9.4 3.7 - 10.4 07/25/2017 [facility] HEMATOLOGY Monocytes # 0.7 0.0 - 0.8 07/25/2017 [facility] HEMATOLOGY Basophils # 0.1 0.0 - 0.2 07/25/2017 [facility] HEMATOLOGY Segs-Bands # 8.0 1.5 - 8.1 07/25/2017 [facility] HEMATOLOGY Monocytes 7.8 2.0 - 12.0 07/25/2017 [facility] HEMATOLOGY Basophils 0.9 0.0 - 1.0 07/25/2017 [facility] HEMATOLOGY Lymphocytes # 0.5 1.0 - 5.5 07/25/2017 [facility] HEMATOLOGY Eosinophils 0.3 0.0 - 4.0 07/25/2017 [facility] HEMATOLOGY Lymphocytes 5.7 20.0 - 40.0 07/25/2017 [facility] HEMATOLOGY Segs 85.3 45.0 - 75.0 07/25/2017 [facility] CHEM PANEL Lactic Acid Lvl 1.5 0.5 - 2.2 07/24/2017 [facility] CHEM PANEL Lactic Acid Lvl 3.4 0.5 - 2.2 07/24/2017 [facility] TOXICOLOGY Ethanol Lvl <3.0 mg/dL 07/24/2017 [facility] TOXICOLOGY Etoh (%) <0.003 % 07/24/2017 [facility] TOXICOLOGY Acetaminoph Lvl <2 (07/24/17 2:26 PM) 10 - 20 07/24/2017 [facility] TOXICOLOGY Salicylate Lvl <1.7 mg/dL 0.0 - 30.0 07/24/2017 [facility] CARDIAC ENZYMES Total CK 907 12 - 191 07/24/2017 [facility] CARDIAC ENZYMES CK MB 11.0 0.5 - 3.6 07/24/2017 [facility] CARDIAC ENZYMES CK MB Index 1.2 0.0 - 2.5 07/24/2017 [facility] CHEM PANEL Lactic Acid Lvl 3.3 0.5 - 2.2 07/24/2017 [facility] CHEM PANEL Procalcitonin Lvl <0.05 ng/mL 0.00 - 0.10 07/24/2017 [facility] CHEM PANEL B/C Ratio 15 6 - 25 07/24/2017 [facility] CHEM PANEL AST 35 0 - 37 07/24/2017 [facility] CHEM PANEL Alk Phos 76 39 - 136 07/24/2017 [facility] CHEM PANEL Globulin 3.3 2.7 - 4.2 07/24/2017 [facility] CHEM PANEL A/G Ratio 1.2 0.7 - 1.6 07/24/2017 [facility] CHEM PANEL Bili Total 0.6 0.2 - 1.3 07/24/2017 [facility] CHEM PANEL Albumin Lvl 4.1 3.5 - 5.0 07/24/2017 [facility] CHEM PANEL Total Protein 7.4 6.4 - 8.4 07/24/2017 [facility] CHEM PANEL ALT 19 0 - 65 07/24/2017 [facility] DRUG SCREEN U Cannab Scr Nega tive *NA* (07/24/17 1:29 PM) Negative 07/24/2017 [facility] DRUG SCREEN U Amph Scr Nega tive *NA* (07/24/17 1:29 PM) Negative 07/24/2017 [facility] DRUG SCREEN U Methadone Scr Nega tive *NA* (07/24/17 1:29 PM) Negative 07/24/2017 [facility] DRUG SCREEN U Propoxyph Scr Nega tive *NA* (07/24/17 1:29 PM) Negative 07/24/2017 [facility] DRUG SCREEN UDS Note See Note (07/24/17 1:29 PM) 07/24/2017 [facility] DRUG SCREEN U Opiate Scr Posi tive *ABN* (07/24/17 1:29 PM) Negative 07/24/2017 [facility] DRUG SCREEN U Phencyc Scr Nega tive *NA* (07/24/17 1:29 PM) Negative 07/24/2017 [facility] DRUG SCREEN U Sena Scr Nega tive *NA* (07/24/17 1:29 PM) Negative 07/24/2017 [facility] DRUG SCREEN U Benzodia Scr Nega tive *NA* (07/24/17 1:29 PM) Negative 07/24/2017 [facility] DRUG SCREEN U Cocaine Scr Nega tive *NA* (07/24/17 1:29 PM) Negative 07/24/2017 [facility] HEMATOLOGY PT 12.5 12.0 - 14.7 07/24/2017 [facility] HEMATOLOGY INR 0.91 0.85 - 1.17 07/24/2017 [facility] HEMATOLOGY PTT 22.4 22.9 - 35.8 07/24/2017 [facility] HEMATOLOGY Anisocyte 1+ *ABN* (07/24/17 1:29 PM) None Seen 07/24/2017 [facility] HEMATOLOGY Large Plt slight 07/24/2017 [facility] URINE AND STOOL UA Ketones Trace *ABN* (07/24/17 1:29 PM) Negative 07/24/2017 [facility] URINE AND STOOL UA Leuk Est Negative (07/24/17 1:29 PM) Negative 07/24/2017 [facility] URINE AND STOOL UA Turbidity Clear (07/24/17 1:29 PM) Clear 07/24/2017 [facility] URINE AND STOOL UA Color Yellow *NA* (07/24/17 1:29 PM) Yellow 07/24/2017 [facility] URINE AND STOOL UA Glucose Negative (07/24/17 1:29 PM) Negative 07/24/2017 [facility] URINE AND STOOL UA Protein >=300 mg/dL Negative mg/dL 07/24/2017 [facility] URINE AND STOOL UA pH 6.0 5.0 - 8.0 07/24/2017 [facility] URINE AND STOOL UA Spec Grav 1.021 <=1.030 07/24/2017 [facility] URINE AND STOOL UA Bili Negative *NA* (07/24/17 1:29 PM) Negative 07/24/2017 [facility] URINE AND STOOL UA Nitrite Negative (07/24/17 1:29 PM) Negative 07/24/2017 [facility] URINE AND STOOL UA Urobilinogen 0.2 0.1 - 1.0 07/24/2017 [facility] URINE AND STOOL UA Blood Moderate *ABN* (07/24/17 1:29 PM) Negative 07/24/2017 [facility] URINE AND STOOL UA WBC 0-2 /HPF None Seen /HPF 07/24/2017 [facility] URINE AND STOOL UA RBC 0-2 /HPF 0 - 2 07/24/2017 [facility] URINE AND STOOL UA Bacteria Occasional /HPF None Seen /HPF 07/24/2017 [facility] URINE AND STOOL UA Sq Epi Few /LPF Few /LPF 07/24/2017 [facility] Pathology Reports No Data Provided for [...] tissue calcifications within the buttocks bilaterally. 07/28/2017 [facility] Abdomen AP DX EXAM: XR ABDOMEN [...] IMPRESSION: 1. Tube positions as above. 07/25/2017 [facility] Spine lumbar puncture w fluoro DX [...] physician. IMPRESSION: Fluoroscopically guided lumbar puncture. 07/25/2017 [facility] Chest/Abdomen/Pelvis w IV contrast CT EXAM: [...] dilatio n. Correlation with LFTs recommended. 07/25/2017 [facility] Brain wo contrast CT EXAM: CT [...] microvascular ischemic changes. [place] SECTION: Neuro 07/24/2017 [facility] Spine cervical wo contrast CT EXAM: [...] pronounced from C3 to C7 levels 07/24/2017 [facility] Chest 1view DX EXAM: XR CHEST [...] 2. Mild cardiomegaly and tortuous aorta. 07/24/2017 [facility] Retroperitoneal Complete US Ex am: Bilateral [...] right kidney measuring 1.5 cm. 01/26/2017 [facility] [place] Spine lumbar wo contrast MRI [place] LUMBAR SPINE WITHOUT CONTRAST COMPARISON: No prior [...] Pain Mgmt Systolic (mm Hg) 144 07/28/2017 [facility] Diastolic (mm Hg) 64 07/28/2017 [facility] Respitory Rate 17 07/28/2017 [facility] Temperature Oral (F) 98.3 F 07/28/2017 [facility] Respitory Rate 19 07/28/2017 [facility] Systolic (mm Hg) 142 07/28/2017 [facility] Diastolic (mm Hg) 63 07/28/2017 [facility] Temperature Oral (F) 97.9 F 07/28/2017 [facility] Systolic (mm Hg) 177 07/28/2017 [facility] Diastolic (mm Hg) 77 07/28/2017 [facility] Respitory Rate 18 07/28/2017 [facility] Temperature Oral (F) 98.3 F 07/27/2017 [facility] Weight 95.455 07/24/2017 [facility] Heart Rate 87 07/24/2017 [facility] BMI Calculated 32 07/24/2017 [facility] Height 172.72 cm 07/24/2017 [facility] Encounters Location Location Details Encounter Type Encounter Number Reason For Visit Attending Provider ADM Date DC Date Status Source [facility] [place] [facility] [id number] Bill Cole 12/02/2014 12/03/2014 [facility] [place] [facility] [place] [facility] [id number] Bill Cole 03/10/2016 04/09/2016 [facility] [place] [facility] [place] [facility] [id number] Bill Cole 04/13/2016 05/13/2016 [facility] [place] [facility] [place] [facility] [id number] 01 aPwel Aragon 01/26/2017 01/27/2017 [facility] [place] [facility] [id number] Dominique Granados 07/24/2017 07/28/2017 [facility] [place] [facility] [id number] Omar Mendenhall 12/30/2017 12/31/2017 [facility] [place] Procedures Procedure Code Date Perfomer Comments Source Spinal puncture, lumbar, diagnostic 49977 07/25/2017 [facility] Assessment and Plan Assessment and Plan [...] any mesh implants. Patient has placement at [facility] and is pending transportation for discharge. Scheduled [...] to get MRI. She has placement at [facility]. Plan: - no AEDs indicated at this time - MRI outpatient - can consider 81 mg daily ASA consideri ng possible stroke, though with current fall risk, may want to defer to outpatient - providid patient with phone number for outpatient follow-up with [facility], patient states she has private neurologist closer to her home she would like to follow- up with Follow up appointments: Can follow with neurology prn/Pending clinical course/[facility] (10th floor [facility],call [phone] for appointment)/Follow up with private neurologist per patient preference The case was discussed with the Neurology Consult attending Dr Bird. Patient and family members were updated on the same and all questions answered. *sign off* Thank you for this interesting consult, neurology will sign off for now. Please page [phone] should you have any queries/concerns. Hilary Lujan MD Psychiatry PGY-1 Neurology Attending The patient was seen and examined by me with the resident and I agree with the History/Exam documented. Pedro Bird MD Extracted from:Title: ID Consult Note Author: Jessica Arambula MD Date: 07/25/17 Assessment/Plan Ms. Morales is [...] continue to follow. Jessica Arambula MD PGY-2 [facility] Internal Medicine [id number]#[id number] On 07/25/17 I saw and evaluated this [...] for LP Disposition Pending further workup 07/28/2017 [facility] Plan of Care No Data Provided [...] obtain; Reg Smoking Cessation Counseling No 07/24/2017 [facility] No data available for this section 05/13/2016 [facility] [place] Family History No Data Provided for This Section Advance Directives No Data Provided for This Section Functional Status No Data Provided for This Section
--- OUTSIDE RECORDS SUMMARY | 2020-03-20 21:36 | XMS REPORT | Continuity of Care Document ---
Author Author [facility] t Organization [facility] Address [address] [place] [address] Phone Unavailable Care Team Providers Care Business Analyst Project Manager Name Role Phone Leighann DAVID DO PCP Imtiaz CARRION Attphys Unavailable Jagruti VALLECILLO Attphys Unavailable ÁNGEL VÁZQUEZ Attphys Unavailable Shmuel Mendenhall Attphys Dominique [place] Attphys Pawel Aragon Attphys Minh Cole Attphys ÁNGEL VÁZQUEZ Admphys Unavailable Dominique [place] Admphys Payers Payer Name Policy Type Policy Number Effective Date Expiration Date S ource Medicare A & B [id number] 2003 00:00:00 [facility] [id number] [facility] [id number] [facility] Problems Condition Name Condition Details Condition Category Status Onset Date Resolution Date Last Treatment Date Treating Clinician Comments Source AMS AMS Active 07/24/2017 [facility] Diagnosis Active 2017-07-24 00:00:00 2017-08-18 17:52:00 [place] 722.52 - LUMB/LUMBOSAC D 722. 52 - LUMB/LUMBOSAC D Active 11/18/2014 [facility] [place] Diagnosis Active 2014-11-18 00:01:00 2014-12-02 08:40:00 [facility] Acute dehydration Acute dehydration Problem Active [facility] Diarrhea Diarrhea Problem Active [facility] Hypoglycemia associated with diabetes Hypoglycemia associate d with diabetes Problem Active [facility] Unilateral primary osteoarthritis, left hip Unilateral primary osteoarthritis, left hip 04/07/2018 [facility] [place] Problem 2018-04-07 13:00:02 [facility] Osteoarthritis of knee, unspecified Osteoarthritis of knee, unspecified Active Problem 02/19/2020 [facility] Problem Active 2020-02-19 02:45:01 [facility] 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 Diabetes mellitus type 2 with peripheral artery disease Active Problem 02/19/2020 [facility] Problem Active 2020-02-19 02:45:01 [facility] Other fatigue Othe r fatigue Active Problem 02/19/2020 [facility] Problem Active 2020-02-19 02:45:01 [facility] Lumbar neuritis Lumb ar neuritis Active Problem 02/19/2020 [facility] Problem Active 2020-02-19 02:45:01 [facility] Drug induced constipation Drug induced constipation Active Problem 02/19/2020 [facility] Problem Active 2 02:45:01 [facility] Left hip pain Left hip pain Active Problem 02/19/2020 [facility] Problem Active 2020-02-19 02:45:01 [facility] Lumbar post-laminectomy syndrome Lumbar post-laminectomy syndrome Active Problem 02/19/2020 [facility] Problem Active 2020-02-19 02:45:01 [facility] Pain Pain Active Problem 02/19/2020 [facility] Problem Active 2020-02-19 02:45:01 [facility] Adverse effect of other opioids, initial encounter Adverse effect of other opioids, initial encounter Active Problem 02/19/2020 [facility] Problem Active 2020-02-19 02:45:01 [facility] History of falling Hist ory of falling Active Problem 02/19/2020 [facility] Problem Active 2020-02-19 02:45:01 [facility] Greater trochanteric bursitis of left hip Greater trochanteric bursitis of left hip Active Problem 02/19/2020 [facility] Problem Active 2020-02-19 02:45:01 [facility] Other intervertebral disc displacement, lumbar region Other intervertebral disc displacement, lumbar region Active Diagnosis 04/09/2019 [facility] Diagnosis Active 2019-04-09 02:45:01 [place] Low back pain Low back pain Active Problem 02/19/2020 [facility] Problem Active 2020-02-19 02:45:01 [place] Degenerative arthritis of knee, bilateral Degenerative arthritis of knee, bilateral Active Problem 02/19/2020 [facility] Problem Active 2020-02-19 02:45:01 [facility] m[facility] [place] Chronic pain syndrome [employer] andres pain syndrome Active Problem 02/19/2020 [facility] Problem Active 2020-02-19 02:45:0 1 [facility] Degeneration of lumbar or lumbosacral intervertebral d [...] Pain Mgmt Problem Active 2019 02:45:0 2 [facility] Restlessness and agitation Res tlessness and agitation [...] [facility] Problem Active 2019 02:45:02 [facility] 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 Active Diagnosis 03/29/2019 [facility] Diagnosis Active 2019-03-29 02:45:12 [facility] Restless legs syndrome Rest less legs syndrome Active Problem 2019 [facility] Problem Active 02:45:02 [facility] Primary insomnia Prim quintin insomnia Active Problem 2019 [facility] Problem Active 2019 02:45:02 [facility] 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 Active Problem 2019 [facility] Problem Active 2019 02:45:02 [facility] Tinnitus, bilateral Tinn itus, bilateral Active Problem 2019 [facility] Problem Active 2019 02:45:0 2 [facility] Weakness Weak ness Active Diagnosis 03/29/2019 [facility] Diagnosis Active 2019-03-29 02:45:12 [facility] 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, without long-term current use of insulin 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, without long-term current use of insulin Active Diagnosis 03/29/2019 [facility] Diagnosis Acti ve 2019-03-29 02:45:12 [facility] Pain in left leg Pain in left leg Active Diagnosis 03/29/2019 [facility] Diagnosis Active 2019-03-29 02:45:12 [facility] 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 , 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, left hip Active Diagnosis 02/19/2020 [facility] Diagnosis Active 2020-02-19 02:45:01 [facility] [address] ALTERED MENTAL STATUS, UNSPECIFIED ALTERED MENTAL STATUS, UNSPECIFIED Active [facility] Diagnosis Active 2017-08-18 17:52:00 [facility] LUMBAR POST LAMINECTOMY SYNDROME LUMBAR POST LAMINECTOMY SYNDROME Active [facility] [place] Diagnosis Active 2016-04-14 08 :54:00 [facility] Allergies, Adverse Reactions, Alerts Allergy Name Allergy Type Status Severity Reaction(s) Onset Date Inacti ve Date Treating Clinician Comments Source Ciprofloxacin Allergy to Substance Active 2019-10-06 00:00: 00 [facility] Ibuprofen Ibuprofen Active hives 2018-11-21 00:00:00 [facility] Lyrica Lyrica Active dizziness 2018-11-21 00:00:00 [facility] Fiorinal Fiorinal Active hives 2018-11-21 00:00:00 [facility] penicillin penicillin Active itching 2018-11-21 00:00:00 [facility] NSAIDS (Non-Steroidal Anti-Inflamma DA Active [place] 2013-08-12 0 00:00:00 [facility] Penicillins DA Active [place] 2013-09-08 00:00:00 [facility] ciprofloxacin DA Active MO 2013-09-08 00:00:00 [facility] metronidazole DA Active [place] 2013-09-08 00:00:00 [facility] butorphanol DA Active MO 2013-09-08 00:00:00 [facility] Ibuprofen Allergy to Substance Active Mild 2012-01-11 00:00:00 [facility] NSAIDS (Non-Steroidal Anti-Inflamma Allergy to Substance Active M ild [facility] 2010-07-27 00:00:00 [facility] Penicillin Allergy to Substance Active [facility] 2010-07-27 00:00:00 [facility] Caffeine Allergy to Substance Active [facility] 2010-07-27 00:00:00 [facility] Butalbital Allergy to Substance Active [facility] 2010-07-27 00:00:00 [facility] Acetaminophen Allergy to Substance Active [facility] 2010-07-27 00:00: 00 [facility] Butorphanol Allergy to Substance Active [facility] 2010-07-27 00:00:00 [facility] Social History Social Habit Start Date Stop Date Quantity Comments Source Social History 2016-05-13 04:59:00 2016-05-13 04:59:00 [facility] Medications Ordered Medication Name Filled Medication Name Start Date Stop Da te Current Medication? Ordering Clinician Indication Dosage Frequency Signature (SIG) Comments Components Source VESIcare 2020-02-19 02:45:01 Yes Bill Cole 1 tablet [facility] Aspirin 2020-02-19 02:45:01 Yes Bill Cole 1 t ablet [facility] Elm[place] 2020-02-19 02:45:01 Yes Bill Cole 1 capsule on an empty stomach [facility] Nitro-Bid 2020-02-19 02:45:01 Yes Bill Cole n ot defined [facility] GlipiZIDE 2020-02-19 02:45:01 Yes Bill Cole 1 tablet [facility] Calcium 2020-02-19 02:45:01 Yes Bill Cole 1 t ablet with meals [facility] Vitamin C 2020-02-19 02:45:01 Yes Bill wild s directed [facility] Ambien 2020-02-19 02:45:01 Yes Bill Cole 1 tablet at bedtime as needed [facility] Metronidazole 2020-02-19 02:45:01 Yes Bill Cole 2 tablets [facility] Amlodipine Besylate 2020-02-19 02:45:01 Yes Bill Cole 1 tablet [facility] [place] Atenolol 2020-02-19 02:45:01 Yes Bill Cole 1 tablet [facility] Zoloft 2020-02-19 02:45:01 Yes Bill Cole 1 ta blet [facility] Pravastatin Sodium 2020-02-19 02:45:01 Yes Bill Cole 1 tablet [facility] Lidocaine HCl 2019-08-02 00:00:00 Yes Bill Cole as directed [facility] TraMADol HCl ER 2019-08-02 00:00:00 Yes Bill Cole 1 tablet [facility] Tramadol HCl 2019-08-02 00:00:00 Yes Bill Cole 1 tablet as needed [facility] Tramadol HCl 2019-02-13 00:00:00 Yes Bill Cole 1 tablet as needed [facility] Baclofen 2019-02-13 00:00:00 Yes Bill Cole 1/2 tablet with food or milk [facility] TraMADol HCl ER 2019-02-13 00:00:00 Yes Bill Cole 1 tablet [facility] Tramadol HCl 2019-01-16 00:00:00 Yes Omar Mendenhall 1 tablet as needed [facility] TraMADol HCl ER 2019-01-16 00:00:00 Yes Omar Pradoth 1 tablet [facility] Baclofen 2019-01-16 00:00:00 Yes Omar Mendenhall 1/2 tablet with food or milk [facility] Lyrica 2019-01-08 02:45:10 Yes Omar Mendenhall 1 ca psule [facility] Tramadol HCl 2018-11-21 00:00:00 Yes Bill Cole 1 tablet as needed [facility] TraMADol HCl ER 2018-11-21 00:00:00 Yes Bill Cole 1 tablet [facility] Baclofen 2018-11-21 00:00:00 Yes Bill Cole 1/2 tablet with food or milk [facility] [place] Tramadol HCl 2018-10-27 03:45:25 Yes Bill Cole 1 tablet as needed [facility] [place] TraMADol HCl ER 2018-10-26 00:00:00 Yes Omar Pradoth 1 tablet [facility] Baclofen 2018-10-26 00:00:00 Yes Omar Pradoth 1/2 tablet with food or milk [facility] Tramadol HCl 2018-10-26 00:00:00 Yes Omar Pradoth 1 tablet as needed [facility] [place] Baclofen 2018-09-26 00:00:00 Yes Omar Pradoth 1/2 tablet with food or milk [facility] TraMADol HCl ER 2018-09-26 00:00:00 Yes Omar Pradoth 1 tablet [facility] Tramadol HCl 2018-09-26 00:00:00 Yes Omar Pradoth 1 tablet as needed [facility] Tylenol/codeine #4 #30 2018-08-29 00:00:00 Yes Bill Aubrey sett one tablet [facility] Baclofen 2018-08-15 00:00:00 Yes Bill Douglas 1/2 tablet with food or milk [facility] Tylenol/codeine #4 #30 2018-08-15 00:00:00 Yes Bill Aubrey sett one tablet [facility] Tylenol/codeine #4 #30 2018-07-18 00:00:00 Yes Bill Aubrey sett one tablet [facility] Baclofen 2018-07-18 00:00:00 Yes Bill Douglas 1/2 tablet with food or milk [facility] Baclofen 2018-06-20 00:00:00 Yes Bill Douglas 1/2 tablet with food or milk [facility] Tylenol/codeine #4 #30 2018-06-20 00:00:00 Yes Bill Aubrey sett one tablet [facility] Valium 2018-05-23 00:00:00 Yes Bill Hillett 1 ta blet as needed [facility] Valium 2018-05-23 00:00:00 Yes Bill Hillett 1 ta blet as needed [facility] influenza virus vaccine, inactivated 2017-07-28 19:00:00 No Notes: (Same as: Fluzone Quadrivalent, Fluarix Quadrivalent) For 3 years of age and older (0.5 mL IM) Shake well before use [facility] pneumococcal 13-valent vaccine 2017-07-28 18:48:00 No Notes: Shake well prior to use (Same as: Prevnar 13) [facility] NIFEdipine 90 mg oral tablet, extended release 2017-07-28 02:20: 00 No 90 mg, 1 tab, Route: PO, Drug form: ERTA B, Daily, Dosing Weight 95.455, kg, Start date: 07/27/17 21:20:00 CDT, Stop date: 08/26/17 9:00:00 [employer] Atenolol 50 MG Oral Tablet 2017-07-27 19:17:00 No Notes: (Same As:Tenormin) [facility] [place] K-Dur 20 2017-07-27 17:39:00 No 20 mEq, 1 tab, Route: PO, Drug form: ERTAB, ONCE, Dosing Weight 95.455, kg, Start date: 07/27/17 12:39:00 CDT, Stop date: 07/27/17 12:39:00 CDT [place] Streptococcus pneumoniae serotype 1 caps ular antigen diphtheria [id number] protein conjugate vaccine / Streptococcus pneumoniae serotype 14 capsular antigen diphtheria [id number] protein conjugate vaccine / Streptococcus pneumoniae serotype 18C capsular antigen d 2017-07-27 14:00:00 No Notes: Shake well prior to use (Same as: Prevnar 13) [facility] influenza virus vaccine, inactivated 2017-07-27 14:00:00 No Notes: (Same as: Fluzone Quadrivalent, Fluarix Quadrivalent) For 3 years of age and older (0.5 mL IM) Shake well before use [facility] Potassium Chloride 2017-07-27 11:00:00 No Notes: (Same as: KCL) Infuse over 2 hours. [facility] Lovenox 2017-07-27 01:00:00 No Notes: (Same as: Lovenox) [facility] morphine extended release 2017-07-26 17:38:00 No Notes: Do not crush (Same as:Oramorph SR, MS Contin) [place] Baclofen 2017-07-26 17:26:00 No Notes: (Keith e As: Lioresal) [place] Ativan 2017-07-26 16:12:00 No Notes: (Same as: Ativan) [facility] Pravastatin 2017-07-26 02:00:00 No Notes: ( Same as: Pravachol) [facility] Zovirax + sodium chloride 0.9% INJ 100 mL 2017-07-26 00:00:00 No Notes: Same as: Zovirax MEDICATION WASTE Product Size: 500 mg Product Wasted: ___ mg [place] Tylenol 2017-07-25 23:49:00 No Notes: Max acetaminophen = 4000mg/day (4 gm/day). (Same as: Tylenol) [facility] Nitroglycerin 0.02 MG/MG Topical Ointment 2017-07-25 23:43:00 No Notes: 1gm is Approximately 1 inch of nitroglycerin ointment (20mg per gram) (Same as:Nitro-Bid) [facility] Acyclovir 2017-07-25 23:00:00 No 50 mL / m in [facility] Prevacid 2017-07-25 21:30:00 No Notes: Take 1 hour before or 2 hours after meal; Expires in 14 days. Shake well before use. (Same as:Prevacid) Compounded Product - formulation not commercially available [facility] potassium chloride 2017-07-25 21:00:00 No 10 mEq, 50 mL, Route: IVPB, Drug form: INJ, ONCE, Start date: 07/25/17 16:00:00 CDT, Stop date: 07/25/17 16:00:00 CDT [facility] Vancomycin 2017-07-25 19:30:00 No 2001 mg: infuse over 2.5 hours MEDICATION WASTE Product Size: 1000 mg Product Wasted: ___ mg [facility] potassium chloride 2017-07-25 17:00:00 No 20 mEq, 100 mL, Route: IVPB, Drug form: INJ, Q2H, Start date: 07/25/17 12:00:00 CDT, Duration: 2 doses or times, Stop date: 07/25/17 14:00:00 CDT [facility] Metoprolol 2017-07-25 16:00:00 No 2.5 mg, 2.5 mL, Route: IVP, Drug form: INJ, Q6Hnow, Dosing Weight 95.455, kg, Start date: 07/25/17 11:00:00 CDT, Duration: 30 day, Stop date: 08/24/17 5:00:00 [employer] [employer] Dexamethasone 2017-07-25 16:00:00 No Notes: Concentration: 4mg/ml [facility] Protonix 2017-07-25 14:00:00 No Notes: Tablet should not be chewed or crushed. (Same as: Protonix) [facility] ARIPiprazole 2017-07-25 14:00:00 No Notes: Same as: Abilify Non- Formulary Item [place] Sertraline 2017-07-25 14:00:00 No Notes: (S sohan as: Zoloft) [place] Isosorbide 2017-07-25 14:00:00 No 60 mg, 1 tab, Route: PO, Drug form: ERTAB, QAM, Dosing Weight 95.455, kg, Start date: 07/25/17 9:00:00 CDT, Stop date: 08/23/17 9:00:00 [employer] [employer] Esomeprazole 2017-07-25 14:00:00 No 40 mg, Route: PO, Drug form: ECCAP, Daily, Dosing Weight 95.455, kg, Start date: 07/25/17 9:00:00 CDT, Duration: 30 day, Stop date: 08/23/17 9:00:00 [employer] [place] Atenolol 50 MG Oral Tablet 2017-07-25 14:00:00 No Notes: (Same As:Tenormin) [facility] Ativan 2017-07-25 13:19:00 No Notes: (Same as: Ativan) [facility] Hydralazine 2017-07-25 13:18:00 No Notes: (Same as: Apresoline) Push over 5 minutes [facility] Hydralazine Hydrochloride 50 MG Oral Tablet 2017-07-25 13:00:00 No Notes: (Same as: Apresoline) May interfere w/enteral feedings Take With Food [facility] Potassium Chloride 2017-07-25 12:00:00 No Notes: (Same as: KCL) Infuse over 2 hours. [facility] Ativan 2017-07-25 11:49:00 No Notes: (Same as: Ativan) [facility] Magnesium Sulfate 2017-07-25 11:30:00 No Notes: WASTE: F/P - Sink; E - Municipal Trash Bin [facility] Insulin Lispro 2017-07-25 11:08:00 No 60 units) WASTE: F/P - Black; E - Municipal Trash Bin Stable for 28 days at room temperature. Expires in days from Date [facility] Dextrose 50% Syringe 2017-07-25 11:08:00 No 12.5 gm, 25 mL, Route: IVP, Drug Form: INJ, Dosing Weight 95.455, kg, PRN, PRN Blood Glucose Results, Start date: 07/25/17 6:08:00 CDT, Duration: 30 day, Stop date: 08/24/17 5:07:00 [employer] [place] Glucagon 2017-07-25 11:08:00 No 1 mg, Route: IM, Drug form: PDR/INJ, PRN, Dosing Weight 95.455, kg, PRN Blood Glucose Results, Start date: 07/25/17 6:08:00 CDT, Duration: 30 day, Stop date: 08/24/17 5:07:00 [employer] CHIE[employer] [place] Ampicillin 2017-07-25 11:00:00 No Notes: (Same as: Rashaad) MEDICATION WASTE Product Size: 2000 mg Product Wasted: _0__ mg [facility] Ceftriaxone 2017-07-25 10:00:00 No Notes: MEDICATION WASTE Product Size: 2000 mg Product Wasted: _0__ mg [facility] Acetaminophen 2017-07-25 09:24:00 No Notes: Do not exceed 4 gm/day. (Same as: Tylenol) [facility] solifenacin succinate 10 MG Oral Tablet [[facility]ESICARE] 2017-07 09:16:00 Yes 10 mg = 1 tab, PO, Daily, # 30 tab, 1 Re fill(s) [facility] morphine extended release 2017-07-25 09:16:00 No 15 mg, PO, Q8H, 0 Refill(s) [facility] ARIPiprazole 2 mg oral tablet 2017-07-25 09:16:00 Yes 2 mg = 1 tab, PO, Daily, # 90 tab, 0 Refill(s) [facility] [place] Atenolol 50 MG Oral Tablet 2017-07-25 09:16:00 Yes 50 mg = 1 tab, PO, Daily, # 30 tab, 0 Refill(s) [facility] Hydralazine Hydrochloride 50 MG Oral Tablet 2017-07-25 09:16:00 Yes 50 mg = 1 tab, PO, TID, # 90 tab, 3 Refill(s) [facility] pravastatin 20 mg oral tablet 2017-07-25 09:16:00 Yes 20 mg = 1 tab, PO, Bedtime, # 30 tab, 0 Refill(s) Deshaun [facility]stein [facility] Esomeprazole 40 MG Enteric Coated Capsule 2017-07-25 09:16:00 No 40 mg = 1 cap, PO, Daily, # 30 cap, 0 Refill(s) [place] baclofen 10 mg oral tablet 2017-07-25 09:16:00 Yes 10 mg = 1 tab, PO, TID, PRN Spasms, # 90 tab, 0 Refill(s) [place] isosorbide mononitrate 60 mg oral tablet, extended [...] # 90 cap, 0 Ref ill(s) [place] Sertraline 2017-07-25 09:16:00 Yes 1 50 mg, [...] CDT, Stop date: 07/25/17 4:10:00 CDT [place] iodixanol 2017-07-25 06:52:00 No 100 mL, Route: [...] 02:00:00 No Notes: (Same as: Ativan) [facility] 2017-07-25 01:24:00 No Notes: (Same as: Ativan) [facility] Quickivan 2017-07-24 23:29:00 No 1 mg, Route: IVP, Drug form: INJ, ONCE, Dosing Weight 95.455, kg, Priority: STAT, Start date: 07/24/17 18:29:00 CDT, Stop date: 07/24/17 18:29:[address] 22:47:00 No or = 50 kg, Start date: 07/24/17 17:47:00 CDT [facility] Ativan 2017-07-24 22:11:00 No 1 mg, [...] or times, Stop date: 07/24/17 17:07:00 CDT [facility] Tylenol 2017-07-24 19:51:00 No Notes: Max acetaminophen = 4000 mg/day (4 gm/day). (Same as: Tylenol) Ozzie LAGUNAS (Bolus) IV 2017-07-24 19:24:00 No 2,863.65 mL, 2863.65 ml/hr, Infuse Over: 1 hr, Route: IV, 2,863.65, Drug form: INJ, ONCE, Priority: STAT, Dosing Weight 95.455 kg, Start date: 07/24/17 14:24:00 CDT, Duration: 1 doses or times, Stop date: 07/24/17 14:24:00 CDT [facility] Ativan 2017-07-24 19:24:00 No Notes: (Same as: Ativan) [facility] cefepime 2017-07-24 18:44:00 No Notes: (Same As: Maxipime) MEDICATION WASTE Product Size: 1000 mg Product Wasted: ___ mg [facility] Vancomycin 2017-07-24 18:44:00 No 2001 mg: infuse over 2.5 hours MEDICATION WASTE Product Size: 1000 mg Product Wasted: ___ mg [facility] NS (Bolus) IV 2017-07-24 18:43:00 No 30 mL, 30 ml/hr, Infuse Over: 1 hr, Route: IV, ONCE, Priority: STAT, Dosing Weight 95.455 kg, Start date: 07/24/17 13:43:00 CDT, Duration: 1 doses or times, Stop date: 07/24/17 13:43:00 CDT [facility] Ativan 2017-07-24 18:28:00 No Notes: (Same as: Ativan) [facility] Saline Flush 0.9% 2017-07-24 18:27:00 No Notes: Same as: BD Posiflush Sterile [facility] Acetaminophen/Hydrocodone Bitart ([place] 10MG-325MG*) 1 Ea Tab Acetaminophen/Hydrocodone Bitart ([place] 10MG-325MG*) 1 Ea Tab Ye s 1 As Needed [facility] Amlodipine Besylate 10 Mg Tablet Amlodipine Besylate 10 Mg Tablet Yes 5 Twice A Day [facility] Aspirin (Aspir 81) 81 Mg Tablet. Aspirin (Aspir 81) 81 Mg Tablet. Yes 325 Daily [facility] Atenolol 25 Mg Tablet Atenolol 25 Mg Tablet Yes 50 Bedtime [facility] Baclofen 10 Mg Tablet Baclofen 10 Mg Tablet Yes 10 Three Times A Day [facility] Calcium Carbonate (Calcium) 500 Mg Tablet Calcium Carb tamara (Calcium) 500 Mg Tablet Yes 600 Twice A Day [facility] Clonidine Hcl 0.1 Mg Tablet Clonidine Hcl 0.1 Mg Tablet Yes 1 Twice A Day [facility] [place] Elmiron Yes 200 2AM/1HS [facility] Esomeprazole Magnesium (Nexium) 40 Mg Capsule.dr Cole prazole Magnesium (Nexium) 40 Mg Capsule. Yes [facility] Hydralazine Hcl 25 Mg Tab Hydralazine Hcl 25 Mg Tab Yes 50 Twice A Day [facility] Lorazepam (Ativan) 1 Mg Tablet Lorazepam (Ativan) 1 Mg Tablet Yes 1 Daily [facility] Nitrobid Nitrobid Yes 9 Twice A Day [facility] Pravastatin Sodium 20 Mg Tablet Pravastatin Sodium 20 Mg Tablet Yes 20 Daily [facility] Sertraline Hcl (Zoloft) 100 Mg Tablet Sertraline Hcl (Zoloft) 100 M g Tablet Yes 150 Daily [facility] Triamterene/Hydrochlorothiazid (Maxzide 75 Mg-50 Mg Ta blet) 1 Each Tablet Triamterene/Hydrochlorothiazid (Maxzide 75 Mg-50 Mg Tablet) 1 Each Tablet Yes Daily [facility] Zolpidem Tartrate (Ambien) 10 Mg Tablet Zolpidem Tartrate (A mbien) 10 Mg Tablet Yes 10 Bedtime [facility] Glipizide 10 Mg Tablet, 10 Mg Oral Glipizide 10 Mg Tablet, 10 Mg Oral 2019-10-12 00:00:00 No 10 Daily [facility] Solifenacin Succinate (Vesicare) 10 Mg Tablet, 10 Mg O ral Solifenacin Succinate (Vesicare) 10 Mg Tablet, 10 Mg Oral 2019-10-12 00:00:00 No 10 Daily [facility] Ascorbic Acid (Vitamin C) 250 Gm Powder, 250 Gm Oral A scorbic Acid (Vitamin C) 250 Gm Powder, 250 Gm Oral 2015-10-09 00:00:00 No 250 Daily [facility] Morphine Sulfate 15 Mg Tablet, 15 Mg Oral Morphine Sul fate 15 Mg Tablet, 15 Mg Oral 2015-10-09 00:00:00 No 15 Twice A Day [facility] Hydrocodone Bit/Acetaminophen ([place] 7.5-325 Tablet) 1 Each Tablet, 1 Ea Oral Hydrocodone Bit/Acetaminophen ([place] 7.5-325 Tablet) 1 Each Tablet, 1 Ea Oral 2015-10-07 00:00:00 No 1 Q6prn [facility] Methocarbamol 750 Mg Tablet, 750 Mg Oral Methocarbamol 750 Mg Tablet, 750 Mg Oral 2015-01-23 00:00:00 No 750 Daily as needed fo r [facility] Move Free , Oral Move Free , Oral 2015-01-23 00:00:00 No Daily [facility] Aspirin 325 Mg Tabec, 325 Mg Oral Aspirin 325 Mg Tabec, 325 Mg O ral 2015-01-20 00:00:00 No 325 Daily [facility] Atenolol 50 Mg Tablet, 50 Mg Oral Atenolol 50 Mg Tablet, 50 Mg O ral 2015-01-20 00:00:00 No 50 Daily [facility] Esomeprazole Mag Trihydrate (Nexium) 40 Mg Capsule., 40 Mg Oral Esomeprazole Mag Trihydrate (Nexium) 40 Mg Capsule.dr, 40 Mg Oral 2015-01-20 00: 00:00 No 40 Daily [facility] Hydrocodone Bit/Acetaminophen ([place] 10-325 Tablet) 1 Each Tablet, Oral Hydrocodone Bit/Acetaminophen ([place] 10-325 Tablet) 1 Each Tablet, Oral 2015-01-20 00:00:00 No Daily [facility] Nitroglycerin 9 Mg Capsule.er, 9 Mg Oral Nitroglycerin 9 Mg Capsule.er, 9 Mg Oral 2015-01-20 00:00:00 No 9 Twice A Day [facility] Pentosan Polysulfate Sodium (Elmiron) 100 Mg Cap, 200 Mg Oral Pentosan Polysulfate Sodium (Elmiron) 100 Mg Cap, 200 Mg Oral 2015-01-20 00: 00:00 No 200 Twice A Day [facility] Atenolo , 50 Mg Oral Atenolo , 50 Mg Oral 2014-06-17 00:00:00 No 50 Daily [facility] Ca Cmb No.1/Vit D3/B-6/Fa/B12 (Vitamin D 3 1,000 Unit Tablet) 1 Each Tablet, 1 Each Oral Ca Cmb No.1/Vit D3/B-6/Fa/B12 (Vitamin D 3 1,000 Unit Tablet) 1 Each Tablet, 1 Each Oral 2014-06-17 00:00:00 No 1 Yeny y [facility] Move Free , Mg Oral Move Free , Mg Oral 2014-06-17 00:00:00 No Daily [facility] Nitroglycerin (Nitrobid 2.5MG Caps) 2.5 Mg Capcr, 2.5 Mg Oral Nitroglycerin (Nitrobid 2.5MG Caps) 2.5 Mg Capcr, 2.5 Mg Oral 2014-06-17 00:00:00 N o 2.5 Twice A Day [facility] [place]-3 Fatty Acids (Fish Oil) 500 Mg Capsule.dr, 500 Mg Oral [place]-3 Fatty Acids (Fish Oil) 500 Mg Capsule.dr, 500 Mg Oral 2014-06-17 00:00:00 N o 500 Daily [facility] Pentosan Polysulfate Sodium (Elmiron) 100 Mg Capsule, 100 Mg Oral Pentosan Polysulfate Sodium (Elmiron) 100 Mg Capsule, 100 Mg Oral 201 01-17-08 00:00:00 No 100 Daily [facility] Sertraline Hcl (Zoloft) 50 Mg Tablet, 50 Mg Oral Sertr cinda Hcl (Zoloft) 50 Mg Tablet, 50 Mg Oral 2014-06-17 00:00:00 No 50 Daily [facility] Glucosamine Sulfate 2KCL (Glucosamine) 1,000 Mg Tablet , Glucosamine Sulfate 2KCL (Glucosamine) 1,000 Mg Tablet, 2014-05-01 00:00:00 No Daily [facility] Zolpidem Tartrate (Ambien Cr) 12.5 Mg Tab.mphase, 12.5 Mg Oral Zolpidem Tartrate (Ambien Cr) 12.5 Mg Tab.mphase, 12.5 Mg Oral 2014-05-01 00:00:00 No 12.5 [facility] Ezetimibe/Simvastatin (Vytorin 10-20 Mg Tablet) 1 Each Tablet, 1 Each Oral Ezetimibe/Simvastatin (Vytorin 10-20 Mg Tablet) 1 Each Tablet, 1 Each Oral 2014-03-05 00:00:00 No 1 Daily [facility] Atenolol 50 Mg Tablet, 50 Mg Oral Atenolol 50 Mg Tablet, 50 Mg O ral 2014-02-25 00:00:00 No 50 Daily [facility] Tramadol Hcl (Ultram) 50 Mg Tablet, 50 Mg Oral Tramado l Hcl (Ultram) 50 Mg Tablet, 50 Mg Oral 2012-12-11 00:00:00 No 50 Q 8-1 2 Hours [facility] Vital Signs Vital Name Observation Time Observation Value Comments Source Systolic (mm Hg) 2019-02-13 15:45:00 Deshaun triston [facility] Weight 2019-02-13 15:45:00 [facility] Height 2019-02-13 15:45:00 [facility] Respitory Rate 2019-02-13 15:45:00 Jovanny al [facility] Heart Rate 2019-02-13 15:45:00 [facility] Diastolic (mm Hg) 2019-02-13 15:45:00 [facility] Systolic (mm Hg) 2019-01-16 16:30:00 Deshaun rial [facility] Weight 2019-01-16 16:30:00 [facility] Height 2019-01-16 16:30:00 [facility] Respitory Rate 2019-01-16 16:30:00 [facility] Heart Rate 2019-01-16 16:30:00 [facility] Diastolic (mm Hg) 2019-01-16 16:30:00 [facility] Systolic (mm Hg) 2018-11-21 16:00:00 Deshaun rial [facility] Weight 2018-11-21 16:00:00 [facility] Height 2018-11-21 16:00:00 [facility] Respitory Rate 2018-11-21 16:00:00 [facility] Heart Rate 2018-11-21 16:00:00 [facility] Diastolic (mm Hg) 2018-11-21 16:00:00 [facility] Systolic (mm Hg) 2018-10-26 16:00:00 Deshaun rial [facility] Weight 2018-10-26 16:00:00 [facility] Height 2018-10-26 16:00:00 [facility] Respitory Rate 2018-10-26 16:00:00 [facility] Heart Rate 2018-10-26 16:00:00 [facility] Diastolic (mm Hg) 2018-10-26 16:00:00 [facility] Systolic (mm Hg) 2018-08-15 17:45:00 [facility] Weight 2018-08-15 17:45:00 [facility] Height 2018-08-15 17:45:00 [facility] Respitory Rate 2018-08-15 17:45:00 [facility] Heart Rate 2018-08-15 17:45:00 [facility] Diastolic (mm Hg) 2018-08-15 17:45:00 [facility] Systolic (mm Hg) 2018-07-18 16:45:00 Deshaun rial [facility] Weight 2018-07-18 16:45:00 [facility] Height 2018-07-18 16:45:00 [facility] Respitory Rate 2018-07-18 16:45:00 [facility] Heart Rate 2018-07-18 16:45:00 [facility] Diastolic (mm Hg) 2018-07-18 16:45:00 [facility] Systolic (mm Hg) 2017-07-28 17:00:00 Deshaun [facility] Diastolic (mm Hg) 2017-07-28 17:00:00 [facility] Respitory Rate 2017-07-28 17:00:00 [facility] Temperature Oral (F) 2017-07-28 17:00:00 98.3 F [facility] Respitory Rate 2017-07-28 15:33:00 [facility] Systolic (mm Hg) 2017-07-28 15:33:00 [facility] Diastolic (mm Hg) 2017-07-28 15:33:00 [facility] Temperature Oral (F) 2017-07-28 13:00:00 97.9 F [facility] Systolic (mm Hg) 2017-07-28 13:00:00 [facility] Diastolic (mm Hg) 2017-07-28 13:00:00 [facility] Respitory Rate 2017-07-28 13:00:00 [facility] Temperature Oral (F) 2017-07-27 22:23:00 98.3 F [facility] Weight 2017-07-24 18:05:00 [facility] Heart Rate 2017-07-24 18:05:00 [facility] BMI Calculated 2017-07-24 18:05:00 [facility] Height 2017-07-24 18:05:00 172.72 cm [facility] Procedures Procedure Date / Time Performed Performing Clinician [facility] e Computed tomography angiography of abdomen and pelvis without then withcontrast 2019-10-15 00:00:00 VALENCIA MCKEON [facility] Computed tomography of brain without radiopaque contrast 00:00:00 ROLY CHAVEZ [facility] Magnetic resonance imaging of brain without contrast 2019-10 00:00:00 [facility] CT of abdomen and pelvis without contrast 2019-10-12 00:00:00 KOMAL JONES [facility] Computed tomography of chest without contrast 2019-10-12 00: 00:00 VALENCIA MCKEON [facility] X-ray of chest, two views 2019-10-06 00:00:00 CHARLENE FERNANDES [facility] CT of abdomen and pelvis without contrast 2019-10-05 00:00:00 AM VALENCIA MCCLELLAND [facility] Spinal puncture, lumbar, diagnostic 2017-07-25 20:45:00 [facility] Encounters Start Date/Time End Date/Time Encounter Type [facility] Encounter ID Source 2019-10-14 11:14:00 2019-10-16 12:35:00 Discharged Inpatient 1 ÁNGEL VÁZQUZE [facility] [id number] [facility] 2019-10-05 05:42:00 2019-10-08 15:48:00 Discharged Inpatient 1 ÁNGEL VÁZQUEZ [facility] [id number] [facility] 2019-08-17 11:11:00 2019-08-17 11:11:00 [facility]patient [facility] [id number] [facility] 2019-08-16 11:45:00 2019-08-16 11:45:00 [facility] [place] [id number] [facility] 2019-02-21 11:30:00 2019-02-21 11:30:00 [facility] [place] [facility] [place] [id number] [facility] 2019-02-13 10:45:00 2019-02-13 10:45:00 [facility]patient [facility] [place] [facility] [place] [id number] [facility] 2019-01-25 10:30:00 2019-01-25 10:30:00 Outpatient [facility] [place] [facility] [place] [id number] [facility] 2019-01-16 11:30:00 2019-01-16 11:30:00 Outpatient [facility] [place] [facility] [place] [id number] [facility] 2018-11-23 15:27:00 2018-11-23 15:27:00 Outpatient [facility] [place] [facility] [place] [id number] [facility] 2018-11-21 11:00:00 2018-11-21 11:00:00 Outpatient [facility] [place] [facility] [place] [id number] [facility] 2018-10-26 11:00:00 2018-10-26 11:00:00 Outpatient [facility] [place] [facility] [place] [id number] [facility] 2018-10-20 09:51:00 2018-10-20 09:51:00 Outpatient [facility] [place] [facility] [place] [id number] [facility] 2018-10-19 11:30:00 2018-10-19 11:30:00 Outpatient [facility] [place] [facility] [place] [id number] [facility] 2018-08-29 14:56:00 2018-08-29 14:56:00 Outpatient [facility] [place] [facility] [place] [id number] [facility] 2018-08-15 11:45:00 2018-08-15 11:45:00 Outpatient [facility] [place] [facility] [place] [id number] [facility] 2018-08-04 11:03:00 2018-08-04 11:03:00 Outpatient [facility] [place] [facility] [place] [id number] [facility] 2018-08-03 11:15:00 2018-08-03 11:15:00 [facility]patient [facility] [place] [facility] [place] [id number] [facility] 2018-07-18 10:45:00 2018-07-18 10:45:00 Outpatient [facility] [place] [facility] [place] [id number] [facility] 2018-06-23 10:05:00 2018-06-23 10:05:00 Outpatient [facility] [place] [facility] [place] [id number] [facility] 2018-06-22 13:00:00 2018-06-22 13:00:00 Outpatient [facility] [place] [facility] [place] [id number] [facility] 2017-12-30 11:02:00 2017-12-30 23:59:00 Outpatient Omar Mendenhall [facility] [id number] 2017-07-24 13:02:00 2017-07-28 14:40:00 Outpatient Dominique [place] [facility] [id number] 2017-01-26 13:29:00 2017-01-26 23:59:00 Outpatient Imtiaz Aragon [facility] [id number] 2016-04-13 14:00:00 2016-05-12 23:59:00 Outpatient Bill Cole [id number] 2016-03-10 13:39:00 2016-04-08 23:59:00 Outpatient Bill Cole [id number] 2014-12-02 08:31:00 2014-12-02 23:59:00 Outpatient Bill Cole [facility] [id number] Results Test Description Test Time Test Comments Results Result Comments Source [id number] 2020-03-20 20:46:00 [place] [address] Patient Name: KURTIS MORALES MR #: [id number] : 1940 Age/Sex: 80/F Req #: [id number] Adm Physician: Ordered by: ELOISE CARRION MD Report #: [id number] Location: [facility] Room/Bed: Procedure: [id number] Exam Date: 03/20/20 Exam Time: 2029 REPORT STATUS: Signed EXAM: [id number] DATE: 03/20/2020 8:30 PM INDICATION: abdominal pain 20200320 COMPARISON: CT abdomen/pelvis, 02/09/2020 FINDINGS: Supine and upright views of the abdomen show a normal distribution of air in the s mall and large bowel. There is apparent thickening of haustral markings in the transverse colon compatible with wall thickening noted on previous CT. No pneumoperitoneum. There is no specific abnormal soft tissue calcification in the abdomen. Extensive soft tissue calcifications are seen in the buttocks. Cholecystectomy clips are present. There is degenerative change with dextroscoliosis of the lumbar spine. No acute bony abnormality. IMPRESSION: No bowel dilatation or evidence for bowel obstruction. No pneumoperitoneum. Thickening of haustral markings in the transverse colon compatible with wall thickening noted on previous CT, possible evidence for colitis.. Signed by: Dr. Sanjana Morgan M.D. on 03/20/2020 8:50 PM Dictated By: SANJANA MORGAN MD 49 Transcribed By: KASH on 03/20/202049 COPY TO: ELOISE CARRION MD CT ABDOMEN/PELVIS WO 2020-02-09 12:36:00 [place] [address] Patient Name: KURTIS MORALES MR #: [id number] : 1940 Age/Sex: 80/F Req #: [id number] Adm Physician: Ordered by: GUALBERTO VALLECILLO Report #: [id number] Location: ER Room/Bed: Procedure: [id number] CT/CT ABDOMEN/PELVIS WO Exam Date: 02/09/20 Exam [...] MD 1304 Transcribed By: KASH on 02/09/20 1304 COPY TO: GUALBERTO VALLECILLO Sodium Level 2019-10-16 04:06:00 Test Item Sodium Level (test code = 2951-2) 138 136-145 [facility]Potassium Tzkgx8157-90-51 04:06:00* Test Item Value Reference Range Interpretation Comments Potassium Level (test code = 2823-3) 3.9 3.5-5.1 [facility] CenterChloride Bwimc0946-11-82 04:06:00* Test Item Value Reference Range Interpretation Comments Chloride Level (test code = 2075-0) 104 98-107 [facility] CenterCarbon Dioxide Bgzgu0161-10-08 04:06:00* Test Item Value Reference Range Interpretation Comments Carbon Dioxide Level (test code = 2028-9) 25 22-29 [facility] CenterAnion Les8892-51-51 04:06:00* Test Item Value Reference Range Interpretation Comments Anion Gap (test code = 56226-1) 12.9 8-16 [facility] CenterBlood Urea Wrgfjvbr9020-13-94 04:06:00* Test Item Value Reference Range Interpretation Comments Blood Urea Nitrogen (test code = 3094-0) 17 7-26 [facility] CenterCreatinine2020-01-07 04:06:00* Test Item Value Reference Range Interpretation Comments Creatinine (test code = 2160-0) 1.68 0.57-1.11 H [facility] CenterBUN/Creatinine Kkzzn8686-06-85 04:06:00* Test Item Value Reference Range Interpretation Comments BUN/Creatinine Ratio (test code = 3097-3) 10 6-25 [facility] CenterEstimat Glomerular Filtration Rate 2019-10-16 04:06:00* Test Item Value Reference Range Interpretation Comments Estimat Glomerular Filtration Rate (test code = 063372494) 29 >60 L Ranges were taken from the National Kidney Disease Education Program and the [facility] Kid[facility] Foundation literature.Reference ranges:60 or greater: Qmckth41-17 ( for 3 consecutive months): Chronic kidney disease 15 or less: Kidney failureThe [facility] of [facility]. Anderson Cancer CenterGlucose Piaas8506-62-78 04:06:00* Test Item Value Reference Range Interpretation Comments Glucose Level (test code = UOP2513) 148 74-118 H [facility] CenterCalcium Gpeuz0275-75-09 04:06:00* Test Item Value Reference Range Interpretation Comments Calcium Level (test code = 89314-5) 8.6 8.4-10.2 [facility] CenterWhite Blood Bifsm2740-23-71 04:05:00* Test Item Value Reference Range Interpretation Comments White Blood Count (test code = 6690-2) 8.70 4.8-10.8 [facility] CenterRed Blood Xrmep2072-10-85 04:05:00* Test Item Value Reference Range Interpretation Comments Red Blood Count (test code = 789-8) 3.28 3.6-5.1 L [facility] CenterHemoglobin2020-01-07 04:05:00* Test Item Value Reference Range Interpretation Comments Hemoglobin (test code = 10985-0) 10.1 12.0-16.0 L [facility] CenterHematocrit2020-01-07 04:05:00* Test Item Value Reference Range Interpretation Comments Hematocrit (test code = 4544-3) 31.4 34.2-44.1 L [facility] CenterMean Corpuscular Hqfhgv3968-22-60 04:05:00* Test Item Value Reference Range Interpretation Comments Mean Corpuscular Volume (test code = 787-2) 95.7 81-99 [facility] CenterMean Corpuscular Juatzntokp8515-75-89 04:05:00* Test Item Value Reference Range Interpretation Comments Mean Corpuscular Hemoglobin (test code = 785-6) 30.8 28-32 [facility] Hemoglobin Concent 2019-10-16 04:05:00* Test Item Value Reference Range Interpretation Comments Mean Corpuscular Hemoglobin Concent (test code = 786-4) 32.2 31-35 [facility] CenterRed Cell Distribution Mccqg4322-30-03 04:05:00* Test Item Value Reference Range Interpretation Comments Red Cell Distribution Width (test code = 69531-4) 14.3 11.7 -14.4 [facility] CenterPlatelet Dzfkg2443-93-27 04:05:00* Test Item Value Reference Range Interpretation Comments Platelet Count (test code = 777-3) 157 140-360 [facility] CenterNeutrophils (%) (Auto)2019-10-16 04:05:00 * Test Item Value Reference Range Interpretation Comments Neutrophils (%) (Auto) (test code = 53568-2) 80.7 38.7-80.0 H [facility] CenterLymphocytes (%) (Auto)2019-10-16 04:05:00 * Test Item Value Reference Range Interpretation Comments Lymphocytes (%) (Auto) (test code = 736-9) 7.5 18.0-39.1 L [facility] CenterMonocytes (%) (Auto)2019-10-16 04:05:00* Test Item Value Reference Range Interpretation Comments Monocytes (%) (Auto) (test code = 5905-5) 9.8 4.4-11.3 [facility] CenterEosinophils (%) (Auto)2019-10-16 04:05:00 * Test Item Value Reference Range Interpretation Comments Eosinophils (%) (Auto) (test code = 713-8) 0.8 0.0-6.0 [facility] CenterBasophils (%) (Auto)2019-10-16 04:05:00* Test Item Value Reference Range Interpretation Comments Basophils (%) (Auto) (test code = 706-2) 0.2 0.0-1.0 [facility] CenterIM GRANULOCYTES %2019-10-16 04:05:00* Test Item Value Reference Range Interpretation Comments IM GRANULOCYTES % (test code = IM GRANULOCYTES %) 1.0 0.0- 1.0 [facility] CenterNeutrophils # (Auto)2019-10-16 04:05:00* Test Item Value Reference Range Interpretation Comments Neutrophils # (Auto) (test code = 751-8) 7.0 2.1-6.9 H [facility] CenterLymphocytes # (Auto)2019-10-16 04:05:00* Test Item Value Reference Range Interpretation Comments Lymphocytes # (Auto) (test code = 30304-3) 0.7 1.0-3.2 L [facility] CenterMonocytes # (Auto)2019-10-16 04:05:00* Test Item Value Reference Range Interpretation Comments Monocytes # (Auto) (test code = 742-7) 0.9 0.2-0.8 H [facility] CenterEosinophils # (Auto)2019-10-16 04:05:00* Test Item Value Reference Range Interpretation Comments Eosinophils # (Auto) (test code = 711-2) 0.1 0.0-0.4 [facility] CenterBasophils # (Auto)2019-10-16 04:05:00* Test Item Value Reference Range Interpretation Comments Basophils # (Auto) (test code = 704-7) 0.0 0.0-0.1 [facility] CenterAbsolute Immature Granulocyte (auto 2019-10-16 04:05:00* Test Item Value Reference Range Interpretation Comments Absolute Immature Granulocyte (auto (betsy t code = Absolute Immature Granulocyte (auto) 0.09 0-0.1 [facility] CenterProcalcitonin2020-01-06 23:21:00* Test Item Value Reference Range Interpretation Comments Procalcitonin (test code = 630914483) 0.10 0.00-0.08 H A procalcitonin (PCT) level [...] concentrations <2 ng/mL are obtained.Performed at: - [facility] [address] [id number] Director: Jaswinder Barahona MD, Phone: [phone] [facility] HospitalBedbig [facility] Yfphsye5897-06-77 22:19:00* Test Item Value Reference Range Interpretation Comments Bedside Glucose (test code = 35420-1) 192 70-120 H Meter ID: [id number] [facility] HospitalCHEST SINGLE (PORTABLE)2019-10-15 17:29:00 [facility] [address] [place] [address] Patient Name: KURTIS MORALES MR #: [id number] : 1940 Age/Sex: 79/F Req #: [id number] Adm Physician: ÁNGEL VÁZQUEZ MD Ordered by: Valencia Mckeon FIRE DISPATCHER Report #: [id number] Location: MED/SURG2 Room/Bed: [facility] Procedure: [id number] DX /CHEST SINGLE (PORTABLE) Exam Date: 10/15/19 [...] MD 29 Transcribed By: KASH on 10/15/191729 BARREL RACER Y TO: VALENCIA MCKEON FIRE DISPATCHER CTA ABD/YRVBGA8986-38-83 16:11:00 [place] [address] Patient Name: KURTIS MORALES MR #: [id number] : 1940 Age/Sex: 79/F Req #: [id number] Adm Physician: ÁNGEL VÁZQUEZ MD Ordered by: Valencia Mckeon FIRE DISPATCHER Report #: [id number] Location: MED/SURG Room/Bed: [facility] Procedure: [id number] CT /CTA ABD/PELVIS Exam Date: 10/15/19 Exam [...] COPY TO: VALENCIA MCKEON NP Platelet Morphology Hqhjqnn3289-62-28 08:34:00* Test Item Value Reference Range Interpretation Comments Platelet Morphology Comment (test code = 07820-3) NO EDTA PLT CLUMP S SEEN [facility] CenterMagnesium Bhatp5644-78-77 05:10:00* Test Item Value Reference Range Interpretation Comments Magnesium Level (test code = 87439-0) 1.5 1.3-2.1 [facility] CenterTotal Qayyawpbq7254-15-95 05:10:00* Test Item Value Reference Range Interpretation Comments Total Bilirubin (test code = 1975-2) 0.2 0.2-1.2 [facility] Cancer CenterAspartate Amino Transf (AST/SGOT) 2019-10-15 05:10:00* Test Item Value Reference Range Interpretation Comments Aspartate Amino Transf (AST/SGOT) (test code = Aspartate Amino Transf (AST/SGOT)) 19 5-34 [facility] CenterAlanine Aminotransferase (ALT/SGPT) 2019-10-15 05:10:00* Test Item Value Reference Range Interpretation Comments Alanine Aminotransferase (ALT/SGPT) (test code = 1742-6) 19 0-55 [facility] Cancer CenterTotal Gpfibos1223-88-87 05:10:00* Test Item Value Reference Range Interpretation Comments Total Protein (test code = 2885-2) 4.7 6.5-8.1 L [facility] CenterAlbumin2020-01-06 05:10:00* Test Item Value Reference Range Interpretation Comments Albumin (test code = 1751-7) 2.6 3.5-5.0 L [facility] CenterGlobulin2020-01-06 05:10:00* Test Item Value Reference Range Interpretation Comments Globulin (test code = 66982-7) 2.1 2.3-3.5 L [facility] CenterAlbumin/Globulin Hntjz6725-59-72 05:10:00 * Test Item Value Reference Range Interpretation Comments Albumin/Globulin Ratio (test code = 1759-0) 1.2 0.8-2.0 [facility] CenterAlkaline Txtoinuhchf3761-94-36 05:10:00* Test Item Value Reference Range Interpretation Comments Alkaline Phosphatase (test code = 6768-6) 65 40-150 [facility] CenterClostridium Difficile Toxin A & B 2019-10-13 12:31:00* Test Item Value Reference Range Interpretation Comments Clostridium Difficile Toxin A & B (test code = 486216882) NEGATIVE NEGATIVE Testing on stool aspirate specimens is outside buffing wheel raker claims since specime n type not validated on this assay.[facility] Phosphorus Kimsx5368-05-76 04:33:00* Test Item Value Reference Range Interpretation Comments Phosphorus Level (test code = WZG0004) 3.7 2.3-4.7 [facility] IK2360-22-24 22:14:00 [facility] [address] [address] Patient Name: KURTIS MORALES MR #: [id number] : 1940 Age/Sex: 79/F Req #: [id number] Adm Physician: ÁNGEL VÁZQUEZ MD Ordered by: Valencia Mckeon NP Report #: [id number] Location: MED/SURG2 Room/Bed: [facility] Procedure: [id number] CT /CT CHEST WO Exam Date: 10/12/19 [...] TO: VALENCIA LOPEZ SE, NP CT ABDOMEN/PELVIS LL7890-00-44 22:14:00 [address] [address] Patient Name: KURTIS MORALES MR #: [id number] : 1940 Age/Sex: 79/F Req #: [id number] Adm Physician: ÁNGEL VÁZQUEZ MD Ordered by: KOMAL GUPTA MD Report #: [id number] Location: MED/SURG2 Room/Bed: [facility] Procedure: [id number] CT/C T ABDOMEN/PELVIS WO Exam Date: 10/12/19 [...] DO 07 Transcribed By: KASH on 10/13/19 0706 COPY TO: KOMAL GUPTA MD MRI BRAIN BE4105-24-45 12:34:00 [address] [place] [address] Patient Name: KURTIS MORALES MR #: [id number] : 1940 Age/Sex: 79/F Req #: [id number] Adm Physician: ÁNGEL VÁZQUEZ MD Ordered by: ROLY CHAVEZ DO Report #: [id number] Location: [facility] Room/Bed: [place] [address] Procedure: [id number] MRI/ MRI BRAIN WO Exam Date: Exam [...] COPY TO: ROLY CHAVEZ DO Arterial Blood sV1881-70-29 07:52:00* Test Item Value Reference Range Interpretation Comments Arterial Blood pH (test code = 2744-1) 7.36 7.31-7.41 [facility] CenterArterial Blood Partial Pressure CO2 2019-10-12 07:52:00* Test Item Value Reference Range Interpretation Comments Arterial Blood Partial Pressure CO2 (test code = 2019-05) 38 41-51 L [facility] CenterArterial Blood Partial Pressure O2 2019-10-12 07:52:00* Test Item Value Reference Range Interpretation Comments Arterial Blood Partial Pressure O2 (test code = 2019-05) 145 80-105 H [facility] CenterArterial Blood KOW18215-56-36 07:52:00* Test Item Value Reference Range Interpretation Comments Arterial Blood HCO3 (test code = 1960-4) 21 23-28 L [facility] CenterArterial Blood Base Vojvwu5232-07-90 07:52:00* Test Item Value Reference Range Interpretation Comments Arterial Blood Base Excess (test code = 1925-7) -5.0 -2-3 L [facility] CenterArterial Blood Oxygen Saturation 2019-10-12 07:52:00* Test Item Value Reference Range Interpretation Comments Arterial Blood Oxygen Saturation (test code = 2708-6) 99.0 95-98 H [facility] CenterFiO22020-01-03 07:52:00* Test Item Value Reference Range Interpretation Comments FiO2 (test code = FiO2) 21 ROOM AIRThe [facility] CenterAmmonia2020-01-03 07:12:00* Test Item Value Reference Range Interpretation Comments Ammonia (test code = 65954-3) 33 31-123 [facility] CenterCT BRAIN MD8060-19-50 05:25:00 [address] [place] [address] Patient Name: KURTIS MORALES MR #: [id number] : 1940 Age/Sex: 79/F Req #: [id number] Adm Physician: ÁNGEL VÁZQUEZ MD Ordered by: ROLY CHAVEZ DO Report #: [id number] Location: [facility] Room/Bed: [place] [address] Procedure: [id number] CT/C T BRAIN WO Exam Date: 10/12/19 [...] Comments B-Type Natriuretic Peptide (test code = 07924-9) 760.2 0-100 H [facility] HospitalCHES SINGLE (PORTABLE)2019-10-12 04:06:00 [address] [place] [address] Patient Name: KURTIS MORALES MR #: [id number] : 1940 Age/Sex: 79/F Req #: [id number] Adm Physician: ÁNGEL VÁZQUEZ MD Ordered by: ROLY CHAVEZ DO Report #: [id number] Location: [facility] Room/Bed: [place] [address] Procedure: [id number] DX/C HEST SINGLE (PORTABLE) Exam Date: 10/12/19 [...] 10/12/19508 COPY TO: ROLY CHAVEZ DO Urine ZUQ4245-89-90 03:50:00* Test Item Value Reference Range Interpretation Comments Urine WBC (test code = 5821-4) 11-20 0-5 H [facility] HospitalUrine ZQV1567-43-31 03:50:00* Test Item Value Reference Range Interpretation Comments Urine RBC (test code = 16605-5) 11-20 0-5 H [facility] CenterUrine Vobionhh8440-14-19 03:50:00* Test Item Value Reference Range Interpretation Comments Urine Bacteria (test code = 59200-2) MANY NONE H [facility] CenterUrine Epithelial Nrhes3317-33-75 03:50:00 * Test Item Value Reference Range Interpretation Comments Urine Epithelial Cells (test code = 60700-6) FEW NONE [facility] CenterUrine Amorphous Nelxibsn4459-86-38 03:50:00* Test Item Value Reference Range Interpretation Comments Urine Amorphous Sediment (test code = 8246-1) MANY FEW H [facility] CenterUrine Drxli3261-81-52 03:41:00* Test Item Value Reference Range Interpretation Comments Urine Color (test code = 5778-6) YELLOW YELLOW [facility] CenterUrine Crvndji8689-85-98 03:41:00* Test Item Value Reference Range Interpretation Comments Urine Clarity (test code = 23838-9) CLOUDY CLEAR H [facility] CenterUrine Specific Isntypn3888-04-95 03:41:00 * Test Item Value Reference Range Interpretation Comments Urine Specific Henrietta (test code = 5811-5) >=1.030 1.010-1.02 5 [facility] CenterUrine aT4282-48-15 03:41:00* Test Item Value Reference Range Interpretation Comments Urine pH (test code = 07484-6) 5.5 5-7 [facility] CenterUrine Leukocyte Turydpne5016-82-27 03:41:00* Test Item Value Reference Range Interpretation Comments Urine Leukocyte Esterase (test code = 92843-9) TRACE NEGATIV E H [facility] CenterUrine Geuvlkx9784-64-90 03:41:00* Test Item Value Reference Range Interpretation Comments Urine Nitrite (test code = 52198-0) NEGATIVE NEGATIVE [facility] CenterUrine Nsvsauw5344-59-20 03:41:00* Test Item Value Reference Range Interpretation Comments Urine Protein (test code = 41639-2) 2+ NEGATIVE [facility] Glucose (UA)2019-10-12 03:41:00* Test Item Value Reference Range Interpretation Comments Urine Glucose (UA) (test code = 50091-9) NEGATIVE NEGATIVE [facility] CenterUrine Gyzpspy9232-75-54 03:41:00* Test Item Value Reference Range Interpretation Comments Urine Ketones (test code = 44096-0) 1+ NEGATIVE H [facility] CenterUrine Yhbrfqprrbmw5274-44-84 03:41:00* Test Item Value Reference Range Interpretation Comments Urine Urobilinogen (test code = 25943-3) 0.2 0.2-1 [facility] CenterUrine Tnnignlyo1603-41-86 03:41:00* Test Item Value Reference Range Interpretation Comments Urine Bilirubin (test code = 1977-8) NEGATIVE NEGATIVE [facility] CenterUrine Uhgmx7071-32-56 03:41:00* Test Item Value Reference Range Interpretation Comments Urine Blood (test code = 92802-8) TRACE NEGATIVE [facility] CenterCreatine Kinase ZY1785-96-38 03:27:00* Test Item Value Reference Range Interpretation Comments Creatine Kinase MB (test code = 37704-1) 3.00 0-5.0 [facility] CenterTroponin P1379-16-73 03:27:00* Test Item Value Reference Range Interpretation Comments Troponin I (test code = MXA0230) 0.009 0-0.300 [facility] CenterCreatine Nwevjn1193-89-22 03:15:00* Test Item Value Reference Range Interpretation Comments Creatine Kinase (test code = 2157-6) 160 29-168 [facility] CenterBedside Khlexaw1259-51-23 11:40:00* Test Item Value Reference Range Interpretation Comments Bedside Glucose (test code = 27252-1) 147 70-120 H Meter ID: [id number] [facility]odium Level 2019-10-08 04:21:00* Test Item Value Reference Range Interpretation Comments Sodium Level (test code = 2951-2) 140 136-145 [facility] CenterPotassium Vachp2305-31-78 04:21:00* Test Item Value Reference Range Interpretation Comments Potassium Level (test code = 2823-3) 3.8 3.5-5.1 [facility] CenterChloride Xrdqy4618-95-34 04:21:00* Test Item Value Reference Range Interpretation Comments Chloride Level (test code = 2075-0) 110 98-107 H [facility] CenterCarbon Dioxide Snwmc2768-28-72 04:21:00* Test Item Value Reference Range Interpretation Comments Carbon Dioxide Level (test code = 2028-9) 17 22-29 L [facility] CenterAnion Haf3454-04-73 04:21:00* Test Item Value Reference Range Interpretation Comments Anion Gap (test code = 38097-7) 16.8 8-16 H [facility] CenterBlood Urea Omnytztr8931-80-04 04:21:00* Test Item Value Reference Range Interpretation Comments Blood Urea Nitrogen (test code = 3094-0) 19 7-26 [facility] CenterCreatinine2019-12-30 04:21:00* Test Item Value Reference Range Interpretation Comments Creatinine (test code = 2160-0) 1.40 0.57-1.11 H [facility] CenterBUN/Creatinine Ukoun7508-59-81 04:21:00* Test Item Value Reference Range Interpretation Comments BUN/Creatinine Ratio (test code = 3097-3) 14 6-25 [facility] CenterEstimat Glomerular Filtration Rate 2019-10-08 04:21:00* Test Item Value Reference Range Interpretation Comments Estimat Glomerular Filtration Rate (test code = 230292019) 36 >60 L Ranges were taken from the National Kidney Disease Education Program and the [facility] Kidney Foundation literature.Reference ranges:60 or greater: Bnxpvq06-77 ( for 3 consecutive months): Chronic kidney disease 15 or less: Kidney failureThe University of [facility] M.[facility]. Anderson Cancer CenterGlucose Posaf4107-28-24 04:21:00* Test Item Value Reference Range Interpretation Comments Glucose Level (test code = HWT6464) 75 74-118 [facility] CenterCalcium Rzgut8000-05-39 04:21:00* Test Item Value Reference Range Interpretation Comments Calcium Level (test code = 81567-6) 8.0 8.4-10.2 L [facility] CenterWhite Blood Wrbkr1338-01-47 04:00:00* Test Item Value Reference Range Interpretation Comments White Blood Count (test code = 6690-2) 8.52 4.8-10.8 [facility] CenterRed Blood Ffrre1247-02-01 04:00:00* Test Item Value Reference Range Interpretation Comments Red Blood Count (test code = 789-8) 4.04 3.6-5.1 [facility] CenterHemoglobin2019-12-30 04:00:00* Test Item Value Reference Range Interpretation Comments Hemoglobin (test code = 42561-8) 12.4 12.0-16.0 [facility] CenterHematocrit2019-12-30 04:00:00* Test Item Value Reference Range Interpretation Comments Hematocrit (test code = 4544-3) 38.4 34.2-44.1 [facility] CenterMean Corpuscular Iosblt5041-11-54 04:00:00* Test Item Value Reference Range Interpretation Comments Mean Corpuscular Volume (test code = 787-2) 95.0 81-99 [facility] CenterMean Corpuscular Rchnsdzqnt5967-25-99 04:00:00* Test Item Value Reference Range Interpretation Comments Mean Corpuscular Hemoglobin (test code = 785-6) 30.7 28-32 [facility] CenterMean Corpuscular Hemoglobin Concent 2019-10-08 04:00:00* Test Item Value Reference Range Interpretation Comments Mean Corpuscular Hemoglobin Concent (test code = 786-4) 32.3 31-35 [facility] CenterRed Cell Distribution Qzkcd5827-11-71 04:00:00* Test Item Value Reference Range Interpretation Comments Red Cell Distribution Width (test code = 80827-7) 13.4 11.7 -14.4 [facility] CenterPlatelet Bwrlr6484-33-89 04:00:00* Test Item Value Reference Range Interpretation Comments Platelet Count (test code = 777-3) 68 140-360 L [facility] CenterNeutrophils (%) (Auto)2019-10-08 04:00:00 * Test Item Value Reference Range Interpretation Comments Neutrophils (%) (Auto) (test code = 54514-9) 77.8 38.7-80.0 [facility] CenterLymphocytes (%) (Auto)2019-10-08 04:00:00 * Test Item Value Reference Range Interpretation Comments Lymphocytes (%) (Auto) (test code = 736-9) 10.9 18.0-39.1 L [facility] CenterMonocytes (%) (Auto)2019-10-08 04:00:00* Test Item Value Reference Range Interpretation Comments Monocytes (%) (Auto) (test code = 5905-5) 8.8 4.4-11.3 [facility] CenterEosinophils (%) (Auto)2019-10-08 04:00:00 * Test Item Value Reference Range Interpretation Comments Eosinophils (%) (Auto) (test code = 713-8) 1.1 0.0-6.0 [facility] CenterBasophils (%) (Auto)2019-10-08 04:00:00* Test Item Value Reference Range Interpretation Comments Basophils (%) (Auto) (test code = 706-2) 0.5 0.0-1.0 [facility] CenterIM GRANULOCYTES %2019-10-08 04:00:00* Test Item Value Reference Range Interpretation Comments IM GRANULOCYTES % (test code = IM GRANULOCYTES %) 0.9 0.0- 1.0 [facility] CenterNeutrophils # (Auto)2019-10-08 04:00:00* Test Item Value Reference Range Interpretation Comments Neutrophils # (Auto) (test code = 751-8) 6.6 2.1-6.9 [facility] CenterLymphocytes # (Auto)2019-10-08 04:00:00* Test Item Value Reference Range Interpretation Comments Lymphocytes # (Auto) (test code = 55658-6) 0.9 1.0-3.2 L [facility] CenterMonocytes # (Auto)2019-10-08 04:00:00* Test Item Value Reference Range Interpretation Comments Monocytes # (Auto) (test code = 742-7) 0.8 0.2-0.8 [facility] CenterEosinophils # (Auto)2019-10-08 04:00:00* Test Item Value Reference Range Interpretation Comments Eosinophils # (Auto) (test code = 711-2) 0.1 0.0-0.4 [facility] CenterBasophils # (Auto)2019-10-08 04:00:00* Test Item Value Reference Range Interpretation Comments Basophils # (Auto) (test code = 704-7) 0.0 0.0-0.1 [facility] CenterAbsolute Immature Granulocyte (auto 2019-10-08 04:00:00* Test Item Value Reference Range Interpretation Comments Absolute Immature Granulocyte (auto (betsy t code = Absolute Immature Granulocyte (auto) 0.08 0-0.1 [facility] CenterHIP LEFT 2-3 VW (+/- PELVIS)2019-10-07 00:25:00 [facility] [address] [place] [address] Patient Name: KURTIS MORALES MR #: [id number] : 1940 Age/Sex: 79/F Req #: [id number] Adm Physician: ÁNGEL VÁZQUEZ MD Ordered by: KATY GUEVARA FIRE DISPATCHER Report #: [id number] Location: ICU Room/Bed: [place] [address] Procedure: [id number] DX/ HIP LEFT 2-3 VW (+/- PELVIS) [...] KASH on 10/07/1931 COPY TO: KATY GUEVARA FIRE DISPATCHER Free Thyroxine 2019-10-06 16:23:00* Test Item Value Reference Range Interpretation Comments Free Thyroxine (test code = 3024-7) 0.76 0.8-1.8 L [facility] CenterFree Qlbhjbirg6162-48-84 16:23:00* Test Item Value Reference Range Interpretation Comments Free Thyroxine (test code = 3024-7) 0.76 0.8-1.8 L [facility] CenterCHEST 2 URGEN3644-24-62 10:51:00 [place] [address] Patient Name: KURTIS MORALES MR #: [id number] : 1940 Age/Sex: 79/F Req #: [id number] Adm Physician: ÁNGEL VÁZQUEZ MD Ordered by: CHARLENE FERNANDES MD Report #: [id number] Location: ICU Room/Bed: ICU [facility] Procedure: [id number] DX/CH EST 2 VIEWS Exam Date: 10/06/19 [...] 10:52 AM Dictated By: LEANNE Eaton MD 1052 Transcribe d By: KASH on 10/06/19 1052 COPY TO: CHARLENE FERNANDES MD Total Gmjyggbqu1345-45-84 06:20:00* Test Item Value Reference Range Interpretation Comments Total Bilirubin (test code = 1975-2) 0.2 0.2-1.2 [facility] CenterAspartate Amino Transf (AST/SGOT) 2019-10-06 06:20:00* Test Item Value Reference Range Interpretation Comments Aspartate Amino Transf (AST/SGOT) (test code = Aspartate Amino Transf (AST/SGOT)) 21 5-34 [facility] CenterAlanine Aminotransferase (ALT/SGPT) 2019-10-06 06:20:00* Test Item Value Reference Range Interpretation Comments Alanine Aminotransferase (ALT/SGPT) (test code = 1742-6) 20 0-55 [facility] CenterTotal Chajsjt1120-21-22 06:20:00* Test Item Value Reference Range Interpretation Comments Total Protein (test code = 2885-2) 5.1 6.5-8.1 L [facility] CenterAlbumin2019-12-28 06:20:00* Test Item Value Reference Range Interpretation Comments Albumin (test code = 1751-7) 3.0 3.5-5.0 L [facility] CenterGlobulin2019-12-28 06:20:00* Test Item Value Reference Range Interpretation Comments Globulin (test code = 06439-7) 2.1 2.3-3.5 L [facility] CenterAlbumin/Globulin Syoek1125-20-76 06:20:00 * Test Item Value Reference Range Interpretation Comments Albumin/Globulin Ratio (test code = 1759-0) 1.4 0.8-2.0 [facility] CenterAlkaline Iikvhdmwbdr8185-90-24 06:20:00* Test Item Value Reference Range Interpretation Comments Alkaline Phosphatase (test code = 6768-6) 56 40-150 [facility] CenterB-Type Natriuretic Coqjaoq4181-37-91 04:00:00* Test Item Value Reference Range Interpretation Comments B-Type Natriuretic Peptide (test code = 88663-4) 163.9 0-100 H [facility] CenterThyroid Stimulating Hormone (TSH) 2019-10-06 03:56:00* Test Item Value Reference Range Interpretation Comments Thyroid Stimulating Hormone (TSH) (test code = 91138-4) 4.172 0.350-4.940 [facility] CenterThyroid Stimulating Hormone (TSH) 2019-10-06 03:56:00* Test Item Value Reference Range Interpretation Comments Thyroid Stimulating Hormone (TSH) (test code = 96062-8) 4.172 0.350-4.940 [facility] CenterHemoglobin A1c Nscdkdt6513-70-20 03:31:00 * Test Item Value Reference Range Interpretation Comments Hemoglobin A1c Percent (test code = Hemoglobin A1c Percent) 6.7 4.0-7.0 [facility] CenterMagnesium Grqxv4797-05-43 03:31:00* Test Item Value Reference Range Interpretation Comments Magnesium Level (test code = 89598-8) 1.5 1.3-2.1 [facility] CenterHemoglobin A1c Ziroxtw8730-02-46 03:31:00 * Test Item Value Reference Range Interpretation Comments Hemoglobin A1c Percent (test code = Hemoglobin A1c Percent) 6.7 4.0-7.0 [facility] CenterCT ABDOMEN/PELVIS UM0447-51-38 16:37:00 [facility] [address] [address] Patient Name: KURTIS MORALES MR #: [id number] : [birth year] Age/Sex: 79/F Re #: [id number] Adm Physician: ÁNGEL VÁZQUEZ MD Ordered by: Valencia Mckeon NP Report #: [id number] Location: ICU Room/Bed: ICU 196-1 Procedure: [id number] CT /CT ABDOMEN/PELVIS WO Exam Date: 10/05/19 [...] MCKEON NP Clostridium Difficile Toxin A & H1700-24-79 14:43:00* Test Item Value Reference Range Interpretation Comments Clostridium Difficile Toxin A & B (test code = 436800693) NEGATIVE NEGATIVE Testing on stool aspirate specimens is outside buffing wheel raker claims since specime n type not validated on this assay.[facility] CenterUrine NGJ1235-81-36 04:34:00* Test Item Value Reference Range Interpretation Comments Urine WBC (test code = 5821-4) 6-10 0-5 H [facility] CenterUrine FYW8087-79-26 04:34:00* Test Item Value Reference Range Interpretation Comments Urine RBC (test code = 03682-8) 6-10 0-5 H [facility] CenterUrine Kbzcqrhu6554-82-13 04:34:00* Test Item Value Reference Range Interpretation Comments Urine Bacteria (test code = 50014-4) MANY NONE H [facility] CenterUrine Epithelial Giamq6785-01-89 04:34:00 * Test Item Value Reference Range Interpretation Comments Urine Epithelial Cells (test code = 19020-1) FEW NONE [facility] CenterUrine Renal Epithelial Pmovp1583-89-24 04:34:00* Test Item Value Reference Range Interpretation Comments Urine Renal Epithelial Cells (test code = 81824-7) FEW NON E H [facility] CenterUrine Amorphous Xihjmzxa7478-83-13 04:34:00* Test Item Value Reference Range Interpretation Comments Urine Amorphous Sediment (test code = 8246-1) FEW FEW [facility] CenterUrine Hyaline Dagvd8903-72-34 04:34:00* Test Item Value Reference Range Interpretation Comments Urine Hyaline Casts (test code = 43288-5) 2-5 0-1 H [facility] CenterUrine Renal Epithelial Mvnom5238-94-55 04:34:00* Test Item Value Reference Range Interpretation Comments Urine Renal Epithelial Cells (test code = 85165-9) FEW NON E H [facility] CenterUrine Hyaline Eondg2308-62-13 04:34:00* Test Item Value Reference Range Interpretation Comments Urine Hyaline Casts (test code = 52378-3) 2-5 0-1 H [facility] CenterUrine Dmgkd8810-34-25 04:19:00* Test Item Value Reference Range Interpretation Comments Urine Color (test code = 5778-6) YELLOW YELLOW [facility] CenterUrine Emlejrv7228-30-82 04:19:00* Test Item Value Reference Range Interpretation Comments Urine Clarity (test code = 44734-9) CLEAR CLEAR [facility] CenterUrine Specific Pbiccgx1433-63-04 04:19:00 * Test Item Value Reference Range Interpretation Comments Urine Specific Henrietta (test code = 5811-5) 1.025 1.010-1.02 5 [facility] CenterUrine uZ6520-22-50 04:19:00* Test Item Value Reference Range Interpretation Comments Urine pH (test code = 54666-0) 5.5 5-7 [facility] CenterUrine Leukocyte Wrmzfykd6367-46-00 04:19:00* Test Item Value Reference Range Interpretation Comments Urine Leukocyte Esterase (test code = 16912-9) NEGATIVE NEGATIV E [facility] CenterUrine Hroxngo9350-48-88 04:19:00* Test Item Value Reference Range Interpretation Comments Urine Nitrite (test code = 50699-2) NEGATIVE NEGATIVE [facility] CenterUrine Qiqhzrc0411-87-00 04:19:00* Test Item Value Reference Range Interpretation Comments Urine Protein (test code = 85100-9) 2+ NEGATIVE H [facility] Glucose (UA)2019-10-05 04:19:00* Test Item Value Reference Range Interpretation Comments Urine Glucose (UA) (test code = 73284-2) 1+ NEGATIVE H [facility] Vmgiuyo8228-15-40 04:19:00* Test Item Value Reference Range Interpretation Comments Urine Ketones (test code = 87161-3) NEGATIVE NEGATIVE [facility] Achsvssavzps8210-65-85 04:19:00* Test Item Value Reference Range Interpretation Comments Urine Urobilinogen (test code = 51280-6) 0.2 0.2-1 [facility] Kylysgpne1695-64-06 04:19:00* Test Item Value Reference Range Interpretation Comments Urine Bilirubin (test code = 1977-8) NEGATIVE NEGATIVE [facility] Yxjhm4839-26-05 04:19:00* Test Item Value Reference Range Interpretation Comments Urine Blood (test code = 27396-3) NEGATIVE NEGATIVE [facility] CenterURINALYSIS OFHPXNBK4443-27-08 18:42:00* Test Item Value Reference Range Interpretation [...] per LPF 0-2 Urine Source? Clean CatchURINALYSIS KXLWSRXW0072-70-91 18:33:00* Test Item Value Reference Range Interpretation [...] Source? Clean Catch- CT ABD PELVIS W/O COUO9932-04-57 18:16:00 Name: KURTIS MORALES [facility] : 1940 Age/S: 79 / F [address] [facility] Unit #: [id number] Loc: [place], [place] [address] Phys: Andres Love MD Acct: [id number] Di s Date: Status: REG ER PHONE #: [phone] Exam Date: 10/02/2019 1800 FAX #: Reason: epigastric abdominal pain EXAMS: CPT CODE: [id number] CT ABD PELVIS W/O CONT 07015 HISTORY: Epigastric and a bdominal pain. COMPARISON: [...] Signed Report (CONTINUED) Name: KURTIS CHU [facility] : 1940 Age/S: 79 / F [address] [facility] Unit #: [id number] Lo c: [place] [address] Phys: Olvin Love MD Acct: [id number] Dis Date: Status: REG ER PHONE #: [phone] Exam Date: 10/02/2019 1807 FAX #: [phone] Reas on: epigastric abdominal pain EXAMS: CPT CODE: [id number] CT ABD PELVIS W/O CONT 56094 <Continued> No hydroureteronephrosis or calyceal stones with decompressed urinary bladder. Appendix is not visible however no inflammatory changes. No bowel obstruction or colitis or diverticulitis or enteritis. Mild sigmoid diverticulosis. No free fluid or free air. at 1816 Reported and signed by: Harvey Ford M.D. CC: Adonis David Nicholos MD Techn ologist:Kristy Paredes CTDI: DLP: Trnscb Date/Jose e: 10/02/2019 (1816) tSALR. Orig Print D/T: S: 019 (1820) PAGE 2 Signed Report [id number] 17:58:00* Test Item Value Reference Range Interpretation Comments TROPONIN-I (test code = TROPI) <0.015 ng/mL 0.00-0.056 N - XR CHEST 2 [id number] 17:16:00 Name: KURTIS MORALES [facility] : 1940 Age/S:79 /F [address] [facility] Unit#:[id number] Loc: [place] [address] Phys: Olvin Love MD Dis Date: PHONE #: [phone] Status: REG ER FAX #: [phone] Exam Date: 10/02/2019 Reason: SOB EXAMS: CPT CODE: [id number] XR CHEST 2 V 56605 HISTORY: Shortness of breath. COMPARISON: Chest x- [...] S: 10/02/2019 (1720) PAGE 1 Signed Report [id number] 17:15:00* Test Item Value Reference Range Interpretation Comments LIPASE (test code = LIP) 256 U/L 128-270 N BASIC METABOLIC [id number] 17:08:00* Test Item Value Reference Range Interpretation [...] CA) 9.0 mg/dL 8.4-10.2 N HEPATIC FUNCTION [id number] 17:08:00* Test Item Value Reference Range Interpretation [...] code = ALKP) 79 U/L 38-126 N [id number] 17:08:00* Test Item Value Reference Range Interpretation Comments TROPONIN-I (test code = TROPI) <0.015 ng/mL 0.00-0.056 N B-TYPE NATRIURETIC [id number] 17:06:00* Test Item Value Reference Range Interpretation Comments B-TYPE NATRIURETIC PEPTIDE (test code = BNP) 456 pg/mL 0-100 H BASIC METABOLIC [id number] 17:06:00* Test Item Value Reference Range Interpretation [...] CA) 9.0 mg/dL 8.4-10.2 N HEPATIC FUNCTION [id number] 17:06:00* Test Item Value Reference Range Interpretation [...] TOTAL (test code = ALKP) IUnit/L 45-117 [id number] 17:06:00* Test Item Value Reference Range Interpretation Comments TROPONIN-I (test code = TROPI) ng/mL 0-0.045 CBC W/O [id number] 16:52:00* Test Item Value Reference Range Interpretation [...] code = MPV) 11.4 fL 6.7-11.0 H JPLOETQNXO3810-33-73 10:33:009.9[facility] JcsifanWJYRAVUAPW2029-76-60 10:33:00 15.3[facility] QzkqfwaEKWAYWPIHG1349-98-21 10:33:0033.6[facility]annHEMATOLOGY 2017-07-27 10:33:48721Iohnlxrf FnbywdkKRXSVZRSPU6364-68-20 10:33:0010.1[facility] FsyjobbMREIWTOOHG1353-57-65 10:33:0030.0[facility] NamlleuTLAUAMMDYP9608-05-20 10:33:00* Test Item Value Reference Range Interpretation Comments MCH (test code = MCH) 30.6 pg 27.0-31.0 [facility] MvjxynfYIZKRTKKMI2435-81-62 10:33:0091.1[facility] HermannHEMATOLOGY 2017-07-27 10:33:0013.2[facility] CamqrxyTEQRWOPZMP2400-82-97 10:33:003.29[facility] HvvdzqhYFGPVMETWY3461-70-61 10:33:006.8[facility] AivouctQOWNLQMOKI0787-49-91 10:33:0083.9[facility] QjeocrvSLUEGEVFWE3084-66-62 10:33:008.2[facility] OCDGWGVRKA0762-75-91 10:33:000.1[facility] RcmzgqiWRBUGMBGVP1096-94-82 10:33:000.9 [facility] UygtqajLJSFGOMCBH2506-22-87 10:33:000.1[facility]annHEMATOLOGY 2017-07-27 10:33:001.1[facility] HjaaqzgPZRLMUXBIP5545-22-94 10:33:0011.1[facility] TrbrkmgEXBRRSQBWD6222-92-52 10:33:000.6[facility] AgkfdapCDSBPZHSLJ4302-89-80 10:33:000.5[facility] HermannCHEM OGWJS3429-23-58 08:58:003.2[facility] HermannCHEM KQCFU1798-76-52 08:58:002.1[facility] HsrelrkBYEQSKIVAOHT6394-45-99 08:58:0014.3 [facility] HwjxrfrYFISMLLMMDQC8954-21-25 08:58:003.3[facility] HermannELECTROLYTES 2017-07-27 08:58:00068Jafsnqgm IphpktbGZKMAKBGDDLL4980-23-70 08:58:0043[facility] QwbqvcoBFALEPUUWBOW4951-43-70 08:58:001.78[facility] HisbovqJWRHZJSLXZHR8178-05-48 08:58:008.1[facility] SbiggugDKJUORMRUJFR7099-30-99 08:58:0021[facility] QHGWFBRUYUQW4593-59-28 08:58:11434Agqybtxw KludustDXSUZEFUTNEM9313-18-36 08:58:67820Eavatvjt QgmvhdeXKPVDUGAPAUY5533-41-08 08:58:0027[facility] CARDIAC VUUOHJG8081-48-96 08:37:000.95[facility] HermannCHEM NWWES1793-67-13 08:37:002.2[facility] YfbbnppYECYGYDMSNKV5983-90-66 08:37:0020.4[facility] HKCMJXZOUBWC3925-57-65 08:37:0044[facility] RtcxzunHETGKIVODOKU5051-02-80 08:37:00 1.17[facility] JudmpzhAFGGXWEOCMBY1833-25-32 08:37:004.4[facility] AEBLGIKUDDQZ2903-93-48 08:37:84728Zpsxibmt WrijrqbWKYIWQAXHYEL0495-12-61 08:37:31069Eyzxtqpz GbzomjsFBRHHJQOVYUS1738-92-53 08:37:0019[facility] FKLXOHTUDGSL5490-35-61 08:37:008.2[facility] IcdkkrqCBUSIHMWBPWI5936-90-59 08:37:29952Ubfbvena EdbldayOMBDMGKHDYSC6741-58-71 08:37:0027[facility] OJJTOSEECL5346-00-57 08:37:000.5[facility] MdfyoeyGMFUBWOUPP7125-23-90 08:37:001+ *ABN*(07/26/17 3:37 AM)[facility] KdgpyplQHQFFPFEFY1385-48-67 08:37:000.6[facility] OyxvtocQWEWAFEHFN0523-96-26 08:37:0014.8[facility] RrtiespTNZPGJPIMC4300-25-88 08:37:003.3[facility] CdmttutSPKEFWPBVO2975-10-49 08:37:000.1[facility] AGRCTLFLOO7472-88-23 08:37:003.6[facility] MpfbsinKHKQGPLRKI7522-54-57 08:37:00 92.8[facility] AoszkyeNAVZKUSPFP9271-03-24 08:37:000.2[facility] HermannHEMATOLOGY 2017-07-26 08:37:0011.1[facility] YdwxfebAUHGETOKNV2575-78-71 08:37:68318Xcdulmzk PzkuodpOQBAVSTSUW4011-71-32 08:37:0033.2[facility] EyglnfgNBWSEQVAIG9201-92-50 08:37:00* Test Item Value Reference Range Interpretation Comments MCH (test code = MCH) 30.2 pg 27.0-31.0 [facility] JnvjxzbCAUORCOZDU3809-58-12 08:37:0092.2[facility] HermannHEMATOLOGY 2017-07-26 08:37:0014.9[facility] VitwjpsVHNWYBRUOH2695-43-70 08:37:0032.7[facility] LsfbtpqYQCBCPDCHS8763-56-69 08:37:0010.9[facility] LzcnsewPCUDNAJLMH9591-54-43 08:37:003.60[facility] McrzmttRTITPEXZSH5226-14-82 08:37:0016.0[facility] BACTERIAL - LCOQKVAA3959-27-91 02:47:00Urine *NA*(07/25/17 9:47 PM)[facility] HermannBACTERIAL - MXDXDTMZ4379-47-56 02:47:00Negative (07/25/17 9:47 PM) [facility]annCARDIAC ECNMRZM0127-82-80 02:47:001.31[facility] HermannCHEM PANEL 2017-07-26 02:47:002.2[facility] HermannCHEM BKXZI3730-93-30 02:47:0012.0[facility] EzfsrtlGBGPSVODJLAO3154-92-51 02:47:35729Pmhhknlr QfivfsgNABKOFDLPMVV4887-78-66 02:47:001.17[facility] KcezvsxOCQVKHILGLYX8374-83-39 02:47:30259Xgmusqlq [place] JLEUYIYJEPEZ2955-52-01 02:47:0025[facility] AtasbjgGZJKUSADNYYP1812-06-91 02:47:00 3.5[facility] QpcxvqzMOSTUUCEHAIQ9759-93-36 02:47:0020[facility] HermannELECTROLYTES 2017-07-26 02:47:008.7[facility] BfmxvmgTMLVTMDZTVID1997-67-16 02:47:0019.5 [facility] SskrziuFBVBQWFWAIFT8540-50-58 02:47:0044[facility] HermannELECTROLYTES 2017-07-26 02:47:84941Khapltnm HermannBODY KKEVIR3504-14-73 21:00:0058[facility] HermannBODY RADGKE1868-23-64 21:00:0048[facility] HermannBODY JIZOOI5113-91-57 21:00:001[facility] HermannBODY RCKBRW8163-96-07 21:00:00Colorless (07/25/17 4:00 PM)[facility] HermannBODY RJIXKM5540-15-62 21:00:00Clear (07/25/17 4:00 PM) [facility] HermannBODY SBAZSU3125-44-93 21:00:00Colorless (07/25/17 4:00 PM) [facility]annBODY BZWSWI5030-18-69 21:00:00* Test Item Value Reference Range Interpretation Comments Tube Num CSF (test code = Tube Num CSF) 2 1 [facility] HermannVIRAL - DKORPUDW2310-28-63 21:00:00Negative (07/25/17 4:00 PM) [facility]annCARDIAC OVKUOWA9491-29-88 16:40:001.52[facility] HermannIMMUNOLOGY 2017-07-25 16:40:003.2[facility] SruqivtFLIPVUJESD4670-16-90 16:40:00<0.91[facility] HermannSPECIAL LROAESXNU7516-42-48 16:40:006.0[facility] HermannTOXICOLOGY 2017-07-25 16:40:005.1[facility] HermannANEMIA YFBTK7496-55-47 11:46:43863Ndnvpqke HermannCARDIAC MPYJEJI5868-57-17 10:02:53344Iqhghfjq HermannCHEM PANEL 2017-07-25 10:02:73133.0[facility] HermannURINE OYTL9755-27-43 10:02:0075.10 [facility]annURINE YJTU0490-10-44 10:02:75823Jbaykehq HermannHEMATOLOGY 2017-07-25 09:39:0090.5[facility] UcwgmvgHDWXQZHYYB2424-57-30 09:39:00* Test Item Value Reference Range Interpretation Comments MCH (test code = MCH) 30.2 pg 27.0-31.0 [facility] AljysxqVUMKCFUSXL3297-10-82 09:39:0033.3[facility] HermannHEMATOLOGY 2017-07-25 09:39:0014.8[facility] PpzymjjKXBJNUDACG0045-71-29 09:39:0029.6[facility] IadhylqRSWZACIJML2600-63-79 09:39:0010.3[facility] YspdbbtFNGOFUVLRS2046-32-97 09:39:51148Qmsncmsj HbqfvttEJIIUFIGCM9198-88-08 09:39:009.9[facility] OELOUUQYMG5425-71-83 09:39:003.27[facility] QyzfeprRTOJFUJIOL6155-65-14 09:39:00 9.4[facility] WaubkdeOEHMXLFRWK1885-09-93 09:39:000.7[facility] HermannHEMATOLOGY 2017-07-25 09:39:000.1[facility] VzstrprHFHWKKJBGH1358-26-60 09:39:008.0[facility] HguoywgRDPXYZDCYR8473-56-74 09:39:007.8[facility] MzahatfAYRGHSDAPQ8780-46-43 09:39:000.9[facility] UqmmfadVZIXPNXTCD5059-37-28 09:39:000.5[facility] KKJKEIMWYL3314-17-61 09:39:000.3[facility] GautmehFXYXSWVWEV9127-59-74 09:39:005.7 [facility] YutfuwuWYUNHQOGUA5725-88-52 09:39:0085.3[facility] HermannCHEM PANEL 2017-07-24 22:41:581.5[facility] HermannCHEM RDRHD5115-82-44 20:07:003.4[facility] ZcntsbqCCLOEGQPPB6860-50-60 19:26:21<2 (07/24/17 2:26 PM)[facility] HermannCARDIAC HUTNETO0870-15-15 18:29:51173Pqkbmgdf HermannCARDIAC LSJYOFA1413-58-36 18:29:00 11.0[facility] HermannCARDIAC IAVYFUZ3479-72-96 18:29:001.2[facility] HermannCHEM RHRKR8990-52-91 18:29:003.3[facility] HermannCHEM JCGSB9738-25-52 18:29:0015 [facility] HermannCHEM PVVIY3351-08-99 18:29:0035[facility] HermannCHEM PANEL 2017-07-24 18:29:0076[facility] HermannCHEM EGZFA3306-50-63 18:29:003.3[facility] HermannCHEM CNNVT2733-77-65 18:29:001.2[facility] HermannCHEM YEAXO4810-17-21 18:29:000.6[facility] HermannCHEM OKPDN4238-83-72 18:29:004.1[facility] HermannCHEM OAVJE0335-70-36 18:29:007.4[facility] HermannCHEM BDWNQ8161-44-25 18:29:0019 [facility] HermannDRUG AMGTLZ4601-08-86 18:29:00Negative *NA*(07/24/17 1:29 PM) [facility]annDRUG XGUBGV2096-99-15 18:29:00Negative *NA*(07/24/17 1:29 PM) [facility] HermannDRUG BGQYWH9607-24-60 18:29:00Negative *NA*(07/24/17 1:29 PM) [facility]annDRUG DJRXVH9902-93-53 18:29:00Negative *NA*(07/24/17 1:29 PM) [facility] HermannDRUG EVGTIS9516-45-22 18:29:00See Note (07/24/17 1:29 PM) [facility]annDRUG LFXQRU7565-64-97 18:29:00Positive *ABN*(07/24/17 1:29 PM) [facility]annDRUG WSHQNF0734-83-81 18:29:00Negative *NA*(07/24/17 1:29 PM) [facility] HermannDRUG AMPWCY1634-31-66 18:29:00Negative *NA*(07/24/17 1:29 PM) [facility] HermannDRUG BFABBC9107-93-80 18:29:00Negative *NA*(07/24/17 1:29 PM) [facility] HermannDRUG ZAXIGD8955-05-78 18:29:00Negative *NA*(07/24/17 1:29 PM) [facility] KjtuetqXTIJXJXNSC7883-18-49 18:29:00* Test Item Value Reference Range Interpretation Comments PT (test code = PT) 12.5 s 12.0-14.7 [facility] XltqlqvRQXAZIMWMY6555-31-79 18:29:000.91[facility] HermannHEMATOLOGY 2017-07-24 18:29:00* Test Item Value Reference Range Interpretation Comments PTT (test code = PTT) 22.4 s 22.9-35.8 [facility] MihgevkKOHSYCSOLD9461-34-17 18:29:001+ *ABN*(07/24/17 1:29 PM)[facility]annURINE AND BYVAX7516-43-57 18:29:00Trace *ABN*(07/24/17 1:29 PM)[facility]annURINE AND QHKRQ6893-46-06 18:29:00Negative (07/24/17 1:29 PM)[facility]annURINE AND EEMPR1978-10-24 18:29:00Clear (07/24/17 1:29 PM)[facility]annURINE AND KLFWW6654-79-67 18:29:00Yellow *NA*(07/24/17 1:29 PM)[facility]annURINE AND ENIPL2979-83-85 18:29:00Negative (07/24/17 1:29 PM)[facility]annURINE AND EJMRZ7211-45-23 18:29:00* Test Item Value Reference Range Interpretation Comments UA pH (test code = UA pH) 6.0 1 5.0-8.0 [facility]annURINE AND GVOZW4429-01-06 18:29:00* Test Item Value Reference Range Interpretation Comments UA Spec Grav (test code = UA Spec Grav) 1.021 1 [facility]annURINE AND SGQNF5186-10-99 18:29:00Negative *NA*(07/24/17 1:29 PM)[facility]annUR[facility] AND PQJRV5989-46-34 18:29:00Negative (07/24/17 1:29 PM) [facility] AND RTGAC3315-14-12 18:29:000.2[facility]annURINE AND FJMHQ1343-70-70 18:29:00Moderate *ABN*(07/24/17 1:29 PM)[facility]
[2020-03-20] MEDS: SODIUM CHLORIDE 0.9% 1000ML 1,000 ML IV SCH (23:45)
[2020-03-20] MEDS: METRONIDAZOLE 500MG/NS 100ML 100 ML IV SCH (23:45)
[2020-03-21] VITALS (10 sets, daily range): BP systolic 157–174; BP diastolic 45–78
[2020-03-21] MEDS ORDERED: METRONIDAZOLE 500MG/NS 100ML IV SCH
[2020-03-21] MEDS: MORPHINE SULFATE 2 MG/ML SYR 1ML IV PRN ×3 (00:03→16:44)
[2020-03-21] MEDS: ONDANSETRON HCL INJ 2MG/ML 2ML 2 MG/ML VIAL IV PRN ×3 (00:03→16:44)
--- NOTE | 2020-03-21 02:09 | NUR ---
PATIENT RECEIVED FROM [facility]. PATIENT IS AAOX3. RESP EVEN AND UNLABORED. NO ACUTE DISTRESS NOTED. ORIENTED TO ROOM. CALL LIGHT WITHIN REACH. INSTRUCT TO CALL FOR ASSISTANCE. BED LOW/LOCKED. SIDE RAIL UPX2. CONTINUE TO MONITOR CLOSELY
[2020-03-21] MEDS: METRONIDAZOLE 500MG/NS 100ML 100 ML IV SCH ×4 (04:36→20:51)
[2020-03-21] MEDS: SODIUM CHLORIDE 0.9% 1000ML 1,000 ML IV SCH (05:15)
[2020-03-21 06:47] LABS: BASOPHILS # (AUTO) 0.1 (0.0-0.1); BASOPHILS % 0.3 % (0.0-1.0); EOSINOPHILS % 0.1 % (0.0-6.0); HEMATOCRIT 30.8 % (34.2-44.1); HEMOGLOBIN 9.8 g/dL (12.0-16.0); LYMPHOCYTES # (AUTO) 0.5 (1.0-3.2); LYMPHOCYTES % 2.8 % (18.0-39.1); MEAN CORPUSCULAR HEMOGLOBIN 28.9 pg (28-32); MEAN CORPUSCULAR HGB CONC 31.8 g/dL (31-35); MEAN CORPUSCULAR VOLUME 90.9 fL (81-99); MONOCYTES # (AUTO) 1.4 (0.2-0.8); MONOCYTES % 7.6 % (4.4-11.3); NEUTROPHILS # (AUTO) 16.2 (2.1-6.9); NEUTROPHILS % 88.1 % (38.7-80.0); PLATELET COUNT 201 x10e3/uL (140-360); RED BLOOD COUNT 3.39 x10e6/uL (3.6-5.1); RED CELL DISTRIBUTION WIDTH 16.7 % (11.7-14.4)
[2020-03-21 07:03] LABS: ANION GAP 16.3 mmol/L (8-16); CALCIUM 8.3 mg/dL (8.4-10.2); CREATININE, SERUM 1.55 mg/dL (0.57-1.11); POTASSIUM 3.3 mmol/L (3.5-5.1)
--- NOTE | 2020-03-21 07:10 | NUR ---
RCD PT AT BED PT IS ALERT AND ORIENTED RESTING ON BED IV PATENT AND RUNNING 100 ML/HR BED LOW AND LOCKED CALL LIGHT IN REACH
[2020-03-21 07:40] LABS: OCCULT BLOOD STOOL POSITIVE (NEGATIVE)
[2020-03-21] MEDS ORDERED: BACLOFEN 10 MG TAB PO PRN (14:00)
[2020-03-21] MEDS ORDERED: POTASSIUM CHLORIDE 20 MEQ TAB CR PO SCH (14:00)
[2020-03-21 14:09] LABS: C DIFFICILE TOXIN A&B AMP PROB **POSITIVE** (NEGATIVE)
[2020-03-21] MEDS ORDERED: DEXTROSE 50% SYRINGE 50 ML IV PRN (14:15)
[2020-03-21] MEDS: AMLODIPINE BESYLATE 5 MG TAB PO SCH ×2 (14:16→20:50)
--- NOTE | 2020-03-21 14:45 | Diagnostic Imaging Report ---
EXAMINATION: CHEST SINGLE (PORTABLE) INDICATION: Cough COMPARISON: Chest radiograph 10/15/2019 FINDINGS: LINES/TUBES:None LUNGS:The lungs are well-inflated. No focal consolidation or pulmonary edema. PLEURA:No pleural effusion or pneumothorax. MEDIASTINUM:The cardiomediastinal silhouette appears normal in size and shape. BONES/SOFT TISSUES:No acute osseous injury. ABDOMEN:No free air under the diaphragm. IMPRESSION: No focal pneumonia or pulmonary edema. Signed by: Rosemarie Bhagat MD on 03/21/2020 2:41 PM
[2020-03-21] MEDS: INSULIN LISPRO 100 UNIT/1 ML 3ML VIAL SQ SCH ×2 (16:06→21:00)
[2020-03-21] MEDS: VANCOMYCIN 250MG/5ML ORAL SOLN PO SCH (16:44)
[2020-03-21] MEDS ORDERED: AMLODIPINE BESYLATE 5 MG TAB PO SCH (17:00)
--- NOTE | 2020-03-21 18:45 | NUR ---
pt resting on bed bed side report given to oncoming nurse
--- NOTE | 2020-03-21 19:06 | NUR ---
RECEIVED REPORT FROM DAY NURSE. PATIENT IS RESTING IN THE BED. BED IS IN LOWEST POSITION AND CALL LIGHT IS WITHIN REACH. WILL CONTINUE TO MONITOR PATIENT.
[2020-03-21] MEDS: PRAVASTATIN 20 MG TAB PO SCH (20:50)
[2020-03-21] MEDS ORDERED: HYDRALAZINE HCL 20 MG/ML VIAL IV PRN (21:30)
[2020-03-21] MEDS: LORAZEPAM 1 MG TAB PO PRN (21:53)
[2020-03-22] VITALS (7 sets, daily range): BP systolic 149–170; BP diastolic 54–73
[2020-03-22] MEDS: VANCOMYCIN 250MG/5ML ORAL SOLN PO SCH ×4 (00:16→17:30)
[2020-03-22] MEDS: METRONIDAZOLE 500MG/NS 100ML 100 ML IV SCH ×3 (04:14→16:00)
[2020-03-22 06:25] LABS: BASOPHILS # (AUTO) 0.1 (0.0-0.1); BASOPHILS % 0.3 % (0.0-1.0); EOSINOPHILS # (AUTO) 0.2 (0.0-0.4); HEMATOCRIT 30.5 % (34.2-44.1); HEMOGLOBIN 9.7 g/dL (12.0-16.0); LYMPHOCYTES # (AUTO) 0.9 (1.0-3.2); LYMPHOCYTES % 5.7 % (18.0-39.1); MEAN CORPUSCULAR HEMOGLOBIN 28.3 pg (28-32); MEAN CORPUSCULAR HGB CONC 31.8 g/dL (31-35); MEAN CORPUSCULAR VOLUME 88.9 fL (81-99); MONOCYTES % 6.4 % (4.4-11.3); NEUTROPHILS # (AUTO) 13.1 (2.1-6.9); NEUTROPHILS % 85.1 % (38.7-80.0); PLATELET COUNT 246 x10e3/uL (140-360); RED BLOOD COUNT 3.43 x10e6/uL (3.6-5.1); RED CELL DISTRIBUTION WIDTH 16.7 % (11.7-14.4)
--- NOTE | 2020-03-22 06:31 | NUR ---
PATIENT IS RESTING IN THE BED, BED IS IN LOWEST POSITION AND CALL LIGHT IS WITHIN REACH.
[2020-03-22 06:52] LABS: ANION GAP 15.3 mmol/L (8-16); CALCIUM 8.1 mg/dL (8.4-10.2); CREATININE, SERUM 1.33 mg/dL (0.57-1.11); POTASSIUM 3.3 mmol/L (3.5-5.1)
--- NOTE | 2020-03-22 07:05 | NUR ---
RCD PT AT BED PT IS ALERT AND ORIENTED RESTING ON BED IV PATENT BY SALINE FLUSH BED LOW AND LOCKED CALL LIGHT IN REACH
[2020-03-22] MEDS: INSULIN LISPRO 100 UNIT/1 ML 3ML VIAL SQ SCH ×4 (07:30→21:00)
[2020-03-22] MEDS: AMLODIPINE BESYLATE 5 MG TAB PO SCH (09:00)
[2020-03-22] MEDS: ONDANSETRON HCL INJ 2MG/ML 2ML 2 MG/ML VIAL IV PRN (13:10)
[2020-03-22] MEDS: MORPHINE SULFATE 2 MG/ML SYR 1ML IV PRN (13:10)
--- NOTE | 2020-03-22 17:00 | NUR ---
IV INFILTRATED TRIED 2 TIMES AFTER CHARGE NURSE TRIED SHE DIDN'T GET SHE NOTIFIED KATY HE WAS HERE
[2020-03-22] MEDS ORDERED: POTASSIUM CHLORIDE 20 MEQ TAB CR PO NR (18:12)
--- NOTE | 2020-03-22 18:44 | NUR ---
pt resting on bed bed side report given to oncoming nurse
--- NOTE | 2020-03-22 18:55 | NUR ---
RECEIVED REPORT FROM DAY NURSE. PATIENT IS RESTING COMFORTABLY IN THE BED. BED IS IN THE LOWEST POSITION AND CALL LIGHT IS WITHIN REACH. WILL CONTINUE TO MONITOR PATIENT. PATIENT HAS NO IV ACCESS. MOTION PICTURE COMMENTATOR AWARE. AWAITING TO HEAR BACK FROM MOTION PICTURE COMMENTATOR.
[2020-03-22] MEDS: PRAVASTATIN 20 MG TAB PO SCH (22:31)
[2020-03-22] MEDS: NIFEDIPINE 10 MG CAP PO SCH (22:32)
[2020-03-22] MEDS: LORAZEPAM 1 MG TAB PO PRN (22:32)
[2020-03-23] VITALS (8 sets, daily range): BP systolic 150–176; BP diastolic 57–69
--- NOTE | 2020-03-23 00:22 | Diagnostic Imaging Report ---
EXAMINATION: CHEST XRAY LINE PLACEMENT INDICATION: ^PICC PLACEMENT ^[id number] ^[id number] COMPARISON: 03/21/2020 FINDINGS: AP view TUBES and LINES: Right PICC in place with tip projecting over inferior SVC. LUNGS: Lungs are well inflated. There is no evidence of pneumonia or pulmonary edema. Right lower lung field calcified granulomas are again seen. PLEURA: No pleural effusion or pneumothorax. HEART AND MEDIASTINUM: The cardiomediastinal silhouette is enlarged. Aorta is mildly calcified and tortuous. BONES AND SOFT TISSUES: No acute osseous lesion. Soft tissues are unremarkable. UPPER ABDOMEN: No free air under the diaphragm. IMPRESSION: Right PICC in place with tip projecting over inferior SVC. No visible pneumothorax. Signed by: Dr. Virgilio Bynum MD on 03/23/2020 12:19 AM
[2020-03-23] MEDS: METRONIDAZOLE 500MG/NS 100ML 100 ML IV SCH ×5 (00:54→20:58)
[2020-03-23] MEDS: MORPHINE SULFATE 2 MG/ML SYR 1ML IV PRN ×2 (00:54→13:18)
[2020-03-23] MEDS: ONDANSETRON HCL INJ 2MG/ML 2ML 2 MG/ML VIAL IV PRN ×2 (00:54→13:18)
[2020-03-23] MEDS: VANCOMYCIN 250MG/5ML ORAL SOLN PO SCH ×5 (00:54→23:31)
[2020-03-23 04:17] LABS: BASOPHILS # (AUTO) 0.1 (0.0-0.1); BASOPHILS % 0.5 % (0.0-1.0); EOSINOPHILS # (AUTO) 0.2 (0.0-0.4); EOSINOPHILS % 1.5 % (0.0-6.0); HEMATOCRIT 27.8 % (34.2-44.1); HEMOGLOBIN 8.9 g/dL (12.0-16.0); LYMPHOCYTES # (AUTO) 1.4 (1.0-3.2); LYMPHOCYTES % 12.2 % (18.0-39.1); MEAN CORPUSCULAR HEMOGLOBIN 28.7 pg (28-32); MEAN CORPUSCULAR VOLUME 89.7 fL (81-99); MONOCYTES # (AUTO) 0.9 (0.2-0.8); MONOCYTES % 7.7 % (4.4-11.3); NEUTROPHILS # (AUTO) 8.4 (2.1-6.9); NEUTROPHILS % 75.5 % (38.7-80.0); PLATELET COUNT 247 x10e3/uL (140-360); RED CELL DISTRIBUTION WIDTH 16.8 % (11.7-14.4)
[2020-03-23 04:56] LABS: ANION GAP 16.7 mmol/L (8-16); CREATININE, SERUM 1.2 mg/dL (0.57-1.11); MAGNESIUM 1.3 MG/DL (1.3-2.1); POTASSIUM 3.7 mmol/L (3.5-5.1)
[2020-03-23 05:14] LABS: PHOSPHORUS 1.7 MG/DL (2.3-4.7)
--- NOTE | 2020-03-23 06:32 | NUR ---
Met with Talat MURRIETA and discussed pt status and Day 3 OBS. He admitted to inpatient for C-Diff, stating this was her 4th C-Diff episode since October. Addendum: 03/23/20 at 1023 by ALMA RICKS CM CORRECTION: TALAT GUEVARA NP
--- NOTE | 2020-03-23 06:53 | NUR ---
patient is resting comfortably in the bed. bed is in the lowest position and call light is within reach.
--- NOTE | 2020-03-23 07:00 | NUR ---
RCD PT AT BED PT IS ALERT AND ORIENTED RESTING ON BED IV PATENT BY SALINE FLUSH BED LOW AND LOCKED CALL LIGHT IN REACH
[2020-03-23] MEDS: INSULIN LISPRO 100 UNIT/1 ML 3ML VIAL SQ SCH ×4 (07:30→20:50)
[2020-03-23] MEDS: NIFEDIPINE 10 MG CAP PO SCH ×3 (09:00→20:59)
[2020-03-23] MEDS: FAMOTIDINE 20 MG/2 ML VIAL IV SCH ×2 (09:00→16:42)
--- NOTE | 2020-03-23 14:58 | Consultation ---
DATE OF CONSULTATION: REASON FOR CONSULTATION: Recurrent C. difficile. HISTORY OF PRESENT ILLNESS: This patient who is an 80-year-old female, according to her, she had 4 C difficile since October. The patient comes in with diarrhea, not feeling well. Her son at the bedside. She is telling me she tried to get oral vancomycin, but she was told her insurance did not approve it. She said she did not take it and now she is coming with diarrhea. PAST MEDICAL HISTORY: The patient, who does have underlying history of diabetes mellitus, hypertension, chronic back pain, osteoarthritis, history of cholecystectomy, hysterectomy, spine surgery, atrial fibrillation. ALLERGIES: NKA. SOCIAL HISTORY: There is no smoking, drug abuse or alcohol abuse. FAMILY HISTORY: Unremarkable. She used to smoke, but quit 30 years ago. REVIEW OF SYSTEMS: GENERAL: She is just not feeling well. She is very weak. HEENT: There is no headache, visual changes or hearing changes. GI: Nausea and diarrhea. When she first came, her white count was 18.3, came down to 11. Her hemoglobin of 9.8. Her sodium 139, potassium 3.7. Her COVID-19 is negative. MEDICATIONS: When she first came to consultation, she was started on vancomycin and I added IV Flagyl. She says she is feeling better. Review of systems as mentioned above. PHYSICAL EXAMINATION: GENERAL: She is currently alert, oriented, does not seem in acute distress. VITAL SIGNS: Stable. Currently afebrile. HEENT: She is not icteric. NECK: Supple. CHEST: Clear bilateral. HEART: S1 and S2. ABDOMEN: Soft. Bowel sounds present. EXTREMITIES: No edema. SKIN: No rash. ASSESSMENT: Clostridium difficile colitis, recurrent. We will put her on vancomycin 250 p.o. q.6 hours. Discussed with the patient. Discussed with her son. I gave her prescription instructing to get the oral vancomycin as soon as possible and time was secured, we are going to watch her overnight, she will continue IV Flagyl. Continue oral vancomycin, give Pepto-Bismol if need for diarrhea one q.6 hours p.r.n., if she did have diarrhea, can add Questran 2 hours away from oral vancomycin and for dehydration continue IV fluid as noted. We will follow. MD ISIAH Ross/KYLEIGHL /[id number]
--- NOTE | 2020-03-23 18:38 | NUR ---
pt resting on bed bed side report given to oncoming nurse
--- NOTE | 2020-03-23 19:19 | NUR ---
received report from day nurse. patient is resting comfortably in the bed. bed is in the lowest position and call light is within reach. will continue to monitor patient.
[2020-03-23] MEDS: PRAVASTATIN 20 MG TAB PO SCH (20:58)
[2020-03-23] MEDS: LORAZEPAM 1 MG TAB PO PRN (21:14)
[2020-03-24] VITALS (9 sets, daily range): BP systolic 129–173; BP diastolic 51–77
[2020-03-24] MEDS ORDERED: POTASSIUM PHOSPHATE 20 MM in SODIUM CHLORIDE 0.9% 250ML 250 ML IV SCH ×2
[2020-03-24] MEDS ORDERED: MAGNESIUM SULFATE 2GM/50ML 50 ML IV ONE
[2020-03-24] MEDS: MORPHINE SULFATE 2 MG/ML SYR 1ML IV PRN ×3 (01:12→17:20)
[2020-03-24] MEDS: ONDANSETRON HCL INJ 2MG/ML 2ML 2 MG/ML VIAL IV PRN (01:12)
--- NOTE | 2020-03-24 03:29 | Progress Note ---
DATE: 03/23/2020 SUBJECTIVE: No diarrhea stools today. No nausea. She states she ate about 15% to 20% of her meals today. Depression is a bit better today. OBJECTIVE: VITAL SIGNS: Temperature 98.0, heart rate 58, blood pressure 150/64, respirations 20, oxygen saturation 99%. GENERAL: Supine. LUNGS: Clear to auscultation. HEENT: EOMI. NECK: Supple. CARDIOVASCULAR: Irregularly irregular. No murmur. ABDOMEN: No guarding. Soft. Positive bowel sounds. Nontender. EXTREMITIES: No clubbing, cyanosis, or edema. No DVT. NEUROLOGICAL: GCS 15. Nonfocal. Depressed. LABORATORY DATA: WBC 11.11, hemoglobin 8.9, hematocrit 27.8, platelets 247. Sodium 139, potassium 3.7, chloride 107, CO2 of 19, anion gap 16.7, BUN 15 and creatinine 1.2, estimated GFR 43, and glucose 110. Fingersticks 110 and 158, calcium 8.0, phosphorus 1.7. Magnesium 1.3. ASSESSMENT AND PLAN: 1. Recurrent Clostridium difficile colitis with diarrhea. Dr. Noel with Infectious Disease wrote a prescription for vancomycin p.o. for the patient's son, so that he can pick it up from the pharmacy, so she can use it on an outpatient basis. Continue IV Flagyl and p.o. vancomycin in the hospital. 2. Uncontrolled hypertension. Blood pressures remain elevated today at 150/66, 154/62, 163/69, and 176/69. We will increase Procardia dose. Continue p.r.n. IV hydralazine. 3. Controlled type 2 diabetes mellitus. Continue sliding scale insulin. Monitor fingerstick blood glucose before meals and at bedtime. 4. Anxiety and depression. Ativan p.r.n. 5. Chronic back pain p.r.n. baclofen. 6. Acute kidney injury, improving. Avoid fluid volume overload. IV fluids discontinued on 03/21/2020. Monitor creatinine and GFR. 7. Acute hypokalemia. Potassium level improved at 3.7 after 60 mEq of potassium chloride p.o. once yesterday. 8. Acute hypomagnesemia. Magnesium level low at 1.3. We will order 2 g of magnesium sulfate IV. 9. Hypophosphatemia. Phosphorus level low at 1.7. We will order a potassium phosphate. Dictated by Talat Denise, SERVICE CAR OPERATOR MD SASCHA Parnell/VIOLETTE /[id number]
[2020-03-24] MEDS: METRONIDAZOLE 500MG/NS 100ML 100 ML IV SCH ×4 (03:58→22:00)
[2020-03-24 04:24] LABS: BASOPHILS # (AUTO) 0.1 (0.0-0.1); BASOPHILS % 0.6 % (0.0-1.0); EOSINOPHILS # (AUTO) 0.3 (0.0-0.4); EOSINOPHILS % 3.1 % (0.0-6.0); HEMATOCRIT 28.1 % (34.2-44.1); HEMOGLOBIN 8.9 g/dL (12.0-16.0); LYMPHOCYTES # (AUTO) 1.3 (1.0-3.2); LYMPHOCYTES % 12.5 % (18.0-39.1); MEAN CORPUSCULAR HEMOGLOBIN 28.3 pg (28-32); MEAN CORPUSCULAR HGB CONC 31.7 g/dL (31-35); MEAN CORPUSCULAR VOLUME 89.5 fL (81-99); MONOCYTES # (AUTO) 0.9 (0.2-0.8); MONOCYTES % 8.5 % (4.4-11.3); NEUTROPHILS # (AUTO) 7.2 (2.1-6.9); NEUTROPHILS % 71.6 % (38.7-80.0); PLATELET COUNT 239 x10e3/uL (140-360); RED BLOOD COUNT 3.14 x10e6/uL (3.6-5.1)
[2020-03-24] MEDS: VANCOMYCIN 250MG/5ML ORAL SOLN PO SCH ×3 (04:40→17:20)
[2020-03-24 04:42] LABS: ANION GAP 14.7 mmol/L (8-16); CALCIUM 7.9 mg/dL (8.4-10.2); CREATININE, SERUM 1.26 mg/dL (0.57-1.11); MAGNESIUM 1.7 MG/DL (1.3-2.1); PHOSPHORUS 1.9 MG/DL (2.3-4.7); POTASSIUM 3.7 mmol/L (3.5-5.1)
--- NOTE | 2020-03-24 07:00 | NUR ---
report given to day nurse. patient is resting comfortably in the bed. bed is in the lowest position and call light is within reach.
[2020-03-24] MEDS: INSULIN LISPRO 100 UNIT/1 ML 3ML VIAL SQ SCH ×4 (07:30→21:00)
[2020-03-24] MEDS: FAMOTIDINE 20 MG/2 ML VIAL IV SCH ×2 (08:19→17:20)
[2020-03-24] MEDS: NIFEDIPINE 10 MG CAP PO SCH ×3 (08:19→20:53)
--- NOTE | 2020-03-24 12:48 | Progress Note ---
DATE: SUBJECTIVE: The patient is seen and evaluated. Available labs and notes reviewed. Discussed with Dr. Noel. Please refer to chart for more information. REVIEW OF SYSTEMS: Diarrhea, resolved. No nausea, vomiting, fever, chills, chest pain, shortness of breath, headache, rash, dysuria, or polyuria. PHYSICAL EXAMINATION: VITAL SIGNS: Temperature 98.6, pulse 43, respiration 20, and blood pressure 138/76. GENERAL: Alert and oriented, in no acute distress. CV: S1, S2. CHEST: Equal expansion. Clear to auscultation. No acute distress. ABDOMEN: Soft, nontender. No distention. EXTREMITIES: No obvious acute finding, no edema. MEDICATIONS: As far as Infectious Disease point of view, the patient is on Flagyl IV and vancomycin p.o. LABORATORY STUDIES: White count improved to 10.01, hemoglobin 8.9, platelet 239. Sodium 138, potassium 3.7, creatinine 1.26. SEROLOGY: C diff positive on 03/21/2020. Coronavirus PCR not detected on 03/20/2020. MICROBIOLOGY: No new microbiology studies available. RADIOLOGY STUDIES: The patient is status post PICC line placement. ASSESSMENT AND PLAN: 1. Clostridium difficile. 2. Diarrhea-resolved. 3. Anxiety. 4. Depression. 5. Chronic back pain. 6. Chronic kidney injury. 7. Electrolyte abnormalities. 8. Continue vancomycin p.o. and Flagyl IV. Continue to monitor the patient clinically. Follow with the labs. Further management of this patient is based on daily findings on laboratory and physical examination. Dictated by Wade Escobedo PA-C (Al) Romulo Noel MD /MODL /[id number]
[2020-03-24] MEDS: LORAZEPAM 1 MG TAB PO PRN (20:52)
[2020-03-24] MEDS: PRAVASTATIN 20 MG TAB PO SCH (20:53)
--- NOTE | 2020-03-25 00:31 | Progress Note ---
DATE: CONSULTING PHYSICIAN: Romulo Noel MD SUBJECTIVE: The patient is lying supine in bed. States she has had no diarrhea today. She was able eat 45% to 50% of her meals. Otherwise, no complaints. PHYSICAL EXAMINATION: VITAL SIGNS: Temperature 98.3, heart rate 69, blood pressure 173/57 this morning and 150/61 this evening, respirations 19, oxygen saturation 98% on room air. LUNGS: Clear to auscultation. HEENT: EOMI. NECK: Supple. CARDIOVASCULAR: Rhythm irregularly irregular. No murmur. ABDOMEN: Bowel sounds positive. Soft, nontender. No guarding. EXTREMITIES: No clubbing, cyanosis, or edema. No DVT. NEUROLOGIC: GCS 15, nonfocal, depressed. LABORATORY DATA: WBC 10.01, hemoglobin 8.9, hematocrit 28.1, platelets 239. Sodium 138, potassium 3.7, chloride 106, CO2 of 21, anion gap 14.7. BUN 14, creatinine 1.26, estimated GFR 41, glucose 112. Fingerstick blood glucose levels 121, 184, 189. Calcium 7.9, phosphorus 1.9, magnesium 1.7. Stool for occult blood was positive on 03/21/2020. ASSESSMENT AND PLAN: 1. Recurrent Clostridium difficile colitis with diarrhea. P.o. vancomycin prescription written by Dr. Noel, was given to the patient's son and according to the patient, this will be ready tomorrow on Tuesday, so that she can use it on an outpatient basis. For now, continue IV Flagyl and p.o. vancomycin in the hospital as per ID recs. 2. Uncontrolled hypertension, 150/61 this evening on increased Procardia dose. Continue this for now. 3. Controlled type 2 diabetes mellitus. Continue sliding scale insulin. Monitor fingerstick blood glucose levels before meals and at bedtime. 4. Anxiety and depression. Ativan p.r.n. 5. Chronic back pain. Continue baclofen p.r.n. 6. Acute kidney injury, improving. Avoid fluid volume overload. Creatinine 1.26. Monitor. 7. Acute hypokalemia. Potassium 3.7. 8. Acute hypomagnesemia. Magnesium level 1.7 (1.3). 2 g of magnesium sulfate IV once today. 9. Hypophosphatemia. Phosphorus 1.9. Potassium phosphate 20 mmol IV once today. 10. Prophylaxis. Pepcid. Rogers code, 59469. Time spent 35 minutes. Dictated by Talat Denise, VIDEO GAME ANIMATOR MD SASCHA Parnell/MODL /[id number]
[2020-03-25 05:21] VITALS: BP 162/63
[2020-03-25] MEDS: METRONIDAZOLE 500MG/NS 100ML 100 ML IV SCH ×2 (05:31→08:07)
[2020-03-25] MEDS: VANCOMYCIN 250MG/5ML ORAL SOLN PO SCH ×3 (05:32→13:01)
[2020-03-25 06:12] LABS: BASOPHILS # (AUTO) 0.1 (0.0-0.1); BASOPHILS % 0.5 % (0.0-1.0); EOSINOPHILS # (AUTO) 0.4 (0.0-0.4); EOSINOPHILS % 4.1 % (0.0-6.0); HEMATOCRIT 28.9 % (34.2-44.1); HEMOGLOBIN 9.3 g/dL (12.0-16.0); LYMPHOCYTES # (AUTO) 1.3 (1.0-3.2); LYMPHOCYTES % 13.3 % (18.0-39.1); MEAN CORPUSCULAR HEMOGLOBIN 29.2 pg (28-32); MEAN CORPUSCULAR HGB CONC 32.2 g/dL (31-35); MEAN CORPUSCULAR VOLUME 90.6 fL (81-99); MONOCYTES # (AUTO) 0.7 (0.2-0.8); MONOCYTES % 7.5 % (4.4-11.3); NEUTROPHILS # (AUTO) 6.6 (2.1-6.9); NEUTROPHILS % 69.7 % (38.7-80.0); PLATELET COUNT 243 x10e3/uL (140-360); RED BLOOD COUNT 3.19 x10e6/uL (3.6-5.1)
[2020-03-25] MEDS: HYDRALAZINE HCL 10 MG TAB PO SCH ×2 (06:26→13:30)
[2020-03-25 06:37] LABS: ANION GAP 11.9 mmol/L (8-16); CALCIUM 7.6 mg/dL (8.4-10.2); CREATININE, SERUM 1.24 mg/dL (0.57-1.11); MAGNESIUM 1.5 MG/DL (1.3-2.1); POTASSIUM 3.9 mmol/L (3.5-5.1)
[2020-03-25 07:18] VITALS: BP 162/63
[2020-03-25] MEDS: INSULIN LISPRO 100 UNIT/1 ML 3ML VIAL SQ SCH ×2 (07:30→12:00)
[2020-03-25 07:57] VITALS: BP 143/52
[2020-03-25] MEDS: FAMOTIDINE 20 MG/2 ML VIAL IV SCH (08:05)
[2020-03-25] MEDS: NIFEDIPINE 10 MG CAP PO SCH (08:07)
[2020-03-25] MEDS: MORPHINE SULFATE 2 MG/ML SYR 1ML IV PRN (08:08)
[2020-03-25] MEDS ORDERED: MAGNESIUM SULF IV ONE (10:15)
[2020-03-25] MEDS ORDERED: [UNRECOGNIZED DRUG - OTHER] IV ONE (10:15)
--- NOTE | 2020-03-25 10:39 | Progress Note ---
DATE: SUBJECTIVE: The patient is seen and evaluated. Available labs and notes reviewed. Discussed with Dr. Noel. Please refer to chart for more information. REVIEW OF SYSTEMS: Diarrhea resolved for the past couple of days. No nausea, vomiting, fever, chills, chest pain, shortness of breath, headache, rash, or dysuria. MEDICATIONS/ANTIBIOTICS: From ID point of view, the patient is on Flagyl IV and vancomycin p.o. LABORATORY STUDIES: White count of 9.42, improved from 18.35; hemoglobin 9.2, and platelet 243. Sodium 138, potassium 3.9, creatinine 1.24. SEROLOGY: C diff positive. Coronavirus PCR negative on 03/20/2020. IMAGING: No new radiology studies available. PHYSICAL EXAMINATION: GENERAL: Alert and oriented, no acute distress. CV: S1, S2. CHEST: Equal expansion. Clear to auscultation. No acute distress. ABDOMEN: Soft, nontender. No distention. HEENT: Moist. No pallor. No JVD. EXTREMITIES: No acute findings, without edema or cyanosis or clubbing. ASSESSMENT AND PLAN: 1. Clostridium difficile-recurrent. 2. Diarrhea, resolved for the past couple of days. 3. Hypertension. 4. Diabetes mellitus type 2. 5. Chronic back pain. 6. Acute kidney injury. Creatinine as above. 7. Electrolyte abnormalities. 8. Anxiety. 9. Depression. 10. The patient remains on vancomycin p.o., Flagyl IV. Continue to monitor the patient clinically. Follow with the labs. Discharge planning noted. Please refer to chart for more information. Discussed with Dr. Noel. Dictated by Wade Escobedo PA-C (Al) Romulo Noel MD /MODL /[id number]
[2020-03-25] MEDS ORDERED: MAGNESIUM SULF 1GRAM/DEXTROSE 300 ML IV ONE (11:00)
[2020-03-25 11:37] VITALS: BP 145/64
[2020-03-25] MEDS ORDERED: VANCOCIN HCL250 MG PO (12:25)
[2020-03-25 15:42] VITALS: BP 167/72
--- NOTE | 2020-03-27 02:23 | Discharge Summary ---
PRIMARY CARE PHYSICIAN: Clemente David DO. HOSPITAL COURSE: This 80-year-old female with past medical history of hypertension, diabetes, anxiety, depression, who presented to the emergency department with complaints of diarrhea and nausea. Stool sample was collected and C difficile report was pending. The patient reported diarrhea twice on the day of admission. ADMITTING DIAGNOSES: 1. Diarrhea, possible Clostridium difficile. 2. Uncontrolled hypertension. 3. Type 2 diabetes mellitus. 4. Anxiety and depression. 5. Chronic back pain. 6. Hypocalcemia. Per my discussions with the patient, she reported that this was the fourth episode of C difficile colitis with her since October. Thus, if this is true, she had recurrent C difficile colitis with diarrhea. Infectious Disease was consulted and the patient was on IV Flagyl. Oral vancomycin was started in conjunction with that. The patient began to improve, had no diarrhea stools, able to eat 45-50% of her meals. Dr. Noel wrote a prescription for vancomycin p.o. for the patient's son that he could pick it up from the pharmacy prior to her discharge. FINAL DISCHARGE DIAGNOSES: 1. Recurrent Clostridium difficile colitis with diarrhea. 2. Uncontrolled hypertension. 3. Controlled type 2 diabetes mellitus. 4. Anxiety and depression. 5. Chronic back pain. 6. Acute kidney injury, improving. 7. Acute hypokalemia. 8. Acute hypomagnesemia. 9. Hypophosphatemia. The patient will be discharged home on ADA diet. Activity as tolerated. Follow up with PCP, Dr. Clemente David in 1-2 weeks. Follow up with consultants as directed. Also note, vancomycin given for 3 weeks. Dictated by Talat Denise NP Herbert De La Rosa MD HWP/MODL /[id number]
== END 2020-03-25 16:14 | disposition home or self-care (01) | DRG 372 ==
LOC: FSED 19:25 → ERHOLD 21:08 → MED/SURG2 23:25 → OBSVTOIN 03-23 06:34
PROVIDERS: ADMIT Internal Medicine; ATTEND Internal Medicine
PROC: 02HV33Z Insertion of Infusion Device into Superior Vena Cava, Percutaneous Approach (ICD-10-PCS; principal; 2020-03-22)
DX: A04.71 Enterocolitis due to Clostridium difficile, recurrent (principal); N17.9 Acute kidney failure, unspecified; I10 Essential (primary) hypertension; G89.29 Other chronic pain; M54.9 Dorsalgia, unspecified; E87.6 Hypokalemia; E83.39 Other disorders of phosphorus metabolism; E83.42 Hypomagnesemia; F41.9 Anxiety disorder, unspecified; F32.9 Major depressive disorder, single episode, unspecified; E83.51 Hypocalcemia; Z11.59 Encounter for screening for other viral diseases; E87.8 Other disorders of electrolyte and fluid balance, not elsewhere classified; E11.9 Type 2 diabetes mellitus without complications
CPT/HCPCS: 36415; 36569; 71045; 74019; 80048; 82270; 82948; 83735; 84100; 85025; 87493; 87635; 99284; G0378; J2270; J2405; J3475; J7030; J7050

== ENCOUNTER 2022-02-24 16:13 | Emergency (ER) | payer MEDICARE, BC ==
[~2022-02-24] VITALS: Ht 170.2 cm; Wt 89.8 kg
[~2022-02-24 16:13] MED LIST changes: +VANCOCIN HCL250 MG PO
== END 2022-02-24 17:02 | disposition home or self-care (01) ==
LOC: FSED 16:44
DX: I10 Essential (primary) hypertension (principal); E11.8 Type 2 diabetes mellitus with unspecified complications; J44.9 Chronic obstructive pulmonary disease, unspecified; F41.9 Anxiety disorder, unspecified; G47.00 Insomnia, unspecified
CPT/HCPCS: 93005; 99283

== ENCOUNTER 2022-03-12 14:13 | Inpatient (IN) | payer MEDICARE, BC ==
[~2022-03-12] VITALS: Ht 162.6 cm; Wt 90.7 kg
[2022-03-12] MEDS ORDERED: CLONIDINE HCL 0.1 MG TAB PO ONE (16:00)
[2022-03-12] MEDS ORDERED: CLONIDINE HCL 0.1 MG TAB ONE ×2 (16:00→16:52)
[2022-03-12] MEDS ORDERED: SODIUM CHLORIDE FLUSH 10 ML SYR INJ PRN (16:30)
[2022-03-12] MEDS ORDERED: CEFTRIAXONE 1 GM VIAL ONE (16:43)
[2022-03-12] MEDS ORDERED: CLONIDINE HCL 0.1 MG/24 HR 1 EA PATCH TOP ONE (16:45)
[2022-03-12] MEDS: LABETALOL HCL 5 MG/ML 20ML VIAL IV PRN (17:57)
[2022-03-12] MEDS ORDERED: LABETALOL HCL 20 ML ONE (17:59)
[2022-03-12 20:43] VITALS: BP 198/87
[2022-03-12] MEDS: ACETAMINOPHEN 325 MG TAB PO PRN (21:25)
[2022-03-12] MEDS: NIFEDIPINE CR 30 MG TAB PO SCH (22:00)
[2022-03-12] MEDS: LABETALOL HCL 100 MG TAB PO SCH (22:00)
[2022-03-12 22:14] VITALS: BP 161/97
[2022-03-12 23:24] VITALS: BP 151/90
[2022-03-13] VITALS (8 sets, daily range): BP systolic 156–196; BP diastolic 53–101
[2022-03-13] MEDS: LABETALOL HCL 5 MG/ML 20ML VIAL IV PRN ×2 (01:23→08:36)
[2022-03-13 07:04] LABS: BASOPHILS % 0.1 % (0.0-1.0); EOSINOPHILS % 0.3 % (0.0-6.0); HEMATOCRIT 31.7 % (34.2-44.1); HEMOGLOBIN 10.2 g/dL (12.0-16.0); LYMPHOCYTES # (AUTO) 0.9 (1.0-3.2); LYMPHOCYTES % 8.9 % (18.0-39.1); MEAN CORPUSCULAR HEMOGLOBIN 30.3 pg (28-32); MEAN CORPUSCULAR HGB CONC 32.2 g/dL (31-35); MEAN CORPUSCULAR VOLUME 94.1 fL (81-99); MONOCYTES # (AUTO) 0.9 (0.2-0.8); MONOCYTES % 9.1 % (4.4-11.3); NEUTROPHILS # (AUTO) 7.8 (2.1-6.9); NEUTROPHILS % 80.4 % (38.7-80.0); PLATELET COUNT 183 x10e3/uL (140-360); RED BLOOD COUNT 3.37 x10e6/uL (3.6-5.1); RED CELL DISTRIBUTION WIDTH 14.8 % (11.7-14.4)
[2022-03-13 07:27] LABS: ANION GAP 17.6 mmol/L (8-16); CALCIUM 8.4 mg/dL (8.4-10.2); CREATININE, SERUM 2.25 mg/dL (0.57-1.11); POTASSIUM 3.6 mmol/L (3.5-5.1)
[2022-03-13 07:55] LABS: CHOL/HDL RATIO 3.9 (3.0-3.6)
[2022-03-13] MEDS: PANTOPRAZOLE SOD 40 MG TABEC PO SCH (08:00)
[2022-03-13] MEDS: ONDANSETRON HCL INJ 2MG/ML 2ML 2 MG/ML VIAL IV PRN (08:00)
[2022-03-13] MEDS: SERTRALINE HCL 100 MG TAB PO SCH (08:36)
[2022-03-13] MEDS: NIFEDIPINE CR 30 MG TAB PO SCH ×2 (09:00→21:00)
[2022-03-13] MEDS ORDERED: LORAZEPAM 1 MG TAB PO SCH (09:00)
[2022-03-13] MEDS: PRAVASTATIN 20 MG TAB PO SCH (10:00)
[2022-03-13] MEDS: HYDRALAZINE HCL 25 MG TAB PO SCH ×2 (10:06→17:34)
[2022-03-13] MEDS: LABETALOL HCL 100 MG TAB PO SCH (10:09)
[2022-03-13] MEDS ORDERED: NIFEDIPINE CR 30 MG TAB PO ONE (11:00)
[2022-03-13] MEDS ORDERED: LABETALOL HCL 100 MG TAB PO ONE ×2 (11:30→23:30)
[2022-03-13] MEDS ORDERED: ENOXAPARIN SOD INJ 40 MG/0.4 ML SYR SC SCH (17:00)
[2022-03-13] MEDS ORDERED: LABETALOL HCL 100 MG TAB PO SCH (21:00)
[2022-03-13] MEDS: ACETAMINOPHEN 325 MG TAB PO PRN (21:30)
[2022-03-14] VITALS (7 sets, daily range): BP systolic 104–158; BP diastolic 52–67
[2022-03-14 06:46] LABS: BASOPHILS % 0.3 % (0.0-1.0); EOSINOPHILS # (AUTO) 0.2 (0.0-0.4); EOSINOPHILS % 2.2 % (0.0-6.0); HEMATOCRIT 33.7 % (34.2-44.1); HEMOGLOBIN 10.6 g/dL (12.0-16.0); LYMPHOCYTES % 10.8 % (18.0-39.1); MEAN CORPUSCULAR HEMOGLOBIN 30.4 pg (28-32); MEAN CORPUSCULAR HGB CONC 31.5 g/dL (31-35); MEAN CORPUSCULAR VOLUME 96.6 fL (81-99); MONOCYTES # (AUTO) 0.7 (0.2-0.8); MONOCYTES % 7.8 % (4.4-11.3); NEUTROPHILS # (AUTO) 6.9 (2.1-6.9); PLATELET COUNT 168 x10e3/uL (140-360); RED BLOOD COUNT 3.49 x10e6/uL (3.6-5.1)
[2022-03-14 07:20] LABS: ANION GAP 15.8 mmol/L (8-16); CALCIUM 8.1 mg/dL (8.4-10.2); CREATININE, SERUM 2.03 mg/dL (0.57-1.11); POTASSIUM 3.8 mmol/L (3.5-5.1)
[2022-03-14] MEDS: HYDRALAZINE HCL 25 MG TAB PO SCH ×2 (08:03→17:03)
[2022-03-14] MEDS: LABETALOL HCL 100 MG TAB PO SCH ×2 (08:03→20:42)
[2022-03-14] MEDS: NIFEDIPINE CR 30 MG TAB PO SCH ×2 (08:03→20:41)
[2022-03-14] MEDS: PRAVASTATIN 20 MG TAB PO SCH (08:03)
[2022-03-14] MEDS: PANTOPRAZOLE SOD 40 MG TABEC PO SCH (08:03)
[2022-03-14] MEDS: SERTRALINE HCL 100 MG TAB PO SCH (08:03)
[2022-03-14] MEDS ORDERED: ENOXAPARIN 30 MG/0.3 ML SYR SC SCH (17:00)
[2022-03-14] MEDS: ACETAMINOPHEN 325 MG TAB PO PRN (17:03)
[2022-03-14] MEDS: ONDANSETRON HCL INJ 2MG/ML 2ML 2 MG/ML VIAL IV PRN (17:09)
[2022-03-14] MEDS ORDERED: LORAZEPAM 1 MG TAB PO SCH (21:00)
[2022-03-14] MEDS ORDERED: NIFEDIPINE CR 30 MG TAB PO ONE (22:30)
[2022-03-14] MEDS ORDERED: NIFEDIPINE ER30 M1 PO (22:32)
[2022-03-14] MEDS ORDERED: LABETALOL HCL100 MG PO (22:32)
[2022-03-15] VITALS (7 sets, daily range): BP systolic 120–174; BP diastolic 58–83
[2022-03-15] MEDS: SERTRALINE HCL 100 MG TAB PO SCH (08:02)
[2022-03-15] MEDS: PRAVASTATIN 20 MG TAB PO SCH (08:02)
[2022-03-15] MEDS: HYDRALAZINE HCL 25 MG TAB PO SCH (08:02)
[2022-03-15] MEDS: LABETALOL HCL 100 MG TAB PO SCH (08:02)
[2022-03-15] MEDS: PANTOPRAZOLE SOD 40 MG TABEC PO SCH (08:02)
[2022-03-15] MEDS ORDERED: NIFEDIPINE CR 30 MG TAB PO SCH (09:00)
[2022-03-15] MEDS: ACETAMINOPHEN 325 MG TAB PO PRN (10:30)
[2022-03-15] MEDS: LABETALOL HCL 5 MG/ML 20ML VIAL IV PRN (10:38)
[2022-03-15] MEDS ORDERED: HYDRALAZINE HCL 20 MG/ML VIAL IV ONE (12:15)
[2022-03-15] MEDS ORDERED: ONDANSETRON HCL 4 MG ORAL DISINTEGRATING TAB PO PRN (13:15)
== END 2022-03-15 14:37 | disposition home or self-care (01) | DRG 305 ==
LOC: FSED 14:42 → ERHOLD 16:27 → MED/SURG2 18:41
PROVIDERS: ADMIT Internal Medicine; ATTEND Internal Medicine
DX: I16.1 Hypertensive emergency (principal); I67.4 Hypertensive encephalopathy; N18.4 Chronic kidney disease, stage 4 (severe); E11.22 Type 2 diabetes mellitus with diabetic chronic kidney disease; I12.9 Hypertensive chronic kidney disease with stage 1 through stage 4 chronic kidney disease, or unspecified chronic kidney disease; Z79.4 Long term (current) use of insulin; I48.91 Unspecified atrial fibrillation; Z79.01 Long term (current) use of anticoagulants; Z79.899 Other long term (current) drug therapy; Z20.822 Contact with and (suspected) exposure to COVID-19; F41.9 Anxiety disorder, unspecified; F32.A Depression, unspecified
CPT/HCPCS: 36415; 70450; 80048; 80053; 80061; 81003; 82553; 82948; 83036; 83605; 83615; 83880; 84484; 85025; 87040; 87086; 93005; 94799; 97139; 99284; J0360; J0696; J1650; J2405

== ENCOUNTER 2022-07-24 11:22 | Emergency (ER) | payer MEDICARE, BC, OTHER ==
[~2022-07-24] VITALS: Ht 162.6 cm; Wt 90.7 kg
[~2022-07-24 11:22] MED LIST changes: +LABETALOL HCL100 MG PO; +NIFEDIPINE ER30 M1 PO
[2022-07-24] MEDS ORDERED: SODIUM CHLORIDE FLUSH 10 ML SYR INJ PRN (11:30)
[2022-07-24] MEDS ORDERED: ACETAMINOPHEN 325 MG TAB PO ONE (11:45)
[2022-07-24 11:56] LABS: BASOPHILS % 0.5 % (0.0-1.0); EOSINOPHILS # (AUTO) 0.1 (0.0-0.4); HEMATOCRIT 24.7 % (34.2-44.1); HEMOGLOBIN 7.6 g/dL (12.0-16.0); LYMPHOCYTES # (AUTO) 0.6 (1.0-3.2); LYMPHOCYTES % 10.7 % (18.0-39.1); MEAN CORPUSCULAR HEMOGLOBIN 30.6 pg (28-32); MEAN CORPUSCULAR HGB CONC 30.8 g/dL (31-35); MEAN CORPUSCULAR VOLUME 99.6 fL (81-99); MONOCYTES # (AUTO) 0.7 (0.2-0.8); MONOCYTES % 11.1 % (4.4-11.3); NEUTROPHILS # (AUTO) 4.4 (2.1-6.9); NEUTROPHILS % 75.5 % (38.7-80.0); PLATELET COUNT 172 x10e3/uL (140-360); RED BLOOD COUNT 2.48 x10e6/uL (3.6-5.1); RED CELL DISTRIBUTION WIDTH 16.4 % (11.7-14.4)
[2022-07-24 12:06] LABS: INR 0.89; PROTHROMBIN TIME 12.9 seconds (11.9-14.5)
[2022-07-24 12:15] LABS: ALBUMIN 2.5 g/dL (3.5-5.0); ANION GAP 14.7 mmol/L (8-16); CALCIUM 8.5 mg/dL (8.4-10.2); CREATININE, SERUM 1.64 mg/dL (0.57-1.11); POTASSIUM 4.7 mmol/L (3.5-5.1)
[2022-07-24 12:23] LABS: CLARITY,URINE CLOUDY (CLEAR); COLOR,URINE YELLOW (YELLOW)
[2022-07-24 12:24] LABS: KETONES,URINE NEGATIVE (NEGATIVE); LEUKOCYTE ESTERASE ,URINE 1+ (NEGATIVE); NITRITE,URINE NEGATIVE (NEGATIVE); PROTEIN,URINE DIPSTICK NEGATIVE (NEGATIVE); URINE UROBILINOGEN 0.2 mg/dL (0.2 - 1)
[2022-07-24 12:35] LABS: BACTERIA,URINE MANY /HPF; EPITHELIAL CELLS,URINE MODERATE /LPF; HYALINE CASTS 0-1 (0-1); TRANSITIONAL EPI CELLS,URINE FEW; WBC,URINE (MAN) 21-50 /HPF (0-5)
[2022-07-24] MEDS ORDERED: MACROBID 100 M100 MG PO (13:37)
== END 2022-07-24 14:54 | disposition home or self-care (01) ==
LOC: ER 11:27
DX: S00.83XA Contusion of other part of head, initial encounter (principal); M25.511 Pain in right shoulder; M25.562 Pain in left knee; M25.561 Pain in right knee; W06.XXXA Fall from bed, initial encounter; Y93.84 Activity, sleeping; Y92.89 Other specified places as the place of occurrence of the external cause; I10 Essential (primary) hypertension; E11.9 Type 2 diabetes mellitus without complications; G47.00 Insomnia, unspecified; R94.31 Abnormal electrocardiogram [ECG] [EKG]
CPT/HCPCS: 36415; 70450; 71045; 72125; 72170; 80053; 81001; 85025; 85610; 87086; 87186; 93005; 94760; 99285